=== PATIENT | female | born 1960 ===

== ENCOUNTER 2020-10-23 18:32 | Emergency (ER) | payer MEDICAID, SELFPAY ==
--- NOTE | 2020-10-23 | ECG_ITS ---
Test Reason : CP Blood Pressure : / mmHG Vent. Rate : 085 BPM Atrial Rate : 085 BPM P-R Int : 150 ms QRS Dur : 070 ms QT Int : 362 ms P-R-T Axes : 065 029 059 degrees QTc Int : 430 ms Normal sinus rhythm Normal ECG When compared with ECG of 16-MAY-2019 12:41, No significant change was found Referred By: Generic ED Physician Electronically Signed By:RISHI MENEZES
--- NOTE | ~2020-10-23 | XR_ITS ---
EXAMINATION: XR CHEST CLINICAL INFORMATION: Chest pain. COMPARISON: 02/06/2019 TECHNIQUE: Frontal view of the chest was obtained. FINDINGS: The heart and pulmonary vessels appear normal. There is a new area of patchy infiltrate present at the left lung base in the retrocardiac region. No pleural effusions are seen. No evidence of CHF. XR/XR chest 1V IMPRESSION: New left lower lobe infiltrate.
[2020-10-23 18:41] VITALS: BP 106/82; BP 120/67; PULSE 85; PULSE 92; RESP 16; TEMP 36.8; O2SAT 97; BMI 25.9
[2020-10-23 19:34] LABS: MANUAL DIFF FLAG NO
[2020-10-23 19:36] LABS: Basophils Percent Auto 0.3 % (0-2); Eosinophils Absolute Auto 0.1 X10*3/uL (0.0-0.4); Hematocrit 36.5 % (37-47); Hemoglobin 11.5 g/dl (12.0-16.0); Imm Gran Abs Auto 0.01 X10*3/uL (0.00-0.03); Imm Gran Pct Auto 0.2 % (0.0-0.4); Lymphocytes Absolute Auto 2.1 X10*3/uL (1.2-4.9); Lymphocytes Percent Auto 31.5 % (20-40); Mean Corpuscular HGB Conc 31.5 g/dl (31.0-35.0); Mean Corpuscular Hemoglobin 28.5 pg (27.0-33.0); Mean Corpuscular Volume 90.3 fL (80-98); Mean Platelet Volume 10.3 fL (9.4-12.3); Monocytes Absolute Auto 0.5 X10*3/uL (0.1-1.2); Monocytes Percent Auto 7.5 % (2-11); Neutrophils Absolute Auto 3.8 X10*3/uL (2.0-8.3); Neutrophils Percent Auto 58.5 % (45-73); Platelet Count 178 X10*3/uL (160-400); Red Blood Count 4.04 X10*6/uL (4.20-5.50); Red Cell Distribution Width 13.2 % (11.0-16.0); White Blood Count 6.5 X10*3/uL (4.8-10.8)
[2020-10-23 19:53] LABS: INTERNATIONAL NORM RATIO 1.1 (0.9-1.1); Prothrombin Time 12.5 SEC (10.8-13.0)
[2020-10-23 19:55] LABS: Partial Thromboplastin Time 32.4 SEC (24.1-38.0)
[2020-10-23 20:00] VITALS: BP 126/90; PULSE 77; RESP 20; O2SAT 100
[2020-10-23 20:03] LABS: Troponin-I High Sensitivity < 3.5 ng/L (<3.5-17.0)
[2020-10-23 20:07] LABS: Alanine Aminotransferase 9 U/L (0-31); Albumin Level 3.9 g/dL (3.5-5.0); Alkaline Phosphatase 62 U/L (39-117); Anion Gap 9 (12-20); Aspartate Amino Transferase 15 U/L (5-31); Bilirubin Total 0.5 mg/dL (0.0-1.0); Blood Urea Nitrogen 13 mg/dL (9-16); Calcium 8.8 mg/dL (8.4-10.2); Carbon Dioxide 32 mmol/L (22-29); Chloride 105 mmol/L (96-108); Creatinine Clr Calc Pharmacy 76.6; Estimated Glomerular Filt Rate > 60; Glucose Random 114 mg/dL (60-115); Potassium 4.4 mmol/L (3.3-5.1); Sodium 142 mmol/L (135-145); Total Protein 6.8 g/dL (6.5-8.0)
[2020-10-23 20:11] VITALS: PULSE 77
[2020-10-23 20:15] LABS: Influenza A PCR NEGATIVE (Negative); Influenza B PCR NEGATIVE (Negative); Resp Syncy Virus RNA Qual PCR NEGATIVE (Negative); SARS COV2 PCR INHOUSE POSITIVE (Negative)
--- NOTE | 2020-10-23 20:34 | ED.CHESTPAIN ---
HPI - Chest Pain General Chief Complaint: Chest Pain Stated Complaint: CHEST PAIN Time Seen by Provider: 10/23/20 18:47 Source: EMS Mode of arrival: EMS Limitations: language barrier (contract loader present for all interactions) History of Present Illness HPI narrative: Pleasant 60-year-old female presenting via EMS from home with history that is significant for bipolar disorder, diabetes, migraine headaches, gastroesophageal reflux disease, hypertension, anxiety, UTI and denies any cardiac history presenting with complaint of left-sided chest wall pain which radiates left arm and worsen with movement of the left arm and palpitation of the left-sided chest. States has had increase in ADLs and more active unsure if this is related. She was given 324 aspirin and 0.4 mg sublingual nitro by EMS without affect. She otherwise denies any recent illness, headache, dizziness, shortness of breath, cough, lower extremity swelling, recent travel or sick contacts. MD complaint: chest pain Onset (ago): day(s) (1) Timing of current episode: episodic and still present Prior episodes: Yes Onset: other (With movement of the left arm and pelvis initially chest) Pain location: left chest Pain radiation: left arm Severity: moderate Quality: aching Relieving factors: remaining still Exacerbating factors: palpation and movement Treatment prior to arrival: aspirin and nitroglycerin Risk Factors Coronary artery disease risk factors: none Thoracic aortic dissection risk factors: none Related Data On Oral Contraceptives: No Previous Rx's Medication Instructions Recorded doxycycline monohydrate 100 mg PO BID 10 Days #20 cap 10/23/20 Allergies Allergy/AdvReac Type Severity Reaction Status Date / Time naproxen [NAPROXEN] Allergy Severe UNKNOWN Verified 10/23/20 18:46 Review of Systems Review of Systems: Constitutional: No Weight loss, No Fever, No Chills, No Night Sweats, No Fatigue, No Malaise ENT/Mouth: No Hearing loss, No Ear Pain, No Nasal Congestion, No Sinus Pain, No Hoarseness, No sore throat, No Rhinorrhea, No Swallowing Difficulty Eyes: No Eye Pain, No Swelling, No Redness, No Foreign Body, No Discharge, No Vision Changes Cardiovascular:+ Chest Pain as noted per HPI, No SOB, No Dyspnea on Exertion, No Orthopnea, No Edema, No Palpitations Respiratory: No Cough, No Sputum, No Wheezing, No Smoke Exposure, No Dyspnea Gastrointestinal: No Nausea, No Vomiting, No Diarrhea, No Constipation, No abdominal Pain, No Hematochezia, No Melena Genitourinary: No Dysuria, No Urinary Frequency, No Hematuria, No Urinary Incontinence, No Urgency, No Flank Pain, No Urinary Flow Changes, No Hesitancy Musculoskeletal: No joint pain, No Myalgias, No Joint Swelling Skin: No Skin Lesions, No rash Neuro: No Weakness, No Numbness, No Paresthesias, No Loss of Consciousness, No Dizziness, No Headache Psych: No Social Issues Heme/Lymph: No Bruising, No Bleeding,No Lymphadenopathy Endocrine: No Polyuria, No Polydipsia, No Temperature Intolerance Yes all other systems are reviewed and are negative [facility] Past Medical History Medical History Anxiety Diabetes High cholesterol HTN (hypertension) Surgical History History of hernia surgery Social History Social History Alcohol intake: unknown Smoking Status: Unknown if ever smoked Use of substances other than those prescribed or required for medical reasons: No Advance Directives: No Advance Directives Information Provided: No Physical Exam Vital Signs: Vital Signs: Last Vital Signs Temp 98.2 F 10/23/20 18:41 Pulse 77 10/23/20 20:00 Resp 20 10/23/20 20:00 BP 126/90 H 10/23/20 20:00 Pulse Ox 100 10/23/20 20:00 Body Mass Index 25.9 Reviewed Const: General: cooperative and healthy appearing; No acute distress or intoxicated appearing Nutritional Appearance: average body habitus Orientation/consciousness: patient oriented x3 HENMT: Head: Yes normal to inspection Ears: hearing grossly normal bilaterally Eyes: General: appearance normal, both eyes and all related structures Visual Ying: normal visual ying by confrontation Neck: Neck: Yes normal visual inspection, No positive Brudzinski's sign, No positive Kernig's sign and No tender Thyroid: Thyroid normal Chest: Chest palpation & inspection: normal inspection of the chest and tenderness (left side ) pectoral muscle and costochondral junction Resp: Effort & Inspection: normal respiratory effort Auscultation: clear to auscultation bilaterally Cardio: Jugular venous distension: no JVD Rhythm: regular rhythm Heart sounds: S1 normal heart sound present and S2 normal heart sound present GI: Inspection: Yes normal to inspection Palpation (GI): Soft to palpation Percussion: Yes normal to percussion Auscultation: normal bowel sounds : General: Yes no CVA tenderness Back/Spine/Pelvis: Back: no CVA tenderness Skin: General skin exam: no rashes or lesions noted Neuro: General: patient oriented x3 Extrem: General: Yes normal to inspection Psych: Appearance: well kempt Course Course Course Narrative: AP consistent with left-sided chest pain musculoskeletal in etiology. Given her history will check labs including chest x-ray, EKG. Nondiagnostic rhythm for EMS upon arrival she is 100% on room air, heart rate 85 and afebrile. No findings to suggest acute pulmonary embolism. Wells negative. HEART Score 3. Reevaluation(s) Reevaluation #1: Labs overall stable, chest x-ray without acute disease, EKG nondiagnostic. Troponin negative. COVID positive however she does not have any upper respiratory symptoms to suggest acute disease. She has not had recent travel or known sick contacts. She is ambulatory with steady straight gait with 100% on room air. She does not become short of breath. Will discharge home with supportive care/return precautions. MDM - Chest Pain Differential Diagnosis Differential diagnosis: Likely atypical chest pain, costochondritis and chest pain; Unlikely fracture of rib, pneumothorax, stable angina, unstable angina pectoris, st elevation myocardial infarction and biliary colic Medical Records Data Attestation: I reviewed the patient's medical records. Lab Data Attestation: I reviewed the patient's lab results. Result diagrams: 10/23/20 19:28 10/23/20 19:28 Labs: Lab Results 10/23/20 10/23/20 10/23/20 Range/Units 19:28 19:28 19:28 WBC 6.5 (4.8-10.8) X10*3/uL RBC 4.04 L (4.20-5.50) X10*6/uL Hgb 11.5 L (12.0-16.0) g/dl Hct 36.5 L (37-47) % MCV 90.3 (80-98) fL MCH 28.5 (27.0-33.0) pg MCHC 31.5 (31.0-35.0) g/dl RDW 13.2 (11.0-16.0) % Plt Count 178 (160-400) X10*3/uL MPV 10.3 (9.4-12.3) fL Immature Gran % (Auto) 0.2 (0.0-0.4) % Neut % (Auto) 58.5 (45-73) % Lymph % (Auto) 31.5 (20-40) % [place] % (Auto) 7.5 (2-11) % Eos % (Auto) 2.0 (0-4) % Baso % (Auto) 0.3 (0-2) % Lymph # (Auto) 2.1 (1.2-4.9) X10*3/uL [place] # (Auto) 0.5 (0.1-1.2) X10*3/uL Eos # (Auto) 0.1 (0.0-0.4) X10*3/uL Baso # (Auto) 0.0 (0.0-0.2) X10*3/uL Abs Immat Gran (auto) 0.01 (0.00-0.03) X10*3/uL Absolute Neuts (auto) 3.8 (2.0-8.3) X10*3/uL Absolute Nucleated RBC 0.000 (0.0-0.012) X10*3/uL Nucleated RBC % (auto) 0.0 (0.0-0.2) /100WBC PT 12.5 (10.8-13.0) SEC INR 1.1 (0.9-1.1) APTT 32.4 (24.1-38.0) SEC Sodium (135-145) mmol/L Potassium (3.3-5.1) mmol/L Chloride (96-108) mmol/L Carbon Dioxide (22-29) mmol/L Anion Gap (12-20) BUN (9-16) mg/dL Creatinine (0.5-1.4) mg/dL Estim Creat Clear Calc Estimated GFR Random Glucose (60-115) mg/dL Calcium (8.4-10.2) mg/dL Total Bilirubin (0.0-1.0) mg/dL AST (5-31) U/L ALT (0-31) U/L Alkaline Phosphatase (39-117) U/L Troponin I High Sens (<3.5-17.0) ng/L Total Protein (6.5-8.0) g/dL Albumin (3.5-5.0) g/dL Coronavirus (PCR) POSITIVE A (Negative) Influenza Type A (PCR) NEGATIVE (Negative) Influenza Type B (PCR) NEGATIVE (Negative) RSV RNA Qual (PCR) NEGATIVE (Negative) 10/23/20 10/23/20 Range/Units 19:28 19:28 WBC (4.8-10.8) X10*3/uL RBC (4.20-5.50) X10*6/uL Hgb (12.0-16.0) g/dl Hct (37-47) % MCV (80-98) fL MCH (27.0-33.0) pg MCHC (31.0-35.0) g/dl RDW (11.0-16.0) % Plt Count (160-400) X10*3/uL MPV (9.4-12.3) fL Immature Gran % (Auto) (0.0-0.4) % Neut % (Auto) (45-73) % Lymph % (Auto) (20-40) % [place] % (Auto) (2-11) % Eos % (Auto) (0-4) % Baso % (Auto) (0-2) % Lymph # (Auto) (1.2-4.9) X10*3/uL [place] # (Auto) (0.1-1.2) X10*3/uL Eos # (Auto) (0.0-0.4) X10*3/uL Baso # (Auto) (0.0-0.2) X10*3/uL Abs Immat Gran (auto) (0.00-0.03) X10*3/uL Absolute Neuts (auto) (2.0-8.3) X10*3/uL Absolute Nucleated RBC (0.0-0.012) X10*3/uL Nucleated RBC % (auto) (0.0-0.2) /100WBC PT (10.8-13.0) SEC INR (0.9-1.1) APTT (24.1-38.0) SEC Sodium 142 (135-145) mmol/L Potassium 4.4 (3.3-5.1) mmol/L Chloride 105 (96-108) mmol/L Carbon Dioxide 32 H (22-29) mmol/L Anion Gap 9 L (12-20) BUN 13 (9-16) mg/dL Creatinine 0.79 (0.5-1.4) mg/dL Estim Creat Clear Calc 76.6 Estimated GFR > 60 Random Glucose 114 (60-115) mg/dL Calcium 8.8 (8.4-10.2) mg/dL Total Bilirubin 0.5 (0.0-1.0) mg/dL AST 15 (5-31) U/L ALT 9 (0-31) U/L Alkaline Phosphatase 62 (39-117) U/L Troponin I High Sens < 3.5 (<3.5-17.0) ng/L Total Protein 6.8 (6.5-8.0) g/dL Albumin 3.9 (3.5-5.0) g/dL Coronavirus (PCR) (Negative) Influenza Type A (PCR) (Negative) Influenza Type B (PCR) (Negative) RSV RNA Qual (PCR) (Negative) Imaging Data Chest x-ray: Radiologist's impression: [address] [id number] ReportSigned Patient: Nunu Segal IMR#: [id number]: [id number]/Sex: 60 / FADM Date: 10/23/20Loc: EDAttending Dr: Ordering Physician: Wei Higgins NP Date of Service: 10/23/20 Procedure(s): XR chest 1V Accession Number(s): [id number] cc: Wei Higgins [employer]PPORT FITTER~ EXAMINATION: XR CHEST CLINICAL INFORMATION: Chest pain. COMPARISON: 02/06/2019 TECHNIQUE: Frontal view of the chest was obtained. FINDINGS: The heart and pulmonary vessels appear normal. There is a new area of patchy infiltrate present at the left lung base in the retrocardiac region. No pleural effusions are seen. No evidence of CHF. XR/XR chest 1V IMPRESSION: New left lower lobe infiltrate. Dictated By:VALENTINO SANDERS MDSigned By:<Electronically signed by VALENTINO SANDERS MD in OV>10/23/201914 DD/ 49TD/TT: Steam Bone Press Tender: KEILY ECG Data ECG #1: Interpretation: Normal sinus rhythm rate 85 Normal ECG When compared with ECG of 16-MAY-2019 12:41, No significant change was found Discharge Plan Discharge Clinical Impression: Atypical chest pain, COVID-19 Patient Disposition: Home, Self-Care Instructions: COVID-19 (Coronavirus Disease 2019) (ED) Additional Instructions: Drink plenty of fluids Taking medication prescribed Self-isolation/social distancing Return if any concerns or worsening symptoms otherwise follow-up instruction Thank you Prescriptions: New doxycycline monohydrate 100 mg capsule 100 mg PO BID 10 Days Qty: 20 RF: 0 Referrals: [facility] [Primary Care Provider] - 10 days (Phone visit) Interventions: ED Discharge Assessment Last Done: 10/23/20 21:17 Discharge Date/Time: 10/23/20 21:51
== END 2020-10-23 21:51 | disposition home or self-care (01) ==
PROVIDERS: Nurse Practitioner Primary Care; Emergency Provider Emergency Medicine
DX: U07.1 COVID-19 (principal); R07.89 Other chest pain; E11.9 Type 2 diabetes mellitus without complications; I10 Essential (primary) hypertension; F41.9 Anxiety disorder, unspecified; K21.9 Gastro-esophageal reflux disease without esophagitis; Z87.440 Personal history of urinary (tract) infections
CPT/HCPCS: 0241U; 36415; 71045; 80053; 84484; 85025; 85610; 85730; 93005; 99283; 99285

== ENCOUNTER 2021-03-08 20:35 | Emergency (ER) | payer MEDICAID, SELFPAY ==
--- NOTE | 2021-03-08 | ECG_ITS ---
Test Reason : CHEST PAIN Blood Pressure : / mmHG Vent. Rate : 074 BPM Atrial Rate : 074 BPM P-R Int : 134 ms QRS Dur : 074 ms QT Int : 412 ms P-R-T Axes : 060 008 054 degrees QTc Int : 457 ms Normal sinus rhythm Normal ECG When compared with ECG of 23-OCT-2020 18:45, No significant change was found Referred By: Adan Shanks Electronically Signed By:Celestine Alejo
--- NOTE | 2021-03-08 20:38 | ED.CHESTPAIN ---
HPI - Chest Pain General Chief Complaint: Chest Pain Stated Complaint: chest pain Time Seen by Provider: 03/08/21 20:38 Source: patient Mode of arrival: EMS Limitations: no limitations History of Present Illness HPI narrative: Patient with history of anxiety ran out of her Klonopin 3 days ago complaining of chest pain for last 2 days which is happen in the past with anxiety. Denies any shortness of breath no cough no radiation of pain Related Data Previous Rx's Medication Instructions Recorded doxycycline monohydrate 100 mg PO BID 10 Days #20 cap 10/23/20 clonazepam [Klonopin] 0.5 mg PO BEDTIME PRN #14 tab 03/08/21 Allergies Allergy/AdvReac Type Severity Reaction Status Date / Time naproxen [NAPROXEN] Allergy Severe UNKNOWN Verified 10/23/20 18:46 acetaminophen [From Tylenol] Allergy Unknown Verified 03/08/21 20:48 ibuprofen Allergy Unknown Verified 03/08/21 20:49 Review of Systems Review of Systems: Yes all other systems are reviewed and are negative [facility] Past Medical History Medical History Anxiety Diabetes High cholesterol HTN (hypertension) Surgical History History of hernia surgery Social History Social History Alcohol intake: unknown Advance Directives: No Advance Directives Information Provided: Yes Physical Exam Vital Signs: Vital Signs: Last Vital Signs Temp 98.2 F 03/08/21 20:42 Pulse 77 03/08/21 20:42 Resp 18 03/08/21 20:42 BP 158/91 H 03/08/21 20:42 Pulse Ox 97 03/08/21 20:42 Body Mass Index 26.2 Appearance: Alert. Oriented X3. No acute distress. Eyes: PERRLA, No Nystagmus ENT: Pharynx normal. Oral Mucosa moist Neck: Normal inspection. Neck supple. CVS: Normal heart rate and rhythm. Pulses normal. Respiratory: No respiratory distress. Equal air entry bilateral, no wheezing/rales/rhonchi Abdomen: Soft and nontender. Bowel sounds are present, Skin: Skin warm and dry. Normal skin color. Normal skin turgor. Extremities: No lower extremity edema. No calf tenderness Neuro: Oriented X 3. No motor deficit. MDM - Chest Pain MDM Narrative Medical decision making narrative: Patient has atypical chest pain with increased anxiety EKG normal normal troponin discharge patient home on [facility] Lab Data Attestation: I reviewed the patient's lab results. Result diagrams: 03/08/21 21:42 03/08/21 21:42 Labs: Lab Results 03/08/21 03/08/21 03/08/21 Range/Units 21:42 21:42 21:42 WBC 9.0 (4.8-10.8) X10*3/uL RBC 4.42 (4.20-5.50) X10*6/uL Hgb 12.5 (12.0-16.0) g/dl Hct 38.6 (37-47) % MCV 87.3 (80-98) fL MCH 28.3 (27.0-33.0) pg MCHC 32.4 (31.0-35.0) g/dl RDW 13.2 (11.0-16.0) % Plt Count 257 D (160-400) X10*3/uL MPV 10.5 (9.4-12.3) fL Immature Gran % (Auto) 0.2 (0.0-0.4) % Neut % (Auto) 75.7 H (45-73) % Lymph % (Auto) 18.2 L (20-40) % [place] % (Auto) 5.6 (2-11) % Eos % (Auto) 0.1 (0-4) % Baso % (Auto) 0.2 (0-2) % Lymph # (Auto) 1.6 (1.2-4.9) X10*3/uL [place] # (Auto) 0.5 (0.1-1.2) X10*3/uL Eos # (Auto) 0.0 (0.0-0.4) X10*3/uL Baso # (Auto) 0.0 (0.0-0.2) X10*3/uL Abs Immat Gran (auto) 0.02 (0.00-0.03) X10*3/uL Absolute Neuts (auto) 6.8 (2.0-8.3) X10*3/uL Absolute Nucleated RBC 0.000 (0.0-0.012) X10*3/uL Nucleated RBC % (auto) 0.0 (0.0-0.2) /100WBC Sodium 141 (135-145) mmol/L Potassium 4.2 (3.3-5.1) mmol/L Chloride 105 (96-108) mmol/L Carbon Dioxide 26 (22-29) mmol/L Anion Gap 14 (12-20) BUN 10 (9-16) mg/dL Creatinine 0.84 (0.5-1.4) mg/dL Estim Creat Clear Calc 72.4 Estimated GFR > 60 Random Glucose 129 H (60-115) mg/dL Calcium 9.7 D (8.4-10.2) mg/dL Troponin I High Sens < 3.5 (<3.5-17.0) ng/L ECG Data ECG #1: Attestation: I personally reviewed and interpreted this ECG as follows: Interpretation: Normal sinus rhythm heart rate 74 beats per minute normal intervals normal axis no acute ischemic changes Discharge Plan Discharge Clinical Impression: Atypical chest pain, Anxiety Patient Disposition: Home, Self-Care Instructions: Anxiety (ED) Additional Instructions: Rest at home take medication for anxiety as advised Follow-up with your PCP Prescriptions: New clonazepam [Klonopin] 0.5 mg tablet 0.5 mg PO BEDTIME PRN (Reason: anxiety) Qty: 14 RF: 0 No Action doxycycline monohydrate 100 mg capsule 100 mg PO BID 10 Days Qty: 20 RF: 0
[2021-03-08 20:42] VITALS: BP 140/82; BP 158/91; PULSE 77; PULSE 80; RESP 18; TEMP 36.8; O2SAT 97; O2SAT 98; BMI 26.2
[2021-03-08] MEDS: clonazePAM 0.5 MG TABLET PO (21:27)
[2021-03-08 21:47] LABS: MANUAL DIFF FLAG NO
[2021-03-08 21:48] LABS: Basophils Percent Auto 0.2 % (0-2); Eosinophils Percent Auto 0.1 % (0-4); Hematocrit 38.6 % (37-47); Hemoglobin 12.5 g/dl (12.0-16.0); Imm Gran Abs Auto 0.02 X10*3/uL (0.00-0.03); Imm Gran Pct Auto 0.2 % (0.0-0.4); Lymphocytes Absolute Auto 1.6 X10*3/uL (1.2-4.9); Lymphocytes Percent Auto 18.2 % (20-40); Mean Corpuscular HGB Conc 32.4 g/dl (31.0-35.0); Mean Corpuscular Hemoglobin 28.3 pg (27.0-33.0); Mean Corpuscular Volume 87.3 fL (80-98); Mean Platelet Volume 10.5 fL (9.4-12.3); Monocytes Absolute Auto 0.5 X10*3/uL (0.1-1.2); Monocytes Percent Auto 5.6 % (2-11); Neutrophils Absolute Auto 6.8 X10*3/uL (2.0-8.3); Neutrophils Percent Auto 75.7 % (45-73); Platelet Count 257 X10*3/uL (160-400); Red Blood Count 4.42 X10*6/uL (4.20-5.50); Red Cell Distribution Width 13.2 % (11.0-16.0)
[2021-03-08 22:14] LABS: Troponin-I High Sensitivity < 3.5 ng/L (<3.5-17.0)
[2021-03-08 22:19] LABS: Anion Gap 14 (12-20); Blood Urea Nitrogen 10 mg/dL (9-16); Calcium 9.7 mg/dL (8.4-10.2); Carbon Dioxide 26 mmol/L (22-29); Chloride 105 mmol/L (96-108); Creatinine Clr Calc Pharmacy 72.4; Estimated Glomerular Filt Rate > 60; Glucose Random 129 mg/dL (60-115); Potassium 4.2 mmol/L (3.3-5.1); Sodium 141 mmol/L (135-145)
[2021-03-08 23:25] VITALS: BP 143/76; PULSE 75; RESP 16; O2SAT 98
== END 2021-03-08 23:27 | disposition home or self-care (01) ==
PROVIDERS: Emergency Provider Internal Medicine; PCP Internal Medicine
DX: R07.89 Other chest pain (principal); F41.9 Anxiety disorder, unspecified; E11.9 Type 2 diabetes mellitus without complications; I10 Essential (primary) hypertension
CPT/HCPCS: 36415; 80048; 84484; 85025; 93005; 99284

== ENCOUNTER 2021-05-06 16:52 | Emergency (ER) | payer MEDICAID, SELFPAY ==
[2021-05-06 21:57] VITALS: BP 147/97; PULSE 102; RESP 16; TEMP 36.6; O2SAT 98; BMI 28.3
[2021-05-06 22:42] LABS: Basophils Percent Auto 0.3 % (0-2); Eosinophils Absolute Auto 0.1 X10*3/uL (0.0-0.4); Eosinophils Percent Auto 0.7 % (0-4); Hematocrit 38.7 % (37-47); Hemoglobin 12.5 g/dl (12.0-16.0); Imm Gran Abs Auto 0.03 X10*3/uL (0.00-0.03); Imm Gran Pct Auto 0.3 % (0.0-0.4); Lymphocytes Absolute Auto 1.7 X10*3/uL (1.2-4.9); MANUAL DIFF FLAG NO; Mean Corpuscular HGB Conc 32.3 g/dl (31.0-35.0); Mean Corpuscular Hemoglobin 28.7 pg (27.0-33.0); Mean Corpuscular Volume 88.8 fL (80-98); Mean Platelet Volume 10.6 fL (9.4-12.3); Monocytes Absolute Auto 0.8 X10*3/uL (0.1-1.2); Neutrophils Absolute Auto 7.2 X10*3/uL (2.0-8.3); Neutrophils Percent Auto 73.7 % (45-73); Platelet Count 236 X10*3/uL (160-400); Red Blood Count 4.36 X10*6/uL (4.20-5.50); Red Cell Distribution Width 13.7 % (11.0-16.0); White Blood Count 9.8 X10*3/uL (4.8-10.8)
--- NOTE | 2021-05-06 22:46 | ED_ITS ---
HPI - Female Genitourinary General Chief complaint: Urogenital-Female Stated complaint: abd pain Time Seen by Provider: 05/06/21 17:11 Source: patient Mode of arrival: ambulatory Limitations: no limitations History of Present Illness HPI Narrative: 61 yo female presented c/o dysuria ,frequency MD elicited complaint: dysuria Onset (ago): day(s) (2) Severity: moderate Female Urogenital Radiation: Non-Radiating Quality of pain: dull Consistency: constant Related Data Previous Rx's Medication Instructions Recorded doxycycline monohydrate 100 mg 100 mg PO BID 10 Days #20 cap 10/23/20 capsule clonazepam 0.5 mg tablet (Klonopin) 0.5 mg PO BEDTIME PRN #14 tab 03/08/21 cephalexin 500 mg capsule 500 mg PO Q8H #21 cap 05/06/21 Allergies Allergy/AdvReac Type Severity Reaction Status Date / Time naproxen [NAPROXEN] Allergy Severe UNKNOWN Verified 10/23/20 18:46 acetaminophen [From Tylenol] Allergy Unknown Verified 03/08/21 20:48 ibuprofen Allergy Unknown Verified 03/08/21 20:49 Review of Systems Review of Systems: Yes all other systems are reviewed and are negative Constitutional: Constitutional: Reports no additional constitutional complaints Cardiovascular: Cardiovascular: Reports no additional cardiovascular complaints, Denies chest pain, Denies chest pain at rest and Denies chest pain with activity Respiratory: Respiratory: Reports no additional respiratory complaints Gastrointestinal: Gastrointestinal: Denies vomiting and Denies hematemesis Neurologic: Reports system reviewed and no additional complaints, except as documented PMF Past Medical History Medical History Anxiety Diabetes High cholesterol HTN (hypertension) Surgical History History of hernia surgery Social History Social History Alcohol intake: unknown Advance Directives: No Advance Directives Information Provided: Yes Physical Exam Vital Signs: Vital Signs: Last Vital Signs Temp 98 F 05/06/21 21:57 Pulse 102 H 05/06/21 21:57 Resp 16 05/06/21 21:57 BP 147/97 H 05/06/21 21:57 Pulse Ox 98 05/06/21 21:57 Body Mass Index 28.3 Const: General: cooperative and anxious Orientation/consciousness: oriented to person, oriented to place, oriented to time and patient oriented x3 HENMT: Head: Yes normal to inspection Face and sinus: Yes normal facial exam Mouth: Normal oral and palatal mucosa present Teeth and gingiva: dentition normal Neck: Neck: Yes normal visual inspection, Yes full ROM and Yes no lymphadenopathy Chest: Chest palpation & inspection: normal inspection of the chest Resp: Effort & Inspection: normal respiratory effort Percussion: percussion normal GI: Inspection: Yes normal to inspection Palpation (GI): Soft to palpation, not firm and nontender Auscultation: normal bowel sounds Skin: General skin exam: no rashes or lesions noted, elasticity normal and tur gor normal Rashes: no rashes Neuro: General: oriented to person, oriented to place, oriented to time and patient oriented x3 Cranial nerves: Yes CN's II-XII intact bilaterally C ognition (Neuro): normal cognition Course Reevaluation(s) Reevaluation #1: UA c/w UTI,wbc wnl ,will d/c pt home on po Keflex MDM - Female Genitourinary Lab Data Result diagrams: 05/06/21 22:31 05/06/21 22:31 Labs: Lab Results 05/06/21 05/06/21 05/06/21 Range/Units 22:31 22:31 22:31 WBC 9.8 (4.8-10.8) X10*3/uL RBC 4.36 (4.20-5.50) X10*6/uL Hgb 12.5 (12.0-16.0) g/dl Hct 38.7 (37-47) % MCV 88.8 (80-98) fL MCH 28.7 (27.0-33.0) pg MCHC 32.3 (31.0-35.0) g/dl RDW 13.7 (11.0-16.0) % Plt Count 236 (160-400) X10*3/uL MPV 10.6 (9.4-12.3) fL Immature Gran % (Auto) 0.3 (0.0-0.4) % Neut % (Auto) 73.7 H (45-73) % Lymph % (Auto) 17.0 L (20-40) % [place] % (Auto) 8.0 (2-11) % Eos % (Auto) 0.7 (0-4) % Baso % (Auto) 0.3 (0-2) % Lymph # (Auto) 1.7 (1.2-4.9) X10*3/uL [place] # (Auto) 0.8 (0.1-1.2) X10*3/uL Eos # (Auto) 0.1 (0.0-0.4) X10*3/uL Baso # (Auto) 0.0 (0.0-0.2) X10*3/uL Abs Immat Gran (auto) 0.03 (0.00-0.03) X10*3/uL Absolute Neuts (auto) 7.2 (2.0-8.3) X10*3/uL Absolute Nucleated RBC 0.000 (0.0-0.012) X10*3/uL Nucleated RBC % (auto) 0.0 (0.0-0.2) /100WBC Hold Purple Top SEE NOTE PT 12.9 (9.9-13.0) SEC INR 1.1 (0.9-1.1) Sodium (135-145) mmol/L Potassium (3.3-5.1) mmol/L Chloride (96-108) mmol/L Carbon Dioxide (22-29) mmol/L Anion Gap (12-20) BUN (9-16) mg/dL Creatinine (0.5-1.4) mg/dL Estim Creat Clear Calc Estimated GFR Random Glucose (60-115) mg/dL Calcium (8.4-10.2) mg/dL Magnesium (1.6-2.6) mg/dL Total Bilirubin (0.0-1.0) mg/dL AST (5-31) U/L ALT (0-31) U/L Alkaline Phosphatase (39-117) U/L Total Protein (6.5-8.0) g/dL Albumin (3.5-5.0) g/dL Lipase (8-78) U/L Urine Color Urine Appearance Urine pH (5.0-8.0) Ur Specific [place] (1.005-1.025) Urine Protein (NEG-TRACE) MG/DL Urine Glucose (UA) (NEG) MG/DL Urine Ketones (NEG) MG/DL Urine Blood (NEG) Urine Nitrite (NEG) Ur Leukocyte Esterase (NEG) Urine RBC (0) /HPF Urine WBC (0-4) /HPF Ur Squamous Epith Cells /LPF Urine Bacteria /LPF 05/06/21 05/06/21 Range/Units 22:31 22:48 WBC (4.8-10.8) X10*3/uL RBC (4.20-5.50) X10*6/uL Hgb (12.0-16.0) g/dl Hct (37-47) % MCV (80-98) fL MCH (27.0-33.0) pg MCHC (31.0-35.0) g/dl RDW (11.0-16.0) % Plt Count (160-400) X10*3/uL MPV (9.4-12.3) fL Immature Gran % (Auto) (0.0-0.4) % Neut % (Auto) (45-73) % Lymph % (Auto) (20-40) % [place] % (Auto) (2-11) % Eos % (Auto) (0-4) % Baso % (Auto) (0-2) % Lymph # (Auto) (1.2-4.9) X10*3/uL [place] # (Auto) (0.1-1.2) X10*3/uL Eos # (Auto) (0.0-0.4) X10*3/uL Baso # (Auto) (0.0-0.2) X10*3/uL Abs Immat Gran (auto) (0.00-0.03) X10*3/uL Absolute Neuts (auto) (2.0-8.3) X10*3/uL Absolute Nucleated RBC (0.0-0.012) X10*3/uL Nucleated RBC % (auto) (0.0-0.2) /100WBC Hold Purple Top PT (9.9-13.0) SEC INR (0.9-1.1) Sodium 140 (135-145) mmol/L Potassium 4.4 (3.3-5.1) mmol/L Chloride 102 (96-108) mmol/L Carbon Dioxide 29 (22-29) mmol/L Anion Gap 13 (12-20) BUN 10 (9-16) mg/dL Creatinine 0.84 (0.5-1.4) mg/dL Estim Creat Clear Calc 63.6 Estimated GFR > 60 Random Glucose 121 H (60-115) mg/dL Calcium 9.9 (8.4-10.2) mg/dL Magnesium 2.1 (1.6-2.6) mg/dL Total Bilirubin 0.8 (0.0-1.0) mg/dL AST 18 (5-31) U/L ALT 14 (0-31) U/L Alkaline Phosphatase 80 D (39-117) U/L Total Protein 7.9 (6.5-8.0) g/dL Albumin 4.4 (3.5-5.0) g/dL Lipase 4 L (8-78) U/L Urine Color YELLOW Urine Appearance CLOUDY Urine pH 6.5 (5.0-8.0) Ur Specific [place] 1.020 (1.005-1.025) Urine Protein 1+ H (NEG-TRACE) MG/DL Urine Glucose (UA) NEG (NEG) MG/DL Urine Ketones 40 (NEG) MG/DL Urine Blood 1+ H (NEG) Urine Nitrite NEG (NEG) Ur Leukocyte Esterase 3+ H (NEG) Urine RBC 0-2 (0) /HPF Urine WBC 76-150 H (0-4) /HPF Ur Squamous Epith Cells TRACE /LPF Urine Bacteria TRACE /LPF Discharge Plan Discharge Clinical Impression: Urinary tract infection Patient Disposition: Home, Self-Care Instructions: Urinary Tract Infection in Women (ED) Prescriptions: New cephalexin 500 mg capsule 500 mg PO Q8H Qty: 21 RF: 0 No Action doxycycline monohydrate 100 mg capsule 100 mg PO BID 10 Days Qty: 20 RF: 0 clonazepam [Klonopin] 0.5 mg tablet 0.5 mg PO BEDTIME PRN (Reason: anxiety) Qty: 14 RF: 0
[2021-05-06 22:53] LABS: INTERNATIONAL NORM RATIO 1.1 (0.9-1.1); Prothrombin Time 12.9 SEC (9.9-13.0)
[2021-05-06 22:55] LABS: Appearance Urine CLOUDY; Color Urine YELLOW; Glucose Urine UA NEG (NEG); Leukocyte Esterase Urine 3+ (NEG); Nitrite Urine NEG (NEG); PH 6.5 (5.0-8.0); UACC Culture Trigger YES; Urine Blood 1+ (NEG); Urine Ketones 40 MG/DL (NEG); Urine Protein 1+ MG/DL (NEG-TRACE)
[2021-05-06 22:58] LABS: Alanine Aminotransferase 14 U/L (0-31); Albumin Level 4.4 g/dL (3.5-5.0); Alkaline Phosphatase 80 U/L (39-117); Anion Gap 13 (12-20); Aspartate Amino Transferase 18 U/L (5-31); Bilirubin Total 0.8 mg/dL (0.0-1.0); Blood Urea Nitrogen 10 mg/dL (9-16); Calcium 9.9 mg/dL (8.4-10.2); Carbon Dioxide 29 mmol/L (22-29); Chloride 102 mmol/L (96-108); Creatinine Clr Calc Pharmacy 63.6; Estimated Glomerular Filt Rate > 60; Glucose Random 121 mg/dL (60-115); Lipase 4 U/L (8-78); Magnesium 2.1 mg/dL (1.6-2.6); Potassium 4.4 mmol/L (3.3-5.1); Sodium 140 mmol/L (135-145); Total Protein 7.9 g/dL (6.5-8.0)
[2021-05-06 23:03] LABS: Bacteria Urine TRACE /LPF; RBC Urine 0-2 /HPF (0); Squamous Epithelial Cell Urine TRACE /LPF
[2021-05-06] MEDS: Phenazopyridine HCL 200 MG TABLET PO (23:34)
[2021-05-06] MEDS: cephALEXin 500 MG CAPSULE PO (23:35)
== END 2021-05-07 00:45 | disposition home or self-care (01) ==
PROVIDERS: Physician Assistant Medical; Emergency Provider Emergency Medicine
DX: N39.0 Urinary tract infection, site not specified (principal); R30.0 Dysuria; I10 Essential (primary) hypertension; Z79.899 Other long term (current) drug therapy
CPT/HCPCS: 36415; 80053; 81001; 81003; 83690; 83735; 85025; 85610; 87086; 87147; 99283; 99284

== ENCOUNTER 2021-06-26 19:13 | Emergency (ER) | payer MEDICAID, SELFPAY ==
--- NOTE | ~2021-06-26 | XR_ITS ---
EXAMINATION: XR KNEE, RIGHT CLINICAL INFORMATION: Fall COMPARISON: Right knee radiographs 02/12/2019 TECHNIQUE: Four views of the right knee. FINDINGS: Again noted is narrowing of the medial compartment with some osteophytes. A small posterior patellar osteophyte is present superiorly. No significant joint effusion is seen. No chondrocalcinosis. No evidence of an acute fracture. XR/XR knee RT 4V IMPRESSION: Mild bicompartmental degenerative changes
--- NOTE | ~2021-06-26 | XR_ITS ---
EXAMINATION: XR RIBS, RIGHT CLINICAL INFORMATION: Fall with right rib pain COMPARISON: None TECHNIQUE: Single view chest with 3 views of the right ribs. FINDINGS: Lungs are clear. No consolidation, pneumothorax, or pleural effusion. The cardiomediastinal silhouette and pulmonary vasculature are normal. Osseous structures are unremarkable aside from degenerative changes at the right glenohumeral joint. Ribs are intact. No fractures are identified. XR/XR ribs RT min 3V w CXR1V IMPRESSION: Normal chest and ribs. Degenerative changes noted in the right shoulder.
[2021-06-26 19:31] VITALS: BP 139/79; PULSE 90; RESP 18; TEMP 36.1; O2SAT 96; BMI 29.2
[2021-06-27] VITALS: BP 138/80; PULSE 84; RESP 16; TEMP 36.7; O2SAT 96
--- NOTE | 2021-06-27 00:23 | ED.FALL ---
HPI - Fall General Chief Complaint: Fall Stated Complaint: fell yesterday leg is sore Time Seen by Provider: 06/26/21 20:45 Source: patient Mode of arrival: ambulatory Limitations: no limitations History of Present Illness HPI Narrative: 61-year-old female who had a trip and fall down 6 stairs yesterday landing directly on her knee. She also protected her chest with her right arm so hit her arm on the ground pushing into her chest. This son tells me that she landed with her head on his feet so there was no head strike or loss of consciousness. Patient is here complaining of right knee and right rib pain Status tetanus is unknown No headache, vision changes, nausea, vomiting, neck pain, back pain.. Related Data Previous Rx's Medication Instructions Recorded doxycycline monohydrate 100 mg 100 mg PO BID 10 Days #20 cap 10/23/20 capsule clonazepam 0.5 mg tablet (Klonopin) 0.5 mg PO BEDTIME PRN #14 tab 03/08/21 cephalexin 500 mg capsule 500 mg PO Q8H #21 cap 05/06/21 oxycodone 5 mg tablet 5 mg PO Q8H PRN #5 tab 06/27/21 walker #1 ea 06/27/21 Allergies Allergy/AdvReac Type Severity Reaction Status Date / Time naproxen [NAPROXEN] Allergy Severe UNKNOWN Verified 10/23/20 18:46 acetaminophen [From Tylenol] Allergy Unknown Verified 03/08/21 20:48 ibuprofen Allergy Unknown Verified 03/08/21 20:49 Review of Systems Review of Systems: Yes all other systems are reviewed and are negative Constitutional: Constitutional: Reports no additional constitutional complaints, Denies body ache(s), Denies chills, Denies fever(s), Denies headache(s) and Denies weakness Eyes: Eyes: Reports no additional eye complaints and Denies change in vision ENT: Reports system reviewed and no additional complaints, except as documented, Denies dizziness, Denies headache(s), Denies nasal congestion, Denies nasal discharge and Denies neck pain Cardiovascular: Cardiovascular: Reports no additional cardiovascular complaints, Reports chest pain, Denies leg edema and Denies dyspnea Respiratory: Respiratory: Reports no additional respiratory complaints, Denies cough and Denies dyspnea Gastrointestinal: Gastrointestinal: Reports no additional gastrointestinal complaints, Denies abdominal pain, Denies diarrhea, Denies nausea and Denies vomiting Genitourinary: Genitourinary: Reports no additional female genitourinary complaints and Denies urinary incontinence Musculoskeletal: Musculoskeletal: Reports no additional musculoskeletal complaints, Denies back pain, Reports arthralgias, Denies joint swelling, Reports limited range of motion, Denies neck pain, Denies numbness and Denies tingling Integumentary/Breasts: Skin/Breast: Reports system reviewed and no additional complaints, except as docu and Denies rash Neurologic: Reports system reviewed and no additional complaints, except as documented, Denies Abnormal speech present, Denies dizziness, Denies headache(s), Denies numbness, Denies tingling and Denies weakness PMFSH Past Medical History Attestation statement: The following information was validated with the patient. Source: old records reviewed and nursing notes reviewed Medical History Anxiety Diabetes High cholesterol HTN (hypertension) Surgical History History of hernia surgery Social History Social History Alcohol intake: never Patient Tobacco Use Status: Never used Tobacco Use of substances other than those prescribed or required for medical reasons: No Advance Directives: No Advance Directives Information Provided: Yes Physical Exam Vital Signs: Vital Signs: Last Vital Signs Temp 98.0 F 06/27/21 00:00 Pulse 84 06/27/21 00:00 Resp 16 06/27/21 00:00 BP 138/80 06/27/21 00:00 Pulse Ox 96 06/27/21 00:00 Body Mass Index 29.2 Const: General: cooperative, healthy appearing, comfortable and no acute distress Orientation/consciousness: patient oriented x3 Limitations: no limitations HENMT: Head: Yes normal to inspection Ears: hearing grossly normal bilaterally General nose exam: Normal external nose present Face and sinus: Yes normal facial exam Mouth: Normal oral and palatal mucosa present Throat: Yes posterior oropharynx normal Eyes: General: appearance normal, both eyes and all related structures Pupils: Equal, round and reactive pupils present Neck: Neck: Yes normal visual inspection Chest: Other: To the anterior chest wall there is mild tenderness. There is no crepitus, ecchymosis or deformity noted. No swelling. Lung sounds are clear Chest palpation & inspection: normal inspection of the chest Resp: Effort & Inspection: normal respiratory effort Auscultation: clear to auscultation bilaterally Cardio: Rate: regular rate Rhythm: regular rhythm Peripheral pulses: Peripheral pulses 2+ throughout GI: Inspection: Yes normal to inspection Palpation (GI): Soft to palpation and nontender Auscultation: normal bowel sounds Back/Spine/Pelvis: Thoracic/Lumbar Spine: thoracic and lumbar spine normal to inspection Skin: General skin exam: no rashes or lesions noted Neuro: General: patient oriented x3, no focal motor deficits and normal sensation to monofilament Cranial nerves: Yes Equal, round and reactive pupils present Cognition (Neuro): normal cognition Speech: No Abnormal speech present Gait exam (Neuro): Normal gait present Motor exam (neuro): 5/5 motor strength present throughout Extrem: Other: Small abrasion to the right anterior knee. No warmth, redness or swelling. Pain is worsened with flexion of the right knee but patient is able to extend and flex the knee with no difficulty. General: Yes normal to inspection Course Course Course Narrative: Right chest wall pain and right knee pain after mechanical fall yesterday. Patient will need x-ray Tetanus will be updated Analgesia provided Procedures Procedure Narrative Procedure Narrative: Tariq wrap MDM - Fall MDM Narrative Medical decision making narrative: Contusion versus fracture versus sprain Medical Records Attestation: I reviewed the patient's medical records. Lab Data Attestation: I reviewed the patient's lab results. Imaging Data right knee xray: Attestation: I personally reviewed and interpreted this imaging study as follows: Radiologist's impression: [address] [address] XRay Report Signed Patient: Nunu Segal I MR#: [id number] : 1960 Acct:[id number] Age/Sex: 61 / F ADM Date: 06/26/21 Loc: HO.ED Attending Dr: Ordering Physician: Soledad Cordero DO Date of Service: 06/26/21 Procedure(s): XR knee RT 4V Accession Number(s): [id number] cc: Soledad Cordero DO~ EXAMINATION: XR KNEE, RIGHT? CLINICAL INFORMATION: Fall? COMPARISON: Right knee radiographs 02/12/2019? TECHNIQUE: Four views of the right knee. FINDINGS: Again noted is narrowing of the medial compartment with some osteophytes. A small posterior patellar osteophyte is present superiorly. No significant joint effusion is seen. No chondrocalcinosis. No evidence of an acute fracture.? XR/XR knee RT 4V IMPRESSION: Mild bicompartmental degenerative changes ? right ribs/chest x-ray: Attestation: I personally reviewed and interpreted this imaging study as follows: Radiologist's impression: FINDINGS: Lungs are clear. No consolidation, pneumothorax, or pleural effusion. The cardiomediastinal silhouette and pulmonary vasculature are normal. Osseous structures are unremarkable aside from degenerative changes at the right glenohumeral joint. Ribs are intact. No fractures are identified. XR/XR ribs RT min 3V w CXR1V IMPRESSION: Normal chest and ribs. Degenerative changes noted in the right shoulder. ? Discharge Plan Discharge Clinical Impression: Abrasion of knee, right, Chest wall contusion Patient Disposition: Home, Self-Care Instructions: Contusion in Adults (ED), Abrasion (ED) Additional Instructions: Heat or ice Gentle stretching Use walker for ambulation Prescriptions: New oxycodone 5 mg tablet 5 mg PO Q8H PRN (Reason: pain) Qty: 5 RF: 0 (DME) walker Misc See Rx Instructions .Route Qty: 1 RF: 0 No Action doxycycline monohydrate 100 mg capsule 100 mg PO BID 10 Days Qty: 20 RF: 0 clonazepam [Klonopin] 0.5 mg tablet 0.5 mg PO BEDTIME PRN (Reason: anxiety) Qty: 14 RF: 0 cephalexin 500 mg capsule 500 mg PO Q8H Qty: 21 RF: 0 Referrals: Meera Ramirez MD [Primary Care Provider] - 2 days Interventions: ED Discharge Assessment Last Done: 06/27/21 01:07
[2021-06-27] MEDS: Diphth,Pertus(ACell),Tet Adult 0.5 ML SYRINGE IM (01:10)
[2021-06-27] MEDS: oxyCODONE HCl Immed Release 5 MG TABLET PO (01:13)
== END 2021-06-27 01:07 | disposition home or self-care (01) ==
PROVIDERS: Emergency Provider Internal Medicine; PCP Internal Medicine
DX: S80.211A Abrasion, right knee, initial encounter (principal); S20.219A Contusion of unspecified front wall of thorax, initial encounter; E11.9 Type 2 diabetes mellitus without complications; I10 Essential (primary) hypertension; W10.9XXA Fall (on) (from) unspecified stairs and steps, initial encounter; Y93.9 Activity, unspecified; Y92.9 Unspecified place or not applicable; Y99.9 Unspecified external cause status
CPT/HCPCS: 71101; 73564; 90471; 90715; 99284; 99285

== ENCOUNTER 2021-11-11 12:00 | Emergency (ER) | payer MEDICAID, SELFPAY ==
--- NOTE | ~2021-11-11 | XR_ITS ---
EXAMINATION: BILATERAL KNEE, AP PELVIS AND RIGHT HIP AND RIGHT SHOULDER. CLINICAL INFORMATION: Fall. Pain. COMPARISON: None TECHNIQUE: AP pelvis and right hip 2 views. Right shoulder 3 views. Right knee 4 views and left knee 4 views. FINDINGS: AP pelvis and right hip: There is normal symmetry of bilateral hip joints and SI joints. No visible acute fracture, dislocation seen involving the pelvis or the right hip. Right shoulder: There is mild reduction of glenohumeral joint space with large enthesophyte along the inferior humeral head. No acute fracture or dislocation seen. Right knee: There is no visible acute fracture, dislocation or subluxation seen. There is loss of medial compartment joint space with periarticular spurring. There is mild superior patellar spurring. No joint effusion seen. Left knee: There is mild loss of medial compartment joint space. No visible acute fracture, dislocation or lytic process seen. There is mild superior patellar spurring. There is no abnormal joint effusion. XR/XR hip RT w PEL1V IMPRESSION: Mild superior patellar spurring both knees. Mild reduction in the medial compartment both knee joints with periarticular spurring medial compartment right knee consistent degenerative arthritic changes. No acute fracture or dislocation seen. Large enthesophyte along the inferior humeral head. No acute fracture or dislocation. AP pelvis and the right hip is unremarkable.
--- NOTE | ~2021-11-11 | XR_ITS ---
EXAMINATION: BILATERAL KNEE, AP PELVIS AND RIGHT HIP AND RIGHT SHOULDER. CLINICAL INFORMATION: Fall. Pain. COMPARISON: None TECHNIQUE: AP pelvis and right hip 2 views. Right shoulder 3 views. Right knee 4 views and left knee 4 views. FINDINGS: AP pelvis and right hip: There is normal symmetry of bilateral hip joints and SI joints. No visible acute fracture, dislocation seen involving the pelvis or the right hip. Right shoulder: There is mild reduction of glenohumeral joint space with large enthesophyte along the inferior humeral head. No acute fracture or dislocation seen. Right knee: There is no visible acute fracture, dislocation or subluxation seen. There is loss of medial compartment joint space with periarticular spurring. There is mild superior patellar spurring. No joint effusion seen. Left knee: There is mild loss of medial compartment joint space. No visible acute fracture, dislocation or lytic process seen. There is mild superior patellar spurring. There is no abnormal joint effusion. XR/XR shoulder RT min 2V IMPRESSION: Mild superior patellar spurring both knees. Mild reduction in the medial compartment both knee joints with periarticular spurring medial compartment right knee consistent degenerative arthritic changes. No acute fracture or dislocation seen. Large enthesophyte along the inferior humeral head. No acute fracture or dislocation. AP pelvis and the right hip is unremarkable.
--- NOTE | ~2021-11-11 | XR_ITS ---
EXAMINATION: BILATERAL KNEE, AP PELVIS AND RIGHT HIP AND RIGHT SHOULDER. CLINICAL INFORMATION: Fall. Pain. COMPARISON: None TECHNIQUE: AP pelvis and right hip 2 views. Right shoulder 3 views. Right knee 4 views and left knee 4 views. FINDINGS: AP pelvis and right hip: There is normal symmetry of bilateral hip joints and SI joints. No visible acute fracture, dislocation seen involving the pelvis or the right hip. Right shoulder: There is mild reduction of glenohumeral joint space with large enthesophyte along the inferior humeral head. No acute fracture or dislocation seen. Right knee: There is no visible acute fracture, dislocation or subluxation seen. There is loss of medial compartment joint space with periarticular spurring. There is mild superior patellar spurring. No joint effusion seen. Left knee: There is mild loss of medial compartment joint space. No visible acute fracture, dislocation or lytic process seen. There is mild superior patellar spurring. There is no abnormal joint effusion. XR/XR knee RT 4V IMPRESSION: Mild superior patellar spurring both knees. Mild reduction in the medial compartment both knee joints with periarticular spurring medial compartment right knee consistent degenerative arthritic changes. No acute fracture or dislocation seen. Large enthesophyte along the inferior humeral head. No acute fracture or dislocation. AP pelvis and the right hip is unremarkable.
--- NOTE | ~2021-11-11 | XR_ITS ---
EXAMINATION: BILATERAL KNEE, AP PELVIS AND RIGHT HIP AND RIGHT SHOULDER. CLINICAL INFORMATION: Fall. Pain. COMPARISON: None TECHNIQUE: AP pelvis and right hip 2 views. Right shoulder 3 views. Right knee 4 views and left knee 4 views. FINDINGS: AP pelvis and right hip: There is normal symmetry of bilateral hip joints and SI joints. No visible acute fracture, dislocation seen involving the pelvis or the right hip. Right shoulder: There is mild reduction of glenohumeral joint space with large enthesophyte along the inferior humeral head. No acute fracture or dislocation seen. Right knee: There is no visible acute fracture, dislocation or subluxation seen. There is loss of medial compartment joint space with periarticular spurring. There is mild superior patellar spurring. No joint effusion seen. Left knee: There is mild loss of medial compartment joint space. No visible acute fracture, dislocation or lytic process seen. There is mild superior patellar spurring. There is no abnormal joint effusion. XR/XR knee LT 4V IMPRESSION: Mild superior patellar spurring both knees. Mild reduction in the medial compartment both knee joints with periarticular spurring medial compartment right knee consistent degenerative arthritic changes. No acute fracture or dislocation seen. Large enthesophyte along the inferior humeral head. No acute fracture or dislocation. AP pelvis and the right hip is unremarkable.
[2021-11-11 13:33] VITALS: BP 145/92; PULSE 86; RESP 18; O2SAT 95; BMI 29.2
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
== END 2021-11-11 15:02 | disposition home or self-care (01) ==
PROVIDERS: Emergency Provider Emergency Medicine Emergency Medical Services; PCP Internal Medicine
DX: S80.01XA Contusion of right knee, initial encounter (principal); S80.02XA Contusion of left knee, initial encounter; S70.01XA Contusion of right hip, initial encounter; S40.011A Contusion of right shoulder, initial encounter; W01.0XXA Fall on same level from slipping, tripping and stumbling without subsequent striking against object, initial encounter; Y93.89 Activity, other specified; Y92.22 Religious institution as the place of occurrence of the external cause; Y99.8 Other external cause status
CPT/HCPCS: 73030; 73502; 73564; 99283

== ENCOUNTER 2021-12-07 15:18 | Emergency (ER) | payer MEDICAID, SELFPAY ==
[2021-12-07 16:17] VITALS: BP 151/104; PULSE 78; RESP 16; TEMP 36.3; O2SAT 96; BMI 29.2
[2021-12-07 17:06] LABS: MANUAL DIFF FLAG NO
[2021-12-07 17:07] LABS: Basophils Percent Auto 0.5 % (0-2); Eosinophils Percent Auto 0.4 % (0-4); Hematocrit 41.9 % (37.0-47.0); Hemoglobin 13.3 g/dl (12.0-16.0); Imm Gran Abs Auto 0.02 X10*3/uL (0.00-0.03); Imm Gran Pct Auto 0.2 % (0.0-0.4); Lymphocytes Absolute Auto 1.8 X10*3/uL (1.2-4.9); Lymphocytes Percent Auto 20.8 % (20-40); Mean Corpuscular HGB Conc 31.7 g/dl (31.0-35.0); Mean Corpuscular Hemoglobin 28.1 pg (27.0-33.0); Mean Corpuscular Volume 88.6 fL (80.0-98.0); Mean Platelet Volume 10.4 fL (9.4-12.3); Monocytes Absolute Auto 0.5 X10*3/uL (0.1-1.2); Monocytes Percent Auto 5.7 % (2-11); Neutrophils Absolute Auto 6.2 x10*3/uL (2.0-8.3); Neutrophils Percent Auto 72.4 % (45-73); Platelet Count 244 X10*3/uL (160-400); Red Blood Count 4.73 X10*6/uL (4.20-5.50); Red Cell Distribution Width 13.4 % (11.0-16.0); White Blood Count 8.6 X10*3/uL (4.8-10.8)
[2021-12-07 17:21] LABS: Anion Gap 14 (12-20); Blood Urea Nitrogen 9 mg/dL (9-16); Calcium 10.1 mg/dL (8.4-10.2); Carbon Dioxide 29 mmol/L (22-29); Chloride 105 mmol/L (96-108); Creatinine Clr Calc Pharmacy 60.6; Estimated Glomerular Filt Rate > 60; Glucose Random 121 mg/dL (60-115); Potassium 4.9 mmol/L (3.3-5.1); Sodium 143 mmol/L (135-145)
[2021-12-07 20:24] VITALS: BP 177/106; RESP 16
--- NOTE | 2021-12-07 20:37 | PC.NURSE ---
patient ambulated from waiting room to [facility] . patient stated her had had hurt for a week related to her blood pressure. patient requests broiler chef or cook for further evaluation . broiler chef or cook to be contacted .
[2021-12-07 20:40] VITALS: BP 181/98; PULSE 96; RESP 18; O2SAT 96
[2021-12-07 21:07] VITALS: BP 156/98; RESP 18
--- NOTE | 2021-12-07 21:07 | ED.GENADULT ---
HPI - General Adult General Chief complaint: General Medical Stated complaint: high BP/anxiety Source: patient Mode of arrival: ambulatory Limitations: no limitations History of Present Illness HPI narrative: 61-year-old female presents with anxiety, elevated blood pressure and urinary symptoms for approximately 1 week. Onset (ago): week(s) (1) Location: genitals Radiation: non-radiation Severity: moderate Severity scale (1-10): 5 Quality: burning Pain Consistency: intermittent Relieving factors: none Exacerbating factors: other (Urination) Associated symptoms: denies other symptoms Treatments prior to arrival: none Related Data Previous Rx's Medication Instructions Recorded doxycycline monohydrate 100 mg 100 mg PO BID 10 Days #20 cap 10/23/20 capsule clonazepam 0.5 mg tablet (Klonopin) 0.5 mg PO BEDTIME PRN #14 tab 03/08/21 cephalexin 500 mg capsule 500 mg PO Q8H #21 cap 05/06/21 oxycodone 5 mg tablet 5 mg PO Q8H PRN #5 tab 06/27/21 walker #1 ea 06/27/21 cyclobenzaprine 10 mg tablet 10 mg PO TID PRN #10 tab 11/11/21 lidocaine 5 % topical patch 1 patch TOPICAL DAILY #15 ea 11/11/21 (Lidoderm) cephalexin 500 mg capsule 500 mg PO Q8H 7 Days #21 cap 12/07/21 Allergies Allergy/AdvReac Type Severity Reaction Status Date / Time naproxen [NAPROXEN] Allergy Severe UNKNOWN Verified 12/07/21 16:19 acetaminophen [From Tylenol] Allergy Unknown Verified 12/07/21 16:19 ibuprofen Allergy Unknown Verified 12/07/21 16:19 Review of Systems Review of Systems: Constitutional: No Fever, No Chills ENT/Mouth: No Ear Pain, No Hoarseness, No sore throat Eyes: No Eye Pain, No Swelling, No Redness, No Foreign Body Cardiovascular: No Chest Pain, No SOB Respiratory: No Cough, No Dyspnea Gastrointestinal: No Nausea, No Vomiting, No Diarrhea, No abdominal Pain Genitourinary: Positive Dysuria, No Hematuria Musculoskeletal: No joint pain, No Myalgias, No Joint Swelling Skin: No Skin lacerations, No rash Neuro: No Weakness, No Numbness, No Paresthesias, No Loss of Consciousness, No Dizziness, No Headache Psych: Positive Anxiety, no Panic, No Depression Heme/Lymph: no easy bruising, no Lymphadenopathy Endocrine: No Polyuria, No Polydipsia Yes all other systems are reviewed and are negative [facility] Past Medical History Attestation statement: The following information was validated with the patient. Source: old records reviewed Medical History Anxiety Diabetes High cholesterol HTN (hypertension) Surgical History History of hernia surgery Social History Social History Alcohol intake: never Patient Tobacco Use Status: Never used Tobacco Advance Directives: No Physical Exam ED Vital Signs: Vital Signs - 24 hr 12/07/21 16:17 12/07/21 20:24 12/07/21 20:40 Temperature 97.4 F Pulse Rate 78 96 Respiratory Rate 16 16 18 Blood Pressure 151/104 H 177/106 H 181/98 H Pulse Oximetry 96 96 12/07/21 21:07 Temperature Pulse Rate Respiratory Rate 18 Blood Pressure 156/98 H Pulse Oximetry BMI result Body Mass Index 29.2 Appearance: Alert. Oriented X3. No acute distress. Eyes: Pupils equal, round and reactive to light. ENT: Pharynx normal. Neck: Normal inspection. Neck supple. CVS: Normal heart rate and rhythm. Pulses normal. Respiratory: No respiratory distress. Breath sounds normal. Abdomen: Soft and nontender. Skin: Skin warm and dry. Normal skin color. Normal skin turgor. Extremities: No lower extremity edema. Gait well-balanced well coordinated. Neuro: No motor deficit. No sensory deficit. Cranial nerves 2-12 intact. Course Course Course Narrative: 61-year-old female presents for anxiety, elevated blood pressure, and urinary symptoms. States that she has had anxiety for approximately a week because she ran out of her Klonopin. Her blood pressure is usually elevated when she runs out of Klonopin because of her anxiety. She is requesting a Klonopin refill. She is also describing urinary symptoms without fever, chills, nausea, vomiting, abdominal pain, or any other concerning symptoms. 21:59 UTI indicated on urinalysis. Patient has a history of strep B, will provide prescription for Keflex in 500 mg q.8 hours for 7 days. Will give her her 1st dose in the emergency department. I will give her 1 dose of Klonopin while she is here, I did inform her that it would not be refilling this prescription that she must follow-up with her psychiatrist for this medication. She did verbalize understanding. I do not feel that is appropriate to start blood pressure medications at this time, she will follow-up with her primary care physician as she has a long standing history this could possibly be Klonopin withdrawal. Patient verbalized understanding of and agrees to plan of care to discharge home. Verbalized understanding of signs and symptoms indicating need for emergent intervention Medical Decision Making Differential Diagnosis Differential Diagnosis: Anxiety, influenza, COVID, hypertension, anxiety Medical Records Medical records reviewed: Yes I reviewed the patient's medical records. Lab Data Lab results reviewed: Yes I reviewed the patient's lab results. Result diagrams: 12/07/21 16:58 12/07/21 16:58 Labs: Lab Results 12/07/21 12/07/21 12/07/21 Range/Units 16:58 16:58 21:13 WBC 8.6 (4.8-10.8) X10*3/uL RBC 4.73 (4.20-5.50) X10*6/uL Hgb 13.3 (12.0-16.0) g/dl Hct 41.9 (37.0-47.0) % MCV 88.6 (80.0-98.0) fL MCH 28.1 (27.0-33.0) pg MCHC 31.7 (31.0-35.0) g/dl RDW 13.4 (11.0-16.0) % Plt Count 244 (160-400) X10*3/uL MPV 10.4 (9.4-12.3) fL Immature Gran % (Auto) 0.2 (0.0-0.4) % Neut % (Auto) 72.4 (45-73) % Lymph % (Auto) 20.8 (20-40) % [place] % (Auto) 5.7 (2-11) % Eos % (Auto) 0.4 (0-4) % Baso % (Auto) 0.5 (0-2) % Lymph # (Auto) 1.8 (1.2-4.9) X10*3/uL [place] # (Auto) 0.5 (0.1-1.2) X10*3/uL Eos # (Auto) 0.0 (0.0-0.4) X10*3/uL Baso # (Auto) 0.0 (0.0-0.2) X10*3/uL Abs Immat Gran (auto) 0.02 (0.00-0.03) X10*3/uL Absolute Neuts (auto) 6.2 (2.0-8.3) x10*3/uL Absolute Nucleated RBC 0.000 (0.0-0.012) X10*3/uL Nucleated RBC % (auto) 0.0 (0.0-0.2) /100WBC Sodium 143 (135-145) mmol/L Potassium 4.9 (3.3-5.1) mmol/L Chloride 105 (96-108) mmol/L Carbon Dioxide 29 (22-29) mmol/L Anion Gap 14 (12-20) BUN 9 (9-16) mg/dL Creatinine 0.86 (0.5-1.4) mg/dL Estim Creat Clear Calc 60.6 Estimated GFR > 60 Random Glucose 121 H (60-115) mg/dL Calcium 10.1 (8.4-10.2) mg/dL Urine Color YELLOW Urine Appearance HAZY Urine pH 5.5 (5.0-8.0) Ur Specific [place] 1.020 (1.005-1.025) Urine Protein NEG (NEG-TRACE) MG/DL Urine Glucose (UA) NEG (NEG) MG/DL Urine Ketones NEG (NEG) MG/DL Urine Blood NEG (NEG) Urine Nitrite NEG (NEG) Ur Leukocyte Esterase 1+ H (NEG) Urine RBC 1-4 (0) /HPF Urine WBC 5-9 H (0-4) /HPF Ur Squamous Epith Cells 2+ /LPF Urine Bacteria 2+ /LPF Urine Mucus 2+ /LPF Discharge Plan Discharge Clinical Impression: Acute anxiety, UTI (urinary tract infection) Patient Disposition: Home, Self-Care Instructions: Urinary Tract Infection in Women (DC), Anxiety (ED) Additional Instructions: You were evaluated for elevated blood pressure, anxiety and urinary symptoms. Urinalysis is positive for UTI. We are treating you with Keflex 500 mg every 8 hours for the next 7 days. Please take this medication as directed. Drink plenty of fluids. I gave you 1 dose of Klonopin while you were in the emergency department. You must follow-up with primary care physician and/or psychiatrist for further medications. Please follow up with her primary care physician for elevated blood pressure. Thank you for choosing this emergency department for evaluation. Please follow-up with primary care physician as needed. Return to the emergency department for any new, concerning, or worsening symptoms. Prescriptions: New cephalexin 500 mg capsule 500 mg PO Q8H 7 Days Qty: 21 0RF No Action doxycycline monohydrate 100 mg capsule 100 mg PO BID 10 Days Qty: 20 0RF clonazepam [Klonopin] 0.5 mg tablet 0.5 mg PO BEDTIME PRN (Reason: anxiety) Qty: 14 0RF cephalexin 500 mg capsule 500 mg PO Q8H Qty: 21 0RF oxycodone 5 mg tablet 5 mg PO Q8H PRN (Reason: pain) Qty: 5 0RF (DME) walker Misc See Rx Instructions .Route Qty: 1 0RF Rx Instructions: As directed cyclobenzaprine 10 mg tablet 10 mg PO TID PRN (Reason: muscle spasm) Qty: 10 0RF lidocaine [Lidoderm] 5 % adhesive patch,medicated 1 patch topical DAILY Qty: 15 0RF Rx Instructions: leave on most painful area for up to 12 hrs Interventions: ED Discharge Assessment Last Done: 12/07/21 22:14 Discharge Date/Time: 12/07/21 22:17
--- NOTE | 2021-12-07 21:09 | PC.NURSE ---
PT AMB TO BATHROOM WITH STEADY GAIT. URINE REQUESTED.
[2021-12-07 21:31] LABS: Appearance Urine HAZY; Color Urine YELLOW; Glucose Urine UA NEG (NEG); Leukocyte Esterase Urine 1+ (NEG); Nitrite Urine NEG (NEG); PH 5.5 (5.0-8.0); UACC Culture Trigger YES; Urine Blood NEG (NEG); Urine Ketones NEG (NEG); Urine Protein NEG (NEG-TRACE)
[2021-12-07 21:45] LABS: Bacteria Urine 2+ /LPF; Mucus Urine 2+ /LPF; Squamous Epithelial Cell Urine 2+ /LPF
[2021-12-07] MEDS: cephALEXin 500 MG CAPSULE PO (22:02)
[2021-12-07] MEDS: clonazePAM 0.5 MG TABLET PO (22:02)
== END 2021-12-07 22:17 | disposition home or self-care (01) ==
PROVIDERS: Emergency Provider Emergency Medicine Emergency Medical Services; PCP Internal Medicine
DX: F41.9 Anxiety disorder, unspecified (principal); N39.0 Urinary tract infection, site not specified; E11.9 Type 2 diabetes mellitus without complications; I10 Essential (primary) hypertension
CPT/HCPCS: 36415; 80048; 81001; 85025; 87086; 99283; 99284

== ENCOUNTER 2022-01-18 18:24 | Emergency (ER) | payer MEDICAID, SELFPAY ==
--- NOTE | 2022-01-18 18:30 | ECG_ITS ---
Test Reason : CHEST PAIN Blood Pressure : / mmHG Vent. Rate : 078 BPM Atrial Rate : 078 BPM P-R Int : 134 ms QRS Dur : 076 ms QT Int : 388 ms P-R-T Axes : 056 -08 054 degrees QTc Int : 442 ms Normal sinus rhythm Normal ECG When compared with ECG of 08-MAR-2021 20:48, No significant change was found Referred By: Generic ED Physician Electronically Signed By:Celestine Alejo
[2022-01-18 18:41] VITALS: BP 152/94; PULSE 82; RESP 20; TEMP 36.9; O2SAT 99
[2022-01-18 20:55] VITALS: BP 169/103; PULSE 69; RESP 18; TEMP 36.8; O2SAT 95; BMI 30.5
[2022-01-18 21:11] LABS: MANUAL DIFF FLAG NO
[2022-01-18 21:13] LABS: Basophils Percent Auto 0.5 % (0-2); Eosinophils Absolute Auto 0.1 X10*3/uL (0.0-0.4); Eosinophils Percent Auto 0.7 % (0-4); Hematocrit 39.6 % (37.0-47.0); Hemoglobin 12.9 g/dl (12.0-16.0); Imm Gran Abs Auto 0.02 X10*3/uL (0.00-0.03); Imm Gran Pct Auto 0.2 % (0.0-0.4); Lymphocytes Absolute Auto 2.7 X10*3/uL (1.2-4.9); Lymphocytes Percent Auto 33.1 % (20-40); Mean Corpuscular HGB Conc 32.6 g/dl (31.0-35.0); Mean Corpuscular Hemoglobin 28.7 pg (27.0-33.0); Mean Platelet Volume 9.9 fL (9.4-12.3); Monocytes Absolute Auto 0.6 X10*3/uL (0.1-1.2); Monocytes Percent Auto 7.2 % (2-11); Neutrophils Absolute Auto 4.7 x10*3/uL (2.0-8.3); Neutrophils Percent Auto 58.3 % (45-73); Platelet Count 238 X10*3/uL (160-400); Red Cell Distribution Width 13.5 % (11.0-16.0); White Blood Count 8.1 X10*3/uL (4.8-10.8)
[2022-01-18 21:28] LABS: Alanine Aminotransferase 14 U/L (0-31); Albumin Level 4.4 g/dL (3.5-5.0); Alkaline Phosphatase 78 U/L (39-117); Anion Gap 13 (12-20); Aspartate Amino Transferase 19 U/L (5-31); Bilirubin Total 0.5 mg/dL (0.0-1.0); Blood Urea Nitrogen 9 mg/dL (9-16); Calcium 10.2 mg/dL (8.4-10.2); Carbon Dioxide 29 mmol/L (22-29); Chloride 103 mmol/L (96-108); Creatinine Clr Calc Pharmacy 66.6; Estimated Glomerular Filt Rate > 60; Glucose Random 118 mg/dL (60-115); Potassium 4.3 mmol/L (3.3-5.1); Sodium 141 mmol/L (135-145); Total Protein 7.8 g/dL (6.5-8.0)
[2022-01-18 21:31] LABS: Troponin-I High Sensitivity < 3.5 ng/L (<3.5-17.0)
[2022-01-18 22:39] VITALS: BP 118/100; PULSE 77; RESP 252; TEMP 36.8; O2SAT 97
--- NOTE | 2022-01-19 00:30 | ED_ITS ---
HPI - Chest Pain General Chief Complaint: Chest Pain Stated Complaint: Anxiety and chest pains Time Seen by Provider: 01/19/22 00:12 Source: patient Mode of arrival: ambulatory Limitations: language barrier (Patient's 1st language is Wolof, she does speak Uzbek, district administrative assistant was used) History of Present Illness HPI narrative: 61-year-old female who presents emergency department for evaluation of chest pain and anxiety. The patient states that her has been sick with cancer and she has missed several over primary care appointments. She states because of this she has not been able to refill her medications for her anxiety or her blood pressure. She states that she has not been taking these medications for over 1 month. She states that today she was feeling depressed and very anxious. She states that this caused her blood pressure to have very high she then developed left-sided chest pain. She describes as a sharp, intermittent pain which was moderate to severe in intensity. The patient did feel short of breath. She states that the symptoms started around 16:00 hours and lasted 2-3 hours At the time my evaluation she was feeling better. She states however she is still feeling anxious. She denied fever, chills, rhinorrhea, sore throat, cough, nausea, vomiting, diarrhea, change in bowel movements. Related Data Previous Rx's Medication Instructions Recorded doxycycline monohydrate 100 mg 100 mg PO BID 10 Days #20 cap 10/23/20 capsule clonazepam 0.5 mg tablet (Klonopin) 0.5 mg PO BEDTIME PRN #14 tab 03/08/21 cephalexin 500 mg capsule 500 mg PO Q8H #21 cap 05/06/21 oxycodone 5 mg tablet 5 mg PO Q8H PRN #5 tab 06/27/21 walker #1 ea 06/27/21 cyclobenzaprine 10 mg tablet 10 mg PO TID PRN #10 tab 11/11/21 lidocaine 5 % topical patch 1 patch TOPICAL DAILY #15 ea 11/11/21 (Lidoderm) cephalexin 500 mg capsule 500 mg PO Q8H 7 Days #21 cap 12/07/21 clonazepam 1 mg tablet 1 mg PO BID PRN #10 tab 01/19/22 prazosin 1 mg capsule 1 mg PO BEDTIME #30 cap 01/19/22 Allergies Allergy/AdvReac Type Severity Reaction Status Date / Time naproxen [NAPROXEN] Allergy Severe UNKNOWN Verified 12/07/21 16:19 acetaminophen [From Tylenol] Allergy Unknown Verified 12/07/21 16:19 ibuprofen Allergy Unknown Verified 12/07/21 16:19 pollen extracts Allergy Rash Verified 01/18/22 20:54 Review of Systems Review of Systems: Yes all other systems are reviewed and are negative [facility] Past Medical History [facility] Narrative: Social history: She denies tobacco, alcohol and drug use. She is . She is here with her . Medical History Anxiety Diabetes High cholesterol HTN (hypertension) Surgical History History of hernia surgery Social History Social History Alcohol intake: never Patient Tobacco Use Status: Never used Tobacco Advance Directives: No Physical Exam Vital Signs: Vital Signs: Last Vital Signs Temp 98.3 F 01/18/22 22:39 Pulse 77 01/18/22 22:39 Resp 252 H 01/18/22 22:39 BP 118/100 H 01/18/22 22:39 Pulse Ox 97 01/18/22 22:39 BMI result Body Mass Index 30.5 Const: General: cooperative and no acute distress Orientation/consciousness: oriented to person and oriented to place Limitations: no limitations HEENT: Head: Yes normal to inspection, Yes normocephalic and Yes atraumatic Ears: external ears normal General nose exam: Normal external nose present Face and sinus: Yes normal facial exam Mouth: Normal oral and palatal mucosa present Throat: Yes posterior oropharynx normal Eyes: General: appearance normal, both eyes and all related structures Pupils: Equal, round and reactive pupils present Neck: Neck: Yes normal visual inspection, Yes no lymphadenopathy, Yes trachea midline and Yes supple Chest: Chest palpation & inspection: normal inspection of the chest and normal palpation of entire chest wall Resp: Effort & Inspection: normal respiratory effort and able to speak in complete sentences Auscultation: clear to auscultation bilaterally Cardio: Rate: regular rate Rhythm: regular rhythm Heart sounds: S1 normal heart sound present, S2 normal heart sound present and no murmurs GI: Inspection: Yes normal to inspection Palpation (GI): Soft to palpation, nontender and no guarding Auscultation: normal bowel sounds : General: Yes no CVA tenderness Back/Spine/Pelvis: Back: no CVA tenderness Skin: General skin exam: no rashes or lesions noted Neuro: General: oriented to person and oriented to place Cranial nerves: Yes CN's II-XII intact bilaterally and Yes Equal, round and reactive pupils present Cognition (Neuro): normal cognition Motor exam (neuro): 5/5 motor strength present throughout Extrem: General: Yes normal to inspection Psych: Appearance: grossly normal Speech and movement: Normal speech and movement present Affect: normal affect Attitude: cooperative Thought process: Normal thought process present Thought content: Normal thought content present Course Course Course Narrative: 61-year-old female who presents emergency department for evaluation of depression, anxiety, elevated blood pressure and left-sided chest pain. The patient states that she has not been able to get her medications for her anxiety or her blood pressure for 1 month. Patient's initial vital signs did reveal an elevated blood pressure of 152/94 otherwise were unremarkable. The patient's examination was unremarkable. Laboratory evaluation was unremarkable including a below detectable limits high sensitivity troponin I. EKG was unremarkable. Patient was given clonazepam 1 mg orally. I did give her limited prescription of clonazepam and I did also refill her prazosin 1 mg daily. She was advised follow-up with PCP for re-evaluation and to get refills on her medications. MDM - Chest Pain Lab Data Result diagrams: 01/18/22 21:05 01/18/22 21:05 Labs: Lab Results 01/18/22 01/18/22 01/18/22 Range/Units 21:05 21:05 21:05 WBC 8.1 (4.8-10.8) X10*3/uL RBC 4.50 (4.20-5.50) X10*6/uL Hgb 12.9 (12.0-16.0) g/dl Hct 39.6 (37.0-47.0) % MCV 88.0 (80.0-98.0) fL MCH 28.7 (27.0-33.0) pg MCHC 32.6 (31.0-35.0) g/dl RDW 13.5 (11.0-16.0) % Plt Count 238 (160-400) X10*3/uL MPV 9.9 (9.4-12.3) fL Immature Gran % (Auto) 0.2 (0.0-0.4) % Neut % (Auto) 58.3 (45-73) % Lymph % (Auto) 33.1 (20-40) % [place] % (Auto) 7.2 (2-11) % Eos % (Auto) 0.7 (0-4) % Baso % (Auto) 0.5 (0-2) % Lymph # (Auto) 2.7 (1.2-4.9) X10*3/uL [place] # (Auto) 0.6 (0.1-1.2) X10*3/uL Eos # (Auto) 0.1 (0.0-0.4) X10*3/uL Baso # (Auto) 0.0 (0.0-0.2) X10*3/uL Abs Immat Gran (auto) 0.02 (0.00-0.03) X10*3/uL Absolute Neuts (auto) 4.7 (2.0-8.3) x10*3/uL Absolute Nucleated RBC 0.000 (0.0-0.012) X10*3/uL Nucleated RBC % (auto) 0.0 (0.0-0.2) /100WBC Sodium 141 (135-145) mmol/L Potassium 4.3 (3.3-5.1) mmol/L Chloride 103 (96-108) mmol/L Carbon Dioxide 29 (22-29) mmol/L Anion Gap 13 (12-20) BUN 9 (9-16) mg/dL Creatinine 0.80 (0.5-1.4) mg/dL Estim Creat Clear Calc 66.6 Estimated GFR > 60 Random Glucose 118 H (60-115) mg/dL Calcium 10.2 (8.4-10.2) mg/dL Total Bilirubin 0.5 (0.0-1.0) mg/dL AST 19 (5-31) U/L ALT 14 (0-31) U/L Alkaline Phosphatase 78 (39-117) U/L Troponin I High Sens < 3.5 (<3.5-17.0) ng/L Total Protein 7.8 (6.5-8.0) g/dL Albumin 4.4 (3.5-5.0) g/dL ECG Data ECG #1: Attestation: I personally reviewed and interpreted this ECG as follows: Interpretation: 1832: Normal sinus rhythm rate of 78, normal [place] interval QRS duration and QTC interval, no ST segment elevation, no ST segment depression, no PACs, no PVCs, no T-wave abnormalities, this is a normal EKG. Discharge Plan Discharge Clinical Impression: Chest pain, Anxiety Patient Disposition: Home, Self-Care Prescriptions: New prazosin 1 mg capsule 1 mg PO BEDTIME Qty: 30 0RF clonazepam 1 mg tablet 1 mg PO BID PRN (Reason: anxiety) Qty: 10 0RF No Action doxycycline monohydrate 100 mg capsule 100 mg PO BID 10 Days Qty: 20 0RF clonazepam [Klonopin] 0.5 mg tablet 0.5 mg PO BEDTIME PRN (Reason: anxiety) Qty: 14 0RF cephalexin 500 mg capsule 500 mg PO Q8H Qty: 21 0RF oxycodone 5 mg tablet 5 mg PO Q8H PRN (Reason: pain) Qty: 5 0RF (DME) walker Misc See Rx Instructions .Route Qty: 1 0RF Rx Instructions: As directed cyclobenzaprine 10 mg tablet 10 mg PO TID PRN (Reason: muscle spasm) Qty: 10 0RF lidocaine [Lidoderm] 5 % adhesive patch,medicated 1 patch topical DAILY Qty: 15 0RF Rx Instructions: leave on most painful area for up to 12 hrs cephalexin 500 mg capsule 500 mg PO Q8H 7 Days Qty: 21 0RF
[2022-01-19] MEDS: clonazePAM 1 MG TABLET PO (00:57)
[2022-01-19 00:59] VITALS: BP 166/96; PULSE 82; RESP 18; O2SAT 96
== END 2022-01-19 01:27 | disposition home or self-care (01) ==
PROVIDERS: Emergency Provider Emergency Medicine Emergency Medical Services; PCP Internal Medicine
DX: R07.89 Other chest pain (principal); F41.1 Generalized anxiety disorder; F43.0 Acute stress reaction; Z91.14 Patient's other noncompliance with medication regimen; Z79.899 Other long term (current) drug therapy
CPT/HCPCS: 36415; 80053; 84484; 85025; 93005; 99282; 99283

== ENCOUNTER 2022-02-08 21:41 | Emergency (ER) | payer MEDICAID, SELFPAY ==
--- NOTE | 2022-02-08 | ECG_ITS ---
Test Reason : CP Blood Pressure : / mmHG Vent. Rate : 073 BPM Atrial Rate : 073 BPM P-R Int : 136 ms QRS Dur : 070 ms QT Int : 384 ms P-R-T Axes : 050 -05 042 degrees QTc Int : 423 ms Normal sinus rhythm Normal ECG When compared with ECG of 18-JAN-2022 18:32, No significant change was found Referred By: Generic ED Physician Electronically Signed By:Celestine Alejo
[2022-02-08 21:43] VITALS: BP 134/80; PULSE 79; RESP 18; TEMP 36.8; O2SAT 95; BMI 31.2
[2022-02-08 22:04] LABS: MANUAL DIFF FLAG NO
[2022-02-08 22:07] LABS: Basophils Percent Auto 0.4 % (0-2); Eosinophils Absolute Auto 0.1 X10*3/uL (0.0-0.4); Hematocrit 35.2 % (37.0-47.0); Hemoglobin 11.3 g/dl (12.0-16.0); Imm Gran Abs Auto 0.03 X10*3/uL (0.00-0.03); Imm Gran Pct Auto 0.3 % (0.0-0.4); Lymphocytes Absolute Auto 4.3 X10*3/uL (1.2-4.9); Lymphocytes Percent Auto 43.9 % (20-40); Mean Corpuscular HGB Conc 32.1 g/dl (31.0-35.0); Mean Corpuscular Hemoglobin 28.5 pg (27.0-33.0); Mean Corpuscular Volume 88.9 fL (80.0-98.0); Mean Platelet Volume 10.4 fL (9.4-12.3); Monocytes Absolute Auto 0.5 X10*3/uL (0.1-1.2); Monocytes Percent Auto 5.6 % (2-11); Neutrophils Absolute Auto 4.7 x10*3/uL (2.0-8.3); Neutrophils Percent Auto 48.8 % (45-73); Platelet Count 230 X10*3/uL (160-400); Red Blood Count 3.96 X10*6/uL (4.20-5.50); Red Cell Distribution Width 13.8 % (11.0-16.0); White Blood Count 9.7 X10*3/uL (4.8-10.8)
[2022-02-08 22:15] LABS: D Dimer High Sensitivity 167 NG/ML
[2022-02-08 22:21] LABS: Alanine Aminotransferase 9 U/L (0-31); Albumin Level 3.7 g/dL (3.5-5.0); Alkaline Phosphatase 69 U/L (39-117); Anion Gap 14 (12-20); Aspartate Amino Transferase 19 U/L (5-31); Bilirubin Total 0.2 mg/dL (0.0-1.0); Blood Urea Nitrogen 15 mg/dL (9-16); Calcium 8.6 mg/dL (8.4-10.2); Carbon Dioxide 25 mmol/L (22-29); Chloride 106 mmol/L (96-108); Creatinine Clr Calc Pharmacy 64.9; Estimated Glomerular Filt Rate > 60; Glucose Random 116 mg/dL (60-115); Potassium 4.5 mmol/L (3.3-5.1); Sodium 140 mmol/L (135-145); Total Protein 6.7 g/dL (6.5-8.0)
[2022-02-08 22:24] LABS: B Type Natriuretic Peptide 38 pg/mL (<100); Troponin-I High Sensitivity < 3.5 ng/L (<3.5-17.0)
--- NOTE | 2022-02-08 23:12 | ED.CHESTPAIN ---
HPI - Chest Pain General Chief Complaint: Chest Pain Stated Complaint: CHEST PAIN Time Seen by Provider: 02/08/22 22:27 Source: patient and EMS Mode of arrival: EMS Limitations: no limitations History of Present Illness HPI narrative: Patient comes to the emergency room complaining of right shoulder pain, aggravated by abducting the arm. Patient states it feels like it is frozen and it is painful. Patient denies any injuries. Patient states that she has been evaluated by her primary care physician, today, patient called EMS, she received nitro x2, 324 mg of aspirin. Patient states that the right shoulder pain has been present for couple of weeks, states that the pain is making her anxiety worse. Patient denies chest pain or shortness of breath Related Data Previous Rx's Medication Instructions Recorded doxycycline monohydrate 100 mg 100 mg PO BID 10 days #20 caps 10/23/20 capsule clonazepam 0.5 mg tablet (Klonopin) 0.5 mg PO BEDTIME PRN anxiety #14 03/08/21 tabs cephalexin 500 mg capsule 500 mg PO Q8H #21 caps 05/06/21 oxycodone 5 mg tablet 5 mg PO Q8H PRN pain #5 tabs 06/27/21 walker #1 ea 06/27/21 cyclobenzaprine 10 mg tablet 10 mg PO TID PRN muscle spasm #10 11/11/21 tabs lidocaine 5 % topical patch 1 patch topical DAILY #15 ea 11/11/21 (Lidoderm) cephalexin 500 mg capsule 500 mg PO Q8H 7 days #21 caps 12/07/21 clonazepam 1 mg tablet 1 mg PO BID PRN anxiety #10 tabs 01/19/22 prazosin 1 mg capsule 1 mg PO BEDTIME #30 caps 01/19/22 tramadol 50 mg tablet 50 mg PO Q8H PRN pain #7 tabs 02/08/22 Allergies Allergy/AdvReac Type Severity Reaction Status Date / Time naproxen [NAPROXEN] Allergy Severe UNKNOWN Verified 12/07/21 16:19 acetaminophen [From Tylenol] Allergy Unknown Verified 12/07/21 16:19 ibuprofen Allergy Unknown Verified 12/07/21 16:19 pollen extracts Allergy Rash Verified 01/18/22 20:54 Review of Systems Review of Systems: Constitutional : No Weight loss, No Fever, No Chills, No Night Sweats, No Fatigue, No Malaise ENT/Mouth : No Hearing loss, No Ear Pain, No Nasal Congestion, No Sinus Pain, No Hoarseness, No sore throat, No Rhinorrhea, No Swallowing Difficulty Eyes: No Eye Pain, No Swelling, No Redness, No Foreign Body, No Discharge, No Vision Changes Cardiovascular : No Chest Pain, No SOB, No Dyspnea on Exertion, No Orthopnea, No Edema, No Palpitations Respiratory : No Cough, No Sputum, No Wheezing, No Smoke Exposure, No Dyspnea Gastrointestinal : No Nausea, No Vomiting, No Diarrhea, No Constipation, No abdominal Pain, No Hematochezia, No Melena Genitourinary : no irregular bleeding, No Dysuria, No Urinary Frequency, No Hematuria, No Urinary Incontinence, No Urgency, No Flank Pain, No Urinary Flow Changes, No Hesitancy Musculoskeletal : Complaining of right shoulder pain, No Myalgias, No Joint Swelling Skin : No Skin Lesions, No rash Neuro : No Weakness, No Numbness, No Paresthesias, No Loss of Consciousness, No Dizziness, No Headache Psych : No Anxiety/Panic, No Depression, No SI/HI/AH/VH, No Social Issues, Heme/Lymph: No Bruising, No Bleeding,No Lymphadenopathy Endocrine : No Polyuria, No Polydipsia, No Temperature Intolerance PMFSH Past Medical History Medical History Anxiety Diabetes High cholesterol HTN (hypertension) Surgical History History of hernia surgery Social History Social History Alcohol intake: never Patient Tobacco Use Status: Never used Tobacco Advance Directives: No Advance Directives Information Provided: No Physical Exam Vital Signs: Vital Signs: Last Vital Signs Temp 98.3 F 02/08/22 21:43 Pulse 79 02/08/22 21:43 Resp 18 02/08/22 21:43 BP 134/80 02/08/22 21:43 Pulse Ox 95 02/08/22 21:43 O2 Del Method 02/08/22 21:43 BMI result Body Mass Index 31.2 Const: Other: Appearance: Alert. Oriented X3. No acute distress. Eyes: Pupils equal, round and reactive to light. ENT: Pharynx normal. Neck: Normal inspection. Neck supple. No lymph nodes noted. No crepitus CVS: Normal heart rate and rhythm. Pulses normal. Normal S1 and S2 Respiratory: No respiratory distress. Breath sounds normal. No Wheezing. No rales Abdomen: Soft and nontender. No rigidity. No distention. Skin: Skin warm and dry. Normal skin color. Normal skin turgor. Extremities: No lower extremity edema. Pain to palpation over the right shoulder. Patient is able to abduct the arm up to 45 degrees, doing so with pain, patient cannot go up to 90 degrees. Neuro: Oriented X 3. No motor deficit. No sensory deficit. Moving all extremities. No slurred speech. CN 2 through 12 grossly intact Psych: calm, cooperative, normal affect Course Course Course Narrative: I discussed with the patient that she may have impingement versus frozen shoulder versus rotator cuff injury. X-rays will not be helpful. Patient will likely need an MRI. Patient states she is allergic to NSAIDs and acetaminophen. Patient given 1 time dose of tramadol. Patient instructed to follow-up with her primary care physician MDM - Chest Pain Lab Data Result diagrams: 02/08/22 21:55 02/08/22 21:55 Labs: Lab Results 02/08/22 02/08/22 02/08/22 Range/Units 21:55 21:55 21:55 WBC 9.7 (4.8-10.8) X10*3/uL RBC 3.96 L (4.20-5.50) X10*6/uL Hgb 11.3 L (12.0-16.0) g/dl Hct 35.2 L (37.0-47.0) % MCV 88.9 (80.0-98.0) fL MCH 28.5 (27.0-33.0) pg MCHC 32.1 (31.0-35.0) g/dl RDW 13.8 (11.0-16.0) % Plt Count 230 (160-400) X10*3/uL MPV 10.4 (9.4-12.3) fL Immature Gran % (Auto) 0.3 (0.0-0.4) % Neut % (Auto) 48.8 (45-73) % Lymph % (Auto) 43.9 H (20-40) % [place] % (Auto) 5.6 (2-11) % Eos % (Auto) 1.0 (0-4) % Baso % (Auto) 0.4 (0-2) % Lymph # (Auto) 4.3 (1.2-4.9) X10*3/uL [place] # (Auto) 0.5 (0.1-1.2) X10*3/uL Eos # (Auto) 0.1 (0.0-0.4) X10*3/uL Baso # (Auto) 0.0 (0.0-0.2) X10*3/uL Abs Immat Gran (auto) 0.03 (0.00-0.03) X10*3/uL Absolute Neuts (auto) 4.7 (2.0-8.3) x10*3/uL Absolute Nucleated RBC 0.000 (0.0-0.012) X10*3/uL Nucleated RBC % (auto) 0.0 (0.0-0.2) /100WBC D-Dimer High Sensitivty NG/ML Sodium 140 (135-145) mmol/L Potassium 4.5 (3.3-5.1) mmol/L Chloride 106 (96-108) mmol/L Carbon Dioxide 25 (22-29) mmol/L Anion Gap 14 (12-20) BUN 15 D (9-16) mg/dL Creatinine 0.83 (0.5-1.4) mg/dL Estim Creat Clear Calc 64.9 Estimated GFR > 60 Random Glucose 116 H (60-115) mg/dL Calcium 8.6 D (8.4-10.2) mg/dL Total Bilirubin 0.2 (0.0-1.0) mg/dL AST 19 (5-31) U/L ALT 9 (0-31) U/L Alkaline Phosphatase 69 (39-117) U/L Troponin I High Sens < 3.5 (<3.5-17.0) ng/L B-Natriuretic Peptide 38 (<100) pg/mL Total Protein 6.7 (6.5-8.0) g/dL Albumin 3.7 (3.5-5.0) g/dL 02/08/22 Range/Units 21:55 WBC (4.8-10.8) X10*3/uL RBC (4.20-5.50) X10*6/uL Hgb (12.0-16.0) g/dl Hct (37.0-47.0) % MCV (80.0-98.0) fL MCH (27.0-33.0) pg MCHC (31.0-35.0) g/dl RDW (11.0-16.0) % Plt Count (160-400) X10*3/uL MPV (9.4-12.3) fL Immature Gran % (Auto) (0.0-0.4) % Neut % (Auto) (45-73) % Lymph % (Auto) (20-40) % [place] % (Auto) (2-11) % Eos % (Auto) (0-4) % Baso % (Auto) (0-2) % Lymph # (Auto) (1.2-4.9) X10*3/uL [place] # (Auto) (0.1-1.2) X10*3/uL Eos # (Auto) (0.0-0.4) X10*3/uL Baso # (Auto) (0.0-0.2) X10*3/uL Abs Immat Gran (auto) (0.00-0.03) X10*3/uL Absolute Neuts (auto) (2.0-8.3) x10*3/uL Absolute Nucleated RBC (0.0-0.012) X10*3/uL Nucleated RBC % (auto) (0.0-0.2) /100WBC D-Dimer High Sensitivty 167 NG/ML Sodium (135-145) mmol/L Potassium (3.3-5.1) mmol/L Chloride (96-108) mmol/L Carbon Dioxide (22-29) mmol/L Anion Gap (12-20) BUN (9-16) mg/dL Creatinine (0.5-1.4) mg/dL Estim Creat Clear Calc Estimated GFR Random Glucose (60-115) mg/dL Calcium (8.4-10.2) mg/dL Total Bilirubin (0.0-1.0) mg/dL AST (5-31) U/L ALT (0-31) U/L Alkaline Phosphatase (39-117) U/L Troponin I High Sens (<3.5-17.0) ng/L B-Natriuretic Peptide (<100) pg/mL Total Protein (6.5-8.0) g/dL Albumin (3.5-5.0) g/dL Discharge Plan Discharge Clinical Impression: Pain in right shoulder Patient Disposition: Home, Self-Care Instructions: Shoulder Impingement Syndrome (ED) Additional Instructions: Please follow-up with your primary care physician tomorrow. If you have any worsening or new symptoms, please return to the emergency room or call 911 Prescriptions: New tramadol 50 mg tablet 50 mg PO Q8H PRN (Reason: pain) Qty: 7 0RF No Action doxycycline monohydrate 100 mg capsule 100 mg PO BID 10 Days Qty: 20 0RF clonazepam [Klonopin] 0.5 mg tablet 0.5 mg PO BEDTIME PRN (Reason: anxiety) Qty: 14 0RF cephalexin 500 mg capsule 500 mg PO Q8H Qty: 21 0RF oxycodone 5 mg tablet 5 mg PO Q8H PRN (Reason: pain) Qty: 5 0RF (DME) satnam Misc See Rx Instructions .Route Qty: 1 0RF Rx Instructions: As directed cyclobenzaprine 10 mg tablet 10 mg PO TID PRN (Reason: muscle spasm) Qty: 10 0RF lidocaine [Lidoderm] 5 % adhesive patch,medicated 1 patch topical DAILY Qty: 15 0RF Rx Instructions: leave on most painful area for up to 12 hrs cephalexin 500 mg capsule 500 mg PO Q8H 7 Days Qty: 21 0RF prazosin 1 mg capsule 1 mg PO BEDTIME Qty: 30 0RF clonazepam 1 mg tablet 1 mg PO BID PRN (Reason: anxiety) Qty: 10 0RF
[2022-02-09] MEDS: traMADoL HCL 50 MG TABLET PO (00:06)
== END 2022-02-09 00:12 | disposition home or self-care (01) ==
PROVIDERS: Emergency Provider Emergency Medicine
DX: M25.511 Pain in right shoulder (principal)
CPT/HCPCS: 36415; 80053; 83880; 84484; 85025; 85379; 93005; 99283

== ENCOUNTER 2022-02-09 10:42 | Emergency (ER) | payer MEDICAID, SELFPAY ==
[2022-02-09 10:58] VITALS: BP 143/83; PULSE 88; RESP 16; TEMP 36.3; O2SAT 96; BMI 31.2
[2022-02-09] MEDS: traMADoL HCL 50 MG TABLET PO (12:17)
[2022-02-09] MEDS: hydrOXYzine HCL 25 MG TABLET PO (12:17)
--- NOTE | 2022-02-09 12:54 | ED_ITS ---
HPI - General Adult General Chief complaint: General Medical Stated complaint: fall/shoulder inj Time Seen by Provider: 02/09/22 12:00 Source: patient Mode of arrival: ambulatory History of Present Illness HPI narrative: 61-year-old female with a past medical history of anxiety, diabetes, hyperlipidemia, hypertension, osteoarthritis, Wallisian-speaking, presenting to the ED complaining of acute on chronic right shoulder pain from her arthritis times a few days. Also reports increased anxiety secondary to the pain. Reports ran out of her medications, is currently taking nothing. Denies injury, trauma, falls, heavy lifting, numbness, tingling, weakness. Reports pain is similar to prior arthritic flares. Onset (ago): unknown Related Data Previous Rx's Medication Instructions Recorded doxycycline monohydrate 100 mg 100 mg PO BID 10 days #20 caps 10/23/20 capsule clonazepam 0.5 mg tablet (Klonopin) 0.5 mg PO BEDTIME PRN anxiety #14 03/08/21 tabs cephalexin 500 mg capsule 500 mg PO Q8H #21 caps 05/06/21 oxycodone 5 mg tablet 5 mg PO Q8H PRN pain #5 tabs 06/27/21 walker #1 ea 06/27/21 cyclobenzaprine 10 mg tablet 10 mg PO TID PRN muscle spasm #10 11/11/21 tabs lidocaine 5 % topical patch 1 patch topical DAILY #15 ea 11/11/21 (Lidoderm) cephalexin 500 mg capsule 500 mg PO Q8H 7 days #21 caps 12/07/21 clonazepam 1 mg tablet 1 mg PO BID PRN anxiety #10 tabs 01/19/22 prazosin 1 mg capsule 1 mg PO BEDTIME #30 caps 01/19/22 tramadol 50 mg tablet 50 mg PO Q8H PRN pain #7 tabs 02/08/22 lidocaine 5 % topical patch 1 patch topical DAILY PRN pain #30 02/09/22 (Lidoderm) ea tramadol 50 mg tablet 50 mg PO Q8H PRN pain, severe #7 02/09/22 tabs Allergies Allergy/AdvReac Type Severity Reaction Status Date / Time naproxen [NAPROXEN] Allergy Severe UNKNOWN Verified 02/09/22 10:58 acetaminophen [From Tylenol] Allergy Unknown Verified 02/09/22 10:58 ibuprofen Allergy Unknown Verified 06/19/22 10:58 pollen extracts Allergy Rash Verified 02/09/22 10:58 Review of Systems Review of Systems: Constitutional: No Fever, No Chills, No Fatigue, No Malaise ENT/Mouth: No Ear Pain, No Nasal Congestion, No Sinus Pain, No Hoarseness, No sore throat, No Rhinorrhea, No Swallowing Difficulty Eyes: No Eye Pain, No Swelling, No Redness Cardiovascular: No Chest Pain, No SOB, No Dyspnea on Exertion, No Palpitations Respiratory: No Cough, No Sputum, No Dyspnea Gastrointestinal: No Nausea, No Vomiting, No Diarrhea, No Constipation, No Abdominal pain Genitourinary: No Dysuria, No Urinary Frequency, No Hematuria, No Urinary Incontinence/retention Musculoskeletal: + joint pain, No Myalgias, No Joint Swelling Skin: No Skin Lesions, No rash Neuro: No Weakness, No Numbness, No Paresthesias, No Headache Psych: +anxiety Yes all other systems are reviewed and are negative [facility] Past Medical History Attestation statement: The following information was validated with the patient. Medical History Anxiety Diabetes High cholesterol HTN (hypertension) Surgical History History of hernia surgery Social History Social History Alcohol intake: never Patient Tobacco Use Status: Never used Tobacco Advance Directives: No Advance Directives Information Provided: No Physical Exam ED Vital Signs: Vital Signs - 24 hr 02/09/22 10:58 Temperature 97.4 F Pulse Rate 88 Respiratory Rate 16 Blood Pressure 143/83 H Pulse Oximetry 96 Oxygen Delivery Method Room Air BMI result Body Mass Index 31.2 Const General: cooperative, healthy appearing and no acute distress Orientation/consciousness: patient oriented x3 Limitations: no limitations HENMT Head: Yes normal to inspection and Yes atraumatic Ears: hearing grossly normal bilaterally General nose exam: Normal external nose present Face and sinus: Yes normal facial exam Eyes General: appearance normal, both eyes and all related structures EOM: EOMs intact bilaterally Neck Neck: Yes normal visual inspection and Yes no meningeal signs Resp Effort & Inspection: normal respiratory effort and no respiratory distress Auscultation: clear to auscultation bilaterally Cardio Rate: regular rate Heart sounds: S1 normal heart sound present and S2 normal heart sound present Peripheral pulses: radial pulses present Skin Rashes: no rashes Wounds: no wounds Neuro General: patient oriented x3, tone normal and no meningeal signs Gait exam (Neuro): Normal gait present Extrem Other: Right shoulder/upper arm with diffuse tenderness, no appreciable deformity/erythema or ecchymosis/crepitus. Limited ROM is secondary to pain. Passive ROM intact. Neurovascularly intact distally. General: Yes normal to inspection Medical Decision Making MDM Narrative Medical decision making narrative: 61-year-old female with a past medical history of anxiety, diabetes, hyperlipidemia, hypertension, osteoarthritis, Wallisian-speaking, presenting to the ED complaining of acute on chronic right shoulder pain from her arthritis times a few days. On exam vital signs stable, NAD, nontoxic appearing, physical exam as above consistent with arthritic flare. Low suspicion for fracture or dislocation without injury, patient had x-rays in October, no need to repeat at this time Plan: PO Atarax and tramadol in the emergency department, discussed with patient she needs to have close follow-up with PCP Medical Records Medical records reviewed: Yes I reviewed the patient's medical records. Lab Data Lab results reviewed: Yes I reviewed the patient's lab results. Discharge Plan Discharge Clinical Impression: Acute pain of right shoulder Patient Disposition: Home, Self-Care Instructions: Arthralgia (ED) Additional Instructions: Please apply ice and heat. Tramadol as an opiate pain medication, take only when pain is severe for the next 3 days. Rest. Follow up with her doctor. If symptoms persist or worsen [facility] 911 Aplicar hielo y calor. 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 Descansar. Seguimiento con henriquez m?dico. Si los s?ntomas persisten o empeoran, regrese al departamento de emergencias/llame al 911 Prescriptions: New tramadol 50 mg tablet 50 mg PO Q8H PRN (Reason: pain, severe) Qty: 7 0RF lidocaine [Lidoderm] 5 % adhesive patch,medicated 1 patch topical DAILY MDD remove after 12 hours PRN (Reason: pain) Qty: 30 0RF Rx Instructions: leave on most painful area for up to 12 hrs No Action doxycycline monohydrate 100 mg capsule 100 mg PO BID 10 Days Qty: 20 0RF clonazepam [Klonopin] 0.5 mg tablet 0.5 mg PO BEDTIME PRN (Reason: anxiety) Qty: 14 0RF cephalexin 500 mg capsule 500 mg PO Q8H Qty: 21 0RF oxycodone 5 mg tablet 5 mg PO Q8H PRN (Reason: pain) Qty: 5 0RF (DME) walker Misc See Rx Instructions .Route Qty: 1 0RF Rx Instructions: As directed cyclobenzaprine 10 mg tablet 10 mg PO TID PRN (Reason: muscle spasm) Qty: 10 0RF lidocaine [Lidoderm] 5 % adhesive patch,medicated 1 patch topical DAILY Qty: 15 0RF Rx Instructions: leave on most painful area for up to 12 hrs cephalexin 500 mg capsule 500 mg PO Q8H 7 Days Qty: 21 0RF prazosin 1 mg capsule 1 mg PO BEDTIME Qty: 30 0RF clonazepam 1 mg tablet 1 mg PO BID PRN (Reason: anxiety) Qty: 10 0RF tramadol 50 mg tablet 50 mg PO Q8H PRN (Reason: pain) Qty: 7 0RF Referrals: Meera Ramirez MD [Primary Care Provider] - Print Language: Wallisian
== END 2022-02-09 13:32 | disposition home or self-care (01) ==
PROVIDERS: Emergency Provider Emergency Medicine Emergency Medical Services; PCP Internal Medicine
DX: M25.511 Pain in right shoulder (principal); I10 Essential (primary) hypertension; F41.1 Generalized anxiety disorder; F43.0 Acute stress reaction; Z79.899 Other long term (current) drug therapy
CPT/HCPCS: 99283

== ENCOUNTER 2022-03-17 10:49 | Emergency (ER) | payer MEDICAID, SELFPAY ==
[2022-03-17 11:27] VITALS: BP 177/87; PULSE 80; RESP 18; TEMP 36.8; O2SAT 96; BMI 30.7
--- NOTE | 2022-03-17 11:30 | ECG_ITS ---
Test Reason : anxiety Blood Pressure : / mmHG Vent. Rate : 081 BPM Atrial Rate : 081 BPM P-R Int : 136 ms QRS Dur : 076 ms QT Int : 374 ms P-R-T Axes : 052 -21 036 degrees QTc Int : 434 ms Normal sinus rhythm Normal ECG When compared with ECG of 08-FEB-2022 22:10, No significant change was found Referred By: Generic ED Physician Electronically Signed By:RISHI MENEZES
[2022-03-17 12:07] LABS: MANUAL DIFF FLAG NO
[2022-03-17 12:09] LABS: Basophils Percent Auto 0.3 % (0-2); Eosinophils Percent Auto 0.7 % (0-4); Hematocrit 37.5 % (37.0-47.0); Hemoglobin 11.9 g/dl (12.0-16.0); Imm Gran Abs Auto 0.01 X10*3/uL (0.00-0.03); Imm Gran Pct Auto 0.2 % (0.0-0.4); Lymphocytes Absolute Auto 1.3 X10*3/uL (1.2-4.9); Lymphocytes Percent Auto 23.1 % (20-40); Mean Corpuscular HGB Conc 31.7 g/dl (31.0-35.0); Mean Corpuscular Hemoglobin 28.6 pg (27.0-33.0); Mean Corpuscular Volume 90.1 fL (80.0-98.0); Mean Platelet Volume 9.9 fL (9.4-12.3); Monocytes Absolute Auto 0.4 X10*3/uL (0.1-1.2); Monocytes Percent Auto 6.7 % (2-11); Platelet Count 224 X10*3/uL (160-400); Red Blood Count 4.16 X10*6/uL (4.20-5.50); Red Cell Distribution Width 13.7 % (11.0-16.0); White Blood Count 5.8 X10*3/uL (4.8-10.8)
[2022-03-17 12:39] LABS: Alanine Aminotransferase 11 U/L (0-31); Albumin Level 4.2 g/dL (3.5-5.0); Alkaline Phosphatase 63 U/L (39-117); Anion Gap 12 (12-20); Aspartate Amino Transferase 14 U/L (5-31); Bilirubin Total 0.4 mg/dL (0.0-1.0); Blood Urea Nitrogen 14 mg/dL (9-16); Carbon Dioxide 27 mmol/L (22-29); Chloride 106 mmol/L (96-108); Estimated Glomerular Filt Rate > 60; Glucose Random 114 mg/dL (60-115); Potassium 4.5 mmol/L (3.3-5.1); Sodium 140 mmol/L (135-145); Total Protein 7.2 g/dL (6.5-8.0)
[2022-03-17 12:43] LABS: Troponin-I High Sensitivity < 3.5 ng/L (<3.5-17.0)
--- NOTE | 2022-03-17 15:29 | ED_ITS ---
HPI - Anxiety General Chief Complaint: Anxiety Stated Complaint: Anxiety Time Seen by Provider: 03/17/22 15:17 Source: patient Mode of arrival: ambulatory History of Present Illness HPI narrative: 61-year-old female with a past medical history anxiety, diabetes, HLD, HTN, presenting to the ED complaining of worsening anxiety x1 week. Reports ran out of medications at home. Reports intermittent headache, SOB, and CP , mildly improved at present. Denies SI/HI, EtOH or illicit drug use MD complaint: anxiety Onset (ago): week(s) Related Data Previous Rx's Medication Instructions Recorded doxycycline monohydrate 100 mg 100 mg PO BID 10 days #20 caps 10/23/20 capsule clonazepam 0.5 mg tablet (Klonopin) 0.5 mg PO BEDTIME PRN anxiety #14 03/08/21 tabs cephalexin 500 mg capsule 500 mg PO Q8H #21 caps 05/06/21 oxycodone 5 mg tablet 5 mg PO Q8H PRN pain #5 tabs 06/27/21 walker #1 ea 06/27/21 cyclobenzaprine 10 mg tablet 10 mg PO TID PRN muscle spasm #10 11/11/21 tabs lidocaine 5 % topical patch 1 patch topical DAILY #15 ea 11/11/21 (Lidoderm) cephalexin 500 mg capsule 500 mg PO Q8H 7 days #21 caps 12/07/21 clonazepam 1 mg tablet 1 mg PO BID PRN anxiety #10 tabs 01/19/22 prazosin 1 mg capsule 1 mg PO BEDTIME #30 caps 01/19/22 tramadol 50 mg tablet 50 mg PO Q8H PRN pain #7 tabs 02/08/22 lidocaine 5 % topical patch 1 patch topical DAILY PRN pain #30 02/09/22 (Lidoderm) ea tramadol 50 mg tablet 50 mg PO Q8H PRN pain, severe #7 02/09/22 tabs clonazepam 1 mg tablet 1 mg PO DAILY #3 tabs 03/17/22 Allergies Allergy/AdvReac Type Severity Reaction Status Date / Time naproxen [NAPROXEN] Allergy Severe UNKNOWN Verified 02/09/22 10:58 acetaminophen [From Tylenol] Allergy Unknown Verified 02/09/22 10:58 ibuprofen Allergy Unknown Verified 02/09/22 10:58 pollen extracts Allergy Rash Verified 02/09/22 10:58 Review of Systems Review of Systems: Constitutional: No Fever, No Chills, No Fatigue, No Malaise ENT/Mouth: No Hearing loss, No Ear Pain, No Nasal Congestion, No sore throat, No Rhinorrhea, No Swallowing Difficulty Eyes: No Eye Pain, No Swelling, No Redness, No Vision Changes Cardiovascular: + Chest Pain, + SOB, No Dyspnea on Exertion Respiratory: No Cough, No Sputum, No Dyspnea Gastrointestinal: No Nausea, No Vomiting, No Diarrhea, No Constipation, No Abdominal pain Genitourinary:No Dysuria, No Urinary Frequency, No Hesitancy Musculoskeletal: No joint pain, No Myalgias, No Joint Swelling Skin: No Skin Lesions, No rash Neuro: No Weakness, No Loss of Consciousness, No Dizziness, No Headache Psych: + Anxiety/Panic, No Depression, No SI/HI, No Social Issues Yes all other systems are reviewed and are negative Constitutional: Constitutional: Reports as per [facility] Past Medical History Attestation statement: The following information was validated with the patient. Medical History Anxiety Diabetes High cholesterol HTN (hypertension) Surgical History History of hernia surgery Social History Social History Alcohol intake: never Patient Tobacco Use Status: Never used Tobacco Advance Directives: No Advance Directives Information Provided: No Physical Exam Vital Signs: Vital Signs: Last Vital Signs Temp 98.3 F 03/17/22 11:27 Pulse 80 03/17/22 11:27 Resp 18 03/17/22 11:27 BP 177/87 H 03/17/22 11:27 Pulse Ox 96 03/17/22 11:27 O2 Del Method 03/17/22 11:27 BMI result Body Mass Index 30.7 Const: General: cooperative, healthy appearing, no acute distress and anxious Orientation/consciousness: patient oriented x3 Limitations: no limitations HEENT: Head: Yes normal to inspection and Yes atraumatic Ears: hearing grossly normal bilaterally General nose exam: Normal external nose present Face and sinus: Yes normal facial exam Eyes: General: appearance normal, both eyes and all related structures EOM: EOMs intact bilaterally Neck: Neck: Yes normal visual inspection and Yes no meningeal signs Resp: Effort & Inspection: normal respiratory effort and no respiratory distress Auscultation: clear to auscultation bilaterally, no rales, no rhonchi and no wheezes Cardio: Rate: regular rate Heart sounds: S1 normal heart sound present and S2 normal heart sound present GI: Inspection: Yes normal to inspection Palpation (GI): Soft to palpation, nontender, no guarding and not rigid : General: Yes no CVA tenderness Back/Spine/Pelvis: Back: no CVA tenderness Skin: Rashes: no rashes Wounds: no wounds Neuro: General: patient oriented x3, tone normal and no meningeal signs Ga it exam (Neuro): Normal gait present Extrem: General: Yes normal to inspection Psych: Appearance: grossly normal Affect: normal affect Attitude: cooperative Thought content: suicidality and no homicidality Course Course Course Narrative: - no leukocytosis. Troponin negative. Labs otherwise unremarkable. 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 Patient is in agreement with plan MDM - Anxiety MDM Narrative Medical decision making narrative: 61-year-old female with a past medical history anxiety, diabetes, HLD, HTN, presenting to the ED complaining of worsening anxiety x1 week. on exam vital signs stable, NAD, appears mildly anxious on exam, nontoxic appearing, lungs CTA. patient reports symptoms are typical for her anxiety. Lower concern for ACS, PE, infectious etiology, CVA Labs ordered in triage. Plan: EKG, p.o. medications, re-evaluate Differential Diagnosis Differential diagnosis: Likely panic disorder and acute anxiety Medical Records Attestation: I reviewed the patient's medical records. Lab Data Attestation: I reviewed the patient's lab results. Result diagrams: 03/17/22 12:03 03/17/22 12:03 Labs: Lab Results 03/17/22 03/17/22 03/17/22 Range/Units 12:03 12:03 12:03 WBC 5.8 (4.8-10.8) X10*3/uL RBC 4.16 L (4.20-5.50) X10*6/uL Hgb 11.9 L (12.0-16.0) g/dl Hct 37.5 (37.0-47.0) % MCV 90.1 (80.0-98.0) fL MCH 28.6 (27.0-33.0) pg MCHC 31.7 (31.0-35.0) g/dl RDW 13.7 (11.0-16.0) % Plt Count 224 (160-400) X10*3/uL MPV 9.9 (9.4-12.3) fL Immature Gran % (Auto) 0.2 (0.0-0.4) % Neut % (Auto) 69.0 (45-73) % Lymph % (Auto) 23.1 (20-40) % [place] % (Auto) 6.7 (2-11) % Eos % (Auto) 0.7 (0-4) % Baso % (Auto) 0.3 (0-2) % Lymph # (Auto) 1.3 (1.2-4.9) X10*3/uL [place] # (Auto) 0.4 (0.1-1.2) X10*3/uL Eos # (Auto) 0.0 (0.0-0.4) X10*3/uL Baso # (Auto) 0.0 (0.0-0.2) X10*3/uL Abs Immat Gran (auto) 0.01 (0.00-0.03) X10*3/uL Absolute Neuts (auto) 4.0 (2.0-8.3) x10*3/uL Absolute Nucleated RBC 0.000 (0.0-0.012) X10*3/uL Nucleated RBC % (auto) 0.0 (0.0-0.2) /100WBC Sodium 140 (135-145) mmol/L Potassium 4.5 (3.3-5.1) mmol/L Chloride 106 (96-108) mmol/L Carbon Dioxide 27 (22-29) mmol/L Anion Gap 12 (12-20) BUN 14 (9-16) mg/dL Creatinine 0.86 (0.5-1.4) mg/dL Estim Creat Clear Calc 62.0 Estimated GFR > 60 Random Glucose 114 (60-115) mg/dL Calcium 9.0 (8.4-10.2) mg/dL Total Bilirubin 0.4 (0.0-1.0) mg/dL AST 14 (5-31) U/L ALT 11 (0-31) U/L Alkaline Phosphatase 63 (39-117) U/L Troponin I High Sens < 3.5 (<3.5-17.0) ng/L Total Protein 7.2 (6.5-8.0) g/dL Albumin 4.2 (3.5-5.0) g/dL Discharge Plan Discharge Clinical Impression: Acute anxiety Patient Disposition: Home, Self-Care Instructions: Anxiety (ED) Additional Instructions: your labs are unremarkable take clonazepam as needed for anxiety you need to have close follow-up with her doctor. You should also have a therapist, follow-up with [facility]. If your symptoms persist or worsen please return to the emergency department tus laboratorios no son notables tome clonazepam seg?n sea necesario para la ansiedad necesita tener un seguimiento cercano con henriquez m?dico. Tambi?n debe tener un terapeuta, seguimiento con [facility]. Si denzel s?ntomas persisten o empeoran, regrese al departamento de emergencias. Prescriptions: New clonazepam 1 mg tablet 1 mg PO DAILY Qty: 3 0RF No Action doxycycline monohydrate 100 mg capsule 100 mg PO BID 10 Days Qty: 20 0RF clonazepam [Klonopin] 0.5 mg tablet 0.5 mg PO BEDTIME PRN (Reason: anxiety) Qty: 14 0RF cephalexin 500 mg capsule 500 mg PO Q8H Qty: 21 0RF oxycodone 5 mg tablet 5 mg PO Q8H PRN (Reason: pain) Qty: 5 0RF (DME) walker Misc See Rx Instructions .Route Qty: 1 0RF Rx Instructions: As directed cyclobenzaprine 10 mg tablet 10 mg PO TID PRN (Reason: muscle spasm) Qty: 10 0RF lidocaine [Lidoderm] 5 % adhesive patch,medicated 1 patch topical DAILY Qty: 15 0RF Rx Instructions: leave on most painful area for up to 12 hrs cephalexin 500 mg capsule 500 mg PO Q8H 7 Days Qty: 21 0RF prazosin 1 mg capsule 1 mg PO BEDTIME Qty: 30 0RF clonazepam 1 mg tablet 1 mg PO BID PRN (Reason: anxiety) Qty: 10 0RF tramadol 50 mg tablet 50 mg PO Q8H PRN (Reason: pain) Qty: 7 0RF tramadol 50 mg tablet 50 mg PO Q8H PRN (Reason: pain, severe) Qty: 7 0RF lidocaine [Lidoderm] 5 % adhesive patch,medicated 1 patch topical DAILY MDD remove after 12 hours PRN (Reason: pain) Qty: 30 0RF Rx Instructions: leave on most painful area for up to 12 hrs Referrals: [facility] [Outside] Meera Ramirez MD [Primary Care Provider] - Print Language: Congolese
[2022-03-17] MEDS: clonazePAM 1 MG TABLET PO (16:47)
== END 2022-03-17 17:00 | disposition home or self-care (01) ==
PROVIDERS: Emergency Provider Emergency Medicine; PCP Internal Medicine
DX: F41.1 Generalized anxiety disorder (principal); F43.0 Acute stress reaction; Z79.899 Other long term (current) drug therapy
CPT/HCPCS: 36415; 80053; 84484; 85025; 93005; 99283

== ENCOUNTER 2023-02-25 20:41 | Emergency (ER) | payer MEDICAID, SELFPAY ==
[2023-02-25 20:47] VITALS: BP 136/89; BP 138/70; PULSE 78; PULSE 88; RESP 18; TEMP 37; O2SAT 100; O2SAT 99; BMI 22.8
[2023-02-25 21:23] VITALS: BP 140/78; PULSE 80; RESP 20; O2SAT 96
--- NOTE | 2023-02-25 22:36 | ED.CHESTPAIN ---
HPI - Chest Pain General Chief Complaint: Chest Pain Stated Complaint: cp Time Seen by Provider: 02/25/23 20:56 Source: patient Limitations: language barrier (Indian-speaking medical social worker utilized) History of Present Illness HPI narrative: Patient is a 62-year-old female presents to the emergency department for evaluation of chest pain. She reports onset of pain at 09:00 o'clock this morning, reportedly substernal radiating to the left anterior chest, reproducible. Pain has been constant since onset with varying intensity. Reports associated shortness of breath. She walked to the [facility] from her home. She states that she waited there for 5 hours, she was seen by a doctor, and they were ?supposed to give me a medication but they never did? so patient ultimately left and went home. Her pain persisted which prompted her to call EMS this evening. EMS administered nitro sublingual in addition to 324 of aspirin orally, which patient reports mildly improved her pain. Pain is made worse with movement, deep inspiration. Related Data Previous Rx's Medication Instructions Recorded doxycycline monohydrate 100 mg 100 mg PO BID 10 days #20 caps 10/23/20 capsule clonazepam 0.5 mg tablet (Klonopin) 0.5 mg PO BEDTIME PRN anxiety #14 03/08/21 tabs cephalexin 500 mg capsule 500 mg PO Q8H #21 caps 05/06/21 oxycodone 5 mg tablet 5 mg PO Q8H PRN pain #5 tabs 06/27/21 walker #1 ea 06/27/21 cyclobenzaprine 10 mg tablet 10 mg PO TID PRN muscle spasm #10 11/11/21 tabs lidocaine 5 % topical patch 1 patch topical DAILY #15 ea 11/11/21 (Lidoderm) cephalexin 500 mg capsule 500 mg PO Q8H 7 days #21 caps 12/07/21 clonazepam 1 mg tablet 1 mg PO BID PRN anxiety #10 tabs 01/19/22 prazosin 1 mg capsule 1 mg PO BEDTIME #30 caps 01/19/22 tramadol 50 mg tablet 50 mg PO Q8H PRN pain #7 tabs 02/08/22 lidocaine 5 % topical patch 1 patch topical DAILY PRN pain #30 02/09/22 (Lidoderm) ea tramadol 50 mg tablet 50 mg PO Q8H PRN pain, severe #7 02/09/22 tabs clonazepam 1 mg tablet 1 mg PO DAILY #3 tabs 03/17/22 Allergies Allergy/AdvReac Type Severity Reaction Status Date / Time naproxen [NAPROXEN] Allergy Severe UNKNOWN Verified 02/09/22 10:58 acetaminophen [From Tylenol] Allergy Unknown Verified 02/09/22 10:58 ibuprofen Allergy Unknown Verified 02/09/22 10:58 pollen extracts Allergy Rash Verified 02/09/22 10:58 Review of Systems Review of Systems: Constitutional : No Weight loss, No Fever, No Chills ENT/Mouth :? No sore throat, No Rhinorrhea Eyes: No Eye Pain, No Swelling Cardiovascular : pos Chest Pain, pos SOB, no Dyspnea on Exertion, No Orthopnea, No Edema, No Palpitations Respiratory : No Cough, No Sputum Gastrointestinal : No Nausea, No Vomiting, No Diarrhea, No abdominal Pain, No Hematochezia, No Melena Genitourinary : No Dysuria, No Urinary Frequency Musculoskeletal : No joint pain, No Myalgias, No Joint Swelling Skin : No Skin Lesions, No rash Neuro : No Weakness, No Numbness, No Dizziness, No Headache Psych : No Anxiety/Panic, No Depression Heme/Lymph: No Bruising, No Lymphadenopathy Endocrine : No Polyuria, No Polydipsia Yes all other systems are reviewed and are negative [facility] Past Medical History Attestation statement: The following information was validated with the patient. Source: old records reviewed Medical History Anxiety Diabetes High cholesterol HTN (hypertension) Surgical History History of hernia surgery Social History Social History Alcohol intake: never Patient Tobacco Use Status: Never used Tobacco Smoked in Last 30 Days: No Use of substances other than those prescribed or required for medical reasons: No Any prior treatment program specific to substance use: No Advance Directives: No Advance Directives Information Provided: Yes Patient : No Physical Exam Vital Signs: Vital Signs: Last Vital Signs Temp 98.5 F 02/26/23 00:00 Pulse 78 02/26/23 00:00 Resp 16 02/26/23 00:00 BP 130/78 02/26/23 00:00 Pulse Ox 98 07/06/23 00:00 O2 Del Method Room Air 02/26/23 00:00 BMI result Body Mass Index 22.8 Appearance: Alert.?Oriented to person, place and time. No acute distress.?Normal affect. Eyes: Pupils equal, round and reactive to light.? ENT: Pharynx normal.?? Neck: Normal inspection.? Neck supple.?? CVS: Heart sounds normal. Normal heart rate and rhythm.? Pulses normal.?? Respiratory: No respiratory distress.? Lung sounds clear to auscultation bilaterally?? Abdomen: Soft and non-tender. Normoactive bowel sounds. Skin: Skin warm and dry.? Normal skin color.? ? Extremities: No lower extremity edema.? No calf ttp? Neuro: Moves all extremities spontaneously. Sensation intact bilaterally. CN II-XII intact. No focal neuro deficits. Ambulates with normal steady gait. Course Reevaluation(s) Reevaluation #1: EKG revealing normal sinus rhythm no acute ischemic findings and troponin <2.7, will obtain delta troponin, patient received nitro transdermal with relief of pain. No active chest pain at this time. CBC reveals a mild normocytic anemia which appears consistent with baseline, no leukocytosis. CMP is overall unremarkable. Time: 00:34 Reevaluation #2: Delta troponin <2.7, pain at this time seems most consistent with atypical pain. Reviewed this case with ED attending Dr. William who agrees with plan of care. At this time feel the patient is stable for discharge home, outpatient follow-up with primary care provider. Reviewed worrisome signs and symptoms that would warrant re-evaluation in the emergency department. All questions answered. Time: 01:14 Medications Administered Discontinued Medications Generic Name Dose Route Start Last Admin Trade Name Freq PRN Reason Stop Dose Admin Clonazepam 1 mg 02/26/23 00:51 02/26/23 00:58 Clonazepam 1 Mg Tablet PO 02/26/23 00:52 1 mg ONCE ONE Administration Nitroglycerin 0.5 inch 02/25/23 23:13 02/25/23 23:50 Nitroglycerin 2 % Oint 1 Gm Packet TRANSDERMA 02/25/23 23:14 0.5 inch ONCE ONE Administration Medical Decision Making Medical Decision Making MDM Narrative: Patient is a 62-year-old female past medical history of hypertension, hyperlipidemia, diabetes presenting to emergency department for evaluation of chest pain as per HPI. At the time my examination she is overall well-appearing. No apparent distress. No tachycardia, tachypnea, hypoxia, or increased work of breathing. Will obtain CBC to evaluate for leukocytosis/ anemia, CMP and lipase to evaluate for abnormal electrolytes /abnormal renal function/ abnormal hepatic/biliary function, EKG and troponin to evaluate for ischemia/ACS. Chest x-ray to evaluate for consolidation/ infiltrate/ mass/ pulmonary congestion. Differential Diagnosis Differential Diagnoses: The differential diagnosis associated with the presentation includes (ACS, pulmonary embolism, pneumothorax, pneumonia, musculoskeletal pain, acid reflux) Admission/Observation Consideration of admission/observation: Escalation of care including admission/observation considered (I considered admission for chest pain, see course narrative) Lab Data MDM Lab Attestation statement: I reviewed the patient's lab results. (See course narrative) 02/25/23 21:26 02/25/23 21:26 Labs: Lab Results 02/25/23 02/25/23 02/25/23 Range/Units 21:26 21:26 21:26 WBC 7.0 (4.8-10.8) X10*3/uL RBC 3.82 L (4.20-5.50) X10*6/uL Hgb 11.3 L (12.0-16.0) g/dl Hct 34.0 L (37.0-47.0) % MCV 89.0 (80.0-98.0) fL MCH 29.6 (27.0-33.0) pg MCHC 33.2 (31.0-35.0) g/dl RDW 13.0 (11.0-16.0) % Plt Count 202 (160-400) X10*3/uL MPV 10.5 (9.4-12.3) fL Immature Gran % (Auto) 0.1 (0.0-0.4) % Neut % (Auto) 75.6 H (45-73) % Lymph % (Auto) 18.5 L (20-40) % [place] % (Auto) 5.4 (2-11) % Eos % (Auto) 0.3 (0-4) % Baso % (Auto) 0.1 (0-2) % Lymph # (Auto) 1.3 (1.2-4.9) X10*3/uL [place] # (Auto) 0.4 (0.1-1.2) X10*3/uL Eos # (Auto) 0.0 (0.0-0.4) X10*3/uL Baso # (Auto) 0.0 (0.0-0.2) X10*3/uL Abs Immat Gran (auto) 0.01 (0.00-0.03) X10*3/uL Absolute Neuts (auto) 5.3 (2.0-8.3) x10*3/uL Absolute Nucleated RBC 0.000 (0.0-0.012) X10*3/uL Nucleated RBC % (auto) 0.0 (0.0-0.2) /100WBC Sodium 142 (135-145) mmol/L Potassium 4.0 (3.3-5.1) mmol/L Chloride 105 (96-108) mmol/L Carbon Dioxide 27 (22-29) mmol/L Anion Gap 14 (12-20) BUN 8 L (9-16) mg/dL Creatinine 0.82 (0.5-1.4) mg/dL Estim Creat Clear Calc 60.4 Estimated GFR > 60 Random Glucose 118 H (60-115) mg/dL Calcium 9.7 D (8.4-10.2) mg/dL Troponin I High Sens < 2.7 (<3.5-17.0) ng/L 02/26/23 Range/Units 00:41 WBC (4.8-10.8) X10*3/uL RBC (4.20-5.50) X10*6/uL Hgb (12.0-16.0) g/dl Hct (37.0-47.0) % MCV (80.0-98.0) fL MCH (27.0-33.0) pg MCHC (31.0-35.0) g/dl RDW (11.0-16.0) % Plt Count (160-400) X10*3/uL MPV (9.4-12.3) fL Immature Gran % (Auto) (0.0-0.4) % Neut % (Auto) (45-73) % Lymph % (Auto) (20-40) % [place] % (Auto) (2-11) % Eos % (Auto) (0-4) % Baso % (Auto) (0-2) % Lymph # (Auto) (1.2-4.9) X10*3/uL [place] # (Auto) (0.1-1.2) X10*3/uL Eos # (Auto) (0.0-0.4) X10*3/uL Baso # (Auto) (0.0-0.2) X10*3/uL Abs Immat Gran (auto) (0.00-0.03) X10*3/uL Absolute Neuts (auto) (2.0-8.3) x10*3/uL Absolute Nucleated RBC (0.0-0.012) X10*3/uL Nucleated RBC % (auto) (0.0-0.2) /100WBC Sodium (135-145) mmol/L Potassium (3.3-5.1) mmol/L Chloride (96-108) mmol/L Carbon Dioxide (22-29) mmol/L Anion Gap (12-20) BUN (9-16) mg/dL Creatinine (0.5-1.4) mg/dL Estim Creat Clear Calc Estimated GFR Random Glucose (60-115) mg/dL Calcium (8.4-10.2) mg/dL Troponin I High Sens < 2.7 (<3.5-17.0) ng/L Independent Interpretation I performed an independent interpretation of an: EKG and Plain X-Ray (I have personally interpreted chest x-ray and agree with radiologist impression, no acute pneumonia, pneumothorax) Interpretation: Rate: 91 Rhythm:? normal sinus rhythm [place]:? Normal Normal P waves.? Normal HAWK.?? Normal QRS complex.?? ST T wave :??No ST elevation, no ST depression, no T-wave inversion qTC: 445 prior studies:? February 2022 The study has been interpreted contemporaneously by me. Radiology Impression Discussion of test interpretation with radiology: I have reviewed the radiologist's reading. Independent Historian Clinical information obtained from an independent historian. History obtained from or confirmed by: EMS (Obtain history from EMS as per HPI.) Discharge Plan Discharge Clinical Impression: Atypical chest pain Patient Disposition: Home, Self-Care Instructions: Chest Pain (ED), Noncardiac Chest Pain (ED) Additional Instructions: Blood work, EKG, and chest x-ray today were normal. This is very reassuring. You can take ibuprofen 200 mg, 3 tablets (600mg) every 6-8 hours as needed for pain, in addition to Tylenol 500 mg, 2 tablets (1,000mg) every 4-6 hours as needed for pain, but not to exceed 3 doses daily (3,000mg).? In addition you may apply ice/heat to the areas of pain. Please be sure to get rest, stay well hydrated. Follow-up with your primary care doctor in 1-2 days. Return back to emergency department any new or worsening symptoms or concerns. Prescriptions: No Action doxycycline monohydrate 100 mg capsule 100 mg PO BID 10 Days Qty: 20 0RF clonazepam [Klonopin] 0.5 mg tablet 0.5 mg PO BEDTIME PRN (Reason: anxiety) Qty: 14 0RF cephalexin 500 mg capsule 500 mg PO Q8H Qty: 21 0RF oxycodone 5 mg tablet 5 mg PO Q8H PRN (Reason: pain) Qty: 5 0RF (DME) walker Misc See Rx Instructions .Route Qty: 1 0RF Rx Instructions: As directed clonazepam 1 mg tablet 1 mg PO DAILY Qty: 3 0RF cyclobenzaprine 10 mg tablet 10 mg PO TID PRN (Reason: muscle spasm) Qty: 10 0RF lidocaine [Lidoderm] 5 % adhesive patch,medicated 1 patch topical DAILY Qty: 15 0RF Rx Instructions: leave on most painful area for up to 12 hrs cephalexin 500 mg capsule 500 mg PO Q8H 7 Days Qty: 21 0RF prazosin 1 mg capsule 1 mg PO BEDTIME Qty: 30 0RF clonazepam 1 mg tablet 1 mg PO BID PRN (Reason: anxiety) Qty: 10 0RF tramadol 50 mg tablet 50 mg PO Q8H PRN (Reason: pain) Qty: 7 0RF tramadol 50 mg tablet 50 mg PO Q8H PRN (Reason: pain, severe) Qty: 7 0RF lidocaine [Lidoderm] 5 % adhesive patch,medicated 1 patch topical DAILY MDD remove after 12 hours PRN (Reason: pain) Qty: 30 0RF Rx Instructions: leave on most painful area for up to 12 hrs Referrals: [facility] [Primary Care Provider] -
[2023-02-25 22:44] VITALS: BP 140/92; PULSE 73; RESP 14; O2SAT 97
[2023-02-25 23:42] VITALS: BP 148/88; PULSE 77; RESP 16; TEMP 37.4; O2SAT 98
--- NOTE | 2023-02-25 23:48 | MHC.EDTECH ---
Assumed care as team lead at 2300 no distress at this time vitals are stable at this time will continue to monitored
[2023-02-25 23:50] VITALS: BP 148/88; PULSE 78
[2023-02-26] VITALS: BP 130/78; PULSE 78; RESP 16; TEMP 36.9; O2SAT 98
== END 2023-02-26 01:46 | disposition home or self-care (01) ==
PROVIDERS: Emergency Provider Emergency Medicine Emergency Medical Services
DX: R07.89 Other chest pain (principal); E11.9 Type 2 diabetes mellitus without complications; I10 Essential (primary) hypertension; E78.00 Pure hypercholesterolemia, unspecified; Z79.899 Other long term (current) drug therapy
CPT/HCPCS: 36415; 71046; 80048; 84484; 85025; 93005; 99284; 99285

== ENCOUNTER 2023-03-02 16:02 | Emergency (ER) | payer MEDICAID, SELFPAY ==
--- NOTE | 2023-03-02 16:07 | ECG_ITS ---
Test Reason : CHEST PAIN Blood Pressure : / mmHG Vent. Rate : 066 BPM Atrial Rate : 066 BPM P-R Int : 142 ms QRS Dur : 084 ms QT Int : 382 ms P-R-T Axes : -01 070 005 degrees QTc Int : 400 ms Normal sinus rhythm Normal ECG When compared with ECG of 25-FEB-2023 20:45, Questionable change in QRS axis Nonspecific T wave abnormality now evident in Inferior leads Referred By: Generic ED Physician Electronically Signed By:STEVE KHOURY MD
--- NOTE | 2023-03-02 16:21 | ED.GENADULT ---
HPI - General Adult General Chief complaint: Chest Pain Stated complaint: chest pain/anxiety Time Seen by Provider: 03/02/23 22:42 Source: patient Mode of arrival: ambulatory Limitations: no limitations History of Present Illness HPI narrative: Patient anxiety with frequent chest pain been here multiple times was seen here 02/25 for same comes here as having anxiety attack palpitation with chest pain started earlier today finish her Klonopin no chest pain at this time Related Data Previous Rx's Medication Instructions Recorded doxycycline monohydrate 100 mg 100 mg PO BID 10 days #20 caps 10/23/20 capsule clonazepam 0.5 mg tablet (Klonopin) 0.5 mg PO BEDTIME PRN anxiety #14 03/08/21 tabs cephalexin 500 mg capsule 500 mg PO Q8H #21 caps 05/06/21 oxycodone 5 mg tablet 5 mg PO Q8H PRN pain #5 tabs 06/27/21 walker #1 ea 06/27/21 cyclobenzaprine 10 mg tablet 10 mg PO TID PRN muscle spasm #10 11/11/21 tabs lidocaine 5 % topical patch 1 patch topical DAILY #15 ea 11/11/21 (Lidoderm) cephalexin 500 mg capsule 500 mg PO Q8H 7 days #21 caps 12/07/21 clonazepam 1 mg tablet 1 mg PO BID PRN anxiety #10 tabs 01/19/22 prazosin 1 mg capsule 1 mg PO BEDTIME #30 caps 01/19/22 tramadol 50 mg tablet 50 mg PO Q8H PRN pain #7 tabs 02/08/22 lidocaine 5 % topical patch 1 patch topical DAILY PRN pain #30 02/09/22 (Lidoderm) ea tramadol 50 mg tablet 50 mg PO Q8H PRN pain, severe #7 02/09/22 tabs clonazepam 1 mg tablet 1 mg PO DAILY #3 tabs 03/17/22 clonazepam 1 mg tablet (Klonopin) 1 mg PO BEDTIME PRN anxiety #5 tabs 03/02/23 Allergies Allergy/AdvReac Type Severity Reaction Status Date / Time naproxen [NAPROXEN] Allergy Severe UNKNOWN Verified 02/09/22 10:58 acetaminophen [From Tylenol] Allergy Unknown Verified 02/09/22 10:58 ibuprofen Allergy Unknown Verified 02/09/22 10:58 pollen extracts Allergy Rash Verified 06/19/22 10:58 Review of Systems Review of Systems: Yes all other systems are reviewed and are negative [facility] Past Medical History Medical History Anxiety Diabetes High cholesterol HTN (hypertension) Surgical History History of hernia surgery Social History Social History Alcohol intake: never Patient Tobacco Use Status: Never used Tobacco Advance Directives: No Advance Directives Information Provided: Yes Physical Exam ED Vital Signs: Vital Signs - 24 hr 03/02/23 16:23 03/02/23 22:22 03/02/23 23:09 Temperature 98 F 98.1 F Pulse Rate 76 59 59 Respiratory Rate 17 16 14 Blood Pressure 132/77 149/76 H 156/86 H Pulse Oximetry 98 97 99 Oxygen Delivery Method Room Air Room Air Room Air BMI result Body Mass Index 23.4 Appearance: Alert. Oriented X3. No acute distress. Anxious ENT: Pharynx normal. Oral Mucosa moist Neck: Normal inspection. Neck supple. CVS: Normal heart rate and rhythm. Pulses normal. Respiratory: No respiratory distress. Equal air entry bilateral, no wheezing/rales/rhonchi Abdomen: Soft and nontender. Bowel sounds are present, Skin: Skin warm and dry. Normal skin color. Normal skin turgor. Extremities: No lower extremity edema. No calf tenderness Neuro: Oriented X 3. No motor deficit. Course Course Course Narrative: This is an RME: Additional HPI, ROS, PE not included below will be deferred to primary provider. Patient is a 62 yo F presenting with chest pain and anxiety starting this morning. Patient denies fever, chills, nausea, vomiting, numbness, tingling, headache, vision changes. Plan: labs Medications Administered Discontinued Medications Generic Name Dose Route Start Last Admin Trade Name Freq PRN Reason Stop Dose Admin Clonazepam 1 mg 03/02/23 22:59 03/02/23 23:10 Clonazepam 1 Mg Tablet PO 03/02/23 23:00 1 mg ONCE ONE Administration Medical Decision Making Medical Decision Making MDM Narrative: Patient With anxiety ED with this pain multiple ED visits EKG without any ischemic changes high sensitive troponin negative discharge [facility] Lab Data MDM Lab Attestation statement: I reviewed the patient's lab results. 03/02/23 18:29 03/02/23 18:29 Labs: Lab Results 03/02/23 03/02/23 03/02/23 Range/Units 18:29 18:29 18:29 WBC 6.5 (4.8-10.8) X10*3/uL RBC 3.86 L (4.20-5.50) X10*6/uL Hgb 11.3 L (12.0-16.0) g/dl Hct 35.4 L (37.0-47.0) % MCV 91.7 (80.0-98.0) fL MCH 29.3 (27.0-33.0) pg MCHC 31.9 (31.0-35.0) g/dl RDW 13.2 (11.0-16.0) % Plt Count 203 (160-400) X10*3/uL MPV 10.4 (9.4-12.3) fL Immature Gran % (Auto) 0.3 (0.0-0.4) % Neut % (Auto) 58.3 (45-73) % Lymph % (Auto) 34.2 (20-40) % [place] % (Auto) 6.0 (2-11) % Eos % (Auto) 0.9 (0-4) % Baso % (Auto) 0.3 (0-2) % Lymph # (Auto) 2.2 (1.2-4.9) X10*3/uL [place] # (Auto) 0.4 (0.1-1.2) X10*3/uL Eos # (Auto) 0.1 (0.0-0.4) X10*3/uL Baso # (Auto) 0.0 (0.0-0.2) X10*3/uL Abs Immat Gran (auto) 0.02 (0.00-0.03) X10*3/uL Absolute Neuts (auto) 3.8 (2.0-8.3) x10*3/uL Absolute Nucleated RBC 0.000 (0.0-0.012) X10*3/uL Nucleated RBC % (auto) 0.0 (0.0-0.2) /100WBC Sodium 142 (135-145) mmol/L Potassium 4.3 (3.3-5.1) mmol/L Chloride 106 (96-108) mmol/L Carbon Dioxide 26 (22-29) mmol/L Anion Gap 14 (12-20) BUN 13 (9-16) mg/dL Creatinine 0.88 (0.5-1.4) mg/dL Estim Creat Clear Calc 48.8 Estimated GFR > 60 Random Glucose 94 (60-115) mg/dL Calcium 10.0 (8.4-10.2) mg/dL Magnesium 2.2 (1.6-2.6) mg/dL Total Bilirubin 0.2 (0.0-1.0) mg/dL AST 17 (5-31) U/L ALT 12 (0-31) U/L Alkaline Phosphatase 53 (39-117) U/L Troponin I High Sens < 2.7 (<3.5-17.0) ng/L Total Protein 7.3 (6.5-8.0) g/dL Albumin 4.1 (3.5-5.0) g/dL Independent Interpretation I performed an independent interpretation of an: EKG Interpretation: Normal sinus rhythm heart rate 66 beats per minute normal interval normal axis no acute ischemic changes impression normal EKG Discharge Plan Discharge Clinical Impression: Anxiety Patient Disposition: Home, Self-Care Instructions: Anxiety (ED) Additional Instructions: Follow-up with your PCP as scheduled this week Take Klonopin daily as prescribed for severe anxiety Prescriptions: New clonazepam [Klonopin] 1 mg tablet 1 mg PO BEDTIME PRN (Reason: anxiety) Qty: 5 0RF Rx Instructions: administer 30 minutes before bedtime No Action doxycycline monohydrate 100 mg capsule 100 mg PO BID 10 Days Qty: 20 0RF clonazepam [Klonopin] 0.5 mg tablet 0.5 mg PO BEDTIME PRN (Reason: anxiety) Qty: 14 0RF cephalexin 500 mg capsule 500 mg PO Q8H Qty: 21 0RF oxycodone 5 mg tablet 5 mg PO Q8H PRN (Reason: pain) Qty: 5 0RF (DME) walker Misc See Rx Instructions .Route Qty: 1 0RF Rx Instructions: As directed clonazepam 1 mg tablet 1 mg PO DAILY Qty: 3 0RF cyclobenzaprine 10 mg tablet 10 mg PO TID PRN (Reason: muscle spasm) Qty: 10 0RF lidocaine [Lidoderm] 5 % adhesive patch,medicated 1 patch topical DAILY Qty: 15 0RF Rx Instructions: leave on most painful area for up to 12 hrs cephalexin 500 mg capsule 500 mg PO Q8H 7 Days Qty: 21 0RF prazosin 1 mg capsule 1 mg PO BEDTIME Qty: 30 0RF clonazepam 1 mg tablet 1 mg PO BID PRN (Reason: anxiety) Qty: 10 0RF tramadol 50 mg tablet 50 mg PO Q8H PRN (Reason: pain) Qty: 7 0RF tramadol 50 mg tablet 50 mg PO Q8H PRN (Reason: pain, severe) Qty: 7 0RF lidocaine [Lidoderm] 5 % adhesive patch,medicated 1 patch topical DAILY MDD remove after 12 hours PRN (Reason: pain) Qty: 30 0RF Rx Instructions: leave on most painful area for up to 12 hrs Interventions: ED Discharge Assessment Last Done: 03/02/23 23:15 Discharge Date/Time: 03/02/23 23:15
[2023-03-02 16:23] VITALS: BP 132/77; PULSE 76; RESP 17; TEMP 36.6; O2SAT 98; BMI 23.4
[2023-03-02 18:38] LABS: MANUAL DIFF FLAG NO
[2023-03-02 18:46] LABS: Basophils Percent Auto 0.3 % (0-2); Eosinophils Absolute Auto 0.1 X10*3/uL (0.0-0.4); Eosinophils Percent Auto 0.9 % (0-4); Hematocrit 35.4 % (37.0-47.0); Hemoglobin 11.3 g/dl (12.0-16.0); Imm Gran Abs Auto 0.02 X10*3/uL (0.00-0.03); Imm Gran Pct Auto 0.3 % (0.0-0.4); Lymphocytes Absolute Auto 2.2 X10*3/uL (1.2-4.9); Lymphocytes Percent Auto 34.2 % (20-40); Mean Corpuscular HGB Conc 31.9 g/dl (31.0-35.0); Mean Corpuscular Hemoglobin 29.3 pg (27.0-33.0); Mean Corpuscular Volume 91.7 fL (80.0-98.0); Mean Platelet Volume 10.4 fL (9.4-12.3); Monocytes Absolute Auto 0.4 X10*3/uL (0.1-1.2); Neutrophils Absolute Auto 3.8 x10*3/uL (2.0-8.3); Neutrophils Percent Auto 58.3 % (45-73); Platelet Count 203 X10*3/uL (160-400); Red Blood Count 3.86 X10*6/uL (4.20-5.50); Red Cell Distribution Width 13.2 % (11.0-16.0); White Blood Count 6.5 X10*3/uL (4.8-10.8)
[2023-03-02 19:27] LABS: Alanine Aminotransferase 12 U/L (0-31); Albumin Level 4.1 g/dL (3.5-5.0); Alkaline Phosphatase 53 U/L (39-117); Anion Gap 14 (12-20); Aspartate Amino Transferase 17 U/L (5-31); Bilirubin Total 0.2 mg/dL (0.0-1.0); Blood Urea Nitrogen 13 mg/dL (9-16); Carbon Dioxide 26 mmol/L (22-29); Chloride 106 mmol/L (96-108); Creatinine Clr Calc Pharmacy 48.8; Estimated Glomerular Filt Rate > 60; Glucose Random 94 mg/dL (60-115); Magnesium 2.2 mg/dL (1.6-2.6); Potassium 4.3 mmol/L (3.3-5.1); Sodium 142 mmol/L (135-145); Total Protein 7.3 g/dL (6.5-8.0)
[2023-03-02 19:47] LABS: Troponin-I High Sensitivity < 2.7 ng/L (<3.5-17.0)
[2023-03-02 22:22] VITALS: BP 149/76; PULSE 59; RESP 16; TEMP 36.7; O2SAT 97
[2023-03-02 23:09] VITALS: BP 156/86; PULSE 59; RESP 14; O2SAT 99
[2023-03-02] MEDS: clonazePAM 1 MG TABLET PO (23:10)
== END 2023-03-02 23:15 | disposition home or self-care (01) ==
PROVIDERS: Physician Assistant; Emergency Provider Internal Medicine
DX: R07.89 Other chest pain (principal); F41.1 Generalized anxiety disorder; F43.0 Acute stress reaction; Z79.899 Other long term (current) drug therapy
CPT/HCPCS: 36415; 80053; 83735; 84484; 85025; 93005; 99283; 99284

== ENCOUNTER → 2023-03-02 16:07 | Outpatient (BNV) | payer MEDICAID, SELFPAY | PROVIDERS: Emergency Provider Internal Medicine; Visit Provider Internal Medicine Cardiovascular Disease | DX: R07.9 Chest pain, unspecified (principal) | CPT/HCPCS: 93010 ==

== ENCOUNTER 2023-03-12 10:27 | Outpatient (REF) | payer MEDICAID, SELFPAY ==
[2023-03-12 15:16] LABS: Alanine Aminotransferase 7 U/L (0-31); Albumin Level 4.1 g/dL (3.5-5.0); Alkaline Phosphatase 57 U/L (39-117); Anion Gap 12 (12-20); Aspartate Amino Transferase 14 U/L (5-31); Bilirubin Total 0.3 mg/dL (0.0-1.0); Blood Urea Nitrogen 18 mg/dL (9-16); Carbon Dioxide 30 mmol/L (22-29); Chloride 105 mmol/L (96-108); Estimated Glomerular Filt Rate > 60; Glucose Random 109 mg/dL (60-115); Potassium 4.1 mmol/L (3.3-5.1); Sodium 143 mmol/L (135-145); Total Protein 7.3 g/dL (6.5-8.0); Vitamin D 25-OH Total 25.5 ng/mL (>30)
[2023-03-15 00:44] LABS: TS Negative Control Passed; TS Panel A 0; TS Panel B 3; TS Positive Control Passed; TSpotTB Negative (Negative)
== END 2023-03-12 10:28 | disposition home or self-care (01) ==
LOC: HO.HHCL 10:27
PROVIDERS: Visit Provider Internal Medicine
DX: Z11.1 Encounter for screening for respiratory tuberculosis (principal); M17.0 Bilateral primary osteoarthritis of knee
CPT/HCPCS: 36415; 80053; 82306; 84443; 86481

== ENCOUNTER 2023-05-29 13:01 | Emergency (ER) | payer MEDICAID, SELFPAY ==
[2023-05-29 13:18] VITALS: BP 128/92; PULSE 98; RESP 16; TEMP 36.5; O2SAT 97; BMI 30.1
--- NOTE | 2023-05-29 13:18 | ED_ITS ---
HPI - Headache General Chief Complaint: Headache Stated Complaint: Headache Time Seen by Provider: 05/29/23 15:50 Source: patient, family and historical interpreter Mode of arrival: ambulatory Limitations: no limitations History of Present Illness HPI Narrative: a 63-year-old female came in for evaluation of headache. Headache started a month ago on a patient with history of migraine patient otherwise decline photophobia, nausea, vomiting, or neck stiffness. For the past 4-5 days headache is becoming more constant, patient ran out of oxycodone at home went to walk-in clinic today who sent her to the ED for further evaluation. Patient also been having right-sided neck pain radiating down to the right shoulder, pain is worsening with movement of the right shoulder or turning the head to the right side specifically. No history of heavy lifting or trauma to the neck. Related Data Previous Rx's Medication Instructions Recorded doxycycline monohydrate 100 mg 100 mg PO BID 10 days #20 caps 10/23/20 capsule clonazepam 0.5 mg tablet (Klonopin) 0.5 mg PO BEDTIME PRN anxiety #14 03/08/21 tabs cephalexin 500 mg capsule 500 mg PO Q8H #21 caps 05/06/21 oxycodone 5 mg tablet 5 mg PO Q8H PRN pain #5 tabs 06/27/21 walker #1 ea 06/27/21 cyclobenzaprine 10 mg tablet 10 mg PO TID PRN muscle spasm #10 11/11/21 tabs lidocaine 5 % topical patch 1 patch topical DAILY #15 ea 11/11/21 (Lidoderm) cephalexin 500 mg capsule 500 mg PO Q8H 7 days #21 caps 12/07/21 clonazepam 1 mg tablet 1 mg PO BID PRN anxiety #10 tabs 01/19/22 prazosin 1 mg capsule 1 mg PO BEDTIME #30 caps 01/19/22 tramadol 50 mg tablet 50 mg PO Q8H PRN pain #7 tabs 02/08/22 lidocaine 5 % topical patch 1 patch topical DAILY PRN pain #30 02/09/22 (Lidoderm) ea tramadol 50 mg tablet 50 mg PO Q8H PRN pain, severe #7 02/09/22 tabs clonazepam 1 mg tablet 1 mg PO DAILY #3 tabs 03/17/22 clonazepam 1 mg tablet (Klonopin) 1 mg PO BEDTIME PRN anxiety #5 tabs 03/02/23 oxycodone 5 mg tablet 5 mg PO BID PRN pain #10 tabs 05/29/23 prednisone 20 mg tablet 20 mg PO BID #10 tabs 05/29/23 Allergies Allergy/AdvReac Type Severity Reaction Status Date / Time naproxen [NAPROXEN] Allergy Severe UNKNOWN Verified 02/09/22 10:58 acetaminophen [From Tylenol] Allergy Unknown Verified 02/09/22 10:58 ibuprofen Allergy Unknown Verified 02/09/22 10:58 pollen extracts Allergy Rash Verified 02/09/22 10:58 Review of Systems 2 Review of Systems: All other systems are reviewed and are negative Constitutional: Reports as per HPI and Reports no additional constitutional complaints Eyes: Reports as per HPI and Reports no additional eye complaints Reports system reviewed and no additional complaints, except as documented Cardiovascular: Reports as per HPI and Reports no additional cardiovascular complaints Respiratory: Reports as per HPI and Reports no additional respiratory complaints Gastrointestinal: Reports as per HPI and Reports no additional gastrointestinal complaints Genitourinary: Reports no additional female genitourinary complaints Musculoskeletal: Reports no additional musculoskeletal complaints Skin/Breast: Reports system reviewed and no additional complaints, except as docu Psychiatric: Reports no additional psychiatric complaints Endocrine: Reports no additional endocrine complaints Hematologic/Lymphatic: Reports no additional hematologic/lymphatic complaints Allergic/Immunologic: Reports no additional allergic/immunologic complaints Reports system reviewed and no additional complaints, except as documented and Reports Abnormal speech present [facility] Past Medical History Medical History Anxiety High cholesterol HTN (hypertension) Diabetes Surgical History History of hernia surgery Social History Social History Alcohol intake: never Patient Tobacco Use Status: Never used Tobacco Advance Directives: No Advance Directives Information Provided: No Physical Exam 2 Vital Signs: Vital Signs: Last Vital Signs Temp 97.7 F 05/29/23 13:18 Pulse 68 05/29/23 15:44 Resp 16 05/29/23 13:18 BP 104/61 05/29/23 15:44 Pulse Ox 98 05/29/23 15:44 O2 Del Method Room Air 05/29/23 15:44 BMI result Body Mass Index 30.1 Vital signs have been reviewed and appear to be correct. Blood pressure elevated. Heart rate normal. Respiratory rate normal. Temperature normal. Oxygen saturation normal. Appearance: Alert. Oriented X3. No acute distress. Head: Normal external exam. Normocephalic. Atraumatic. No [place] signs noted. No raccoon eyes noted Eyes: PERRLA. EOMI. Conjunctiva and sclera normal. Eyelids normal. ENT: TM's Normal. Pharynx normal. Uvula midline. Moist mucous membranes. No trismus noted. No drooling noted. No muffled voice noted. Neck: Normal inspection. Neck supple. FROM. Symptoms is worsening with turning the head to the right side or lifting the right arm above the head. No pronator drift in the right upper extremity. CVS: Normal heart rate and rhythm. Heart sound normal. No murmurs noted. Pulses normal throughout. Respiratory: No respiratory distress. Painless inspiration. Breath sounds normal. No wheezes/rales/rhonchi noted. Chest nontender. No accessory muscle usage noted or decreased air movement noted. Abdomen: Soft and nontender. Bowel sounds normal in all 4 quadrants. No distention noted. No organomegaly noted. No visible injury noted. Back: No CVA tenderness. Full range of motion noted. Skin: Skin warm and dry. Normal skin color. Normal skin turgor. No rashes/lesions/lacerations noted. Extremities: No lower extremity edema. Extremities exhibit normal range of motion. Extremities nontender. Neuro: Oriented X 3. Cranial nerve exam: II-XII are grossly intact No motor deficit. No sensory deficit. Reflexes normal. Course Course Course Narrative: This is an RME: Additional HPI, ROS, PE not included below will be deferred to primary provider. diffuse headache, intermittent, for the past month. Now is constant (unclear for duration) radiating to right lateral neck, shoulder, and down the arm. Also endorses difficulty eating lack of appetite for the past month, dizziness. OTC medications have not improved the headache. Reports a history of migraine headaches but states that this feels much different, she is unable to specify how. Denies fever, chills, nausea, vomiting, abdominal pain, chest pain, shortness of breath. Plan: labs, CT Reevaluation(s) Reevaluation #1: A 63-year-old female with history of migraine and headache for a month patient with right-sided neck pain radiates to the right upper extremity exam is consistent with right side cervical radiculopathy. Time: 16:15 Medical Decision Making Differential Diagnosis Differential Diagnoses: The differential diagnosis associated with the presentation includes ( migraine, stress headache, cervical radiculopathy, severe anemia, electrolyte abnormality.) Admission/Observation Consideration of admission/observation: Escalation of care including admission/observation considered Lab Data MDM Lab Attestation statement: I reviewed the patient's lab results. 05/29/23 14:00 05/29/23 14:00 Labs: Lab Results 05/29/23 Range/Units 14:00 WBC 3.1 L (4.8-10.8) X10*3/uL RBC 4.45 (4.20-5.50) X10*6/uL Hgb 12.8 (12.0-16.0) g/dl Hct 39.8 (37.0-47.0) % MCV 89.4 (80.0-98.0) fL MCH 28.8 (27.0-33.0) pg MCHC 32.2 (31.0-35.0) g/dl RDW 13.2 (11.0-16.0) % Plt Count 162 (160-400) X10*3/uL MPV 10.1 (9.4-12.3) fL Immature Gran % (Auto) 0.3 (0.0-0.4) % Neut % (Auto) 53.9 (45-73) % Lymph % (Auto) 23.9 (20-40) % [place] % (Auto) 19.0 H (2-11) % Eos % (Auto) 2.3 (0-4) % Baso % (Auto) 0.6 (0-2) % Lymph # (Auto) 0.7 L (1.2-4.9) X10*3/uL [place] # (Auto) 0.6 (0.1-1.2) X10*3/uL Eos # (Auto) 0.1 (0.0-0.4) X10*3/uL Baso # (Auto) 0.0 (0.0-0.2) X10*3/uL Abs Immat Gran (auto) 0.01 (0.00-0.03) X10*3/uL Absolute Neuts (auto) 1.7 L (2.0-8.3) x10*3/uL Absolute Nucleated RBC 0.000 (0.0-0.012) X10*3/uL Nucleated RBC % (auto) 0.0 (0.0-0.2) /100WBC Smear Tech's Comments VERIFIED Sodium 142 (135-145) mmol/L Potassium 5.1 D (3.3-5.1) mmol/L Chloride 106 (96-108) mmol/L Carbon Dioxide 29 (22-29) mmol/L Anion Gap 12 (12-20) BUN 9 (9-16) mg/dL Creatinine 0.84 (0.5-1.4) mg/dL Estim Creat Clear Calc 61.3 Estimated GFR > 60 Random Glucose 99 (60-115) mg/dL Calcium 9.5 (8.4-10.2) mg/dL Magnesium 2.2 (1.6-2.6) mg/dL Total Bilirubin 0.2 (0.0-1.0) mg/dL AST 20 (5-31) U/L ALT 11 (0-31) U/L Alkaline Phosphatase 52 (39-117) U/L Total Protein 7.4 (6.5-8.0) g/dL Albumin 4.2 (3.5-5.0) g/dL Lipase 17 (8-78) U/L Independent Interpretation I performed an independent interpretation of an: CT Scan ( head: No acute intercranial pathology.) Radiology Impression Discussion of test interpretation with radiology: I have reviewed the radiologist's reading. Discharge Plan Discharge Clinical Impression: Cervical radiculopathy, Migraine Patient Disposition: Home, Self-Care Instructions: Cervical Radiculopathy (ED) Prescriptions: New prednisone 20 mg tablet 20 mg PO BID Qty: 10 0RF oxycodone 5 mg tablet 5 mg PO BID PRN (Reason: pain) Qty: 10 0RF Rx Instructions: Partial Fill upon patient request. No Action doxycycline monohydrate 100 mg capsule 100 mg PO BID 10 Days Qty: 20 0RF clonazepam [Klonopin] 0.5 mg tablet 0.5 mg PO BEDTIME PRN (Reason: anxiety) Qty: 14 0RF cephalexin 500 mg capsule 500 mg PO Q8H Qty: 21 0RF oxycodone 5 mg tablet 5 mg PO Q8H PRN (Reason: pain) Qty: 5 0RF (DME) walker Misc See Rx Instructions .Route Qty: 1 0RF Rx Instructions: As directed clonazepam 1 mg tablet 1 mg PO DAILY Qty: 3 0RF cyclobenzaprine 10 mg tablet 10 mg PO TID PRN (Reason: muscle spasm) Qty: 10 0RF lidocaine [Lidoderm] 5 % adhesive patch,medicated 1 patch topical DAILY Qty: 15 0RF Rx Instructions: leave on most painful area for up to 12 hrs cephalexin 500 mg capsule 500 mg PO Q8H 7 Days Qty: 21 0RF prazosin 1 mg capsule 1 mg PO BEDTIME Qty: 30 0RF clonazepam 1 mg tablet 1 mg PO BID PRN (Reason: anxiety) Qty: 10 0RF tramadol 50 mg tablet 50 mg PO Q8H PRN (Reason: pain) Qty: 7 0RF tramadol 50 mg tablet 50 mg PO Q8H PRN (Reason: pain, severe) Qty: 7 0RF lidocaine [Lidoderm] 5 % adhesive patch,medicated 1 patch topical DAILY MDD remove after 12 hours PRN (Reason: pain) Qty: 30 0RF Rx Instructions: leave on most painful area for up to 12 hrs clonazepam [Klonopin] 1 mg tablet 1 mg PO BEDTIME PRN (Reason: anxiety) Qty: 5 0RF Rx Instructions: administer 30 minutes before bedtime Referrals: Meera Ramirez MD [Primary Care Provider] -
[2023-05-29 15:44] VITALS: BP 104/61; PULSE 68; O2SAT 98
== END 2023-05-29 16:51 | disposition home or self-care (01) ==
PROVIDERS: Emergency Provider Emergency Medicine; PCP Internal Medicine
DX: M54.12 Radiculopathy, cervical region (principal); G43.909 Migraine, unspecified, not intractable, without status migrainosus; E11.9 Type 2 diabetes mellitus without complications; I10 Essential (primary) hypertension; E78.5 Hyperlipidemia, unspecified; Z79.899 Other long term (current) drug therapy
CPT/HCPCS: 70450; 80053; 83690; 83735; 85025; 99283; 99284

== ENCOUNTER 2023-06-03 11:26 | Outpatient (REF) | payer MEDICAID, SELFPAY ==
--- NOTE | ~2023-06-03 | XR_ITS ---
EXAMINATION: BILATERAL KNEE, CLINICAL INFORMATION: Fall. Pain. COMPARISON: 11/11/2021 TECHNIQUE: Right knee 4 views and left knee 4 views. FINDINGS: Right knee: Mild to moderate medial joint space narrowing with vacuum phenomenon and small medial marginal osteophytes. Small posterior patellar osteophytes. Joint effusion. Left knee: Mild medial joint space narrowing with small medial marginal osteophytes. Tiny posterior patellar osteophytes. Joint effusion. Soft tissue calcifications posterior proximal lower leg were not identified on the prior exam. Joint effusion present. XR/XR knee RT 3V IMPRESSION: [id number] degenerative changes right knee. Mild degenerative changes left knee. Bilateral joint effusions. Additional imaging with CT scan or MRI should be considered for better visualization as these modalities are much more sensitive for detection of fracture or other underlying pathology.
--- NOTE | ~2023-06-03 | XR_ITS ---
EXAMINATION: BILATERAL KNEE, CLINICAL INFORMATION: Fall. Pain. COMPARISON: 11/11/2021 TECHNIQUE: Right knee 4 views and left knee 4 views. FINDINGS: Right knee: Mild to moderate medial joint space narrowing with vacuum phenomenon and small medial marginal osteophytes. Small posterior patellar osteophytes. Joint effusion. Left knee: Mild medial joint space narrowing with small medial marginal osteophytes. Tiny posterior patellar osteophytes. Joint effusion. Soft tissue calcifications posterior proximal lower leg were not identified on the prior exam. Joint effusion present. XR/XR knee LT 3V IMPRESSION: [id number] degenerative changes right knee. Mild degenerative changes left knee. Bilateral joint effusions. Additional imaging with CT scan or MRI should be considered for better visualization as these modalities are much more sensitive for detection of fracture or other underlying pathology.
== END 2023-06-03 11:27 | disposition home or self-care (01) ==
LOC: HO.HHCX 11:26
PROVIDERS: Visit Provider Internal Medicine
DX: M17.0 Bilateral primary osteoarthritis of knee (principal)
CPT/HCPCS: 73562

== ENCOUNTER 2023-07-27 04:02 | Emergency (ER) | payer MEDICAID, SELFPAY ==
--- NOTE | 2023-07-27 | ECG_ITS ---
Test Reason : CHEST PAIN Blood Pressure : / mmHG Vent. Rate : 114 BPM Atrial Rate : 114 BPM P-R Int : 138 ms QRS Dur : 070 ms QT Int : 330 ms P-R-T Axes : 057 007 049 degrees QTc Int : 454 ms Artifact noted in tracing Sinus tachycardia Right atrial enlargement Borderline ECG When compared with ECG of 02-MAR-2023 16:10, Vent. rate has increased BY 48 BPM Questionable change in QRS axis Nonspecific T wave abnormality no longer evident in Inferior leads Referred By: Generic ED Physician Electronically Signed By:RISHI MENEZES
--- NOTE | ~2023-07-27 | XR_ITS ---
EXAMINATION: XR CHEST CLINICAL INFORMATION: Chest pain COMPARISON: 02/25/2023 TECHNIQUE: Frontal view of the chest was obtained. FINDINGS: The lungs are mildly hypoinflated. There is retrocardiac and hazy left basilar opacity with suspected small left pleural effusion. Right lung appears well-aerated. No evidence of pneumothorax. Cardiac silhouette appears near the upper limits of normal in size. No acute osseous findings are seen. XR/XR chest 1V IMPRESSION: Retrocardiac and hazy left basilar opacity concerning for pneumonia with suspected small left pleural effusion. Radiographic followup after treatment/resolution of symptoms is recommended.
[2023-07-27 04:06] VITALS: BP 133/86; BP 143/88; PULSE 111; PULSE 120; RESP 20; TEMP 37.1; O2SAT 93; O2SAT 95; BMI 19.6
[2023-07-27 04:45] LABS: MANUAL DIFF FLAG NO
[2023-07-27 04:46] LABS: Basophils Percent Auto 0.4 % (0-2); Eosinophils Absolute Auto 0.1 X10*3/uL (0.0-0.4); Eosinophils Percent Auto 1.5 % (0-4); Hematocrit 31.7 % (37.0-47.0); Hemoglobin 10.1 g/dl (12.0-16.0); Imm Gran Abs Auto 0.02 X10*3/uL (0.00-0.03); Imm Gran Pct Auto 0.2 % (0.0-0.4); Lymphocytes Absolute Auto 1.3 X10*3/uL (1.2-4.9); Lymphocytes Percent Auto 14.8 % (20-40); Mean Corpuscular HGB Conc 31.9 g/dl (31.0-35.0); Mean Corpuscular Hemoglobin 28.1 pg (27.0-33.0); Mean Corpuscular Volume 88.3 fL (80.0-98.0); Mean Platelet Volume 9.8 fL (9.4-12.3); Monocytes Absolute Auto 0.7 X10*3/uL (0.1-1.2); Monocytes Percent Auto 8.4 % (2-11); Neutrophils Absolute Auto 6.4 x10*3/uL (2.0-8.3); Neutrophils Percent Auto 74.7 % (45-73); Platelet Count 237 X10*3/uL (160-400); Red Blood Count 3.59 X10*6/uL (4.20-5.50); Red Cell Distribution Width 13.5 % (11.0-16.0); White Blood Count 8.6 X10*3/uL (4.8-10.8)
[2023-07-27 04:59] LABS: Alanine Aminotransferase 14 U/L (0-31); Albumin Level 3.3 g/dL (3.5-5.0); Alkaline Phosphatase 64 U/L (39-117); Anion Gap 16 (12-20); Aspartate Amino Transferase 28 U/L (5-31); Bilirubin Total 0.4 mg/dL (0.0-1.0); Blood Urea Nitrogen 18 mg/dL (9-16); Calcium 9.5 mg/dL (8.4-10.2); Carbon Dioxide 24 mmol/L (22-29); Chloride 104 mmol/L (96-108); Estimated Glomerular Filt Rate > 60; Glucose Random 170 mg/dL (60-115); Potassium 3.9 mmol/L (3.3-5.1); Sodium 140 mmol/L (135-145)
[2023-07-27 05:09] LABS: Troponin-I High Sensitivity < 2.7 ng/L (<3.5-17.0)
[2023-07-27 05:27] LABS: Influenza A PCR NEGATIVE (Negative); Influenza B PCR NEGATIVE (Negative); Resp Syncy Virus RNA Qual PCR NEGATIVE (Negative); SARS COV2 PCR INHOUSE NEGATIVE (Negative)
--- NOTE | 2023-07-27 05:57 | PC.NURSE ---
Pt sitting usright on stretcher, texting on phone, decreased work of breathing noted by this RN. Pt endorsing continued chest pain, but reduced from initial assessment.
[2023-07-27] MEDS: clonazePAM 1 MG TABLET PO (06:03)
--- NOTE | 2023-07-27 06:47 | ED_ITS ---
HPI - Chest Pain General Chief Complaint: Chest Pain Stated Complaint: CHEST PAIN Time Seen by Provider: 07/27/23 06:47 History of Present Illness HPI narrative: The patient is a 63-year-old female who presented to the emergency room by ambulance complaining of chest pain for 4 days. There was no associated nausea or vomiting. No associated fever, sweats, chills. She also says that she has run out of her clonazepam. She has had no black stools. Related Data Previous Rx's Medication Instructions Recorded doxycycline monohydrate 100 mg 100 mg PO BID 10 days #20 caps 10/23/20 capsule clonazepam 0.5 mg tablet (Klonopin) 0.5 mg PO BEDTIME PRN anxiety #14 03/08/21 tabs cephalexin 500 mg capsule 500 mg PO Q8H #21 caps 05/06/21 oxycodone 5 mg tablet 5 mg PO Q8H PRN pain #5 tabs 06/27/21 walker #1 ea 06/27/21 cyclobenzaprine 10 mg tablet 10 mg PO TID PRN muscle spasm #10 11/11/21 tabs lidocaine 5 % topical patch 1 patch topical DAILY #15 ea 11/11/21 (Lidoderm) cephalexin 500 mg capsule 500 mg PO Q8H 7 days #21 caps 12/07/21 clonazepam 1 mg tablet 1 mg PO BID PRN anxiety #10 tabs 01/19/22 prazosin 1 mg capsule 1 mg PO BEDTIME #30 caps 01/19/22 tramadol 50 mg tablet 50 mg PO Q8H PRN pain #7 tabs 02/08/22 lidocaine 5 % topical patch 1 patch topical DAILY PRN pain #30 02/09/22 (Lidoderm) ea tramadol 50 mg tablet 50 mg PO Q8H PRN pain, severe #7 02/09/22 tabs clonazepam 1 mg tablet 1 mg PO DAILY #3 tabs 03/17/22 clonazepam 1 mg tablet (Klonopin) 1 mg PO BEDTIME PRN anxiety #5 tabs 03/02/23 oxycodone 5 mg tablet 5 mg PO BID PRN pain #10 tabs 05/29/23 prednisone 20 mg tablet 20 mg PO BID #10 tabs 05/29/23 doxycycline monohydrate 100 mg 100 mg PO BID #20 caps 07/27/23 capsule Allergies Allergy/AdvReac Type Severity Reaction Status Date / Time naproxen [NAPROXEN] Allergy Severe UNKNOWN Verified 07/27/23 04:34 acetaminophen [From Tylenol] Allergy Unknown Verified 07/27/23 04:34 ibuprofen Allergy Unknown Verified 07/27/23 04:34 pollen extracts Allergy Rash Verified 07/27/23 04:34 Review of Systems 2 Review of Systems: Yes all other systems are reviewed and are negative [facility] Past Medical History Medical History Anxiety High cholesterol HTN (hypertension) Diabetes Surgical History History of hernia surgery Social History Social History Alcohol intake: never Patient Tobacco Use Status: Never used Tobacco Smoked in Last 30 Days: Yes Use of substances other than those prescribed or required for medical reasons: No Advance Directives: No Advance Directives Information Provided: No Patient : No Physical Exam 2 Vital Signs: Vital Signs: Last Vital Signs Temp 98.8 F 07/27/23 04:06 Pulse 104 H 07/27/23 06:57 Resp 18 07/27/23 06:57 BP 148/82 H 07/27/23 06:57 Pulse Ox 95 07/27/23 06:57 O2 Del Method Room Air 07/27/23 06:57 Oxygen Flow Rate 2 07/27/23 04:06 BMI result Body Mass Index 19.6 Const: Other: Patient is a chronically ill-appearing 63-year-old who was awake and alert. She does not appear in obvious distress or seem toxic in any way. She was indicating she was going to leave the hospital. HEENT: Other: Face is symmetrical. Mucous membranes moist. Eyes: Other: Pupils are round equal, conjunctivae are clear Neck: Other: No JVD. No adenopathy. Moving her neck easily. Resp: Other: Patient was not coughing. She does not seem to have any increased work of breathing or respiratory difficulty. Lungs fairly clear. No definite crackles or wheezes Cardio: Other: Regular rate rhythm with no murmur GI: Other: Abdomen was soft and nontender program Skin: Other: Skin is dry and unremarkable mood Neuro: Other: The patient was awake and alert. Speech seemed clear. Face was symmetrical. She moves her extremities normally. She had a normal gait. Extrem: Other: No peripheral edema. Medications Administered Discontinued Medications Generic Name Dose Route Start Last Admin Trade Name Serafin CASTELLANOS Reason Stop Dose Admin Clonazepam 1 mg 07/27/23 06:00 07/27/23 06:03 Clonazepam 1 Mg Tablet PO 07/27/23 06:01 1 mg ONCE ONE Administration Doxycycline Monohydrate 100 mg 07/27/23 06:57 07/27/23 07:13 Doxycycline Monohydrate 100 Mg Capsule PO 07/27/23 06:58 100 mg ONCE ONE Administration Medical Decision Making Medical Decision Making [facility] Narrative: Patient is a 63-year-old female who been brought to the hospital by ambulance with a complaint of chest pain over the last 4 days. Patient also complained of being out of clonazepam. While waiting to be seen she was given a clonazepam. I was subsequently told by the patient's nurse that she was feeling much better and was going to leave the emergency department. I went to see the patient as it seems likely that she might walk out. She did not appear particularly ill. She does not seem to be short of breath and she denied having a cough for a fever. I was therefore surprised when I reviewed her test results and her x-ray was abnormal possibly showing left lower lobe infiltrate. I explained this to the patient. The patient seemed relatively uninterested in was mostly interested in leaving the hospital. She indicated that she would leave regardless of x-ray findings. Given that the x-ray suggests a pneumonia and she has an elevated C-reactive protein at think covering this patient with antibiotics is not unreasonable. She seemed agreeable to taking antibiotics and she was started on doxycycline. She also asked me to write a prescription for clonazepam which I have declined. Patient had already called for a ride and left the emergency room with a plan to take a course of doxycycline sent to her pharmacy. She was advised follow-up with her PCP or return if worse. Lab Data 07/27/23 04:40 07/27/23 04:40 Labs: Lab Results 07/27/23 Range/Units 04:40 WBC 8.6 (4.8-10.8) X10*3/uL RBC 3.59 L (4.20-5.50) X10*6/uL Hgb 10.1 L D (12.0-16.0) g/dl Hct 31.7 L D (37.0-47.0) % MCV 88.3 (80.0-98.0) fL MCH 28.1 (27.0-33.0) pg MCHC 31.9 (31.0-35.0) g/dl RDW 13.5 (11.0-16.0) % Plt Count 237 D (160-400) X10*3/uL MPV 9.8 (9.4-12.3) fL Immature Gran % (Auto) 0.2 (0.0-0.4) % Neut % (Auto) 74.7 H (45-73) % Lymph % (Auto) 14.8 L (20-40) % [place] % (Auto) 8.4 (2-11) % Eos % (Auto) 1.5 (0-4) % Baso % (Auto) 0.4 (0-2) % Lymph # (Auto) 1.3 (1.2-4.9) X10*3/uL [place] # (Auto) 0.7 (0.1-1.2) X10*3/uL Eos # (Auto) 0.1 (0.0-0.4) X10*3/uL Baso # (Auto) 0.0 (0.0-0.2) X10*3/uL Abs Immat Gran (auto) 0.02 (0.00-0.03) X10*3/uL Absolute Neuts (auto) 6.4 (2.0-8.3) x10*3/uL Absolute Nucleated RBC 0.000 (0.0-0.012) X10*3/uL Nucleated RBC % (auto) 0.0 (0.0-0.2) /100WBC Sodium 140 (135-145) mmol/L Potassium 3.9 D (3.3-5.1) mmol/L Chloride 104 (96-108) mmol/L Carbon Dioxide 24 (22-29) mmol/L Anion Gap 16 (12-20) BUN 18 H (9-16) mg/dL Creatinine 0.79 (0.5-1.4) mg/dL Estim Creat Clear Calc 61.0 Estimated GFR > 60 Random Glucose 170 H (60-115) mg/dL Calcium 9.5 (8.4-10.2) mg/dL Total Bilirubin 0.4 (0.0-1.0) mg/dL AST 28 (5-31) U/L ALT 14 (0-31) U/L Alkaline Phosphatase 64 (39-117) U/L Troponin I High Sens < 2.7 (<3.5-17.0) ng/L C-Reactive Protein 25.36 H (< or = 0.50) mg/dL Total Protein 7.0 (6.5-8.0) g/dL Albumin 3.3 L (3.5-5.0) g/dL Influenza Type A (PCR) NEGATIVE (Negative) Influenza Type B (PCR) NEGATIVE (Negative) RSV RNA Qual (PCR) NEGATIVE (Negative) SARS-CoV-2 RNA (RT-PCR) NEGATIVE (Negative) Discharge Plan Discharge Clinical Impression: Chest pain, Pneumonia Patient Disposition: Home, Self-Care Additional Instructions: Your testing today sign not show any sign of a heart attack but your x-ray suggests you might have a left-sided pneumonia. Since you might have a pneumonia I have sent a prescription for a course of antibiotics to your pharmacy, the [facility] on [facility]. Please take this antibiotic 2 times a day. You received a dose this morning. Next dose this evening. Please contact your regular doctor to arrange follow-up. Return to the emergency room with your significantly worse. Prescriptions: New doxycycline monohydrate 100 mg capsule 100 mg PO BID Qty: 20 0RF No Action doxycycline monohydrate 100 mg capsule 100 mg PO BID 10 Days Qty: 20 0RF clonazepam [Klonopin] 0.5 mg tablet 0.5 mg PO BEDTIME PRN (Reason: anxiety) Qty: 14 0RF cephalexin 500 mg capsule 500 mg PO Q8H Qty: 21 0RF oxycodone 5 mg tablet 5 mg PO Q8H PRN (Reason: pain) Qty: 5 0RF (DME) satnam Chang See Rx Instructions .Route Qty: 1 0RF Rx Instructions: As directed clonazepam 1 mg tablet 1 mg PO DAILY Qty: 3 0RF cyclobenzaprine 10 mg tablet 10 mg PO TID PRN (Reason: muscle spasm) Qty: 10 0RF lidocaine [Lidoderm] 5 % adhesive patch,medicated 1 patch topical DAILY Qty: 15 0RF Rx Instructions: leave on most painful area for up to 12 hrs cephalexin 500 mg capsule 500 mg PO Q8H 7 Days Qty: 21 0RF prazosin 1 mg capsule 1 mg PO BEDTIME Qty: 30 0RF clonazepam 1 mg tablet 1 mg PO BID PRN (Reason: anxiety) Qty: 10 0RF tramadol 50 mg tablet 50 mg PO Q8H PRN (Reason: pain) Qty: 7 0RF tramadol 50 mg tablet 50 mg PO Q8H PRN (Reason: pain, severe) Qty: 7 0RF lidocaine [Lidoderm] 5 % adhesive patch,medicated 1 patch topical DAILY MDD remove after 12 hours PRN (Reason: pain) Qty: 30 0RF Rx Instructions: leave on most painful area for up to 12 hrs clonazepam [Klonopin] 1 mg tablet 1 mg PO BEDTIME PRN (Reason: anxiety) Qty: 5 0RF Rx Instructions: administer 30 minutes before bedtime prednisone 20 mg tablet 20 mg PO BID Qty: 10 0RF oxycodone 5 mg tablet 5 mg PO BID PRN (Reason: pain) Qty: 10 0RF Rx Instructions: Partial Fill upon patient request. Referrals: Meera Ramirez MD [Primary Care Provider] - Interventions: ED Discharge Assessment Last Done: 07/27/23 07:16 Discharge Date/Time: 07/27/23 07:17
[2023-07-27 06:57] VITALS: BP 148/82; PULSE 104; RESP 18; O2SAT 95
[2023-07-27] MEDS: Doxycycline Monohydrate 100 MG CAPSULE PO (07:13)
[2023-07-27 07:33] LABS: C Reactive Protein 25.36 mg/dL (< or = 0.50)
== END 2023-07-27 07:17 | disposition home or self-care (01) ==
PROVIDERS: Emergency Provider Emergency Medicine; PCP Internal Medicine
DX: J18.9 Pneumonia, unspecified organism (principal); R07.89 Other chest pain; Z20.822 Contact with and (suspected) exposure to COVID-19; Z20.828 Contact with and (suspected) exposure to other viral communicable diseases; Z79.899 Other long term (current) drug therapy
CPT/HCPCS: 0241U; 71045; 80053; 84484; 85025; 86140; 93005; 99283; 99285

== ENCOUNTER → 2023-07-27 04:18 | Outpatient (BNV) | payer MEDICAID, SELFPAY | PROVIDERS: Emergency Provider Emergency Medicine; PCP Internal Medicine; Visit Provider Internal Medicine | DX: R00.0 Tachycardia, unspecified (principal) | CPT/HCPCS: 93010 ==

== ENCOUNTER 2024-01-04 14:17 | Emergency (ER) | payer MEDICAID, SELFPAY ==
--- NOTE | ~2024-01-04 | CT_ITS ---
EXAMINATION: CT HEAD WITHOUT CONTRAST CLINICAL INFORMATION: Right arm numbness COMPARISON: CT head May 29, 2023 TECHNIQUE: Contiguous axial imaging was performed from the skull base to vertex without intravenous administration of contrast. Coronal and sagittal reformatted images are performed at the CT scanner. [This CT examination was performed using dose optimization techniques as appropriate, variously including the following: *Automated exposure control *Adjustment of mA and/or kV according to patient size (this includes techniques or standardized protocols for targeted exams where dose is matched to indication/reason for exam; i.e. extremities or head) *Use of iterative reconstruction technique] DLP: 607 mGy-cm. FINDINGS: There is no evidence of acute intracranial hemorrhage or territorial infarction. No abnormal mass-effect or midline shift is seen. Mcintyre to white matter differentiation is well preserved. No extra-axial fluid collections are identified. The ventricles are normal in size. There is no abnormal attenuation within the brain parenchyma. There is no osseous abnormality. The mastoid air cells and visualized portions of the paranasal sinuses are well-aerated. CT/CT head/brain wo IV con IMPRESSION: No acute intracranial pathology.
--- NOTE | 2024-01-04 14:59 | ED_ITS ---
HPI - General Adult General Chief complaint: Weakness Stated complaint: R SIDE PAIN,NO INJURY/TRAUMA FROM [facility] Time Seen by Provider: 01/04/24 18:27 Source: patient Mode of arrival: ambulatory Limitations: no limitations History of Present Illness HPI narrative: Patient's anxiety with frequent pain comes here for 2 days of pain in the mid chest in the right arm sent from [facility] [place] for further evaluation patient ran out of her anxiety medication feels anxious with pain all over mostly on the right side no shortness a breath no cough Related Data Previous Rx's ?Medication ?Instructions ?Recorded doxycycline monohydrate 100 mg 100 mg PO BID 10 days #20 caps 10/23/20 capsule clonazepam 0.5 mg tablet (Klonopin) 0.5 mg PO BEDTIME PRN anxiety #14 03/08/21 tabs cephalexin 500 mg capsule 500 mg PO Q8H #21 caps 05/06/21 oxycodone 5 mg tablet 5 mg PO Q8H PRN pain #5 tabs 06/27/21 walker #1 ea 06/27/21 cyclobenzaprine 10 mg tablet 10 mg PO TID PRN muscle spasm #10 11/11/21 tabs lidocaine 5 % topical patch 1 patch topical DAILY #15 ea 11/11/21 (Lidoderm) cephalexin 500 mg capsule 500 mg PO Q8H 7 days #21 caps 12/07/21 clonazepam 1 mg tablet 1 mg PO BID PRN anxiety #10 tabs 01/19/22 prazosin 1 mg capsule 1 mg PO BEDTIME #30 caps 01/19/22 tramadol 50 mg tablet 50 mg PO Q8H PRN pain #7 tabs 02/08/22 lidocaine 5 % topical patch 1 patch topical DAILY PRN pain #30 02/09/22 (Lidoderm) ea tramadol 50 mg tablet 50 mg PO Q8H PRN pain, severe #7 02/09/22 tabs clonazepam 1 mg tablet 1 mg PO DAILY #3 tabs 03/17/22 clonazepam 1 mg tablet (Klonopin) 1 mg PO BEDTIME PRN anxiety #5 tabs 03/02/23 oxycodone 5 mg tablet 5 mg PO BID PRN pain #10 tabs 05/29/23 prednisone 20 mg tablet 20 mg PO BID #10 tabs 05/29/23 doxycycline monohydrate 100 mg 100 mg PO BID #20 caps 07/27/23 capsule lorazepam 1 mg tablet (Ativan) 1 mg PO BEDTIME PRN anxiety #7 tabs 01/04/24 tramadol 50 mg tablet 50 mg PO Q6H PRN pain #20 tabs 01/04/24 Allergies Allergy/AdvReac Type Severity Reaction Status Date / Time naproxen [NAPROXEN] Allergy Severe UNKNOWN Verified 01/04/24 15:03 acetaminophen [From Tylenol] Allergy Unknown Verified 01/04/24 15:03 ibuprofen Allergy Unknown Verified 01/04/24 15:03 pollen extracts Allergy Rash Verified 01/04/24 15:03 Review of Systems 2 Review of Systems: Yes all other systems are reviewed and are negative [facility] Past Medical History Medical History Anxiety High cholesterol HTN (hypertension) Diabetes Surgical History History of hernia surgery Social History Social History Alcohol intake: never Patient Tobacco Use Status: Never used Tobacco Smoked in Last 30 Days: No Advance Directives: No Advance Directives Information Provided: No Do you have a plan to hurt others: No Plan Patient : No Physical Exam ED Vital Signs: Vital Signs - 24 hr 01/04/24 15:00 01/04/24 20:06 Temperature 97 F 98.0 F Pulse Rate 82 81 Respiratory Rate 18 19 Blood Pressure 121/101 H 128/75 Pulse Oximetry 98 98 Oxygen Delivery Method Room Air Room Air BMI result Body Mass Index 21.5 Appearance: Alert. Oriented X3. No acute distress. Anxious Eyes: PERRLA, No Nystagmus ENT: Pharynx normal. Oral Mucosa moist Neck: Normal inspection. Neck supple. CVS: Normal heart rate and rhythm. Pulses normal. Mid chest wall tenderness Respiratory: No respiratory distress. Equal air entry bilateral, no wheezing/rales/rhonchi Abdomen: Soft and nontender. Bowel sounds are present, no mass palpable, no CVA tenderness Skin: Skin warm and dry. Normal skin color. Normal skin turgor. Extremities: No lower extremity edema. No calf tenderness Neuro: Oriented X 3. No motor deficit. No sensory deficit.No cerebellar signs , cranial nerves II-XII intact Course Course Course Narrative: This is a Rapid Medical Examination (RME) performed by Marc Colon PA-C in triage. Full HPI, ROS, assessment and treatment plan per primary provider in the Main ED. 63 y/o Mosotho speaking female who presents to the ER for evaluation of 5 days of worsening pain on the entire right side of her body. patient reports numbness in the right arm and has significantly limited ROM of the right side of her body due to pain. unable to lift the right arm in triage or move any part of the right side of her body. normal speech and no droop. refusing to participate in exam due to pain. not eating or drinking due to pain on the right side of her body. Plan: lab workup, CT Head due to reports of numbness on the right side of her body Medications Administered Discontinued Medications Generic Name Dose Route Start Last Admin Trade Name Freq PRN Reason Stop Dose Admin Sodium Zirconium Cyclosilicate 10 gm 01/04/24 18:49 01/04/24 19:09 Sodium Zirconium Cyclosilicate 10 Gm Powd.Pack PO 01/04/24 18:50 10 gm ONCE ONE Administration Tramadol HCl 50 mg 01/04/24 19:53 01/04/24 20:05 Tramadol Hcl 50 Mg Tablet PO 01/04/24 19:54 50 mg ONCE ONE Administration Medical Decision Making Medical Decision Making [facility] Narrative: Patient's anxiety with nonspecific chest pain and right-sided pain ran out of her medication for anxiety she takes lorazepam off and on anxiety workup is negative and ACS EKG without ischemic changes high sensitive troponin negative discharge patient home on Ativan for anxiety for atypical chest pain and muscular pain Differential Diagnosis Differential Diagnoses: The differential diagnosis associated with the presentation includes Anxiety/ACS/chest wall pain/pleuritic pain Lab Data [facility] Lab Attestation statement: I reviewed the patient's lab results. 01/04/24 15:21 01/04/24 15:21 Labs: Lab Results 01/04/24 Range/Units 15:21 WBC 7.3 (4.8-10.8) X10*3/uL RBC 4.13 L (4.20-5.50) X10*6/uL Hgb 12.2 D (12.0-16.0) g/dl Hct 38.1 D (37.0-47.0) % MCV 92.3 (80.0-98.0) fL MCH 29.5 (27.0-33.0) pg MCHC 32.0 (31.0-35.0) g/dl RDW 13.6 (11.0-16.0) % Plt Count 179 (160-400) X10*3/uL MPV 9.9 (9.4-12.3) fL Immature Gran % (Auto) 0.1 (0.0-0.4) % Neut % (Auto) 65.0 (45-73) % Lymph % (Auto) 25.9 (20-40) % [place] % (Auto) 6.8 (2-11) % Eos % (Auto) 1.8 (0-4) % Baso % (Auto) 0.4 (0-2) % Lymph # (Auto) 1.9 (1.2-4.9) X10*3/uL [place] # (Auto) 0.5 (0.1-1.2) X10*3/uL Eos # (Auto) 0.1 (0.0-0.4) X10*3/uL Baso # (Auto) 0.0 (0.0-0.2) X10*3/uL Abs Immat Gran (auto) 0.01 (0.00-0.03) X10*3/uL Absolute Neuts (auto) 4.8 (2.0-8.3) x10*3/uL Absolute Nucleated RBC 0.000 (0.0-0.012) X10*3/uL Nucleated RBC % (auto) 0.0 (0.0-0.2) /100WBC Sodium 145 (135-145) mmol/L Potassium 5.7 H (3.3-5.1) mmol/L Chloride 108 (96-108) mmol/L Carbon Dioxide 31 H (22-29) mmol/L Anion Gap 12 (12-20) BUN 14 (9-16) mg/dL Creatinine 0.72 (0.5-1.4) mg/dL Estim Creat Clear Calc 70.8 Estimated GFR > 60 Random Glucose 98 (60-115) mg/dL Calcium 9.7 (8.4-10.2) mg/dL Magnesium 2.0 (1.6-2.6) mg/dL Total Bilirubin 0.3 (0.0-1.0) mg/dL Direct Bilirubin 0.1 (0.0-0.5) mg/dL AST 14 (5-31) U/L ALT 8 (0-31) U/L Alkaline Phosphatase 54 (39-117) U/L Troponin I High Sens < 2.7 (<3.5-17.0) ng/L Total Protein 7.3 (6.5-8.0) g/dL Albumin 3.9 (3.5-5.0) g/dL Independent Interpretation I performed an independent interpretation of an: EKG Interpretation: Normal sinus rhythm left atrial enlargement no acute STT wave changes no acute ischemia Discharge Plan Discharge Clinical Impression: Musculoskeletal chest pain, Anxiety, Acute hyperkalemia Patient Disposition: Home, Self-Care Instructions: Hyperkalemia (ED), Noncardiac Chest Pain (ED), Anxiety (ED) Additional Instructions: Take medication lorazepam for anxiety Medication for chronic pain as prescribed Follow with your PCP Your potassium level was slightly elevated decreased food containing potassium like coconut water/bananas/orange juice Prescriptions: New tramadol 50 mg tablet 50 mg PO Q6H PRN (Reason: pain) Qty: 20 0RF lorazepam [Ativan] 1 mg tablet 1 mg PO BEDTIME PRN (Reason: anxiety) Qty: 7 0RF No Action doxycycline monohydrate 100 mg capsule 100 mg PO BID 10 Days Qty: 20 0RF clonazepam [Klonopin] 0.5 mg tablet 0.5 mg PO BEDTIME PRN (Reason: anxiety) Qty: 14 0RF cephalexin 500 mg capsule 500 mg PO Q8H Qty: 21 0RF oxycodone 5 mg tablet 5 mg PO Q8H PRN (Reason: pain) Qty: 5 0RF (DME) walker Misc See Rx Instructions .Route Qty: 1 0RF Rx Instructions: As directed clonazepam 1 mg tablet 1 mg PO DAILY Qty: 3 0RF cyclobenzaprine 10 mg tablet 10 mg PO TID PRN (Reason: muscle spasm) Qty: 10 0RF lidocaine [Lidoderm] 5 % adhesive patch,medicated 1 patch topical DAILY Qty: 15 0RF Rx Instructions: leave on most painful area for up to 12 hrs cephalexin 500 mg capsule 500 mg PO Q8H 7 Days Qty: 21 0RF prazosin 1 mg capsule 1 mg PO BEDTIME Qty: 30 0RF clonazepam 1 mg tablet 1 mg PO BID PRN (Reason: anxiety) Qty: 10 0RF tramadol 50 mg tablet 50 mg PO Q8H PRN (Reason: pain) Qty: 7 0RF tramadol 50 mg tablet 50 mg PO Q8H PRN (Reason: pain, severe) Qty: 7 0RF lidocaine [Lidoderm] 5 % adhesive patch,medicated 1 patch topical DAILY MDD remove after 12 hours PRN (Reason: pain) Qty: 30 0RF Rx Instructions: leave on most painful area for up to 12 hrs clonazepam [Klonopin] 1 mg tablet 1 mg PO BEDTIME PRN (Reason: anxiety) Qty: 5 0RF Rx Instructions: administer 30 minutes before bedtime prednisone 20 mg tablet 20 mg PO BID Qty: 10 0RF oxycodone 5 mg tablet 5 mg PO BID PRN (Reason: pain) Qty: 10 0RF Rx Instructions: Partial Fill upon patient request. doxycycline monohydrate 100 mg capsule 100 mg PO BID Qty: 20 0RF Interventions: ED Discharge Assessment Last Done: 01/04/24 20:06 Discharge Date/Time: 01/04/24 20:11 Print Language: Mosotho
[2024-01-04 15:00] VITALS: BP 110/92; BP 121/101; PULSE 82; PULSE 86; RESP 18; TEMP 36.1; O2SAT 98; O2SAT 99; BMI 21.5
[2024-01-04 15:25] LABS: MANUAL DIFF FLAG NO
[2024-01-04 15:27] LABS: Basophils Percent Auto 0.4 % (0-2); Eosinophils Absolute Auto 0.1 X10*3/uL (0.0-0.4); Eosinophils Percent Auto 1.8 % (0-4); Hematocrit 38.1 % (37.0-47.0); Hemoglobin 12.2 g/dl (12.0-16.0); Imm Gran Abs Auto 0.01 X10*3/uL (0.00-0.03); Imm Gran Pct Auto 0.1 % (0.0-0.4); Lymphocytes Absolute Auto 1.9 X10*3/uL (1.2-4.9); Lymphocytes Percent Auto 25.9 % (20-40); Mean Corpuscular Hemoglobin 29.5 pg (27.0-33.0); Mean Corpuscular Volume 92.3 fL (80.0-98.0); Mean Platelet Volume 9.9 fL (9.4-12.3); Monocytes Absolute Auto 0.5 X10*3/uL (0.1-1.2); Monocytes Percent Auto 6.8 % (2-11); Neutrophils Absolute Auto 4.8 x10*3/uL (2.0-8.3); Platelet Count 179 X10*3/uL (160-400); Red Blood Count 4.13 X10*6/uL (4.20-5.50); Red Cell Distribution Width 13.6 % (11.0-16.0); White Blood Count 7.3 X10*3/uL (4.8-10.8)
[2024-01-04 15:41] LABS: Alanine Aminotransferase 8 U/L (0-31); Albumin Level 3.9 g/dL (3.5-5.0); Alkaline Phosphatase 54 U/L (39-117); Anion Gap 12 (12-20); Aspartate Amino Transferase 14 U/L (5-31); Bilirubin Direct 0.1 mg/dL (0.0-0.5); Bilirubin Total 0.3 mg/dL (0.0-1.0); Blood Urea Nitrogen 14 mg/dL (9-16); Calcium 9.7 mg/dL (8.4-10.2); Carbon Dioxide 31 mmol/L (22-29); Chloride 108 mmol/L (96-108); Creatinine Clr Calc Pharmacy 70.8; Estimated Glomerular Filt Rate > 60; Glucose Random 98 mg/dL (60-115); Potassium 5.7 mmol/L (3.3-5.1); Sodium 145 mmol/L (135-145); Total Protein 7.3 g/dL (6.5-8.0)
[2024-01-04] MEDS: Sodium Zirconium Cyclosilicate 10 GM POWD.PACK PO (19:09)
--- NOTE | 2024-01-04 19:21 | ECG_ITS ---
Test Reason : CHEST PAIN Blood Pressure : / mmHG Vent. Rate : 066 BPM Atrial Rate : 066 BPM P-R Int : 146 ms QRS Dur : 074 ms QT Int : 388 ms P-R-T Axes : 059 006 049 degrees QTc Int : 406 ms Normal sinus rhythm Possible Left atrial enlargement Borderline ECG When compared with ECG of 27-JUL-2023 04:18, Vent. rate has decreased BY 48 BPM Referred By: Adan William Electronically Signed By:STEVE KHOURY MD
[2024-01-04 19:43] LABS: Troponin-I High Sensitivity < 2.7 ng/L (<3.5-17.0)
[2024-01-04] MEDS: traMADoL HCL 50 MG TABLET PO (20:05)
[2024-01-04 20:06] VITALS: BP 128/75; PULSE 81; RESP 19; TEMP 36.7; O2SAT 98
== END 2024-01-04 20:11 | disposition home or self-care (01) ==
PROVIDERS: Physician Assistant; Emergency Provider Internal Medicine; PCP Internal Medicine
DX: R07.89 Other chest pain (principal); R20.0 Anesthesia of skin; E87.5 Hyperkalemia; Z79.899 Other long term (current) drug therapy
CPT/HCPCS: 36415; 70450; 80048; 80076; 83735; 84484; 85025; 93005; 99284; 99285

== ENCOUNTER → 2024-01-04 19:21 | Outpatient (BNV) | payer MEDICAID, SELFPAY | PROVIDERS: Emergency Provider Internal Medicine; PCP Internal Medicine; Visit Provider Internal Medicine Cardiovascular Disease | DX: R07.9 Chest pain, unspecified (principal) | CPT/HCPCS: 93010 ==

== ENCOUNTER 2024-01-07 10:56 | Outpatient (REF) | payer MEDICAID, SELFPAY ==
--- NOTE | ~2024-01-07 | XR_ITS ---
EXAMINATION: XR SHOULDER, RIGHT CLINICAL INFORMATION: Chronic right shoulder pain COMPARISON: Right shoulder radiograph from 11/11/2021 TECHNIQUE: Four views of the right shoulder. FINDINGS: No acute visible fracture or dislocation. Redemonstrated large spur along the inferior medial humeral head with significant reduction in the glenohumeral joint space. Joint space alignment otherwise maintained. Soft tissues are unremarkable. Visualized portions of the chest are unremarkable. XR/XR shoulder RT min 2V IMPRESSION: 1. No acute visible fracture or dislocation. 2. Redemonstrated large spur along the inferior medial humeral head with significant reduction in the glenohumeral joint space.
== END 2024-01-07 10:57 | disposition home or self-care (01) ==
LOC: HO.HHCX 10:56
PROVIDERS: Visit Provider Student in an Organized Health Care Education/Training Program
DX: M25.511 Pain in right shoulder (principal); G89.29 Other chronic pain
CPT/HCPCS: 73030

== ENCOUNTER 2024-01-14 11:31 | Emergency (ER) | payer MEDICAID, SELFPAY ==
--- NOTE | 2024-01-14 | ECG_ITS ---
Test Reason : CP Blood Pressure : / mmHG Vent. Rate : 075 BPM Atrial Rate : 075 BPM P-R Int : 144 ms QRS Dur : 068 ms QT Int : 372 ms P-R-T Axes : 064 -04 054 degrees QTc Int : 415 ms Normal sinus rhythm Normal ECG When compared with ECG of 04-JAN-2024 19:23, No significant change was found Referred By: Generic ED Physician Electronically Signed By:Celestine Alejo
--- NOTE | ~2024-01-14 | XR_ITS ---
EXAMINATION: XR SHOULDER, RIGHT CLINICAL INFORMATION: Atraumatic right shoulder pain. COMPARISON: Shoulder radiograph dated 01/07/2024. TECHNIQUE: 3 radiographs of the right shoulder. FINDINGS: Again seen is severe degenerative disease of the glenohumeral joint characterized by joint space narrowing, subchondral sclerosis, and marginal osteophytosis. There is no fracture or dislocation. The right acromioclavicular joint demonstrates mild degenerative disease. The visualized right hemithorax is clear. The regional soft tissue is normal in appearance. XR/XR shoulder RT min 2V IMPRESSION: No fracture or dislocation. There is stable, significant degenerative disease of the glenohumeral joint.
--- NOTE | 2024-01-14 11:55 | ED.GENADULT ---
HPI - General Adult General Chief complaint: Extremity Injury, Upper Stated complaint: Chest pain, back pain Time Seen by Provider: 01/14/24 13:59 History of Present Illness HPI narrative: patient complains of right shoulder pain worse with movement. this has been going on for several months gradually worsening without any new injury, she denies any fever no numbness or weakness no chest pain no shortness of breath no neck pain She went to an urgent care for this recently and was given tramadol which has not provided relief Related Data Previous Rx's ?Medication ?Instructions ?Recorded doxycycline monohydrate 100 mg 100 mg PO BID 10 days #20 caps 10/23/20 capsule clonazepam 0.5 mg tablet (Klonopin) 0.5 mg PO BEDTIME PRN anxiety #14 03/08/21 tabs cephalexin 500 mg capsule 500 mg PO Q8H #21 caps 05/06/21 oxycodone 5 mg tablet 5 mg PO Q8H PRN pain #5 tabs 06/27/21 walker #1 ea 06/27/21 cyclobenzaprine 10 mg tablet 10 mg PO TID PRN muscle spasm #10 11/11/21 tabs lidocaine 5 % topical patch 1 patch topical DAILY #15 ea 11/11/21 (Lidoderm) cephalexin 500 mg capsule 500 mg PO Q8H 7 days #21 caps 12/07/21 clonazepam 1 mg tablet 1 mg PO BID PRN anxiety #10 tabs 01/19/22 prazosin 1 mg capsule 1 mg PO BEDTIME #30 caps 01/19/22 tramadol 50 mg tablet 50 mg PO Q8H PRN pain #7 tabs 02/08/22 lidocaine 5 % topical patch 1 patch topical DAILY PRN pain #30 02/09/22 (Lidoderm) ea tramadol 50 mg tablet 50 mg PO Q8H PRN pain, severe #7 02/09/22 tabs clonazepam 1 mg tablet 1 mg PO DAILY #3 tabs 03/17/22 clonazepam 1 mg tablet (Klonopin) 1 mg PO BEDTIME PRN anxiety #5 tabs 03/02/23 oxycodone 5 mg tablet 5 mg PO BID PRN pain #10 tabs 05/29/23 prednisone 20 mg tablet 20 mg PO BID #10 tabs 05/29/23 doxycycline monohydrate 100 mg 100 mg PO BID #20 caps 07/27/23 capsule lorazepam 1 mg tablet (Ativan) 1 mg PO BEDTIME PRN anxiety #7 tabs 01/04/24 tramadol 50 mg tablet 50 mg PO Q6H PRN pain #20 tabs 01/04/24 lorazepam 1 mg tablet (Ativan) 1 mg PO BID PRN anxiety #4 tabs 01/14/24 oxycodone 5 mg tablet 5 mg PO Q6H PRN pain #10 tabs 01/14/24 Allergies Allergy/AdvReac Type Severity Reaction Status Date / Time naproxen [NAPROXEN] Allergy Severe UNKNOWN Unverified 01/14/24 12:00 acetaminophen [From Tylenol] Allergy Unknown Verified 01/14/24 12:00 ibuprofen Allergy Unknown Verified 01/14/24 12:00 pollen extracts Allergy Rash Verified 01/14/24 12:00 [facility] Past Medical History Source: nursing notes reviewed Medical History Anxiety High cholesterol HTN (hypertension) Diabetes Surgical History History of hernia surgery Social History Social History Alcohol intake: never Patient Tobacco Use Status: Never used Tobacco Advance Directives: No Do you have a plan to hurt others: No Plan Physical Exam ED Vital Signs: Vital Signs - 24 hr 01/14/24 11:56 Temperature 98.1 F Pulse Rate 77 Respiratory Rate 18 Blood Pressure 114/69 Pulse Oximetry 98 Oxygen Delivery Method Room Air BMI result Body Mass Index 21.1 general appearance is no acute distress The head is normocephalic atraumatic Neck is supple and nontender with normal range of motion The chest wall is nontender, lungs are clear to auscultation bilateral The back has normal range of motion no significant tenderness Extremities the right shoulder had anterior and posterior tenderness, the skin was normal in color not red or warm, no swelling, neurovascular intact distal Movement is limited by pain but no signs of infection Course Course Course Narrative: This is a Rapid Medical Examination (RME) performed by Yue Vega PA-C in triage. Full HPI, ROS, assessment and treatment plan per primary provider in the Main ED. 63 yo female here w/ acute on chronic right shoulder pain x weeks. xrs of right shoulder on 01/07/24 show large spur along inferior medial humeral head w/ significant reduction in glenohumeral joint space. she was told she needs surgery on her right shoulder. her PCP has sent referral to a surgeon, she has not heard back from them. states i'm in too much pain . unable to get dressed, comb hair. seen at 3 days ago for same, discharged w/ gabapentin without relief. of note, pt here on 01/03 for chest pain/ right shoulder pain, noted to be hyperkalemic to 5.7. she was discharged home with tramadol which she has been taking without relief of pain. last dose 1 wk ago. well appearing in triage. limited ROM to right shoulder secondary to pain. Plan: labs, XR ordered Right shoulder x-ray confirmed degenerative disease no acute change from prior no fractures dislocations or evidence of malignancy No acute findings in labs of chemistry or CBC, renal function and potassium were normal EKG was a normal sinus rhythm with a rate of [address] or ischemic changes Patient with no sign of septic joint or fracture with worsening right shoulder pain easily reproduced with movement is diagnosed with musculoskeletal right shoulder pain secondary to degenerative disease of the shoulder and is given referral to orthopedist and analgesics She requested some anxiety medicine Ativan I wrote her for 4 tablets and told her she needed to follow up with her doctor for any further supply Medical Decision Making Lab Data 01/14/24 12:07 01/14/24 12:07 Labs: Lab Results 01/14/24 Range/Units 12:07 WBC 4.7 L (4.8-10.8) X10*3/uL RBC 4.24 (4.20-5.50) X10*6/uL Hgb 12.5 (12.0-16.0) g/dl Hct 38.5 (37.0-47.0) % MCV 90.8 (80.0-98.0) fL MCH 29.5 (27.0-33.0) pg MCHC 32.5 (31.0-35.0) g/dl RDW 13.0 (11.0-16.0) % Plt Count 204 (160-400) X10*3/uL MPV 9.7 (9.4-12.3) fL Immature Gran % (Auto) 0.2 (0.0-0.4) % Neut % (Auto) 47.0 (45-73) % Lymph % (Auto) 42.5 H (20-40) % [place] % (Auto) 6.1 (2-11) % Eos % (Auto) 3.6 (0-4) % Baso % (Auto) 0.6 (0-2) % Lymph # (Auto) 2.0 (1.2-4.9) X10*3/uL [place] # (Auto) 0.3 (0.1-1.2) X10*3/uL Eos # (Auto) 0.2 (0.0-0.4) X10*3/uL Baso # (Auto) 0.0 (0.0-0.2) X10*3/uL Abs Immat Gran (auto) 0.01 (0.00-0.03) X10*3/uL Absolute Neuts (auto) 2.2 (2.0-8.3) x10*3/uL Absolute Nucleated RBC 0.000 (0.0-0.012) X10*3/uL Nucleated RBC % (auto) 0.0 (0.0-0.2) /100WBC Sodium 141 (135-145) mmol/L Potassium 4.0 D (3.3-5.1) mmol/L Chloride 108 (96-108) mmol/L Carbon Dioxide 27 (22-29) mmol/L Anion Gap 10 L (12-20) BUN 14 (9-16) mg/dL Creatinine 0.66 (0.5-1.4) mg/dL Estim Creat Clear Calc 64.3 Estimated GFR > 60 Random Glucose 95 (60-115) mg/dL Calcium 9.7 (8.4-10.2) mg/dL Magnesium 1.9 (1.6-2.6) mg/dL Total Bilirubin 0.3 (0.0-1.0) mg/dL AST 16 (5-31) U/L ALT 9 (0-31) U/L Alkaline Phosphatase 68 (39-117) U/L Total Protein 7.1 (6.5-8.0) g/dL Albumin 4.0 (3.5-5.0) g/dL Lipase 13 (8-78) U/L Discharge Plan Discharge Clinical Impression: Arthralgia of right shoulder region Patient Disposition: Home, Self-Care Additional Instructions: x-ray showed arthritis and degenerative change in the right shoulder so it would be very helpful to see an media marketing specialist we provided the number Blood tests did not show any acute abnormality EKG was normal Return any time any worse condition or concerns For any further prescriptions for your anxiety you need to follow with your regular doctors Prescriptions: New oxycodone 5 mg tablet 5 mg PO Q6H PRN (Reason: pain) Qty: 10 0RF Rx Instructions: Partial Fill upon patient request. lorazepam [Ativan] 1 mg tablet 1 mg PO BID PRN (Reason: anxiety) Qty: 4 0RF No Action doxycycline monohydrate 100 mg capsule 100 mg PO BID 10 Days Qty: 20 0RF clonazepam [Klonopin] 0.5 mg tablet 0.5 mg PO BEDTIME PRN (Reason: anxiety) Qty: 14 0RF cephalexin 500 mg capsule 500 mg PO Q8H Qty: 21 0RF oxycodone 5 mg tablet 5 mg PO Q8H PRN (Reason: pain) Qty: 5 0RF (DME) satnam Chang See Rx Instructions .Route Qty: 1 0RF Rx Instructions: As directed clonazepam 1 mg tablet 1 mg PO DAILY Qty: 3 0RF cyclobenzaprine 10 mg tablet 10 mg PO TID PRN (Reason: muscle spasm) Qty: 10 0RF lidocaine [Lidoderm] 5 % adhesive patch,medicated 1 patch topical DAILY Qty: 15 0RF Rx Instructions: leave on most painful area for up to 12 hrs cephalexin 500 mg capsule 500 mg PO Q8H 7 Days Qty: 21 0RF prazosin 1 mg capsule 1 mg PO BEDTIME Qty: 30 0RF clonazepam 1 mg tablet 1 mg PO BID PRN (Reason: anxiety) Qty: 10 0RF tramadol 50 mg tablet 50 mg PO Q8H PRN (Reason: pain) Qty: 7 0RF tramadol 50 mg tablet 50 mg PO Q8H PRN (Reason: pain, severe) Qty: 7 0RF lidocaine [Lidoderm] 5 % adhesive patch,medicated 1 patch topical DAILY MDD remove after 12 hours PRN (Reason: pain) Qty: 30 0RF Rx Instructions: leave on most painful area for up to 12 hrs clonazepam [Klonopin] 1 mg tablet 1 mg PO BEDTIME PRN (Reason: anxiety) Qty: 5 0RF Rx Instructions: administer 30 minutes before bedtime prednisone 20 mg tablet 20 mg PO BID Qty: 10 0RF oxycodone 5 mg tablet 5 mg PO BID PRN (Reason: pain) Qty: 10 0RF Rx Instructions: Partial Fill upon patient request. doxycycline monohydrate 100 mg capsule 100 mg PO BID Qty: 20 0RF tramadol 50 mg tablet 50 mg PO Q6H PRN (Reason: pain) Qty: 20 0RF lorazepam [Ativan] 1 mg tablet 1 mg PO BEDTIME PRN (Reason: anxiety) Qty: 7 0RF Print Language: Martiniquais
[2024-01-14 11:56] VITALS: BP 114/69; PULSE 77; RESP 18; TEMP 36.7; O2SAT 98; BMI 21.1
[2024-01-14 12:12] LABS: MANUAL DIFF FLAG NO
[2024-01-14 12:13] LABS: Basophils Percent Auto 0.6 % (0-2); Eosinophils Absolute Auto 0.2 X10*3/uL (0.0-0.4); Eosinophils Percent Auto 3.6 % (0-4); Hematocrit 38.5 % (37.0-47.0); Hemoglobin 12.5 g/dl (12.0-16.0); Imm Gran Abs Auto 0.01 X10*3/uL (0.00-0.03); Imm Gran Pct Auto 0.2 % (0.0-0.4); Lymphocytes Percent Auto 42.5 % (20-40); Mean Corpuscular HGB Conc 32.5 g/dl (31.0-35.0); Mean Corpuscular Hemoglobin 29.5 pg (27.0-33.0); Mean Corpuscular Volume 90.8 fL (80.0-98.0); Mean Platelet Volume 9.7 fL (9.4-12.3); Monocytes Absolute Auto 0.3 X10*3/uL (0.1-1.2); Monocytes Percent Auto 6.1 % (2-11); Neutrophils Absolute Auto 2.2 x10*3/uL (2.0-8.3); Platelet Count 204 X10*3/uL (160-400); Red Blood Count 4.24 X10*6/uL (4.20-5.50); White Blood Count 4.7 X10*3/uL (4.8-10.8)
[2024-01-14 12:33] LABS: Alanine Aminotransferase 9 U/L (0-31); Alkaline Phosphatase 68 U/L (39-117); Anion Gap 10 (12-20); Aspartate Amino Transferase 16 U/L (5-31); Bilirubin Total 0.3 mg/dL (0.0-1.0); Blood Urea Nitrogen 14 mg/dL (9-16); Calcium 9.7 mg/dL (8.4-10.2); Carbon Dioxide 27 mmol/L (22-29); Chloride 108 mmol/L (96-108); Creatinine Clr Calc Pharmacy 64.3; Estimated Glomerular Filt Rate > 60; Glucose Random 95 mg/dL (60-115); Lipase 13 U/L (8-78); Magnesium 1.9 mg/dL (1.6-2.6); Sodium 141 mmol/L (135-145); Total Protein 7.1 g/dL (6.5-8.0)
[2024-01-14 16:11] VITALS: BP 146/91; PULSE 70; RESP 16; TEMP 36.2; O2SAT 98
[2024-01-14] MEDS: oxyCODONE HCl Immed Release 5 MG TABLET PO (16:17)
[2024-01-14 16:23] VITALS: BP 146/91; PULSE 70; RESP 16; TEMP 36.2; O2SAT 98
== END 2024-01-14 16:23 | disposition home or self-care (01) ==
PROVIDERS: Physician Assistant Medical; Emergency Provider Emergency Medicine; PCP Internal Medicine
DX: M25.511 Pain in right shoulder (principal); I10 Essential (primary) hypertension; E11.8 Type 2 diabetes mellitus with unspecified complications
CPT/HCPCS: 36415; 73030; 80053; 83690; 83735; 85025; 93005; 99283; 99285

== ENCOUNTER → 2024-01-14 11:35 | Outpatient (BNV) | payer MEDICAID, SELFPAY | PROVIDERS: Emergency Provider Emergency Medicine; PCP Internal Medicine; Visit Provider Internal Medicine Cardiovascular Disease | DX: R94.31 Abnormal electrocardiogram [ECG] [EKG] (principal) | CPT/HCPCS: 93010 ==

== ENCOUNTER 2024-02-17 13:24 | Outpatient (AMB) | payer MEDICAID, SELFPAY ==
[2024-02-17 13:35] VITALS: BMI 21.1
--- NOTE | 2024-02-17 13:35 | MHC.OFFVIS ---
Vital Signs 02/17/24 13:35 Height 5 ft Weight 108 lb BMI 21.1 Intake Visit Reasons: N/P right shoulder impingement Intake Note: Nunu is a 63 year old right hand dominant female who presents today with her granddaughter as a new patient with complaints of right shoulder pain. Patient reports that she has had ongoing shoulder pain for many years now. She was seen at [facility] who provided her with Oxycodone but she has had no alternative treatments. The patient states that she does not want an injection because of her fear of needles. She has done physical therapy exercises which aggravated her pain. Allergies naproxen [NAPROXEN] Allergy (Severe, Unverified 01/14/24 12:00) UNKNOWN acetaminophen [From Tylenol] Allergy (Verified 01/14/24 12:00) Unknown ibuprofen Allergy (Verified 01/14/24 12:00) Unknown pollen extracts Allergy (Verified 01/14/24 12:00) Rash Medication List - Last Reconciled 02/17/24 by Rishi Carr MD cephalexin 500 mg PO Q8H cephalexin 500 mg PO Q8H 7 days clonazepam (Klonopin) 0.5 mg PO BEDTIME PRN clonazepam 1 mg PO BID PRN clonazepam 1 mg PO DAILY clonazepam (Klonopin) 1 mg PO BEDTIME PRN cyclobenzaprine 10 mg PO TID PRN doxycycline monohydrate 100 mg PO BID 10 days doxycycline monohydrate 100 mg PO BID lidocaine 5% (Lidoderm) 1 patch topical DAILY lidocaine 5% (Lidoderm) 1 patch topical DAILY PRN MDD remove after 12 hours lorazepam (Ativan) 1 mg PO BEDTIME PRN lorazepam (Ativan) 1 mg PO BID PRN oxycodone 5 mg PO Q8H PRN oxycodone 5 mg PO BID PRN oxycodone 5 mg PO Q6H PRN prazosin 1 mg PO BEDTIME prednisone 20 mg PO BID tramadol 50 mg PO Q8H PRN tramadol 50 mg PO Q8H PRN tramadol 50 mg PO Q6H PRN walker As directed [facility] Medical History Anxiety High cholesterol HTN (hypertension) Diabetes Surgical History History of hernia surgery Social History Alcohol intake: never Patient Tobacco Use Status: Never used Tobacco Physical Exam Vital Signs: BMI result Body Mass Index 21.1 Const Other: Well-nourished well-developed very friendly female awake alert and oriented x3 in no acute distress Extrem Other: Bilateral upper extremity examination shows good capillary refill, no skin lesions noted, normal sensation light touch Right shoulder examination shows decreased active and passive range of motion when compared to her left shoulder, pain with range of motion, crepitus with range of motion, no instability Results Reviewed Results Reviewed: X-rays of the patient's right shoulder show end-stage glenohumeral joint degenerative joint disease with joint space narrowing, subchondral sclerosis and osteophyte formation, no acute bony abnormalities Assessment & Plan Assessment & Plan (1) Arthritis of right shoulder region: Code(s): M19.011 - Primary osteoarthritis, right shoulder Category: Medical Plan Ms. Segal presents with right shoulder pain and stiffness due to end-stage glenohumeral joint arthritis. I had a lengthy discussion with the patient regarding the treatment options. At this point the patient appears to be failing continued non operative treatments. The risks and benefits of right total shoulder replacement surgery were discussed at length with the patient. The patient is considering undergoing surgery later this year. Thus, I will arrange to her to have a consultation with my partner, Dr. Burgos, who can further discuss the risks and benefits of this type of surgery. She will continue with her range of motion exercises in the meantime. Feel free to call me at any time should questions regarding her orthopedic management arise. Thank you very much for asking me to see this very friendly patient. I spent 21 minutes in reviewing the patient's records and imaging studies, seeing the patient and documenting in the medical record. Coding Level of Care Code New Pt Level 3 (98586) Diagnoses Arthritis of right shoulder region M19.011
== END 2024-02-17 14:36 | disposition home or self-care (01) ==
PROVIDERS: PCP Internal Medicine; Referring Provider Internal Medicine; Visit Provider Orthopaedic Surgery
DX: M19.011 Primary osteoarthritis, right shoulder (principal)
CPT/HCPCS: 99203

== ENCOUNTER → 2024-02-17 13:24 | Outpatient (BNVA) | payer MEDICAID, SELFPAY | PROVIDERS: PCP Internal Medicine; Visit Provider Orthopaedic Surgery | DX: M19.011 Primary osteoarthritis, right shoulder (principal) | CPT/HCPCS: 99202 ==

== ENCOUNTER 2024-03-11 16:21 | Emergency (ER) | payer MEDICAID, SELFPAY ==
[2024-03-11 16:27] VITALS: BP 126/68; PULSE 68; O2SAT 97
[2024-03-11 17:05] VITALS: BP 147/90; PULSE 61; RESP 18; TEMP 36.5; O2SAT 98; BMI 21.2
--- NOTE | 2024-03-11 17:05 | ED.UPPEXIN ---
HPI - Extremity Injury (Upper) General Chief Complaint: Extremity Problem Stated Complaint: chronic shoulder, needs assistance walking, has rx Time Seen by Provider: 03/11/24 18:40 Source: patient, RN notes reviewed and old records reviewed Mode of arrival: ambulatory Limitations: no limitations History of Present Illness ED Provider: URVASHI FIGUEREDO HPI narrative: 63 year old female with pmhx significant for arthritis, HTN, HDL, DM, and anxiety presents to the ED today for evaluation of acute on chronic right shoulder pain x1 week. Reports worsening right shoulder pain with movement. She has followed up with Dr. Carr for severe arthritis within the right shoulder and has plans for total right shoulder scheduled for 03/18/24. She comes to ED from PCP office today. Reports her PCP wrote her a script for oxycodone 2 weeks ago. She was told she could take extra doses for break through pain. She reports running out of her oxy script and was advised to come to the ED. Now with worsening pain as Tylenol/ Motrin has not provided much relief. Denies new injury or trauma to the shoulder. Denies pain radiation. Denies numbness/tingling/weakness of the RUE, chest pain, palpitations, sob, dizziness. Related Data Previous Rx's ?Medication ?Instructions ?Recorded doxycycline monohydrate 100 mg 100 mg PO BID 10 days #20 caps 10/23/20 capsule clonazepam 0.5 mg tablet (Klonopin) 0.5 mg PO BEDTIME PRN anxiety #14 03/08/21 tabs cephalexin 500 mg capsule 500 mg PO Q8H #21 caps 05/06/21 oxycodone 5 mg tablet 5 mg PO Q8H PRN pain #5 tabs 06/27/21 walker #1 ea 06/27/21 cyclobenzaprine 10 mg tablet 10 mg PO TID PRN muscle spasm #10 11/11/21 tabs lidocaine 5 % topical patch 1 patch topical DAILY #15 ea 11/11/21 (Lidoderm) cephalexin 500 mg capsule 500 mg PO Q8H 7 days #21 caps 12/07/21 clonazepam 1 mg tablet 1 mg PO BID PRN anxiety #10 tabs 01/19/22 prazosin 1 mg capsule 1 mg PO BEDTIME #30 caps 01/19/22 tramadol 50 mg tablet 50 mg PO Q8H PRN pain #7 tabs 02/08/22 lidocaine 5 % topical patch 1 patch topical DAILY PRN pain #30 02/09/22 (Lidoderm) ea tramadol 50 mg tablet 50 mg PO Q8H PRN pain, severe #7 02/09/22 tabs clonazepam 1 mg tablet 1 mg PO DAILY #3 tabs 03/17/22 clonazepam 1 mg tablet (Klonopin) 1 mg PO BEDTIME PRN anxiety #5 tabs 03/02/23 oxycodone 5 mg tablet 5 mg PO BID PRN pain #10 tabs 05/29/23 prednisone 20 mg tablet 20 mg PO BID #10 tabs 05/29/23 doxycycline monohydrate 100 mg 100 mg PO BID #20 caps 07/27/23 capsule lorazepam 1 mg tablet (Ativan) 1 mg PO BEDTIME PRN anxiety #7 tabs 01/04/24 tramadol 50 mg tablet 50 mg PO Q6H PRN pain #20 tabs 01/04/24 lorazepam 1 mg tablet (Ativan) 1 mg PO BID PRN anxiety #4 tabs 01/14/24 oxycodone 5 mg tablet 5 mg PO Q6H PRN pain #10 tabs 01/14/24 lidocaine 5 % topical patch 1 patch topical DAILY #15 ea 03/11/24 (Lidoderm) oxycodone 5 mg tablet 5 mg PO Q6H PRN pain (scale score 03/11/24 4-6) 3 days #12 tabs Allergies Allergy/AdvReac Type Severity Reaction Status Date / Time naproxen [NAPROXEN] Allergy Severe UNKNOWN Verified 03/11/24 17:05 acetaminophen [From Tylenol] Allergy Unknown Verified 03/11/24 17:05 ibuprofen Allergy Unknown Verified 03/11/24 17:05 pollen extracts Allergy Rash Verified 03/11/24 17:05 tramadol AdvReac Dry Mucus Verified 03/11/24 20:06 Membranes Review of Systems Review of Systems: Constitutional: No fever, chills, fatigue, night sweats, weight changes ENT/Mouth: No ear pain, hearing loss, nasal congestion, sinus pain, rhinorrhea, sore throat Eyes: No eye pain, swelling, redness, vision changes, discharge Cardio: No chest pain, palpitations, ACKERMAN, orthopnea, peripheral edema Pulm: No SOB, cough, sputum, wheezing, dyspnea, hemoptysis GI: No nausea, vomiting, hematemesis, abdominal pain, diarrhea, constipation, hematochezia, melena : No irregular bleeding, dysuria, frequency, urgency, hesitancy, hematuria, flank pain, urinary flow changes, urinary incontinence or retention MSK: No back pain, neck pain, joint pain, myalgias, +right shoulder pain Skin: No lesions, rashes Neuro: No weakness, numbness, paresthesias, LOC, dizziness, headache Psych: No anxiety/panic, depression, SI/HI, AH/VH All other systems reviewed and are negative. [facility] Past Medical History Attestation statement: The following information was validated with the patient. Source: old records reviewed and nursing notes reviewed Medical History Anxiety High cholesterol HTN (hypertension) Diabetes Surgical History History of hernia surgery Social History Social History Alcohol intake: never Patient Tobacco Use Status: Never used Tobacco Smoked in Last 30 Days: No Advance Directives: No Advance Directives Information Provided: Yes Physical Exam Vital Signs: Vital Signs: Last Vital Signs Temp 97.7 F 03/11/24 20:12 Pulse 61 03/11/24 20:12 Resp 18 03/11/24 20:12 BP 147/90 H 03/11/24 20:12 Pulse Ox 98 03/11/24 20:12 O2 Del Method Room Air 03/11/24 20:12 BMI result Body Mass Index 21.2 Course Course Course Narrative: This is an RME performed by Gladys Conley CNP: Additional HPI, ROS, PE not included below will be deferred to primary provider. Patient is a 63-year-old female who presents emergency department for evaluation of acute on chronic right shoulder. 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 Coming from PCP office today via EMS for severe pain x 1 week. Reports that the oxycodone does help the pain somewhat but then quickly returns. She has been evaluated by Orthopedics and has an appointment for right total shoulder replacement 7/26. Plan: Placed in waiting room pending bed availability for pain management Reevaluation(s) Reevaluation #1: 1950-- patient's presentation unchanged from priors. I do not have concern for acute process. I do not feel as though labs and imaging are warranted at this time. Patient already has plans in right total shoulder at the end of this month. Will medicate patient and plan for disposition. She is agreeable with this. 2005-- I was called to bedside after patient received PO tramadol. She tells me that she has an allergy where her throat becomes dry when taking tramadol. Upon chart review, patient has received tramadol at least 3 other times while in the ED without noted reaction. I evaluated patient and do not appreciate any anaphylaxis or localized allergic reaction. Her airways patent. She is speaking in full complete sentences. No rashes noted. I informed patient that she has received Tramadol in the past without reaction and she states that she does not recall this. She tells me that she would rather have oxycodone sent to her pharmacy. This has been sent for pain control. Patient has remained stable throughout ED visit today. Discussed worrisome signs and symptoms and when to return to the ED. All questions answered at this time. Patient is agreeable with disposition and stable for discharge. Medications Administered Discontinued Medications Generic Name Dose Route Start Last Admin Trade Name Freq PRN Reason Stop Dose Admin Tramadol HCl 50 mg 03/11/24 19:03 03/11/24 19:09 Tramadol Hcl 50 Mg Tablet PO 03/11/24 19:04 50 mg ONCE ONE Administration Medical Decision Making Medical Decision Making MDM Narrative: 63 year old female with pmhx significant for arthritis, HTN, HDL, DM, and anxiety presents to the ED today for evaluation of acute on chronic right shoulder pain x1 week. Patient hypertensive to 140 7/90, vitals otherwise WNL. She is nontoxic-appearing and in no acute distress. She is lying comfortably on the exam bed. On exam, right shoulder wtihout noted deformity, swelling or overlying skin changes. Limited ROM noted to right shoulder secondary to pain. no tenderness to palpation. 2+ radial and ulnar pulse intact. 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 sensation intact to light touch. Differential diagnosis includes arthritis, contusion, msk sprain/ strain. unlikely fracture, dislocation, ACS. Plan for pain control and disposition. Differential Diagnosis Differential Diagnoses: The differential diagnosis associated with the presentation includes as above Admission/Observation not indicated. External Record Review External record reviewed: Inpatient record, Office record, Outpatient record, Prior outpatient labs, Prior outpatient radiology, Primary care record and Outside ED record Tests considered The following testing was considered but not selected: I considered obtaining xray right shoulder however paitents symptoms are unchanged from previous, unlikely acute fracture, not warranted at this time. Prescription Management I considered prescription management with: Pain Medication (tramadol, lido patch) Chronic Conditions Patient?s care impacted by: Other (arthritis) Social Determinants Patient?s care significantly limited by Social Determinants of Health including: Other Social Determinant of Health Critical Care Time Critical Care Time Critical Care Time: No Discharge Plan Discharge Clinical Impression: Arthritis of right shoulder region Patient Disposition: Home, Self-Care Instructions: Osteoarthritis (ED) Additional Instructions: Take tylenol at home as needed for pain. Oxycodone is a controlled pain medication that has been sent to your pharmacy for you to take for break through pain. Lidocaine patches have been sent to your pharmacy. You may apply this to your right shoulder as needed for pain. Follow up with either PCP or orthopedic doctor for further refills. Continue to follow up with PCP as scheduled along with orthopedic doctor for your scheduled visit on 03/18/24. Return with new or worsening symptoms. In the case of an emergency call 911. Prescriptions: New lidocaine [Lidoderm] 5 % adhesive patch,medicated 1 patch topical DAILY Qty: 15 0RF Rx Instructions: leave on most painful area for up to 12 hrs oxycodone 5 mg tablet 5 mg PO Q6H PRN (Reason: pain (scale score 4-6)) 3 Days Qty: 12 0RF Rx Instructions: Partial Fill upon patient request. No Action doxycycline monohydrate 100 mg capsule 100 mg PO BID 10 Days Qty: 20 0RF clonazepam [Klonopin] 0.5 mg tablet 0.5 mg PO BEDTIME PRN (Reason: anxiety) Qty: 14 0RF cephalexin 500 mg capsule 500 mg PO Q8H Qty: 21 0RF oxycodone 5 mg tablet 5 mg PO Q8H PRN (Reason: pain) Qty: 5 0RF (DME) walker Misc See Rx Instructions .Route Qty: 1 0RF Rx Instructions: As directed clonazepam 1 mg tablet 1 mg PO DAILY Qty: 3 0RF cyclobenzaprine 10 mg tablet 10 mg PO TID PRN (Reason: muscle spasm) Qty: 10 0RF lidocaine [Lidoderm] 5 % adhesive patch,medicated 1 patch topical DAILY Qty: 15 0RF Rx Instructions: leave on most painful area for up to 12 hrs cephalexin 500 mg capsule 500 mg PO Q8H 7 Days Qty: 21 0RF prazosin 1 mg capsule 1 mg PO BEDTIME Qty: 30 0RF clonazepam 1 mg tablet 1 mg PO BID PRN (Reason: anxiety) Qty: 10 0RF tramadol 50 mg tablet 50 mg PO Q8H PRN (Reason: pain) Qty: 7 0RF tramadol 50 mg tablet 50 mg PO Q8H PRN (Reason: pain, severe) Qty: 7 0RF lidocaine [Lidoderm] 5 % adhesive patch,medicated 1 patch topical DAILY MDD remove after 12 hours PRN (Reason: pain) Qty: 30 0RF Rx Instructions: leave on most painful area for up to 12 hrs clonazepam [Klonopin] 1 mg tablet 1 mg PO BEDTIME PRN (Reason: anxiety) Qty: 5 0RF Rx Instructions: administer 30 minutes before bedtime prednisone 20 mg tablet 20 mg PO BID Qty: 10 0RF oxycodone 5 mg tablet 5 mg PO BID PRN (Reason: pain) Qty: 10 0RF Rx Instructions: Partial Fill upon patient request. doxycycline monohydrate 100 mg capsule 100 mg PO BID Qty: 20 0RF tramadol 50 mg tablet 50 mg PO Q6H PRN (Reason: pain) Qty: 20 0RF lorazepam [Ativan] 1 mg tablet 1 mg PO BEDTIME PRN (Reason: anxiety) Qty: 7 0RF oxycodone 5 mg tablet 5 mg PO Q6H PRN (Reason: pain) Qty: 10 0RF Rx Instructions: Partial Fill upon patient request. lorazepam [Ativan] 1 mg tablet 1 mg PO BID PRN (Reason: anxiety) Qty: 4 0RF Referrals: Meera Ramirez MD [Primary Care Provider] - Interventions: ED Discharge Assessment Last Done: 03/11/24 20:12 Discharge Date/Time: 03/11/24 20:13 Print Language: Burkinan
--- OUTSIDE RECORDS SUMMARY | 2024-03-11 17:43 | XMS_ITS | Continuity of Care Document ---
Author Organization [facility] ter Address [address] [place] [id number]- Care Team Providers Care Kiln Tender Name Role Phone Not on Staff, PCP Primary Care Physician Unavail able Encounter [facility] [place] Date(s): 09/08/19 - 09/08/[address] [address]- [facility] Encounter Diagnosis Acute chest wall pain(Final) - 09/08/19 Discharge Disposition: A-D/C Home Attending Physician: Efrain Sandoval MD Admitting Physician: Efrain Sandoval MD Referring Physician: Not on Staff, Referring MD Allergies, Adverse Reactions, Alerts Substance Reaction Severity Status Vicodin Active Immunizations Given and Recorded Vaccine Date Status Refusal Reason tetanus/diphtheria/pertussis, acel(Tdap) 05/27/12 Given Medications docusate sodium 100 mg oral capsule 1 capsule = 100 mg, By Mouth, 2 times a day, # 30 capsule, 0 Refills, Maintenance, Capsule Start Date: 05/30/12 Status: Ordered KLONopin Tablet = 1 mg, By Mouth, 3 times a day, 0 Refills, Maintenance Start Date: 05/27/12 Status: Ordered lidocaine 4% topical film 1 patch, Topically, Daily, PRN Pain , Moderate, apply to left shoulder, # 6 each, 1 Refills, Maintenance, 09/08/19 16:15:00 EST, Film, [id number], 1 patch Topically Daily,PRN:Pain , Moderate,Instr:apply to left shoulder Start Date: 09/08/19 Status: Ordered naproxen 500 mg oral tablet 1 tablet = 500 mg, By Mouth, 2 times a day, PRN as needed for pain, # 60 tablet, 0 Refills, Maintenance, 09/08/19 16:15:00 EST, Tablet, [id number] Start Date: 09/08/19 Status: Ordered Percocet-5/325 325 mg-5 mg oral tablet 1 tablet, By Mouth, Every 4 hours, PRN for pain, # 12 tablet, 0 Refills, Maintenance, Tablet Start Date: 06/05/12 Status: Ordered Percocet-5/325 325 mg-5 mg oral tablet 1 tablet, By Mouth, Every 4 hours, PRN for pain, # 8 tablet, 0 Refills, Maintenance, Tablet Start Date: 06/05/12 Status: Ordered Remeron Tablet By Mouth, Daily at bedtime, 0 Refills, Maintenance Start Date: 05/27/12 Status: Ordered Results Radiology Reports * Exam Date Time Procedure Performing Provider Status 09/08/19 2:57 PM Shoulder Min 2 Views Left Joselin Davison; Candace (Verified) Notes: (Shoulder Min 2 Views Left) Reason For Exam: with Pain;Trauma RESULT: Shoulder Min 2 Views Left Left shoulder 4 views. INDICATION: Chest pain with radiation to the left arm. COMPARISON: None. FINDINGS: No fracture or dislocation. No arthritic change of the glenohumeral joint. Normal AC joint and portions of the clavicle included on the exam. No calcification of the rotator cuff. IMPRESSION: No fracture or dislocation. I have personally reviewed the images and I agree with this report. WSN: [id number] Dictated By: Manolo Dolan MD Dictated Date/Time: 09/08/19 3:13 pm Reviewed By: Nitesh Diggs MD Signed By: Nitesh Diggs MD Signed Date/Time: 09/08/19 3:18 pm Transcribed By: JULIUS Transcribed Date/Time: 09/08/19 3:11 pm * Exam Date Time Procedure Performing Provider Status 09/08/19 2:57 PM Chest 2 Views Frontal and Lat Joselin Givens; Auth (Verified) Notes: (Chest 2 Views Frontal and Lat) Reason For Exam: Shortness of Breath RESULT: Chest 2 Views Frontal and Lat Chest 2 Views Frontal and Lat INDICATION: chest discomfort. COMPARISON: 10/29/2012. FINDINGS: LINES AND TUBES: None. LUNGS AND PLEURA: Minimal bibasilar atelectasis. Otherwise, the lungs are clear. No focal consolidation. No pleural effusion or pneumothorax. HEART, MEDIASTINUM AND ABDI: Heart is normal in size. Normal mediastinal and hilar contour. BONES AND SOFT TISSUES: No acute osseous abnormality. Severe degenerative change of the right glenohumeral joint. IMPRESSION: No evidence of acute abnormality. I have personally reviewed the images and I agree with this report. WSN: [id number] Dictated By: Manolo Dolan MD Dictated Date/Time: 09/08/19 3:14 pm Reviewed By: Nitesh Diggs MD Signed By: Nitesh Diggs MD Signed Date/Time: 09/08/19 3:19 pm Transcribed By: JULIUS Transcribed Date/Time: 09/08/19 3:01 pm Vital Signs Most recent to oldest [Reference Range]: 1 2 3 Oxygen Saturation [94-100 %] 100 % (09/08/19 3:52 PM) 100 % (09/08/19 2:33 PM) 95 % (09/08/19 1:34 PM) Pulse Rate [55-90 bpm] 82 bpm (09/08/19 3:52 PM) 80 bpm (09/08/19 2:33 PM) 89 bpm (09/08/19 1:34 PM) Blood Pressure [90-138/55-84 mm Hg] 138/89mm Hg (09/08/19 3:52 PM) 112/87mm Hg (09/08/19 2:33 PM) 146/82mm Hg *H* (09/08/19 1:34 PM) Respiratory Rate [16-30 br/min] 20 br/min (09/08/19 3:52 PM) 20 br/min (09/08/19 2:33 PM) 18 br/min (09/08/19 1:34 PM) Temperature [96.8-100.4 DegF] 97.3 DegF (09/08/19 1:34 PM) Mode of Delivery (Oxygen) Room air (09/08/19 3:52 PM) Room air (09/08/19 2:33 PM) Room air (09/08/19 1:34 PM) Blood pressure sites Arm, left (09/08/19 3:52 PM) Arm, left (09/08/19 2:33 PM) Arm, right (09/08/19 1:34 PM) Temperature Route Oral (09/08/19 1:34 PM)
[2024-03-11] MEDS: traMADoL HCL 50 MG TABLET PO (19:09)
--- NOTE | 2024-03-11 20:06 | PC.NURSE ---
pt medicated per OCT. pt rec tramadol 50mg. upon dc, pt insisted that she was allergic to tramadol, and she was given oxycodone. Advised pt this was not the case, tramadol was administered. this nurse asked what happens when pt takes tramadol, to which she stated my throat closes no apparent distress noted, no increased work of breathing, no signs of allg rxn. KWAKU Vega notified, Provider and procedure rn at bedside- per pt, allg is more of a dry throat sensation not true anaphylaxis. Adv reaction added to pt allg file. D/C medication changed to oxycodone, which the pt reports she tolerates without issue. NAD on discharge.
[2024-03-11 20:12] VITALS: BP 147/90; PULSE 61; RESP 18; TEMP 36.5; O2SAT 98
== END 2024-03-11 20:13 | disposition home or self-care (01) ==
PROVIDERS: Emergency Provider Emergency Medicine; PCP Internal Medicine
DX: M19.011 Primary osteoarthritis, right shoulder (principal); M25.511 Pain in right shoulder; E11.9 Type 2 diabetes mellitus without complications; I10 Essential (primary) hypertension; E78.5 Hyperlipidemia, unspecified; Z79.899 Other long term (current) drug therapy
CPT/HCPCS: 99283; 99284

== ENCOUNTER 2024-03-18 12:44 | Outpatient (AMB) | payer MEDICAID, SELFPAY ==
[2024-03-18 12:50] VITALS: BMI 21.1
--- NOTE | 2024-03-18 12:50 | MHC.OFFVIS ---
Vital Signs 03/18/24 12:50 Height 5 ft Weight 108 lb BMI 21.1 Intake Visit Reasons: OV- possible RT shoulder replacement Intake Note: Marko 63 year old female who presents today for a follow up of right shoulder. Patient reports her pain has been getting worse and would like to discuss surgical options. Allergies naproxen [NAPROXEN] Allergy (Severe, Verified 03/18/24 12:53) UNKNOWN acetaminophen [From Tylenol] Allergy (Verified 03/18/24 12:53) Unknown ibuprofen Allergy (Verified 03/18/24 12:53) Unknown pollen extracts Allergy (Verified 03/18/24 12:53) Rash tramadol Adverse Reaction (Verified 03/18/24 12:53) Dry Mucus Membranes HPI HPI OV- possible RT shoulder replacement: Details: This is a 63-year-old woman who comes in today with years of worsening right shoulder pain. She has had injections in the past and done physical therapy and feels that nothing has been helping. She is on disability for unclear reasons but states after her . She has been taking oxycodone and prednisone and tramadol for pain. He has a temporary and I have not been present, according to her for long periods of time. She is not a great historian however. She describes difficulty with daily activities and sleeping. She has pain with overhead activity and reaching. She feels painful crepitus with motion of her right PFSH Medical History Anxiety High cholesterol HTN (hypertension) Diabetes Surgical History History of hernia surgery Social History Alcohol intake: never Patient Tobacco Use Status: Never used Tobacco Physical Exam Vital Signs: BMI result Body Mass Index 21.1 Extrem Other: Right shoulder with limited external rotation and pain. She can abduct to about 70 degrees with scapular recruitment and forward flex to 120. External rotation is limited about 25 degrees. She has a negative but painful empty can. Results Reviewed Results Reviewed: I personally reviewed relevant radiographs. There is severe glenohumeral osteoarthritis of the right shoulder. Assessment & Plan Assessment & Plan (1) Shoulder arthritis: Code(s): M19.019 - Primary osteoarthritis, unspecified shoulder Category: Medical Plan: This is an active 63-year-old with chronic right shoulder pain and severe osteoarthritis. Her pain continues to worsen and she has not been helped with medical management nor physical therapy nor injections. We had a long discussion regarding treatment options. I think she is a reasonable, although not perfect, candidate for shoulder arthroplasty. She certainly has severe arthritis and is limited. I worry slightly about her preoperative narcotic consumption and this is something that we will need to be addressed prior to potential surgical intervention. I think it is reasonable to begin the preoperative clearance process to assess her surgical risk and continue the conversation for possible right shoulder replacement. I discussed with her the risks, benefits and alternatives including, but not limited to infection, dislocation, fracture, need for further surgery as well as medical complications. She expressed understanding and we will proceed forward albeit cautiously. Orders: Orders CT shoulder RT wo IV con Today M19.019 - Primary osteoarthritis, unspecified shoulder MR knee RT wo con Today M19.019 - Primary osteoarthritis, unspecified shoulder Coding Level of Care Code Est Pt Level 4 (75046) Diagnoses Shoulder arthritis M19.019
== END 2024-03-18 15:06 | disposition home or self-care (01) ==
PROVIDERS: PCP Internal Medicine; Visit Provider Orthopaedic Surgery
DX: M19.011 Primary osteoarthritis, right shoulder (principal)
CPT/HCPCS: 99214

== ENCOUNTER → 2024-03-18 12:44 | Outpatient (BNVA) | payer MEDICAID, SELFPAY | PROVIDERS: PCP Internal Medicine; Visit Provider Orthopaedic Surgery | DX: M19.011 Primary osteoarthritis, right shoulder (principal); Z79.52 Long term (current) use of systemic steroids; Z79.891 Long term (current) use of opiate analgesic; Z79.899 Other long term (current) drug therapy | CPT/HCPCS: 99212 ==

== ENCOUNTER 2024-06-07 11:46 | Outpatient (REF) | payer MEDICAID, SELFPAY ==
[2024-06-13 09:00] LABS: Benzoylecgonine 4849 (H)
== END 2024-06-07 11:47 | disposition home or self-care (01) ==
LOC: HO.HHCLNP 11:46
PROVIDERS: Visit Provider Internal Medicine
DX: M19.011 Primary osteoarthritis, right shoulder (principal); Z79.899 Other long term (current) drug therapy
CPT/HCPCS: 36415; 80353

== ENCOUNTER 2024-08-04 | Outpatient (REF) | payer MEDICAID, SELFPAY | END 2024-08-04 00:01 | disposition home or self-care (01) | LOC: HO.HHCX | PROVIDERS: Visit Provider Internal Medicine | DX: M25.511 Pain in right shoulder (principal) | CPT/HCPCS: 73030 ==

== ENCOUNTER 2024-09-06 14:41 | Outpatient (REF) | payer MEDICAID, SELFPAY ==
--- NOTE | ~2024-09-06 | XR_ITS ---
EXAMINATION: XR THORACIC SPINE 2 VIEWS HISTORY: PAIN COMPARISON: There are no prior studies for comparison. FINDINGS: AP and lateral views of the thoracic spine are submitted. Osseous mineralization is normal. The vertebral bodies maintain normal height and alignment without evidence of fracture or subluxation. There is mild degenerative disc disease with disc space narrowing and osteophyte formation. The visualized paraspinal soft tissues are unremarkable. XR/XR thoracic spine 2V IMPRESSION: Mild degenerative disc disease. Electronically signed by: Macario Magdaleno MD 09/06/2024 03:46 PM EST
--- NOTE | ~2024-09-06 | XR_ITS ---
EXAMINATION: XR LUMBAR SPINE 4 OR MORE VIEWS HISTORY: neck and back pain COMPARISON: Comparison is made with the prior examination dated 05/14/2019. FINDINGS: AP, lateral, bilateral oblique, and coned down views of the lumbar spine are submitted. Osseous mineralization is normal. There is mild superior endplate depression at T12. This is new from 05/14/2018, but is of indeterminate age. Five nonrib-bearing lumbar vertebral bodies are identified, maintaining normal height and alignment without evidence of fracture or spondylolisthesis. The intervertebral disc spaces are preserved. The posterior elements are intact. The visualized paraspinal soft tissues are unremarkable. XR/XR lumbar spine 4V min IMPRESSION: Mild superior endplate depression of T12, new since 05/14/2018, but of indeterminate age. No evidence of fracture of the lumbar spine. Electronically signed by: Macario Magdaleno MD 09/06/2024 03:49 PM [facility]
--- NOTE | ~2024-09-06 | XR_ITS ---
EXAMINATION: XR CERVICAL SPINE 4-5 VIEWS HISTORY: neck and back pain COMPARISON: There are no prior studies for comparison. FINDINGS: AP, lateral, bilateral oblique, and open-mouth odontoid views of the cervical spine are submitted. Osseous mineralization is normal. Seven cervical vertebral bodies are identified maintaining normal height and alignment without evidence of fracture or subluxation. There is mild degenerative disc disease at the C5-6 level with disc space narrowing and osteophyte formation. There is mild narrowing of the right C5-6 neural foramen secondary to uncovertebral joint hypertrophy. The remaining neural foramen are patent. The odontoid and lateral masses of C1 are intact. There is no prevertebral soft tissue swelling. XR/XR cervical spine 4V IMPRESSION: Mild degenerative changes at C5-6 as described. Electronically signed by: Macario Magdaleno MD 09/06/2024 03:45 PM [facility]
== END 2024-09-06 14:42 | disposition home or self-care (01) ==
LOC: HO.HHCX 14:41
PROVIDERS: Visit Provider Internal Medicine
DX: M54.12 Radiculopathy, cervical region (principal); M54.16 Radiculopathy, lumbar region; M54.6 Pain in thoracic spine
CPT/HCPCS: 72050; 72070; 72110

== ENCOUNTER 2024-10-05 11:32 | Emergency (ER) | payer MEDICAID, SELFPAY ==
--- NOTE | 2024-10-05 11:51 | ED_ITS ---
HPI - Overdose General Chief Complaint: ETOH/Substance Use Stated Complaint: responsive after 4mg narcan, L knee pain Time Seen by Provider: 10/05/24 11:40 Source: patient and EMS Mode of arrival: EMS Limitations: language barrier History of Present Illness ED Provider: Fausto Knutson DO HPI Narrative: 64-year-old female with past medical history of arthritis on opiate therapy, hypertension, hyperlipidemia, diabetes and anxiety presents to the emergency department via EMS after police found her unresponsive in a parking lot and administered 4 mg of naloxone with rapid improvement. The patient is denying substance abuse. Per EMS, police found a ?crack pipe? in her possession. Record review shows the patient is prescribed oxycodone as well as clonazepam. She reports with a neck collar but removed. She denies any pain or symptoms. She states she wants to return to home. Patient denies possession of drugs paraphernalia. She denies illicit drug use. She states she just picked up medications from her pharmacy and was on her way to her sister's house. She states she took her prescribed oxycodone and prescribed diazepam and Depakote shortly prior to the event today. She denies any pain or injuries. She states she lives with her brother in the house. She does not feel she has an issue with drugs or needs detox. Related Data Previous Rx's ?Medication ?Instructions ?Recorded doxycycline monohydrate 100 mg 100 mg PO BID 10 days #20 caps 10/23/20 capsule clonazepam 0.5 mg tablet (Klonopin) 0.5 mg PO BEDTIME PRN anxiety #14 03/08/21 tabs cephalexin 500 mg capsule 500 mg PO Q8H #21 caps 05/06/21 oxycodone 5 mg tablet 5 mg PO Q8H PRN pain #5 tabs 06/27/21 walker #1 ea 06/27/21 cyclobenzaprine 10 mg tablet 10 mg PO TID PRN muscle spasm #10 11/11/21 tabs lidocaine 5 % topical patch 1 patch topical DAILY #15 ea 11/11/21 (Lidoderm) cephalexin 500 mg capsule 500 mg PO Q8H 7 days #21 caps 12/07/21 clonazepam 1 mg tablet 1 mg PO BID PRN anxiety #10 tabs 01/19/22 prazosin 1 mg capsule 1 mg PO BEDTIME #30 caps 01/19/22 tramadol 50 mg tablet 50 mg PO Q8H PRN pain #7 tabs 02/08/22 lidocaine 5 % topical patch 1 patch topical DAILY PRN pain #30 02/09/22 (Lidoderm) ea tramadol 50 mg tablet 50 mg PO Q8H PRN pain, severe #7 02/09/22 tabs clonazepam 1 mg tablet 1 mg PO DAILY #3 tabs 03/17/22 clonazepam 1 mg tablet (Klonopin) 1 mg PO BEDTIME PRN anxiety #5 tabs 03/02/23 oxycodone 5 mg tablet 5 mg PO BID PRN pain #10 tabs 05/29/23 prednisone 20 mg tablet 20 mg PO BID #10 tabs 05/29/23 doxycycline monohydrate 100 mg 100 mg PO BID #20 caps 07/27/23 capsule lorazepam 1 mg tablet (Ativan) 1 mg PO BEDTIME PRN anxiety #7 tabs 01/04/24 tramadol 50 mg tablet 50 mg PO Q6H PRN pain #20 tabs 01/04/24 lorazepam 1 mg tablet (Ativan) 1 mg PO BID PRN anxiety #4 tabs 01/14/24 oxycodone 5 mg tablet 5 mg PO Q6H PRN pain #10 tabs 01/14/24 lidocaine 5 % topical patch 1 patch topical DAILY #15 ea 03/11/24 (Lidoderm) oxycodone 5 mg tablet 5 mg PO Q6H PRN pain (scale score 03/11/24 4-6) 3 days #12 tabs naloxone 4 mg/actuation nasal 4 mg intranasal Q2M PRN opioid 10/05/24 spray (Narcan) overdose #2 ea Allergies Allergy/AdvReac Type Severity Reaction Status Date / Time naproxen [NAPROXEN] Allergy Severe UNKNOWN Verified 10/05/24 12:08 acetaminophen [From Tylenol] Allergy Unknown Verified 10/05/24 12:08 ibuprofen Allergy Unknown Verified 10/05/24 12:08 pollen extracts Allergy Rash Verified 10/05/24 12:08 tramadol AdvReac Dry Mucus Verified 10/05/24 12:08 Membranes Review of Systems Review of Systems: Yes all other systems are reviewed and are negative PMFSH Past Medical History Medical History Anxiety High cholesterol HTN (hypertension) Diabetes Surgical History History of hernia surgery Social History Social History Alcohol intake: never Patient Tobacco Use Status: Never used Tobacco Smoked in Last 30 Days: No Use of substances other than those prescribed or required for medical reasons: No Advance Directives: No Advance Directives Information Provided: Yes Do you have a plan to hurt others: No Plan Physical Exam Vital Signs: Vital Signs: BMI result Body Mass Index 76.3 Constitutional: ?Alert, oriented, speaking in full sentences HEENT: ?Normocephalic, atraumatic. ?Moist mucous membranes Eyes: ?PERRL, EOMI Neck: ?Supple, nontender Chest: ?No chest wall tenderness Respiratory: ?Lungs clear to auscultation, no increased work of breathing Cardio: ?Regular rate and rhythm, no murmur, 2+ radial and DP pulses symmetrically GI: ?Soft, nondistended, nontender Back: ?Normal range of motion, nontender Skin: ?No rash, no lesions Neuro: ?Alert and oriented to person, place and time, moves all 4 extremities, no focal deficits. Patient able to describe events earlier today, able to state the month and year. Extremities: ?No swelling or tenderness, full range of motion Psych: ?Calm, alert and cooperative, appropriate behavior Medical Decision Making Medical Decision Making MDM Narrative: Patient presenting with high suspicion for opiate overdose due to response with naloxone prior to arrival. The patient initially declined vital signs. She has an unremarkable exam and is able to ambulate and speak without slurred speech. She is not drowsy. She endorses wishes to return home. I discussed with her the danger of combining benzodiazepines and opiates. I offered detox and the patient declined. At this time, I can not detain the patient against her will as she is alert and oriented, lucid and coherent and can make her own decisions. She does voice understanding that our plan would be to observe her due to the high suspicion for opiate overdose with concern for recurrent symptoms. The patient is able to ambulate. Prior to attempts for vital signs and discharge paperwork, the patient eloped. She was prescribed naloxone. Discharge Plan Discharge Clinical Impression: Acute drug overdose Qualifiers: Encounter type: initial encounter Injury intent: accidental or unintentional Qualified Code(s): T50.901A - Poisoning by unspecified drugs, medicaments and biological substances, accidental (unintentional), initial encounter Patient Disposition: Elopement Instructions: Adult Overdose (ED) Additional Instructions: La polic?a le evalu? por amish sobredosis de drogas y le administr? naloxona (Narcan). Esta es amish condici?n muy preocupante. Por favor, evite cualquier uso recreativo de drogas y tenga en cuenta que la combinaci?n de opi?ceos coleen la oxicodona y las benzodiacepinas coleen el diazepam son muy peligrosas y no deben tomarse juntas. Hable de ello con henriquez m?dico de cabecera y henriquez psiquiatra. Si humaira que tiene un problema con las drogas, por favor vuelva o si tiene cualq uier otro cambio caron, por favor vuelva al servicio de urgencias. Le hemos recetado Narcan para que lo tenga en caridad de que algo as? vuelva a ocurrir. Ll?valo siempre contigo, sobre todo si lawanda sustancias controladas. Prescriptions: New naloxone [Narcan] 4 mg/actuation spray,non-aerosol 4 mg intranasal Q2M PRN (Reason: opioid overdose) Qty: 2 0RF Rx Instructions: spray 1 dose into ONE nostril; alternate nostrils w each dose until help arrives No Action doxycycline monohydrate 100 mg capsule 100 mg PO BID 10 Days Qty: 20 0RF clonazepam [Klonopin] 0.5 mg tablet 0.5 mg PO BEDTIME PRN (Reason: anxiety) Qty: 14 0RF cephalexin 500 mg capsule 500 mg PO Q8H Qty: 21 0RF oxycodone 5 mg tablet 5 mg PO Q8H PRN (Reason: pain) Qty: 5 0RF (DME) walker Misc See Rx Instructions .Route Qty: 1 0RF Rx Instructions: As directed clonazepam 1 mg tablet 1 mg PO DAILY Qty: 3 0RF cyclobenzaprine 10 mg tablet 10 mg PO TID PRN (Reason: muscle spasm) Qty: 10 0RF lidocaine [Lidoderm] 5 % adhesive patch,medicated 1 patch topical DAILY Qty: 15 0RF Rx Instructions: leave on most painful area for up to 12 hrs cephalexin 500 mg capsule 500 mg PO Q8H 7 Days Qty: 21 0RF prazosin 1 mg capsule 1 mg PO BEDTIME Qty: 30 0RF clonazepam 1 mg tablet 1 mg PO BID PRN (Reason: anxiety) Qty: 10 0RF tramadol 50 mg tablet 50 mg PO Q8H PRN (Reason: pain) Qty: 7 0RF tramadol 50 mg tablet 50 mg PO Q8H PRN (Reason: pain, severe) Qty: 7 0RF lidocaine [Lidoderm] 5 % adhesive patch,medicated 1 patch topical DAILY MDD remove after 12 hours PRN (Reason: pain) Qty: 30 0RF Rx Instructions: leave on most painful area for up to 12 hrs clonazepam [Klonopin] 1 mg tablet 1 mg PO BEDTIME PRN (Reason: anxiety) Qty: 5 0RF Rx Instructions: administer 30 minutes before bedtime prednisone 20 mg tablet 20 mg PO BID Qty: 10 0RF oxycodone 5 mg tablet 5 mg PO BID PRN (Reason: pain) Qty: 10 0RF Rx Instructions: Partial Fill upon patient request. lidocaine [Lidoderm] 5 % adhesive patch,medicated 1 patch topical DAILY Qty: 15 0RF Rx Instructions: leave on most painful area for up to 12 hrs oxycodone 5 mg tablet 5 mg PO Q6H PRN (Reason: pain (scale score 4-6)) 3 Days Qty: 12 0RF Rx Instructions: Partial Fill upon patient request. doxycycline monohydrate 100 mg capsule 100 mg PO BID Qty: 20 0RF tramadol 50 mg tablet 50 mg PO Q6H PRN (Reason: pain) Qty: 20 0RF lorazepam [Ativan] 1 mg tablet 1 mg PO BEDTIME PRN (Reason: anxiety) Qty: 7 0RF oxycodone 5 mg tablet 5 mg PO Q6H PRN (Reason: pain) Qty: 10 0RF Rx Instructions: Partial Fill upon patient request. lorazepam [Ativan] 1 mg tablet 1 mg PO BID PRN (Reason: anxiety) Qty: 4 0RF Print Language: Solomon Islander
[2024-10-05 12:05] VITALS: BP 138/98; PULSE 102; O2SAT 98; BMI 76.3
[2024-10-05 12:56] VITALS: BP 00/00; PULSE 0; RESP 0; TEMP -17.7; TEMP 0; O2SAT 0
--- NOTE | 2024-10-05 12:58 | PC.NURSE ---
patient refused vitals during this ER visit. She was constantly found wandering out of her room and wanted to leave She did leave and provider is aware.
--- OUTSIDE RECORDS SUMMARY | 2024-10-05 14:14 | XMS_ITS | Encounter Summary ---
Author Organization [employer] Address [address] [facility] [address] [place] [address] Care Team Providers Care Sem Manager Name Role Phone Meera Ramirez MD Primary Care Provider + Reason for Visit * Reason Onset Date Comments Med Refill 09/06/2024 Encounter Details Date Type Department Care Team ([facility] st Contact Info) Description 09/06/2024 Telephone [facility] MEDICINE [address] [place] [address] Meera Ramirez MD [address] [place] [address] Med Refill Social History Tobacco Use Types Packs/Day Years Used Date Smoking Tobacco: Never Passive Smoke Exposure: Never Smokeless Tobacco: Never Alcohol Use Standard Drinks/Week Comments Not Currently 0 (1 standard drink = 0.6 oz pur e alcohol) Depression Answer Date Recorded Patient Health Questionnaire-9 Score 0 03/02/2023 Housing Stability Answer Date Recorded What is your housing situation today? I have ivon shafer 06/08/[address] you li ve. Do you have problems with any of the following? None of the above 06/08/2023 Food Insecurity Answer Date Recorded Within the past 12 months, y ou worried that your food would run out before you got money to buy more: Never True 06/08/2023 Within the past 12 months,th e food you bought just didn't last and you didn't have enough money to get more: Never True Transportation Answer Date Recorded In the past 12 months, has l ack of transportation kept you from medical appts, meetings, work or from getting things needed for daily living? No 06/08/2023 Utilities Answer Date Recorded In the past 12 months, has t he electric, gas, oil or water company threatened to shut off services in your home? No 06/08/2023 Depression Answer Date Recorded Patient Health Questionnaire-2 Score 0 03/02/2023 Comments Unknown Sex and Gender Information Value Date Recorded Sex Assigned at Female 06/23/2022 10:15 AM EDT Legal Sex Female 10:15 AM EDT Gender Identity Female 06/23/2022 10:15 AM EDT Sexual Orientation Choose not to disclose 2021 10:15 AM EDT documented as of this encounter Miscellaneous Notes * Telephone Encounter - Judith Weiss RN - 09/06/2024 12:51 PM EST Per conversation with PCP, PCP will discuss patients medication refill requests at todays appointment. * Telephone Encounter - Alex Dillon - 09/06/2024 9:10 AM EST TC from pt requesting medication refill. Medications needing refill : clonazePAM (KlonoPIN) 1 MG tablet oxyCODONE (Roxicodone) 5 MG immediate release tablet To be sent to: [facility] - [place], [place] - [address] [place] [address] documented in this encounter Plan of Treatment Upcoming Encounters Date Type Department Care Team (Late st Contact Info) Description 10/07/2024 3:30 PM EST Office Visit [facility] ADULT DENTAL [address] [place] [address] Shaye Ba, DDS [address] [place] [address] 11/02/2024 11:30 AM EDT Office Visit [facility] MEDICINE [address] [place] [address] Meera Ramirez MD [address] [place] [address] 11/16/2024 2:00 PM EDT Office Visit [facility] OPTOMETRY [address] [place], [place] [phone] Molly Bernard, TRIXIE [address] [place] [address] documented as of this encounter Visit Diagnoses Not on filedocumented in this encounter Additional Health Concerns Assessment Noted Time PHQ-9 Depression Total Score: 0 03/02/20 23 10:46 AM EDT documented as of this encounter Care Teams Sem Manager Relationship Specialty Start Date End Date Meera Ramirez MD [address] [place], [place] [phone] PCP - General Family Medicine 03/14/20 documented as of this encounter
--- OUTSIDE RECORDS SUMMARY | 2024-10-05 14:14 | XMS_ITS | Encounter Summary ---
Author Organization [employer] Address [address] [facility] [address] 7[address] [place] [address] Care Team Providers Care Guard Immigration Name Role Phone Meera Ramirez MD Primary Care Provider + Reason for Visit * Reason Onset Date Comments Med Refill 09/19/2024 Encounter Details Date Type Department Care Team ([facility] st Contact Info) Description 09/19/2024 Telephone [facility] MEDICINE [address] [place] [address] Meera Ramirez MD [address] [place] [address] Med Refill Social History Tobacco Use Types [...] Telephone Encounter - Judith Weiss RN - 09/21/2024 9:21 AM EST Return TC via director of medical staff services Jeffrey, reviewed with patient PCP message regarding her Bipolarmedications and lorazepam. Pt states she has a Tele appt with her psychiatrist in October. Pt asking why she has a doctor if she wont prescribe medications for her. Reminded patient she needs to keep taking her bipolar medication and keep her psychiatrist appt in October. Pt was advised she can schedule an appt with her PCP to discuss further if she has more concerns. Pt ended call abruptly. * Telephone Encounter - Meera Ramirez MD - 09/20/2024 8:04 PM EST Re Clonazepam or any other CS that I do not rx, please tell patient to take meds rx for Bipolar disorder(see note on 09/06) and otherwise she needs to fu with original rx of CS. FYI she wasn't on a high dose of lorazepam and she's way over due for it, it would be extremely unusual that she goes on withdrawal form taking the benzo as prescribed. * Telephone Encounter - Dawn Stewart - 09/19/2024 1:06 PM EST TC from pt requesting medication refill. Medications needing refill : clonazePAM (KlonoPIN) 1 MG tablet To be sent to: [facility] - [place], [place] - [address] [place] [address] IF any questions contact pt at [phone] documented in this encounter Plan of Treatment Upcoming Encounters Date Type Department Care Team ([facility] st Contact Info) Description 10/07/2024 3:30 PM EST Office Visit [facility] ADULT DENTAL [address] [place] [address] Julian-Hess, Shaye, DDS [address] [place] [address] 11/02/2024 11:30 AM EDT Office Visit [facility] MEDICINE [address] [place] [address] Meera Ramirez MD [address] [place] [address] 11/16/2024 2:00 PM EDT Office Visit [facility] OPTOMETRY [address] [place] [address] Marco Antonio, Molly, OD [address] [place] [address] documented as of this encounter Visit Diagnoses Not on filedocumented in this encounter Additional Health Concerns Assessment Noted Time PHQ-9 Depression Total Score: 0 03/02/20 23 10:46 AM EDT documented as of this encounter Care Teams Guard Immigration Relationship Specialty Start Date End Date Meera Ramirez MD [address] [place] [id number] PCP - General Family Medicine 03/14/20 documented as of this encounter
--- OUTSIDE RECORDS SUMMARY | 2024-10-05 14:14 | XMS_ITS | Encounter Summary ---
Author Organization [employer] Address [address] [place] [address] Care Team Providers Care Poker Dealer Name Role Phone Meera Ramirez MD Primary Care Provider + Tarik Dejesus RN Unavailable [phone] Reason for Visit * Reason Comments Med Refill Encounter Details Date Type Department Care Team (Late st Contact Info) Description 04/18/2024 Refill [facility] MEDICINE [address] [place] [address] Meera Ramirez MD [address] [place] [address] Primary osteoarthritis of right shoulder Social History Tobacco Use Types Packs/Day Years [...] AM EDT documented as of this encounter Plan of Treatment Upcoming Encounters Date Type Department Care Team (Late st Contact Info) Description 10/07/2024 3:30 PM EST Office Visit [facility] ADULT DENTAL [address] [place] [address] Eliel-Shaye Hess, DDS [address] [place] [address] 11/02/2024 11:30 AM EDT Office Visit [facility] MEDICINE [address] [place] [address] Meera Ramirez MD [address] [place] [address] 11/16/2024 2:00 PM EDT Office Visit [facility] OPTOMETRY [address] [place] [address] Marco Antonio, Molly, OD [address] [place] [address] documented as of this encounter Visit Diagnoses Diagnosis Primary osteoarthritis of right shoulder documented in this encounter Additional Health Concerns Assessment Noted Time PHQ-9 Depression Total Score: 0 03/02/20 23 10:46 AM EDT documented as of this encounter Care Teams Poker Dealer Relationship Specialty Start Date End Date Meera Ramirez MD [address] [place] [address] PCP - General Family Medicine 03/14/20 Tarik Dejesus RN [address] [place] [id number] 3D TechnologistGolf Club Head Inspector And Adjuster 09/26/24 documented as of this encounter
--- OUTSIDE RECORDS SUMMARY | 2024-10-05 14:14 | XMS_ITS | Encounter Summary ---
Author Organization [email or web address] Address [address] [facility] 7[address] [place] [address] Care Team Providers Care Grape Grower Name Role Phone Meera Ramirez MD Primary Care Provider + Reason for Visit * Reason Comments Care Coordination CM/CHW appt reminder Encounter Details Date Type Department Care Team (Latest Contact Info) Description 09/20/2024 Patient Outreach [facility] MEDICINE [address] [place] [address] Meera Ramirez MD [address] [place] [address] Care Coordination (CM/CHW appt reminder) Social History Tobacco Use Types Packs/Day Years [...] AM EDT documented as of this encounter Progress Notes * Vianey Davison - 09/20/2024 9:52 AM EST CHW Vianey Davison placed outbound call to patient introducing herself from [facility] CM Department, in regard to remind patient of Adult Complex Care program initial assessment appt for tomorrow 09/21/24 @ 1PM via telephone with CM Tarik Dejesus RN. Patient's name and was confirmed. Patient is aware and confirmed will be available for call and has no barriers on attending call. Patient verbalized understanding and agrees with plan. documented in this encounter Plan of Treatment Upcoming Encounters Date Type Department Care Team (Late st Contact Info) Description 10/07/2024 3:30 PM EST Office Visit [facility] ADULT DENTAL [address] [place] [address] Shaye Ba DDS [address] [place] [address] 11/02/2024 11:30 AM EDT Office Visit [facility] MEDICINE [address] [place] [address] Meera Ramirez MD [address] [place] [address] 11/16/2024 2:00 PM EDT Office Visit [facility] OPTOMETRY [address] [place] [address] Molly Bernard, TRIXIE [address] [place] [address] documented as of this encounter Visit Diagnoses Not on filedocumented in this encounter Additional Health Concerns Assessment Noted Time PHQ-9 Depression Total Score: 0 03/02/20 23 10:46 AM EDT documented as of this encounter Care Teams Grape Grower Relationship Specialty Start Date End Date Meera Ramirez MD [address] [place] [address] PCP - General Family Medicine 03/14/20 documented as of this encounter
--- OUTSIDE RECORDS SUMMARY | 2024-10-05 14:14 | XMS_ITS | Clinical Summary ---
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 Blood Glucose Monitoring Suppl (FreeStyle Lite) w/Device kitIndications:T ype 2 diabetes mellitus without complication, without long-term current use of insulin ([facility]) 1 each in the morning. Use to monitor blood glucose once daily 1 kit 023 Active Tlxui-Qshfa-Myjm myx-Pramoxine (Triple Antibiotic Pain Relief) 1 % ointmentIndicati ons:Laceration of left earlobe, initial encounter Apply to affected ear bid x 1w 14 g 024 Active TRUEplus Lancets 33G miscIndications: Type 2 diabetes mellitus without complication, without long-term current use of insulin ([facility]) USE DIRECTED TO TEST BLOOD SUGAR ONCE DAILY IN THE MORNING 100 each 5 024 Active naloxone (Narcan) 4 mg/0.1 mL nasal spray Administer 1 spray (4 mg) into affected nostril(s) if needed for opioid reversal. May repeat every 2-3 minutes if needed, alternating nostrils, until medical assistance becomes available. 2 each 024 2024 Active lidocaine (Lidoderm) 5 % patch Apply 1 patch topically Once per day. Remove & discard patch within 12 hours or as directed by . 30 patch 3 025 2025 Active cyclobenzaprine (Flexeril) 10 MG tablet Take 1 tablet (10 mg) by mouth if needed at bedtime for muscle spasms for up to 15 days. 15 tablet 1 025 2024 Active divalproex (Depakote) 250 MG EC tabletIndication s:Bipolar I disorder (CMS/HCC) Take 1 tablet (250 mg) by mouth 2 times daily. Do not crush, chew, or split. 60 tablet 1 025 2024 Active DULoxetine (Cymbalta) [address] capsuleIndicatio ns:Mixed anxiety and depressive disorder Take 1 capsule (30 mg) by mouth Once per day. Do not crush or chew. 30 capsule 1 025 2024 Active mirtazapine (Remeron) 45 MG tabletIndication s:Mixed anxiety and depressive disorder Take 1 tablet (45 mg) by mouth at bedtime. 30 tablet 1 025 2024 Active clonazePAM (KlonoPIN) 1 MG tabletIndication s:Anxiety Take 1 tablet (1 mg) by mouth if needed each day for anxiety. 10 tablet 1 025 2024 Active divalproex (Depakote) 250 MG EC tablet TAKE 1 TABLET BY MOUTH TWICE A DAY TOME REGAN TABLETA DOS VECES AL ERICH CON ALIMENTO 023 2024 Discontinued(R eorder (will not trigger notification to Pharmacy)) DULoxetine (Cymbalta) [address] capsule TAKE 1 CAPSULE BY MOUTH ONCE A DAY STARTING 01/01/2023 023 2024 Discontinued(R eorder (will not trigger notification to Pharmacy)) mirtazapine (Remeron) 45 MG tablet TOME REGAN TABLETA TODOS LOS D AL ACOSTARSE 023 2024 Discontinued(N on-compliance) cloNIDine (Catapres) 0.1 MG tablet TAKE 1 TABLET BY MOUTH ONCE A DAY NEEDED FOR PANIC ATTACK. 023 2024 Discontinued(T herapy completed) clonazePAM (KlonoPIN) 1 MG tabletIndication s:Anxiety TAKE 1 TABLET BY MOUTH ONCE A DAY NEEDED FOR PANIC ATTACK. 10 tablet 023 2024 Discontinued(T herapy completed) cholecalciferol (Vitamin D-3) 50 MCG (2000 UT) tablet TAKE 1 TABLET BY MOUTH EVERY DAY 90 tablet 3 024 2024 Discontinued(N on-compliance) loratadine (Claritin) 10 MG tablet TAKE 1 TABLET BY MOUTH EVERY MORNING 90 tablet 3 024 2024 Discontinued(T herapy completed) acetaminophen (Tylenol 8 Hour) 650 MG ER tabletIndication s:Arthritis Take 1 tablet (650 mg) by mouth every 8 (eight) hours if needed for mild pain. Do not crush, chew, or split. 90 tablet 2 024 2024 Discontinued(S narciso effects) gabapentin (Neurontin) 300 MG capsule Take 1 capsule (300 mg) by mouth 2 times daily. 60 capsule 2 2024 Discontinued(I neffective) tiZANidine (Zanaflex) 2 MG tablet Take 1 tablet (2 mg) by mouth every 8 (eight) hours if needed for muscle spasms. 15 tablet 2024 Discontinued(T herapy completed) lidocaine (Lidoderm) 5 % patch Apply 1 patch topically Once per day. Remove & discard patch within 12 hours or as directed by MD. 30 patch 3 2024 Discontinued(R eorder (will not trigger notification to Pharmacy)) predniSONE (Deltasone) 20 MG tablet 2 tabs po daily for 5 days 10 tablet 2024 Discontinued(N on-compliance) cyclobenzaprine (Flexeril) 5 MG tabletIndication s:Cervical radiculopathy Take 1 tablet (5 mg) by mouth 3 times daily. 90 tablet 024 2024 Discontinued(R eorder (will not trigger notification to Pharmacy)) meclizine (Antivert) 12.5 MG tablet TAKE 1 TABLET BY MOUTH TWICE DAILY NEEDED FOR DIZZINESS 30 tablet 3 024 2024 Discontinued(T herapy completed) cyclobenzaprine (Flexeril) 10 MG tablet Take 1 tablet (10 mg) by mouth 3 times daily for 10 days. 30 tablet 024 2024 Discontinued(R eorder (will not trigger notification to Pharmacy)) divalproex (Depakote) 250 MG EC tablet Take 1 tablet (250 mg) by mouth 2 times daily. Do not crush, chew, or split. 60 tablet 3 025 2024 Discontinued(R eorder (will not trigger notification to Pharmacy)) DULoxetine (Cymbalta) [address] capsule Take 1 capsule (30 mg) by mouth Once per day. Do not crush or chew. 90 capsule 025 2024 Discontinued(R eorder (will not trigger notification to Pharmacy)) cyclobenzaprine (Flexeril) 5 MG tabletIndication s:Cervical radiculopathy Take 1 tablet (5 mg) by mouth 3 times daily. 90 tablet 025 2024 Discontinued(I neffective) cyclobenzaprine (Flexeril) 10 MG tablet Take 1 tablet (10 mg) by mouth 3 times daily for 10 days. 30 tablet 025 2024 Discontinued(R eorder (will not trigger notification to Pharmacy)) Active Problems Problem Noted Date Diagnosed Date Cervical radiculopathy 07/14/2024 Assessment & Plan (09/06/2024 4:29 PM EST): Pt has underlying DJD unclear if she has a fracture or other conditions s/p fall. Get XR and take Tylenol and Flexeril PRN. Use Lidoderm patch on affected area and advised to go to acupuncture clinic. Pt never had MRI of C spine ordered last year, will proceed with that if symptoms do not improve within the next 3 months. Assessment & Plan (07/14/2024 4:17 PM EST): Pt states she was told will need shoulder surgery but can not tell me when has f up apt w orthopedic ,only states she lost apt for clearance for surgery , pt requesting something for pain Pt described pain to be intense in right side of her neck radiated to her shoulder ,states to be chronic but worsen since not taking her oxycodone any more. States also pain is associated sometimes w numbness and weakness ,can not raise arm because of pain,denies recent trauma .Denies previous MRI of neck or shoulder and I can not find in our system. From exam decrease ROM seems due to pain w decrease strength mo erythema ,swelling nor increase skin temp -XR shoulder RT 12/2023 :No fracture or dislocation. There is stable, significant degenerative disease of the glenohumeral joint. -Chem and CBC 12/2023 wnl -advised pt to bring all meds at next apt w PCP to clarify -pt is not sure -I called today orthopedic -Dr Burgos's office last seen 03/2024 ---pt not showed to mx apts per staff w no planned for surgery per FD staff -I got apt for her today for f up for 08/29/2024 at 2h15 pm and gave info in written to pt -Pxed today prednisone 40 mg for 5 days for intense pain and radiculopathy component -denies contraindications -avoiding opioids prescription -lidoder patch refilled today and increase gabapentin To 300 Mg BID -Px tizanidine for few days prn -advised to resume taking cymbalta low dose -has refills at px confirmed w pharmacist today -referre for MRI neck and shoulder -may need steroid inj to f w orthopedic and to eval again for surgery -alarm signs and symptoms discussed w pt Housing instability, housed, with risk of homele ssness 02/11/2024 Assessment & Plan (09/06/2024 4:34 PM EST): Currently at risk of homelessness as she is living with someone under housing restrictions. She already contacted [facility] program and I will refer to her care management for additional FU. Assessment & Plan (02/11/2024 1:53 PM EDT): Living with a relative now. She will get a dx letter to bring to housing, and expedite allocation of an apartment Laceration of left earlobe 02/11/2024 Assessment & Plan (02/11/2024 1:55 PM EDT): Unclear if it was an insect bite? Accidental scratching? She will keep the area clean and dry, apply abs ointment to affected area with a Q-tip. Caution not to get it thru the ear canal. FU [facility] 2w at [facility] if lesion doesn't resolve completely. Impingement syndrome of right shoulder Assessment & Plan (01/11/2024 7:51 PM EDT): Gabapentin 200 mg bid, I explained to patient that this time it is rx for neuropathic sxs rather than anxiety. Tizanidine + tylenol bid Recommended heat to affected area She declined referral to PT Refer to orthopedics for intraarticular steroid injection/ surgical evaluation. Screening for colorectal cancer 03/12/2023 Screening mammogram for breast cancer 03/12/2023 Encounter for preventive health examination 02/22 Assessment & Plan (03/12/2023 3:44 PM EDT): Discussed with patient re increase fresh fruit and vegetable intake. Counseled re moderate exercise as tolerated, up to 20min/d Patient feels safe at home. His son will be home care provider, they will be in charge of medication and appt reminders as well. PAP smear: Uptodate, next one due on 2025 Mammogram: Overdue, has missed several appts and reminders for >5y. I will order one again. Bone density test: TBO Eye exam: Has appt next month at [facility] eye clinic. CRC screen: Has missed 2 appts within the past 2y. New referral sent, she's reminded to give this info to his son who will be in charge of appt reminders Lipids/FBS: Uptodate, next one due on 05/2023 Vaccinations: She will have PCV 13 and Shingrix #1 today at [facility] pharmacy. Counseled to get covid booster before the fall. Tdap uptodate, next one due on 2031. Dental visit: Overdue. Counseled to make appt at [facility] dental Prediabetes 03/12/2023 Assessment & Plan (09/06/2024 4:30 PM EST): I have discussed with patient regarding increasing physicial activity and decrease calorie intake. I'll check FBS with next set of labs. To check RBS at next visit. FU with me next visit. Assessment & Plan (03/12/2023 10:26 AM EDT): Controlled. A1c is at goal. Counseled re more frequent low calorie/carb meals. Refer to Nutrition Check fgstk 2-3x/w Encouraged physical activity as tolerated. FU in 6 months. Atypical chest pain 03/12/2023 Assessment & Plan (03/12/2023 10:27 AM EDT): RO pulmonary condition/restrcitive? Order PFTs, patient wants to fu with cardiology, infor Given to her to rs missed appt. Take tylenol prn pain FU at next appt At high risk for osteoporosis 03/12/2023 Anxiety 03/04/2023 Assessment & Plan (07/18/2024 9:15 AM EST): During [facility] Consult Nunu presenting with excessive worry/anxiety, difficulty controlling worry, anxiety/worry associated to restlessness and/or feeling keyed-up/On edge , easily fatigued , difficulty concentrating and/or mind going blank , muscle tension , and sleep disturbance difficulty falling asleep, and Fear ; for a period of 6-12 mo, for most or all symptoms in the context of illness or family illness, housing, and lack of OP care. Nunu carries a diagnosis for bipolar disorder per her medical chart. She presented today requesting assistance getting psych medication. She lost care after missing appointments with an agency located in [place]. Current anxiety is also associated with her housing situation. She reports that she temporarily lives with a friend. Pt receives positive social support and is aware of importance of reaching out to others. clinician engaged patient with active/reflective listening. Reviewed and assessed for risks, current stressors and protective factors using open-ended questions. Provided a safe space for patient to share her emotions and concerns. Nunu was self-referred to [facility] for OP and psychiatry services. She was seen in the past by [facility]. Pt reports agency is at a convenient location and meet her current needs. Intake form completed today after appt. Assessment & Plan (03/04/2023 6:06 PM EDT): No evidence of benzodiazapine withdrawal. No LA. Last use 5 days ago. I declined to fill in walk in today as she has been utilizing ER and walk in for psychiatric needs rather than following with PCP and taking psychiatric medications. Recommend she call her psychiatrist as he has been prescribing the clonazepam and manages her psychiatric medication. Reviewed that clonazepam is PRN med and if anxiety is severe, recommend optimizing her other, daily, medications. She states she will call psychiatry. She is prescribed from psychiatry: Clonazepam #4 tabs per 30d last 02/18/23 (then #5 from [facility] 02/26/23) Duloxetine 30mg capsule (pt states not taking, last dispensed 02/18/23 #30) Mirtazapine 45mg (pt states taking, last fill 01/09/2023 #30) Divalproex 250mg 1 tab BID, last filled 02/18/23 Primary osteoarthritis of both knees 12/31/2022 Assessment & Plan (03/12/2023 10:25 AM EDT): She has done PT about 2y ago, has recurrent falls, none recently. Ambulation with a cane or wheeled walker as needed, due to LBP/OA Take tylenol prn, she needs a lower floor or handicap access apartment. Son will help with ADLs under a home care program ([facility]? [employer]), patient has tendency to falls. Re evaluate next appt or after having wheeled walker with a seat to see if she needs addtl PT Left-sided chest pain 12/31/2022 Fall 12/31/2022 Bilateral hearing loss 12/31/2022 Acute ankle pain 12/31/2022 Sprain of ankle 12/31/2022 Shoulder pain 12/31/2022 Assessment & Plan (07/12/2024 4:56 PM EST): Advise follow up with orthopedics. She states she is going to the office tomorrow. It is unclear if she has an appointment. Explained as per protocol and well documented unable to prescribe opiates. She declined non-opioid medication. She has follow up with Pcp already scheduled. Assessment & Plan (03/11/2024 4:06 PM EDT): Chronic. Pt requesting early refill of opiates. PCP note we cannot refill Oxycodone. Pt on other sedating meds as well making prescribing dangerous if not taking as prescribed. No evidence of withdrawal. Reports last dose taken > 1 week ago. Orthopaedic Surgery scheduled for 03/18/2024. Follow up with Orthopaedic. After visit completed pt reportedly became upset and asked staff to call 911. Uber was offered but pt insisted on ambulance. 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 She's aware that no medication will be given if non compliant with appts. Today's Urine tox is POS for cocaine (not expected), neg for Oxy (expected) and faintly POS for benzos (expected as she takes it only prn). I will send urine for confirmatory Utox. I am giving her Oxycodone x 7d and will renew it until surgery, only IF confirmatory Utox is NEGATIVE for other substances AND she continues to be compliant with POC. If conf Utox turns POS, then she's aware that her next rx will be a taper down to off. We had discussed re avoiding use of narcotics for longer term, side effects of these meds including opiate induced hyperalgesia, increased anxiety, MS changes , sedation, potential cardiorespiratory depression/arrest, liver toxicity and interaction with benzodiazepines. She's aware that medication will be taper down to off if she's non compliant with POC from orthopedics or us (PCC). Son was made aware of POC and agreed with it as well. Rx narcan sent to pharmacy, she and her son know how to use it. Assessment & Plan (02/11/2024 1:52 PM EDT): Xray didn't showed fracture, she probably has tendinosis, not p improved with PRD. Has appt with orthopedics on 02/18 Rx oxycodone short term given today. I told her to take it at different time than lorazepam due to interaction and added side effects. Utox is POS for oxycodone (from ED). Patient is aware that this a rx only for this time to decrease pain and continue NSAID and ortho eval. I thought her some gentle stretching exercises for rotator cuff. Lumbar radiculopathy 06/21/2018 Assessment & Plan (09/06/2024 4:29 PM EST): Pt has underlying DJD unclear if she has a fracture or other conditions s/p fall. Get XR and take Tylenol and Flexeril PRN. Use Lidoderm patch on affected area and advised to go to acupuncture clinic. Pt never had MRI of C spine ordered last year, will proceed with that if symptoms do not improve within the next 3 months. Assessment & Plan (03/12/2023 3:46 PM EDT): Has occasional neurogenic claudication. Reconsult prn. Use cane or wheeled walker ideally when going outside the house. Consider PT/furhter imaging if not improving with ambulatory aid Epigastric pain 06/21/2018 Viral disease 07/21/2017 Bipolar I disorder 09/23/2016 Assessment & Plan (09/06/2024 4:33 PM EST): She is off medications for at least 6 months, med list reviewed. She was advised to FU with psychiatry on 10/04/24 and with new counselor on 09/13/24. Restart Depakote 250 mg BID + Duloxetine 30 mg daily and FU with me in 1 month. I advised to avoid Lorazepam at this time and use of any other recreational substances. Assessment & Plan (03/12/2023 10:27 AM EDT): Seen by counselor [facility]? In [place]. Has appt with prescriber next week. No change in meds. She feels safe at home and is able to reach out for safety. FU in 4w Mixed anxiety and depressive disorder 05/31/2015 Impaired cognition 05/31/2015 Chronic tension-type headache 05/31/2015 Allergic rhinitis 05/31/2015 Encounters * This document contains information received from the source organization and may not represent a complete record from that organization. Date Type Department Care Team Description 10/03/2024 Patient Outreach [address] [address] Meera Ramirez MD Care Coordination ([facility]) 10/03/[address] [address] Danisha Wang, AARON Results 09/26/[address] [address] Tarik Dejesus RN Care Management (C3CM- initial assessment/ enrollment) 09/21/[address] [address] Tarik Dejesus RN 09/20/2024 Patient Outreach [address] [address] Meera Ramirez MD Care Coordination (CM/CHW appt reminder) 09/19/[address] [address] Meera Ramirez MD Med Refill 09/15/[address] [address] eMera Ramirez MD 09/13/2024 Patient Outreach [address] [address] Meera Ramirez MD Care Coordination (CM/CHW outreach) 09/08/2024 Patient Outreach [address] [address] Meera Ramirez MD Care Coordination (CM/CHW outreach) 09/08/[address] [address] Tarik Dejesus RN Care Management (C3CM- chart review) 09/06/2024 1:45 PM EST Office Visit [address] [address] Meera Ramirez MD Lumbar radiculopathy (Primary Dx); Cervical radiculopathy; Bipolar I disorder ([facility]/HCC); Housing instability, housed, with risk of homelessness; Prediabetes 09/06/2024 Travel 09/06/2024 Telephone [facility] [address] [place] [phone] Meera Ramirez MD Med Refill 09/05/2024 Telephone [facility] [address] [place] [phone] Yulissa Mcpherson, AARON Anxiety 08/19/2024 Telephone [facility] [address] [place] [phone] Meera Ramirez MD Results 08/03/2024 5:40 PM EST Office Visit [facility] [address] [place] [phone] Devyn Cobos MD Acute pain of right shoulder (Primary Dx) 08/03/2024 Telephone [facility] [address] [place] [phone] Meera Ramirez MD No Show 08/02/2024 Telephone [facility] [address] [place] [phone] No Foley MA Chart prep 08/02/2024 Refill [facility] [address] [place] [phone] Meera Ramirez MD 07/29/2024 Telephone [facility] [address] [place] [phone] Meera Ramirez MD 07/20/2024 9:40 AM EST Office Visit [facility] [address] [place] [phone] Sara Guillen NP Cervical radiculopathy (Primary Dx); Anxiety 07/20/2024 Telephone [facility] [address] [place] [phone] Yulissa Mcpherson, AARON Shoulder Pain 07/20/2024 Refill [facility] [address] [place] [phone] Nunu Benedict MD 07/14/2024 1:00 PM EST Office Visit [facility] [address] [address] Nunu Benedict MD Chronic right shoulder pain (Primary Dx); Cervical spine arthritis with nerve pain; Impingement syndrome of right shoulder; Primary osteoarthritis of right shoulder; Cervical radiculopathy 07/14/2024 Telephone [facility] [address] [place] [phone] Meera Ramirez MD Hospital Follow-up 07/13/2024 Telephone [facility] [address] [place] [phone] Meera Ramirez MD Med Refill; Receives Loraepam from outside provider 07/12/2024 5:20 PM EST Office Visit [facility] [address] [address] Kayli Quintanilla MD Mixed anxiety and depressive disorder (Primary Dx); Chronic right shoulder pain 07/12/[address] [address] Meera Ramirez MD Medication Question 07/08/[address] [address] Meera Ramirez MD Lab Orders 07/08/[address] [address] Meera Ramirez MD Med Refill 07/05/[address] [address] Meera Ramirez MD Primary osteoarthritis of right shoulder 07/05/[address] [address] Meera Ramirez MD Primary osteoarthritis of right shoulder from Last 3 Months Immunizations Name Administration Dates Next Due Influenza injectable quadriv alent preservative free 06/03/2022,07/12/2020,06/22/2015 Influenza, IIV3, injectable 05/21/2011 Pfizer Covid-19 Vaccine 12+ 11/13/2023 Tdap 11/13/2021,,05/27/2012,2010 Zoster, Recombinant 04/09/2023 Social History Tobacco Use Types Packs/Day Years Used Date Smoking Tobacco: Never Passive Smoke Exposure: Never Smokeless Tobacco: Never Tobacco Cessation:Counseling Given: Not Answered Alcohol Use Standard Drinks/Week Comments Not Currently [...] not to disclose 2021 10:15 AM EDT Last Filed Vital Signs Vital Sign Reading Time Taken Comments Blood Pressure 122/76 09/06/2024 1:05 PM EST Pulse 80 09/06/2024 1:05 PM EST Temperature 36.1 ??C (97 ??F) 09/06/2024 1:05 PM EST Respiratory Rate 18 09/06/2024 1:05 PM EST Oxygen Saturation 98% 07/20/2024 9:50 AM EST Inhaled Oxygen Concentration - - Weight 50.6 kg (111 lb 9.6 oz) 09/06/2024 1:05 P M EST Height 152.4 cm (5') 09/06/2024 1:05 PM EST Body Mass Index 21.8 09/06/2024 1:05 PM EST Plan of Treatment Upcoming Encounters Date Type Department Care Team (Late st Contact Info) Description 10/07/2024 3:30 PM EST Office Visit [facility] [address] [place] [address] Shaye Ba, DDS [address] [place] [address] 11/02/2024 11:30 AM EDT Office Visit [facility] [address] [place] [address] Meera Ramirez MD [address] [place] [address] 11/16/2024 2:00 PM EDT Office Visit [facility] [address] [place] [address] Marco Antonio, Molly, OD [address] [place] [address] Health Maintenance Due Date Last Done Comments CT Colonography 1962 Colonoscopy 1962 Colorectal Cancer Screening 1962 Dental Prophylaxis 1962 FIT DNA/Cologuard 1962 FIT 1962 FOBT 1962 HIV Screening 1962 Sigmoidoscopy 1962 Diabetes: Foot Exam 1972 Alcohol/Substance Use Screening 1974 Hepatitis C Screening 1980 Diabetes: Urine Protein Screening 1981 Pneumococcal Vaccine: 50+ Years (1 of 2 - PCV) 1981 Mammogram 2002 Dental X-Ray: Bitewings 07/27/2013 07/26/2012, 05/23 Dental X-Ray: Full Mouth 03/21/2014 03/20/2011, 04/26 Dental Oral Exam 08/03/2016 02/01/2016, 04/2015, 07/26/2012, Additional history exists Lipid Panel 01/28/2022 01/28/2021 RSV Patients and Patients Aged 60 years or older (1 - Risk 60-74 years 1-dose series) 2022 Zoster Vaccines (2 of 2) 06/04/2023 04/09/2023 Depression Screening 03/02/2024 03/02/2023, 03/02/20 SDOH Screening 03/02/2024 03/02/2023 Eye Exam 04/15/2024 04/15/2023, 03/25, 04/15/2023, Additional history exists COVID-19 Vaccine ( season) 2024 11/13/2023, 02/26/2021, 01/28/2021 Influenza Vaccine (#1) 2024 , 07/12/2020, 06/22/2015, Additional history exists Diabetes: Hemoglobin A1C 03/06/2025 09/06/2024, 07 Tobacco Screening 10/04/2025 10/04/2024 Cervical Cancer Screening 01/15/2026 HPV/Cotest 01/15/2026 01/15/2021 Pap Smear 01/15/2026 01/15/2021 DTaP/Tdap/Td Vaccines (5 - Td or Tdap) 11/14/2031 11/13/2021, 06/27/2021, 05/27/2012, Additional history exists HIB Vaccines Aged Out No longer eligi ble based on patient's age to complete this topic HPV Vaccines Aged Out No longer eligi ble based on patient's age to complete this topic Hepatitis A Vaccines Aged Out No long er eligible based on patient's age to complete this topic Hepatitis B Vaccines Aged Out No long er eligible based on patient's age to complete this topic IPV Vaccines Aged Out No longer eligi ble based on patient's age to complete this topic Meningococcal Vaccine Aged Out No denise yanely eligible based on patient's age to complete this topic RSV under 20 months Aged Out No longe r eligible based on patient's age to complete this topic Rotavirus Vaccines Aged Out No longer eligible based on patient's age to complete this topic Procedures Procedure Name Priority Date/Time Associated Diagnosis Comments XR CERVICAL SPINE 4V Routine 09/06/2024 2:44 PM EST Cervical radiculopathy XR THORACIC SPINE 2 VIEWS Routine 09/06/2024 2:44 PM EST Cervical radiculopathy Lumbar radiculopathy XR LUMBAR SPINE COMPLETE 4+ VIEWS Routine 09/06/2024 2:44 PM EST Lumbar radiculopathy POCT GLYCATED HEMOGLOBIN, TOTAL Routine 09/06/2024 1:11 PM EST Prediabetes POCT GLUCOSE Routine 09/06/2024 1:08 PM EST Prediabetes XR SHOULDER 2+ VIEWS RIGHT Routine 08/04/2024 9:41 AM EST Acute pain of right shoulder LIPID PANEL, STANDARD Routine 01/28/2021 11:07 AM EDT HPV MRNA E6/E7 Routine 01/15/2021 12:00 AM EDT THINPREP PAP Routine 01/15/2021 12:00 AM EDT PERIODIC ORAL EVALUATION - ESTABLISHED PATIENT Routine 02/01/2016 12:00 AM EDT BITEWINGS - 2 RADIOGRAPHIC IMAGES Routine 07/26/2012 12:00 AM EST PANORAMIC RADIOGRAPHIC IMAGE Routine 03/20/2011 12:00 AM EDT from Last 3 Months or Most Recently Relevant to Health Maintenance Results * XR CERVICAL SPINE 4V (09/06/2024 2:44 PM EST) Anatomical Region Laterality Modality Abdomen Radiographic Ameena ging 09/06/2024 2:44 PM EST Narrative 09/06/2024 3:47 PM EST ?[facility] ?[address] ?[place] [address] ?XRay Report ? Signed ? Patient: Segal,Nunu I ?MR#: [id number] ?? 4803 ? : 1960 ?Acct:[id number] ? Age/Sex: 64 / F ?ADM Date: 01/14/25 ? Loc: HO.HHCX ? Attending Dr: Meera Ramirez MD ? Ordering Physician: Meera Ramirez MD ?? Date of Service: 09/06/24 ?? Procedure(s): XR cervical spine 4V ?? Accession Number(s): [id number] ? cc: Meera Ramirez MD ? EXAMINATION: ??XR CERVICAL SPINE 4-5 VIEWS ? HISTORY: neck and back pain ? COMPARISON: There are no prior studies for comparison. ? FINDINGS: ??AP, lateral, bilateral oblique, and open-mouth odontoid ?? views of the cervical spine are submitted. ??Osseous mineralization is ?? normal. ??Seven cervical vertebral bodies are identified maintaining ?? normal height and alignment without evidence of fracture or ?? subluxation. ??There is mild degenerative disc disease at the C5-6 level ?? with disc space narrowing and osteophyte formation. ??There is mild ?? narrowing of the right C5-6 neural foramen secondary to uncovertebral ?? joint hypertrophy. The remaining neural foramen are patent. ??The ?? odontoid and lateral masses of C1 are intact. ??There is no prevertebral ?? soft tissue swelling. ? XR/XR cervical spine 4V ?? IMPRESSION: ?? Mild degenerative changes at C5-6 as described. ? Electronically signed by: ??Macario Magdaleno MD ??09/06/2024 03:45 PM EST ?? RP ? Dictated By: ?Macario Magdaleno MD ? Signed By: ?<Electronically signed by Macario Magdaleno MD in OV> ?09/06/24 1545 ? DD/ 1444 ? TD/TT: 09/06/24 1500 ? Counter Top Maker: ? Procedure Note Shannan, Image - 09/06/[address] [address] XRay Report Signed Patient: Nunu Segal IMR#: [id number] : 2Acct:[id number] Age/Sex: 64 / FADM Date: 09/06/24 Loc: HO.HHCX Attending Dr: Meera Ramirez MD Ordering Physician: Meera Ramirez MD Date of Service: 09/06/24 Procedure(s): XR cervical spine 4V Accession Number(s): [id number] cc: Meera Ramirez MD EXAMINATION: XR CERVICAL SPINE 4-5 VIEWS HISTORY: neck and back pain COMPARISON: There are no prior studies for comparison. FINDINGS: AP, lateral, bilateral oblique, and open-mouth odontoid views of the cervical spine are submitted. Osseous mineralization is normal. Seven cervical vertebral bodies are identified maintaining normal height and alignment without evidence of fracture or subluxation. There is mild degenerative disc disease at the C5-6 level with disc space narrowing and osteophyte formation. There is mild narrowing of the right C5-6 neural foramen secondary to uncovertebral joint hypertrophy. The remaining neural foramen are patent. The odontoid and lateral masses of C1 are intact. There is no prevertebral soft tissue swelling. XR/XR cervical spine 4V IMPRESSION: Mild degenerative changes at C5-6 as described. Electronically signed by: Macario Magdaleno MD 09/06/2024 03:45 PM EST RP Dictated By: Macario Magdaleno MD Signed By: <Electronically signed by Macario Magdaleno MD in OV> 09/06/24 1545 DD/ 1444 TD/TT: 09/06/24 1500 Counter Top Maker: us Meera Ramirez MD IMG XR PROCEDURES Final Result * XR Lumbar Spine Complete 4+ Views (09/06/2024 2:44 PM EST) Anatomical Region Laterality Modality Spine, L-spine Radiographic Ameena ging 09/06/2024 2:44 PM EST Narrative 09/06/2024 3:51 PM EST ?[facility] ?[address] ?[place] [address] ?XRay Report ? Signed ? Patient: Segal,Nunu I ?MR#: [id number] ?? 4803 ? : 1960 ?Acct:[id number] ? Age/Sex: 64 / F ?ADM Date: /14/25 ? Loc: HO.HHCX ? Attending Dr: Meera Ramirez MD ? Ordering Physician: Meera Ramirez MD ?? Date of Service: 09/06/24 ?? Procedure(s): XR lumbar spine 4V min ?? Accession Number(s): [id number] ? cc: Meera Ramirez MD ? EXAMINATION: ??XR LUMBAR SPINE 4 OR MORE VIEWS ? HISTORY: neck and back pain ? COMPARISON: Comparison is made with the prior examination dated ?? 05/14/2019. ? FINDINGS: ??AP, lateral, bilateral oblique, and coned down views of the ?? lumbar spine are submitted. ??Osseous mineralization is normal. ??There ?? is mild superior endplate depression at T12. This is new from ?? 05/14/2018, but is of indeterminate age. Five nonrib-bearing lumbar ?? vertebral bodies are identified, maintaining normal height and ?? alignment without evidence of fracture or spondylolisthesis. ??The ?? intervertebral disc spaces are preserved. ??The posterior elements are ?? intact. ??The visualized paraspinal soft tissues are unremarkable. ? XR/XR lumbar spine 4V min ?? IMPRESSION: ?? Mild superior endplate depression of T12, new since 05/14/2018, but of ?? indeterminate age. No evidence of fracture of the lumbar spine. ? Electronically signed by: ??Macario Magdaleno MD ??09/06/2024 03:49 PM EST ? Dictated By: ?Macario Magdaleno MD ? Signed By: ?<Electronically signed by Macario Magdaleno MD in OV> ?09/06/24 1549 ? DD/ 1444 ? TD/TT: 09/06/24 1500 ? Counter Top Maker: ? Procedure Note Donannabelleter, Image - 09/06/2024 [facility] [address] [place] [address] XRay Report Signed Patient: Nunu Segal [facility]#: [id number] : 2Acct:[id number] Age/Sex: 64 / FADM Date: 09/06/24 Loc: HO.HHCX Attending Dr: Meera Ramirez MD Ordering Physician: Meera Ramirez MD Date of Service: 09/06/24 Procedure(s): XR lumbar spine 4V min Accession Number(s): [id number] cc: Meera Ramirez MD EXAMINATION: XR LUMBAR SPINE 4 OR MORE VIEWS HISTORY: neck and back pain COMPARISON: Comparison is made with the prior examination dated 05/14/2019. FINDINGS: AP, lateral, bilateral oblique, and coned down views of the lumbar spine are submitted. Osseous mineralization is normal. There is mild superior endplate depression at T12. This is new from 05/14/2018, but is of indeterminate age. Five nonrib-bearing lumbar vertebral bodies are identified, maintaining normal height and alignment without evidence of fracture or spondylolisthesis. The intervertebral disc spaces are preserved. The posterior elements are intact. The visualized paraspinal soft tissues are unremarkable. XR/XR lumbar spine 4V min IMPRESSION: Mild superior endplate depression of T12, new since 05/14/2018, but of indeterminate age. No evidence of fracture of the lumbar spine. Electronically signed by: Macario Magdaleno MD 09/06/2024 03:49 PM EST Dictated By: Macario Magdaleno MD Signed By: <Electronically signed by Macario Magdaleno MD in OV> 09/06/24 1549 DD/ 1444 TD/TT: 09/06/24 1500 Counter Top Maker: Meera Ramirez MD IMG XR PROCEDURES Final Result * XR Thoracic Spine 2 Views (09/06/2024 2:44 PM EST) Anatomical Region Laterality Modality Spine, T-spine Radiographic Ameena ging 09/06/2024 2:44 PM EST Narrative 09/06/2024 3:49 PM EST ?[facility] ?[address] ?[place] [address] ?XRay Report ? Signed ? Patient: Segal,Nunu I ?MR#: [id number] ?? 4803 ? : 1960 ?Acct:[id number] ? Age/Sex: 64 / F ?ADM Date: 01/14/25 ? Loc: HO.HHCX ? Attending Dr: Meera Ramirez MD ? Ordering Physician: Meera Ramirez MD ?? Date of Service: 09/06/24 ?? Procedure(s): XR thoracic spine 2V ?? Accession Number(s): [id number] ? cc: Meera Ramirez MD ? EXAMINATION: ??XR THORACIC SPINE 2 VIEWS ? HISTORY: PAIN ? COMPARISON: There are no prior studies for comparison. ? FINDINGS: ??AP and lateral views of the thoracic spine are submitted. ? Osseous mineralization is normal. ??The vertebral bodies maintain normal ?? height and alignment without evidence of fracture or subluxation. ? There is mild degenerative disc disease with disc space narrowing and ?? osteophyte formation. ??The visualized paraspinal soft tissues are ?? unremarkable. ? XR/XR thoracic spine 2V ?? IMPRESSION: ?? Mild degenerative disc disease. ? Electronically signed by: ??Macario Magdaleno MD ??09/06/2024 03:46 PM EST ?? RP ? Dictated By: ?Macario Magdaleno MD ? Signed By: ?<Electronically signed by Macario Magdaleno MD in OV> ?09/06/24 1546 ? DD/ 1444 ? TD/TT: 09/06/24 1500 ? Counter Top Maker: ? Procedure Note Veronica Campbell - 09/06/2024 [place] [address] XRay Report Signed Patient: Nunu Segal IMR#: [id number] : 2Acct:[id number] Age/Sex: 64 / FADM Date: 09/06/24 Loc: HO.HHCX Attending Dr: Meera Ramirez MD Ordering Physician: Meera Ramirez MD Date of Service: 09/06/24 Procedure(s): XR thoracic spine 2V Accession Number(s): [id number] cc: Meera Ramirez MD EXAMINATION: XR THORACIC SPINE 2 VIEWS HISTORY: PAIN COMPARISON: There are no prior studies for comparison. FINDINGS: AP and lateral views of the thoracic spine are submitted. Osseous mineralization is normal. The vertebral bodies maintain normal height and alignment without evidence of fracture or subluxation. There is mild degenerative disc disease with disc space narrowing and osteophyte formation. The visualized paraspinal soft tissues are unremarkable. XR/XR thoracic spine 2V IMPRESSION: Mild degenerative disc disease. Electronically signed by: Macario Magdaleno MD 09/06/2024 03:46 PM EST RP Dictated By: Macario Magdaleno MD Signed By: <Electronically signed by Macraio Magdaleno MD in OV> 09/06/24 1546 DD/ 1444 TD/TT: 09/06/24 1500 Counter Top Maker: Meera Ramirez MD IMG XR PROCEDURES Final Result * POCT HGB A1C (09/06/2024 1:11 PM EST) Hemoglobin A1C 6.0 4.0 - 6.0 % QC Media Lot # [id number] Lot# Expiration Date 100,426 Blood 09/06/2024 1:11 PM EST Meera Ramirez MD POINT OF CARE TEST ENTER /EDIT ORDERABLES Final Result * POCT Glucose (09/06/2024 1:08 PM EST) Glucose Blood, POC 182 60 - 200 mg/dL QC Media Lot # [id number] Lot# Expiration Date 61,725 Blood Capillary blood specimen / Unknown 09/06/2024 1:08 PM EST Meera Ramirez MD POINT OF CARE TEST ENTER /EDIT ORDERABLES Final Result * XR Shoulder 2+ Views Right (08/04/2024 9:41 AM EST) Anatomical Region Laterality Modality Upper Extremities, Shoulder Right Radi ographic Imaging 08/04/2024 9:41 AM EST Narrative 09/23/2024 9:20 AM EST ?[facility] [facility] ?[address] ?[place] [address] ?XRay Report ? Signed ? Patient: Segal,Nunu I ?MR#: [id number] ?? 4803 ? : 1960 ?Acct:[id number] ? Age/Sex: 64 / F ?ADM Date: 08/04/24 ? Loc: HO.HHCX ? Attending Dr: Devyn Sheppard MD ? Ordering Physician: Devyn Cobos MD ?? Date of Service: 08/04/24 ?? Procedure(s): XR shoulder RT min 2V ?? Accession Number(s): [id number] ? cc: Devyn Cobos MD ? EXAMINATION: ?? XR RIGHT SHOULDER ? CLINICAL INFORMATION: ?? Right shoulder pain. ? COMPARISON: ?? XR Right shoulder 01/14/2024. ? TECHNIQUE: ?? AP external rotation, Grashey, scapular Y, and axillary views of the ?? right shoulder. ? FINDINGS: ?? Severe glenohumeral joint space narrowing with bony remodeling, ?? subchondral sclerosis, and large marginal osteophytes. Mild ?? acromioclavicular osteoarthritis. No acute fracture or dislocation. No ?? concerning lytic or blastic osseous lesion. ? XR/XR shoulder RT min 2V ?? IMPRESSION: ?? 1. Severe glenohumeral osteoarthritis with bony remodeling, slightly ?? progressed when compared to the prior examination. ?? 2. Mild acromioclavicular osteoarthritis. ? Electronically signed by: ??Jose Liz MD ??09/23/2024 09:16 AM EST ?? RP ? Dictated By: ?Jose Liz MD ? Signed By: ?<Electronically signed by Jose Liz MD in OV> ?09/23/24 0916 ? DD/ 0941 ? TD/TT: 08/04/24 0950 ? Counter Top Maker: SR ? Procedure Note Shannan, Veronica - 09/23/[address] [address] XRay Report Signed Patient: Nunu Segal IMR#: [id number] : 2Acct:[id number] Age/Sex: 64 / FADM Date: 08/04/24 Loc: .HHX Attending Dr: Devyn Sheppard MD Ordering Physician: Devyn Cobos MD Date of Service: 08/04/24 Procedure(s): XR shoulder RT min 2V Accession Number(s): [id number] cc: Devyn Cobos MD EXAMINATION: XR RIGHT SHOULDER CLINICAL INFORMATION: Right shoulder pain. COMPARISON: XR Right shoulder 01/14/2024. TECHNIQUE: AP external rotation, Grashey, scapular Y, and axillary views of the right shoulder. FINDINGS: Severe glenohumeral joint space narrowing with bony remodeling, subchondral sclerosis, and large marginal osteophytes. Mild acromioclavicular osteoarthritis. No acute fracture or dislocation. No concerning lytic or blastic osseous lesion. XR/XR shoulder RT min 2V IMPRESSION: 1. Severe glenohumeral osteoarthritis with bony remodeling, slightly progressed when compared to the prior examination. 2. Mild acromioclavicular osteoarthritis. Electronically signed by: Jose Liz MD 09/23/2024 09:16 AM EST Dictated By: Jose Liz MD Signed By: <Electronically signed by Jose Liz MD in OV> 09/23/24 0916 DD/ 0941 TD/TT: 08/04/24 0950 Counter Top Maker: SR Devyn Sheppard MD IMG XR PROCEDURES Final Result * (ABNORMAL) LIPID PANEL, STANDARD (01/28/2021 11:07 AM EDT) Chol/HDLC Ratio 3.5 <5.0 (calc) [facility] Cholesterol, Total 187 <200 mg/dL [facility] HDL Cholesterol 53 > OR = 50 mg/dL [facility] LDL Cholesterol 104(H) mg/dL (calc) [facility] Comment: Reference range: <100 ?? Desirable range <100 mg/dL for primary prevention; ?? <70 mg/dL for patients with CHD or diabetic patients ?? with > or = 2 CHD risk factors. ?? LDL-C is now calculated using the Manuel-Braun ?? calculation, which is a validated novel method providing ?? better accuracy than the Friedewald equation in the ?? estimation of LDL-C. ?? Manuel SS et al. YAS. 2013;310(19): 3299-9596 ?? (http://education.Qwaq/faq/MFH741) Non-HDL Cholesterol 134(H) <130 mg/dL (calc) [facility] Comment: For patients with diabetes plus 1 major ASCVD risk ?? factor, treating to a non-HDL-C goal of <100 mg/dL ?? (LDL-C of <70 mg/dL) is considered a therapeutic ?? option. Triglycerides 180(H) <150 mg/dL [facility] 01/28/2021 11:0 7 AM EDT Meera Ramirez MD LAB BLOOD ORDERABLES Fin al Result [facility] [address] [place] [address], * THINPREP PAP (01/15/2021 12:00 AM EDT) Clinical Information: None given [facility] COMMENT SEE COMMENT [facility] Comment: EXPLANATORY NOTE: ? The Pap is a screening test for cervical cancer. It is ?? not a diagnostic test and is subject to false negative ?? and false positive results. It is most reliable when a ?? satisfactory sample, regularly obtained, is submitted ?? with relevant clinical findings and history, and when ?? the Pap result is evaluated along with historic and ?? current clinical information. ?? Cd Reactor Operator Head: SEE COMMENT [facility] Comment: JNA, CT(ASCP) CT screening location: [address] ??[address] Interpretation/Res ult: SEE COMMENT [facility] Comment: Negative for intraepithelial lesion or malignancy. Atrophic pattern; predominantly parabasal cells LMP: NONE GIVEN [facility] Prev. BX: NONE GIVEN [facility] Prev. PAP: NONE GIVEN [facility] SOURCE: None given [facility] Statement Of Adequacy: SATISFACTORY FOR EVALUATION [facility] 01/15/2021 Meera Ramirez MD LAB PATHOLOGY ORDERABLES Final Result Performing Organization Address [facility] Co de Phone Number [facility] [address] * HPV mRNA E6/E7 (01/15/2021 12:00 AM EDT) HPV nRNA E6/E7 Not Detected Not Detected [facility] Comment: Methodology: Web Content Specialist-Mediated Amplification This assay detects E6/E7 viral messenger RNA (mRNA) from 14 high-risk HPV types (16,18,31,33,35,39,45,51,52,56,58,59,66,68). ? The analytical performance characteristics of this assay have been determined by [employer]. The modifications have not been cleared or approved by the FDA. This assay has been validated pursuant to the CLIA regulations and is used for clinical purposes. ?? For additional information, please refer to http://education.Hmall.ma/faq/WLA274x4 (This link if provided for information/ educational purposes only.) 01/15/2021 Meera Ramirez MD LAB BLOOD ORDERABLES Fin al Result Performing Organization Address [facility] de Phone Number [facility] [address] from Last 3 Months or Most Recently Relevant to Health Maintenance Insurance [facility] C3 [place] STAND ADULT Care Teams Traction Power Engineer Relationship Specialty Start Date End Date Meera Ramirez MD [address] [place] [address] PCP - General Family Medicine 03/14/20 Tarik Dejesus RN [address] [place] [address] Radiology TranscriptionistPretzel Packer 09/26/24
--- OUTSIDE RECORDS SUMMARY | 2024-10-05 14:14 | XMS_ITS | Encounter Summary ---
Author Organization [employer] Address [address] [facility] [address] [place] [address] Care Team Providers Care Welt Sole Layer Name Role Phone Meera Ramirez MD Primary Care Provider + Tarik Dejesus RN Unavailable [phone] Reason for Visit * Reason Comments Med Refill Encounter Details Date Type Department Care Team (Late st Contact Info) Description 04/20/2024 Refill [facility] [address] [place] [address] Meera Ramirez MD [address] [place] [address] Primary osteoarthritis of right shoulder Social History [...] Description 10/07/2024 3:30 PM EST Office Visit [facility] [address] [place] [address] Eliel-Shaye Hess, DDS [address] [place] [address] 11/02/2024 11:30 AM EDT Office Visit [facility] [address] [place] [address] Meera Ramirez MD [address] [place] [address] 11/16/2024 2:00 PM EDT Office Visit [facility] [address] [place] [address] Marco Antonio, Molly, OD [address] [place] [address] documented as of this encounter Visit Diagnoses Diagnosis Primary osteoarthritis of right shoulder documented in this encounter Additional Health Concerns Assessment Noted Time PHQ-9 Depression Total Score: 0 03/02/20 23 10:46 AM EDT documented as of this encounter Care Teams Welt Sole Layer Relationship Specialty Start Date End Date Meera Ramirez MD [address] [place] [address] PCP - General Family Medicine 03/14/20 Tarik Dejesus RN [address] [place] [address] Industrial Manufacturing TechnicianWarehouse Clerk 09/26/24 documented as of this encounter
--- OUTSIDE RECORDS SUMMARY | 2024-10-05 14:14 | XMS_ITS | Encounter Summary ---
Author Organization [employer] Address [address] [facility] [address] [place] [address] Care Team Providers Care Cane Weigher Name Role Phone Meera Ramirez MD Primary Care Provider + Tarik Dejesus RN Unavailable [phone] Reason for Visit * Reason Comments Med Refill Encounter Details Date Type Department Care Team (Late st Contact Info) Description 04/05/2024 Refill [facility] [address] [place] [address] Meera Ramirez MD [address] [place] [address] Primary osteoarthritis of right shoulder Social History [...] Description 10/07/2024 3:30 PM EST Office Visit [facility] [address] [place] [address] Eliel-Shaye Hess, DDS [address] [place] [address] 11/02/2024 11:30 AM EDT Office Visit [facility] [address] [place] [address] Meera Ramirez MD [address] [place] [address] 11/16/2024 2:00 PM EDT Office Visit [facility] [address] [place] [address] Marco Antonio, Molly, OD [address] [place] [address] documented as of this encounter Visit Diagnoses Diagnosis Primary osteoarthritis of right shoulder documented in this encounter Additional Health Concerns Assessment Noted Time PHQ-9 Depression Total Score: 0 03/02/20 23 10:46 AM EDT documented as of this encounter Care Teams Cane Weigher Relationship Specialty Start Date End Date Meera Ramirez MD [address] [place] [address] PCP - General Family Medicine 03/14/20 Tarik Dejesus RN [address] [place] [address] Sales Representative MeatsWater Commissioner 09/26/24 documented as of this encounter
--- OUTSIDE RECORDS SUMMARY | 2024-10-05 14:14 | XMS_ITS | Encounter Summary ---
Author Organization [employer] Address [address] [facility] 7t [place] [address] Care Team Providers Care Classification Inspector Name Role Phone Meera Ramirez MD Primary Care Provider + Tarik Dejesus RN Unavailable [phone] Reason for Referral * Consultation (Routine) - Authorized Specialty Diagnoses / Procedures Referred By Contac t Referred To Contact Family Medicine Diagnoses Impingement syndrome of right shoulder Primary osteoarthritis of right shoulder Meera Ramirez MD [address] [place] [address] Phone: tel: fax: Renee Cordero MD [address] [place] [address] Phone: tel: fax: Referral ID Status Reason Start Date Expiration Date Visits Requested Visits Authorized [id number] Authorized Consult and Treat 10/04/2024 10/04/2025 1 1 * Consultation (Routine) - Pending Review Specialty Diagnoses / Procedures Referred By Contac t Referred To Contact Physical Therapy Diagnoses Impingement syndrome of right shoulder Primary osteoarthritis of right shoulder Meera Ramirez MD [address] [place] [address] Phone: tel: fax: Referral ID Status Reason Start Date Expiration Date Visits Requested Visits Authorized [id number] Pending Review Specialty Services Required 10/04/2024 10/04/2025 1 1 Reason for Visit * Reason Onset Date Comments Results 10/03/2024 Encounter Details Date Type Department Care Team (Late st Contact Info) Description 10/03/2024 Telephone [facility] MEDICINE [address] [place] [address] Danisha Wang RN Results Social History Tobacco Use Types Packs/Day Years Used Date Smoking Tobacco: Never Passive Smoke Exposure: Never Smokeless Tobacco: Never Alcohol Use Standard Drinks/Week Comments Not Currently 0 (1 standard drink = 0.6 oz pur e alcohol) Depression Answer Date Recorded Patient Health Questionnaire-9 Score 0 03/02/2023 Housing Stability Answer Date Recorded What is your housing situation today? I have ivon soni 06/08/[address] you li [...] encounter Miscellaneous Notes * Telephone Encounter - Lucy Donato RN - 10/05/2024 9:08 AM EST Tc to pt via s id: [id number] to let them know per PCP will refer to PT and to joint injectionclinic that will help with pain until she sees orthopedics. Please call patient to fu with joint inj clinic, use lidocaine patch and diclofenac gel, continue flexeril . No answer, lvm to return call and ask to speak to red team nurses. * Addendum Note - Meera Ramirez MD - 10/04/2024 4:17 PM ESTAddended by: MEERA RAMIREZ on: 10/04/2024 04:17 PM Modules accepted: Orders * Telephone Encounter - Meera Ramirez MD - 10/04/2024 4:13 PM EST I will refer to PT and to joint injection clinic that will help with pain until she sees orthopedics. Please call patient to fu with joint inj clinic, use lidocaine patch and diclofenac gel, continueflexeril. * Telephone Encounter - Yulissa Mcpherson RN - 10/04/2024 12:34 PM EST Incoming call from patient to inform of below message. Patient reports her son has not called her to inform her of the below message. Patient reports she is taking the flexeril medication however sheis NOT taking the Tylenol as she reports she cannot d/t being allergic. Patient reports she is not interested in acupuncture. RN provided patient with [facility] [place] phone number to call to f/u with them regarding her shoulder surgery. Patient reports she is interested in PT referral. Patient would likePCP to know her pain continues and flexeril is NOT helping her pain. Sending to PCP as FYI regarding pain, Tylenol and to place PT referral. * Telephone Encounter - Yulissa Mcpherson RN - 10/04/2024 11:43 AM EST TC placed to patient [phone] to discuss below however patient did not answer, RN left requesting CB to red team nurses. TC placed to [phone], a female answered the phone and stated she is Nunu Ford. RN advised female to have patient return call to [facility] when able. Female verbalized understanding. TC placed to son [phone] in regards to below message, spoke to Son (Luis on HIPAA) in regards to below message. Son informed patient to continue with Tylenol and Flexeril for pain.Son advised PCP can refer patient to PT if interested or can trial acupuncture. Son also advised patient should be following with ortho as well regarding her surgery POC. Son verbalized understandingand reports he will notify the patient and have her call [facility] if she would like PT referral. Patientto f/u PRN. * Telephone Encounter - Meera Ramirez MD - 10/03/2024 4:39 PM EST Please call patient and ask if she needs refill on Flexeril and Tylenol, otherwise ask her if she would like to be referred to physical therapy until I see her next time. Tell her that her x-rays on shoulders and spine showed osteoarthrosis which is not in the past (reminded her that she was going to see orthopedic and it was about to have a shoulder surgery). Ask her if she wants to come to acupuncture and let me know if she wants a referral to PT * Telephone Encounter - Danisha Wang RN - 10/03/2024 12:20 PM EST Telephone call returned to patient in regards to below message. Patient requesting medication for pain. Patient advised of upcoming appointment. Patient verbalized understanding and denied having anyfurther questions or concerns at this time. Patient to follow up as needed. * Telephone Encounter - Danisha Wang RN - 10/03/2024 12:20 PM EST ----- Message from Devyn Sheppard MD sent at 09/30/2024 9:49 AM EST ----- Please call the patient regarding her abnormal xray result No fractures or dislocation noted but has severe arthritis, follow up with pcp if continues with pain documented in this encounter Plan of Treatment Upcoming Encounters Date Type Department Care Team (Late st Contact Info) Description 10/07/2024 3:30 PM EST Office Visit [facility] ADULT DENTAL [address] [place] [address] Julian-Hess, Shaye, DDS [address] [place] [address] 11/02/2024 11:30 AM EDT Office Visit [facility] MEDICINE [address] [place] [address] Meera Ramirez MD [address] [place] [address] 11/16/2024 2:00 PM EDT Office Visit [facility] OPTOMETRY [address] [place] [address] Marco Antonio, Molly, OD [address] [place] [address] Scheduled Referrals Name Type Priority Associated Diagnoses Orde r Schedule Referral to Physical Therapy Outpatient Referral Routine Impingement syndrome of right shoulder Primary osteoarthritis of right shoulder Expected: 10/04/2024 (Approximate), Expires: 10/04/2025 Referral to Joint Injection Clinic Outpatient Referral Routine Impingement syndrome of right shoulder Primary osteoarthritis of right shoulder Expected: 10/04/2024 (Approximate), Expires: 10/04/2025 documented as of this encounter Visit Diagnoses Diagnosis Impingement syndrome of right shoulder- Primary Primary osteoarthritis of right shoulder documented in this encounter Additional Health Concerns Assessment Noted Time PHQ-9 Depression Total Score: 0 03/02/20 23 10:46 AM EDT documented as of this encounter Care Teams Classification Inspector Relationship Specialty Start Date End Date Meera Ramirez MD [address] [place] [address] PCP - General Family Medicine 03/14/20 Tarik Dejesus RN [address] [place] [address] Healthcare Or MedicalSupervisor Fleshing 09/26/24 documented as of this encounter
--- OUTSIDE RECORDS SUMMARY | 2024-10-05 14:14 | XMS_ITS | Encounter Summary ---
Author Organization [employer] Address [address] [facility] 7t [place] [address] Care Team Providers Care Director Of Retail Marketing Name Role Phone Meera Ramirez MD Primary Care Provider + Tarik Dejesus RN Unavailable [phone] Encounter Details Date Type Department Care Team ([facility] st Contact Info) Description 03/08/2024 Telephone [facility] MEDICINE [address] [place] [address] Meera Ramirez MD [address] [place] [address] Social History Tobacco Use Types Packs/Day Years [...] 3:30 PM EST Office Visit [facility] ADULT DENTAL [address] [place] [address] Shaye Ba, DDS [address] [place] [address] 11/02/2024 11:30 AM EDT Office Visit [facility] MEDICINE [address] [place] [address] Meera Ramirez MD [address] [place] [address] 11/16/2024 2:00 PM EDT Office Visit [facility] OPTOMETRY [address] [place] [address] Marco Antonio, Molly, OD [address] [place] [address] documented as of this encounter Visit Diagnoses Not on filedocumented in this encounter Additional Health Concerns Assessment Noted Time PHQ-9 Depression Total Score: 0 03/02/20 23 10:46 AM EDT documented as of this encounter Care Teams Director Of Retail Marketing Relationship Specialty Start Date End Date Meera Ramirez MD [address] [place] [address] PCP - General Family Medicine 03/14/20 Tarik Dejesus RN [address] [place] [address] [place] [address] Quality Assurance AnalystTrack Laminating Machine Tender 09/26/24 documented as of this encounter
--- OUTSIDE RECORDS SUMMARY | 2024-10-05 14:14 | XMS_ITS | Encounter Summary ---
Author Organization [employer] Address [address] [facility] 7t [place] [address] Care Team Providers Care Tower Equipment Repairer Name Role Phone Meera Ramirez MD Primary Care Provider + Reason for Visit * Reason Onset Date Comments Care Management 09/08/2024 [facility]- chart revi ew Encounter Details Date Type Department Care Team (Late st Contact Info) Description 09/08/[address] [facility] MEDICINE [address] [place] [address] Tarik Dejesus RN [address] [place] [address] Care Management ([facility]- chart review) Social History Tobacco Use Types Packs/Day Years [...] encounter Miscellaneous Notes * Telephone Encounter - Tarik Dejesus RN - 09/08/2024 8:05 AM EST ABEL Dejesus RN, performed chart review, in anticipation of initial assessment with patient, as patient has stratified for Adult Complex Care through PCP referral. Per note, patient in need of assistance with keeping appointments as well as transportation needs. Patient also at risk of homel essness. History significant for lumbar radiculopathy, epigastric pain, chronic tension type headache, cervical radiculopathy, primary osteoarthritis of both knees, primary osteoarthritis of right shoulder, impingement syndrome of right shoulder, prediabetes, mixed anxiety and depressive disorder, left sided chest pain, impaired cognition, bipolar disorder, bilateral hearing loss, and housing instability. Specialists include [facility] Optometry, Psychiatry- Behavioral Health, Orthopedic Surgery, PT, Nutrition, GI, and Audiology. ED visits within the last 12 months include [facility] 07/13/24, [facility] 03/11/24, [facility] 02/02/24, [facility] 01/14/24, and [facility] 01/04/24. Last appointment in PCP office on 09/06/24. Next appointment scheduled for 10/04/24 at 2:00pm via Telehealth with and 11/02/24 at 11:30am forfollow up with PCP. documented in this encounter Plan of Treatment Upcoming Encounters Date Type Department Care Team ([facility] st Contact Info) Description 10/07/2024 3:30 PM EST Office Visit [facility] ADULT DENTAL [address] [place] [address] Julian-Hess, Shaye, DDS [address] [place] [address] 11/02/2024 11:30 AM EDT Office Visit [facility] MEDICINE [address] [place] [address] Meera Ramirez MD [address] [place] [address] 11/16/2024 2:00 PM EDT Office Visit [facility] OPTOMETRY [address] [place] [address] Marco Antonio, Molly, OD [address] [place] [address] documented as of this encounter Visit Diagnoses Not on filedocumented in this encounter Additional Health Concerns Assessment Noted Time PHQ-9 Depression Total Score: 0 03/02/20 23 10:46 AM EDT documented as of this encounter Care Teams Tower Equipment Repairer Relationship Specialty Start Date End Date Meera Ramirez MD [address] [place] [address] PCP - General Family Medicine 03/14/20 documented as of this encounter
--- OUTSIDE RECORDS SUMMARY | 2024-10-05 14:14 | XMS_ITS | Encounter Summary ---
Author Organization [employer] Address [address] [facility] 7t [place] [address] Care Team Providers Care Manager Knowledge Name Role Phone Meera Ramirez MD Primary Care Provider + Tarik Dejesus RN Unavailable [phone] Encounter Details Date Type Department Care Team (Late st Contact Info) Description 09/01/2022 Orders Only [facility] MED [facility] PED[facility] [address] [place] [address] Ary Carr LPN Social History Tobacco Use Types Packs/Day Years Used Date Smoking Tobacco: Never Assessed Comments Unknown Sex and Gender Information Value [...] Description 10/07/2024 3:30 PM EST Office Visit [facility] ADULT DENTAL [address] [place] [address] Eliel-HessShaye day, DDS [address] [place] [address] 11/02/2024 11:30 AM EDT Office Visit [facility] MEDICINE [address] [place] [address] Meera Ramirez MD [address] [place] [address] 11/16/2024 2:00 PM EDT Office Visit [facility] OPTOMETRY [address] [place], [place] [phone] Molly Bernard, TRIXIE [address] [place] [address] documented as of this encounter Visit Diagnoses Not on filedocumented in this encounter Care Teams Manager Knowledge Relationship Specialty Start Date End Date Meera Ramirez MD [address] [place] [address] PCP - General Family Medicine 03/14/20 Tarik Dejesus RN [address] [place] [address] Sign InstallerPipe Line Gauger 09/26/24 documented as of this encounter
--- OUTSIDE RECORDS SUMMARY | 2024-10-05 14:14 | XMS_ITS | Encounter Summary ---
Author Organization [employer] Address [address] [facility] 7t [place] [address] Care Team Providers Care Miller Supervisor Name Role Phone Meera Ramirez MD Primary Care Provider + Reason for Visit * Reason Comments Care Coordination CM/CHW outreach Encounter Details Date Type Department Care Team (Latest Contact Info) Description 09/13/2024 Patient Outreach [facility] MEDICINE [address] [place] [address] Meera Ramirez MD [address] [place] [address] Care Coordination (CM/CHW outreach) Social History Tobacco Use Types Packs/Day Years [...] encounter Progress Notes * Vianey Davison - 09/13/2024 10:38 AM EST CHW Vianey Davison, placed outbound call to patient introducing herself from [facility] CM Department, in regard to offering services. Patient's name and was confirmed. Patient agrees to participate in program. Appt. for initial assessment scheduled for 09/21/24 @ 1PM tele with ABEL Dejesus RN. CHW reinforced direct contact information or CM for any additional questions or concerns and extended clinic hours on Mondays and Wednesdays, and Walk-InUrgent Care Located in [facility] of [facility]. Patient provided with after-hours line for [facility], , which offer nighttime triage service and option to transfer to medical receptionist assistant provider if needed. Patient verbalizes understanding, and able to repeat back to press writer. documented in this encounter Plan of Treatment Upcoming Encounters Date Type Department Care Team (Late st Contact Info) Description 10/07/2024 3:30 PM EST Office Visit [facility] ADULT DENTAL [address] [place], [place] [phone] Shaye Ba DDS [address] [place], [place] [phone] 11/02/2024 11:30 AM EDT Office Visit [facility] MEDICINE [address] [place], [place] [phone] Meera Ramirez MD [address] [place], [place] [phone] 11/16/2024 2:00 PM EDT Office Visit [facility] OPTOMETRY [address] [place], [place] [phone] Marco Antonio, Molly, OD [address] [place], [place] [phone] documented as of this encounter Visit Diagnoses Not on filedocumented in this encounter Additional Health Concerns Assessment Noted Time PHQ-9 Depression Total Score: 0 03/02/20 23 10:46 AM EDT documented as of this encounter Care Teams Miller Supervisor Relationship Specialty Start Date End Date Meera Ramirez MD [address] [place], [place] [phone] PCP - General Family Medicine 03/14/20 documented as of this encounter
--- OUTSIDE RECORDS SUMMARY | 2024-10-05 14:14 | XMS_ITS | Encounter Summary ---
Author Organization [employer] Address [address] [facility] 7t [place] [address] Care Team Providers Care Conservation Engineer Name Role Phone Meera Ramirez MD Primary Care Provider + Reason for Visit * Reason Onset Date Comments Letter for School/Work 04/14/2024 Encounter Details Date Type Department Care Team ([facility] Contact Info) Description 04/14/2024 Telephone [facility] MEDICINE [address] [place] [address] Meera Ramirez MD [address] [place] [address] Letter for School/Work Social History Tobacco Use Types Packs/Day Years [...] encounter Miscellaneous Notes * Telephone Encounter - Sinarhys Lawton - 04/14/2024 12:01 PM EDT Tc from pt requesting a letter for housing, states they were transferred to HIM however was advisedletters can take 7-15 business days, short story writer did also advise protocol to letters being generated. Ptstated is it urgent due to sleeping on the floor and not having a place to stay. Please contact at [phone] documented in this encounter Plan of Treatment Upcoming Encounters Date Type Department Care Team (Late st Contact Info) Description 10/07/2024 3:30 PM EST Office Visit [facility] ADULT DENTAL [address] [place] [address] Shaye Ba DDS [address] [place] [address] 11/02/2024 11:30 AM EDT Office Visit [facility] MEDICINE [address] [place] [address] Meera Ramirez MD [address] [place] [address] 11/16/2024 2:00 PM EDT Office Visit [facility] OPTOMETRY [address] [place] [address] Molly Bernard, TRIXIE [address] [place] [address] documented as of this encounter Visit Diagnoses Not on filedocumented in this encounter Additional Health Concerns Assessment Noted Time PHQ-9 Depression Total Score: 0 03/02/20 23 10:46 AM EDT documented as of this encounter Care Teams Conservation Engineer Relationship Specialty Start Date End Date Meera Ramirez MD [address] [place] [address] [place] [address] PCP - General Family Medicine 03/14/20 documented as of this encounter
--- OUTSIDE RECORDS SUMMARY | 2024-10-05 14:14 | XMS_ITS | Encounter Summary ---
Author Organization [employer] Address [address] [facility] 7t [place] [address] Care Team Providers Care Bilingual Sales Assistant Name Role Phone Meera Ramirez MD Primary Care Provider + Reason for Visit * Reason Onset Date Comments Anxiety 09/05/2024 Encounter Details Date Type Department Care Team ([facility] st Contact Info) Description 09/05/2024 Telephone [facility] MEDICINE [address] [place] [address] Yulissa Mcpherson RN [address] [place] [address] Anxiety Social History Tobacco Use Types Packs/Day Years [...] encounter Miscellaneous Notes * Telephone Encounter - Yulissa Mcpherson RN - 09/05/2024 12:55 PM EST Patient walked into the red team FD requesting PCP RX anxiety medication d/t a family member passing away yesterday. Patient reports she informed her therapist who advised her to request medication from PCP while she awaits for her appointment with the [facility] psychiatrist on 10/04/24 (per chart review). Patient has upcoming appointment with psychiatrist in September. RN scheduled patient for an appointment with PCP for tomorrow at 1:45pm to further discuss. Patient accepted appointment with PCP. Patient to f/u PRN. documented in this encounter Plan of Treatment Upcoming Encounters Date Type Department Care Team (Late st Contact Info) Description 10/07/2024 3:30 PM EST Office Visit [facility] ADULT DENTAL [address] [place] [address] Shaye Ba DDS [address] [place] [address] 11/02/2024 11:30 AM EDT Office Visit [facility] MEDICINE [address] [place] [address] Meera Ramirez MD [address] [place] [address] 11/16/2024 2:00 PM EDT Office Visit [facility] OPTOMETRY [address] [place] [address] Molly Bernard, OD [address] [place] [address] documented as of this encounter Visit Diagnoses Not on filedocumented in this encounter Additional Health Concerns Assessment Noted Time PHQ-9 Depression Total Score: 0 03/02/20 23 10:46 AM EDT documented as of this encounter Care Teams Bilingual Sales Assistant Relationship Specialty Start Date End Date Meera Ramirez MD [address] [place] [address] PCP - General Family Medicine 03/14/20 documented as of this encounter
--- OUTSIDE RECORDS SUMMARY | 2024-10-05 14:14 | XMS_ITS | Encounter Summary ---
Author Organization [employer] Address [address] [facility] 7t [place] [address] Care Team Providers Care Resolution Rep Name Role Phone Meera Ramirez MD Primary Care Provider + Reason for Visit * Reason Comments Care Coordination CM/CHW outreach Encounter Details Date Type Department Care Team (Latest Contact Info) Description 09/08/2024 Patient Outreach [facility] MEDICINE [address] [place] [address] Meera Ramirez MD [address] [place] [address] Care Coordination (CM/CHW outreach) Social History Tobacco [...] encounter Progress Notes * Vianey Davison - 09/08/2024 8:21 AM EST CHW Vianey Davison, placed outbound call to patient in regard to offer Adult Complex Care Program and SDOH services. Lady answered and stated she was sleeping, will let patient know to return the call to [phone]. Will re- attempt to contact within 5 days. and address not confirmed. documented in this encounter Plan of Treatment Upcoming Encounters Date Type Department Care Team (Late st Contact Info) Description 10/07/2024 3:30 PM EST Office Visit [facility] ADULT DENTAL [address] [place] [address] Shaye Ba, DDS [address] [place] [address] 11/02/2024 11:30 AM EDT Office Visit [facility] MEDICINE [address] [place] [address] Meera Ramirez MD [address] [place] [address] 11/16/2024 2:00 PM EDT Office Visit [facility] OPTOMETRY [address] [place] [address] Marco Antonio, Molly, OD [address] [place] [address] documented as of this encounter Visit Diagnoses Not on filedocumented in this encounter Additional Health Concerns Assessment Noted Time PHQ-9 Depression Total Score: 0 03/02/20 23 10:46 AM EDT documented as of this encounter Care Teams Resolution Rep Relationship Specialty Start Date End Date Meera Ramirez MD [address] [place] [address] PCP - General Family Medicine 03/14/20 documented as of this encounter
--- OUTSIDE RECORDS SUMMARY | 2024-10-05 14:14 | XMS_ITS | Encounter Summary ---
Author Organization [employer] Address [address] [place] [address] Care Team Providers Care Assault Amphibious Vehicle Officer Name Role Phone Meera Ramirez MD Primary Care Provider + Reason for Referral * Consultation (Routine) - Closed Specialty Diagnoses / Procedures Referred By Contac t Referred To Contact Diagnoses Lumbar radiculopathy Bipolar I disorder (CMS/HCC) Housing instability, housed, with risk of homelessness Meera Ramirez MD [address] [place] [address] Phone: tel: fax: [address] [phone] Phone: tel: fax: Referral ID Status Reason Start Date Expiration Date V isits Requested Visits Authorized [id number] Closed Specialty Services Required 09/06/2024 09/06/2025 1 1 Encounter Details Date Type Department Care Team (Latest Contact Info) Description 09/06/2024 1:45 PM EST Office Visit [facility] MEDICINE [address] [place] [address] [phone] Meera Ramirez MD [address] [place] [address] [phone] Lumbar radiculopathy (Primary Dx); Cervical radiculopathy; Bipolar I disorder (CMS/HCC); Housing instability, housed, with risk of homelessness; Prediabetes Social History Tobacco Use Types Packs/Day Years [...] AM EDT documented as of this encounter Last Filed Vital Signs Vital Sign Reading Time Taken Comments Blood Pressure 122/76 09/06/2024 1:05 PM EST Pulse 80 09/06/2024 1:05 PM EST Temperature 36.1 ??C (97 ??F) 09/06/2024 1:05 PM EST Respiratory Rate 18 09/06/2024 1:05 PM EST Oxygen Saturation - - Inhaled Oxygen Concentration - - Weight 50.6 kg (111 lb 9.6 oz) 09/06/2024 1:05 P M EST Height 152.4 cm (5') 09/06/2024 1:05 PM EST Body Mass Index 21.8 09/06/2024 1:05 PM EST documented in this encounter Progress Notes * Meera Ramirez MD - 09/06/2024 1:45 PM EST SUBJECTIVE: Nunu Segal is a 64 y.o. year old female who presents for sick visit . Denies recent illness, injury, or hospitalization. Pt has Hx of DJD of shoulder, recently missed appointment to schedule rotator cuff repair. She reported had her last fall was a month ago and the back pain has worsen since. She did not seekemergency help. She has lost her apartment and is now living at others' houses for periods of time, and currently living with her sister. Her sister has controlled housing and she cannot stay with her for much longer. She is not currently seeing a psychiatrist and has only been taking Lorazepam for the past year. Acute Concerns: Social History Social History Narrative Lives on a first floor apartment, with her son who helps her with ADLs Neg smoking/ETOH/ drugs Patient Active Problem List Diagnosis Primary osteoarthritis of both knees Mixed anxiety and depressive disorder Lumbar radiculopathy Left-sided chest pain Impaired cognition Fall Epigastric pain Chronic tension-type headache Bipolar I disorder (CMS/HCC) Bilateral hearing loss Allergic rhinitis Acute ankle pain Viral disease Sprain of ankle Shoulder pain Primary osteoarthritis of right shoulder Anxiety Screening for colorectal cancer Screening mammogram for breast cancer Encounter for preventive health examination Prediabetes Atypical chest pain At high risk for osteoporosis Impingement syndrome of right shoulder Housing instability, housed, with risk of homelessness Laceration of left earlobe Cervical radiculopathy No family history on file. Review of Systems Constitutional: Negative for chills, fatigue and fever. HENT: Negative for congestion, ear pain, nosebleeds, rhinorrhea, sinus pressure, sore throat and trouble swallowing. Eyes: Negative for pain and discharge. Respiratory: Negative for cough, chest tightness and shortness of breath. Cardiovascular: Negative for chest pain, palpitations and leg swelling. Gastrointestinal: Negative for abdominal pain, blood in stool, constipation, diarrhea and nausea. Endocrine: Negative for polydipsia and polyuria. Genitourinary: Negative for dysuria, frequency, genital sores, pelvic pain and vaginal discharge. Musculoskeletal: Positive for arthralgias, back pain and neck pain. Skin: Negative for rash. Allergic/Immunologic: Negative for environmental allergies. Neurological: Negative for dizziness, seizures, weakness, light-headedness and headaches. Hematological: Negative for adenopathy. Psychiatric/Behavioral: Negative for agitation, behavioral problems, self-injury and suicidal ideas. The patient is nervous/anxious. OBJECTIVE: Vitals: 09/06/24 1305 BP: 122/76 Pulse: 80 Resp: 18 Temp: 97 ??F (36.1 ??C) Physical Exam Constitutional: Appearance: Normal appearance. HENT: Right Ear: Tympanic membrane and ear canal normal. Left Ear: Tympanic membrane and ear canal normal. Mouth/Throat: Mouth: Mucous membranes are moist. Pharynx: No oropharyngeal exudate or posterior oropharyngeal erythema. Eyes: Pupils: Pupils are equal, round, and reactive to light. Cardiovascular: Rate and Rhythm: Normal rate and regular rhythm. Heart sounds: No murmur heard. Pulmonary: Breath sounds: Normal breath sounds. No wheezing. Abdominal: General: Bowel sounds are normal. Palpations: Abdomen is soft. Tenderness: There is no abdominal tenderness. Musculoskeletal: General: Normal range of motion. Right shoulder: Tenderness present. Left shoulder: Tenderness present. Cervical back: Normal range of motion. Tenderness present. Thoracic back: Tenderness present. Lumbar back: Tenderness present. Right knee: Tenderness present. Left knee: Tenderness present. Skin: General: Skin is warm. Neurological: General: No focal deficit present. Mental Status: She is alert and oriented to person, place, and time. Psychiatric: Attention and Perception: Attention normal. Mood and Affect: Mood normal. Speech: Speech normal. Behavior: Behavior is cooperative. Thought Content: Thought content does not include homicidal or suicidal ideation. ASSESSMENT/PLAN Problem List Items Addressed This Visit Lumbar radiculopathy - Primary Pt has underlying DJD unclear if she has a fracture or other conditions s/p fall. Get XR and take Tylenol and Flexeril PRN. Use Lidoderm patch on affected area and advised to go to acupuncture clinic. Pt never had MRI of C spine ordered last year, will proceed with that if symptoms do not improve within the next 3 months. Relevant Orders XR Lumbar Spine Complete 4+ Views (Completed) XR Thoracic Spine 2 Views (Completed) Referral to Care Management Cervical radiculopathy Pt has underlying DJD unclear if she has a fracture or other conditions s/p fall. Get XR and take Tylenol and Flexeril PRN. Use Lidoderm patch on affected area and advised to go to acupuncture clinic. Pt never had MRI of C spine ordered last year, will proceed with that if symptoms do not improve within the next 3 months. Relevant Medications cyclobenzaprine (Flexeril) 5 MG tablet Other Relevant Orders XR Thoracic Spine 2 Views (Completed) XR CERVICAL SPINE 4V (Completed) Bipolar I disorder (CMS/HCC) She is off medications for at least 6 months, med list reviewed. She was advised to FU with psychiatry on 10/04/24 and with new counselor on 09/13/24. Restart Depakote 250 mg BID + Duloxetine 30 mg daily and FU with me in 1 month. I advised to avoid Lorazepam at this time and use of any other recreational substances. Relevant Orders Referral to Care Management Housing instability, housed, with risk of homelessness Currently at risk of homelessness as she is living with someone under housing restrictions. She already contacted [facility] program and I will refer to her care management for additional FU. Relevant Orders Referral to Care Management Prediabetes I have discussed with patient regarding increasing physicial activity and decrease calorie intake. I'll check FBS with next set of labs. To check RBS at next visit. FU with me next visit. Relevant Orders POCT HGB A1C (Completed) POCT Glucose (Completed) Follow Up: Current Outpatient Medications on File Prior to Visit Medication Sig Dispense Refill acetaminophen (Tylenol 8 Hour) 650 MG ER tablet Take 1 tablet (650 mg) by mouth every 8 (eight) hours if needed for mild pain. Do not crush, chew, or split. (Patient not taking: Reported on 07/14/2024) 90 tablet 2 Blood Glucose Monitoring Suppl (FreeStyle Lite) w/Device kit 1 each in the morning. Use to monitor blood glucose once daily 1 kit 0 naloxone (Narcan) 4 mg/0.1 mL nasal spray Administer 1 spray (4 mg) into affected nostril(s) if needed for opioid reversal. May repeat every 2-3 minutes if needed, alternating nostrils, until medicalassistance becomes available. 2 each 0 Gjpoh-Nwcex-Gkkeuvu-Pramoxine (Triple Antibiotic Pain Relief) 1 % ointment Apply to affected ear bid x 1w 14 g 0 TRUEplus Lancets 33G misc USE DIRECTED TO TEST BLOOD SUGAR ONCE DAILY IN THE MORNING 100 each 5 [DISCONTINUED] cholecalciferol (Vitamin D-3) 50 MCG (2000 UT) tablet TAKE 1 TABLET BY MOUTH EVERY DAY 90 tablet 3 [DISCONTINUED] clonazePAM (KlonoPIN) 1 MG tablet TAKE 1 TABLET BY MOUTH ONCE A DAY NEEDED FOR PANIC ATTACK. 10 tablet 0 [DISCONTINUED] cloNIDine (Catapres) 0.1 MG tablet TAKE 1 TABLET BY MOUTH ONCE A DAY NEEDED FOR PANIC ATTACK. [DISCONTINUED] cyclobenzaprine (Flexeril) 10 MG tablet Take 1 tablet (10 mg) by mouth 3 times dailyfor 10 days. 30 tablet 0 [DISCONTINUED] cyclobenzaprine (Flexeril) 5 MG tablet Take 1 tablet (5 mg) by mouth 3 times daily. 90 tablet 0 [DISCONTINUED] divalproex (Depakote) 250 MG EC tablet TAKE 1 TABLET BY MOUTH TWICE A DAY TOME REGAN TABLETA DOS VECES AL ERICH CON ALIMENTO [DISCONTINUED] DULoxetine (Cymbalta) [address] capsule TAKE 1 CAPSULE BY MOUTH ONCE A DAY STARTING 01/01/2023 (Patient not taking: Reported on 07/14/2024) [DISCONTINUED] gabapentin (Neurontin) 300 MG capsule Take 1 capsule (300 mg) by mouth 2 times daily. 60 capsule 2 [DISCONTINUED] lidocaine (Lidoderm) 5 % patch Apply 1 patch topically Once per day. Remove & discard patch within 12 hours or as directed by MD. 30 patch 3 [DISCONTINUED] loratadine (Claritin) 10 MG tablet TAKE 1 TABLET BY MOUTH EVERY MORNING 90 tablet 3 [DISCONTINUED] meclizine (Antivert) 12.5 MG tablet TAKE 1 TABLET BY MOUTH TWICE DAILY NEEDED FORDIZZINESS 30 tablet 3 [DISCONTINUED] mirtazapine (Remeron) 45 MG tablet TOME REGAN TABLETA TODOS LOS D AL ACOSTARSE [DISCONTINUED] predniSONE (Deltasone) 20 MG tablet 2 tabs po daily for 5 days 10 tablet 0 [DISCONTINUED] tiZANidine (Zanaflex) 2 MG tablet Take 1 tablet (2 mg) by mouth every 8 (eight) hours if needed for muscle spasms. 15 tablet 0 No current facility-administered medications on file prior to visit. Radha Manning, am serving as a scribe to document services personally performed by Dr. Meera Ramirez, based on the patient's response to questions by provider and provider's statements to me. documented in this encounter Miscellaneous Notes * Assessment & Plan Note - Radha Dalton - 09/06/2024 4:34 PM ESTAssociated Problem(s): Housing instability, housed, with risk of homelessness Currently at risk of homelessness as she is living with someone under housing restrictions. She already contacted [facility] program and I will refer to her care management for additional FU. * Assessment & Plan Note - Radha Dalton - 09/06/2024 4:33 PM ESTAssociated Problem(s): Bipolar I disorder (CMS/HCC) She is off medications for at least 6 months, med list reviewed. She was advised to FU with psychiatry on 10/04/24 and with new counselor on 09/13/24. Restart Depakote 250 mg BID + Duloxetine 30 mg daily and FU with me in 1 month. I advised to avoid Lorazepam at this time and use of any other recreational substances. * Assessment & Plan Note - Radha Dalton - 09/06/2024 4:30 PM ESTAssociated Problem(s): Prediabetes I have discussed with patient regarding increasing physicial activity and decrease calorie intake. I'll check FBS with next set of labs. To check RBS at next visit. FU with me next visit. * Assessment & Plan Note - Radha Dalton - 09/06/2024 4:29 PM ESTAssociated Problem(s): Cervical radiculopathy Pt has underlying DJD unclear if she has a fracture or other conditions s/p fall. Get XR and take Tylenol and Flexeril PRN. Use Lidoderm patch on affected area and advised to go to acupuncture clinic. Pt never had MRI of C spine ordered last year, will proceed with that if symptoms do not improve within the next 3 months. * Assessment & Plan Note - Radha Dalton - 09/06/2024 4:29 PM ESTAssociated Problem(s): Lumbar radiculopathy Pt has underlying DJD unclear if she has a fracture or other conditions s/p fall. Get XR and take Tylenol and Flexeril PRN. Use Lidoderm patch on affected area and advised to go to acupuncture clinic. Pt never had MRI of C spine ordered last year, will proceed with that if symptoms do not improve within the next 3 months. documented in this encounter Plan of Treatment Upcoming Encounters Date Type Department Care Team (Late st Contact Info) Description 10/07/2024 3:30 PM EST Office Visit [facility] ADULT DENTAL [address] [place] [address] Julian-HessShaye day, DDS [address] [place] [address] 11/02/2024 11:30 AM EDT Office Visit [facility] MEDICINE [address] [place] [address] Meera Ramirez MD [address] [place] [address] 11/16/2024 2:00 PM EDT Office Visit [facility] OPTOMETRY [address] [place] [address] Marco Antonio, Molly, OD [address] [place] [address] Scheduled Referrals Name Type Priority Associated Diagnoses Orde r Schedule Referral to Care Management Outpatient Referral Routine Lumbar radiculopathy Bipolar I disorder (CMS/HCC) Housing instability, housed, with risk of homelessness Expected: 09/06/2024 (Approximate), Expires: 09/06/2025 documented as of this encounter Procedures Procedure Name Priority Date/Time Associated Diagnosis Comments XR CERVICAL SPINE 4V Routine 09/06/2024 2:44 PM EST Cervical radiculopathy XR LUMBAR SPINE COMPLETE 4+ VIEWS Routine 09/06/2024 2:44 PM EST Lumbar radiculopathy XR THORACIC SPINE 2 VIEWS Routine 09/06/2024 2:44 PM EST Cervical radiculopathy Lumbar radiculopathy POCT GLYCATED HEMOGLOBIN, TOTAL Routine 09/06/2024 1:11 PM EST Prediabetes POCT GLUCOSE Routine 09/06/2024 1:08 PM EST Prediabetes documented in this encounter Results * XR CERVICAL SPINE 4V (09/06/2024 2:44 PM EST) Anatomical Region Laterality Modality Abdomen Radiographic Ameena ging 09/06/2024 2:44 PM EST Narrative 09/06/2024 3:47 PM EST ?[facility] ?[address] ?[place] [address] ?XRay Report ? Signed ? Patient: Nunu Segal I ?MR#: [id number] ?? [id number] ? : 1960 ?Acct:[id number] ? Age/Sex: 64 / F ?ADM Date: 09/06/24 ? Loc: HO.HHCX ? Attending Dr: Meera Ramirez MD ? Ordering Physician: Meera Ramirez MD ?? Date of Service: 09/06/24 ?? Procedure(s): XR cervical spine 4V ?? Accession Number(s): [id number] ? cc: Meera Ramirez MD ? EXAMINATION: [...] DD/ 1444 ? TD/TT: 09/06/24 1500 ? Marketing Program Manager: ? Procedure Note Donbryon, Image - 09/06/[address] [address] XRay Report Signed Patient: Nunu Segal IMR#: [id number] : 2Acct:[id number] Age/Sex: 64 / FADM Date: 09/06/24 Loc: HO.HHCX Attending Dr: Meera Ramirez MD Ordering Physician: Merea Ramirez MD Date of Service: 09/06/24 Procedure(s): XR cervical spine 4V Accession Number(s): [id number] cc: Meera Ramirez MD EXAMINATION: XR CERVICAL [...] 09/06/24 1545 DD/ 1444 TD/TT: 09/06/24 1500 Marketing Program Manager: us Meera Ramirez MD IMG XR PROCEDURES Final Result * XR Thoracic Spine 2 Views (09/06/2024 2:44 PM EST) Anatomical Region Laterality Modality Spine, T-spine Radiographic Ameena ging 09/06/2024 2:44 PM EST Narrative 09/06/2024 3:49 PM EST ?[facility] ?[address] ?[place] [address] ?XRay Report ? Signed ? Patient: Nunu Segal I ?MR#: [id number] ?? [id number] ? : 1960 ?Acct:[id number] ? Age/Sex: 64 / F ?ADM Date: 09/06/24 ? Loc: HO.HHCX ? Attending Dr: Meera Ramirez MD ? Ordering Physician: Meera Ramirez MD ?? Date of Service: 09/06/24 ?? Procedure(s): XR thoracic spine 2V ?? Accession Number(s): [id number] ? cc: Meera Ramirez MD ? EXAMINATION: [...] DD/ 1444 ? TD/TT: 09/06/24 1500 ? Marketing Program Manager: ? Procedure Note Donannabelleter, Image - 09/06/[address] [address] XRay Report Signed Patient: Nunu Segal IMR#: [id number] : 2Acct:[id number] Age/Sex: 64 / FADM Date: 09/06/24 Loc: .HHCX Attending Dr: Meera Ramirez MD Ordering Physician: Meera Ramirez MD Date of Service: 09/06/24 Procedure(s): XR thoracic spine 2V Accession Number(s): [id number] cc: Meera Ramirez MD EXAMINATION: XR THORACIC [...] Macario Magdaleno MD 09/06/2024 03:46 PM EST Dictated By: Macario Magdaleno MD Signed By: <Electronically signed by Macario Magdaleno MD in OV> 09/06/24 1546 DD/ 1444 TD/TT: 09/06/24 1500 Marketing Program Manager: Meera Ramirez MD IMG XR PROCEDURES Final Result * XR Lumbar Spine Complete 4+ Views (09/06/2024 2:44 PM EST) Anatomical Region Laterality Modality Spine, L-spine Radiographic Ameena ging 09/06/2024 2:44 PM EST Narrative 09/06/2024 3:51 PM EST ?[facility] ?[address] ?[place] [address] ?XRay Report ? Signed ? Patient: Nunu Segal I ?MR#: [id number] ?? [id number] ? : 1960 ?Acct:[id number] ? Age/Sex: 64 / F ?ADM Date: 09/06/24 ? Loc: HO.HHCX ? Attending Dr: Meera Ramirez MD ? Ordering Physician: Meera Ramirez MD ?? Date of Service: 09/06/24 ?? Procedure(s): XR lumbar spine 4V min ?? Accession Number(s): [id number] ? cc: Meera Ramirez MD ? EXAMINATION: [...] ??Macario Magdaleno MD ??09/06/2024 03:49 PM EST ?? RP ? Dictated By: ?Macario Magdaleno MD ? Signed By: ?<Electronically signed by Macario Magdaleno MD in OV> ?09/06/24 1549 ? DD/ 1444 ? TD/TT: 09/06/24 1500 ? Marketing Program Manager: ? Procedure Note Donotuseinterpreter, Image - 09/06/[address] [address] XRay Report Signed Patient: Nunu Segal IMR#: [id number] : 2Acct:[id number] Age/Sex: 64 / FADM Date: 09/06/24 Loc: HO.CX Attending Dr: Meera Ramirez MD Ordering Physician: Meera Ramirez MD Date of Service: 09/06/24 Procedure(s): XR lumbar spine 4V min Accession Number(s): [id number] cc: Meera Ramirez MD EXAMINATION: XR LUMBAR [...] 09/06/24 1549 DD/ 1444 TD/TT: 09/06/24 1500 Marketing Program Manager: Meera Ramirez MD IMG XR PROCEDURES Final [...] specimen / Unknown 09/06/2024 1:08 PM EST us Meera Ramirez MD POINT OF CARE TEST ENTER /EDIT ORDERABLES Final Result documented in this encounter Visit Diagnoses Diagnosis Lumbar radiculopathy- Primary Thoracic or lumbosacral neuritis or radiculitis, unspecified Cervical radiculopathy Brachial neuritis or radiculitis nos Bipolar I disorder ([facility]) Bipolar I disorder, most recent episode (or current) unspecified Housing instability, housed, with risk of homelessness Prediabetes Other abnormal glucose documented in this encounter Additional Health Concerns Assessment Noted Time PHQ-9 Depression Total Score: 0 03/02/20 23 10:46 AM EDT documented as of this encounter Care Teams Assault Amphibious Vehicle Officer Relationship Specialty Start Date End Date Meera Ramirez MD [address] [place] [address] PCP - General Family Medicine 03/14/20 documented as of this encounter
--- OUTSIDE RECORDS SUMMARY | 2024-10-05 14:14 | XMS_ITS | Encounter Summary ---
Author Organization [employer] Address [address] [place] [address] Care Team Providers Care Loan Originator Name Role Phone Meera Ramirez MD Primary Care Provider + Tarik Dejesus RN Unavailable [phone] Reason for Visit * Reason Onset Date Comments Care Management 09/26/2024 C3CM- initial as sessment/ enrollment Encounter Details Date Type Department Care Team (Late st Contact Info) Description 09/26/2024 Telephone [facility] [address] [place] [address] Tarik Dejesus, RN [address] [place] [address] Care Management (C3CM- initial assessment/ enrollment) Social History Tobacco Use Types Packs/Day Years [...] encounter Miscellaneous Notes * Telephone Encounter - Meera Ramirez MD - 09/27/2024 4:05 PM EST Re CM evaluation, appreciated. -Please assist patient to orthopedics appt, she was seen at [facility] ortho last year and was scheduled for shoulder surgery but she never fu with them or with us for preop clearance. She can continue on current meds, I rx lidocanine patch last month and she has 3 RF, please educate re calling for refills (also on flexeril, see med list) -Re HADOOP ARCHITECT hs, There was a paper from a HADOOP ARCHITECT program requesting that but also noticed that she doesn't have a stable home yet (just lost her appt) and I explained that services can be restarted once she lives on a stable place (as stated, she can't stay at her sister's aptp for long due to housing restr ictions). If this services can be provided while she lives at her sister's, let me know and arrangefor evaluation to go to that apt. -Re DME to prevent falls , I will totally rx those again , once patient is on a stable housing unitthat she can be at without contract restrictions, otherwise she will require new DME every time shehas to move out. Re glucometer, she doesn't need to check fgstk at home as she's preDM, not DM -Re BP, she doesn't have hx HTN, it was high when she was on severe pain. * Telephone Encounter - Tarik Dejesus RN - 09/26/2024 8:10 AM EST ABEL Dejesus RN, provided notification to PCP Dr. Ramirez of patient's enrollment into [facility] Complex [facility] Program. CM Tarik Dejesus RN, completed care plan and sent to HIM to be scanned into the medical record. PCP notified and awaiting review from provider. CM plan: -assist with scheduling appointments with specialists and provide patient with appt reminders and transportation to visits as needed -assist with DME requests -provide education on disease processes and management - provide resources based on positive SDOH needs * Telephone Encounter - Tarik Dejesus RN - 09/26/2024 8:09 AM EST Late entry: ABEL Dejesus RN placed outbound call to patient for agreed upon time for initial assessment for enrollment into Adult Care Management Program. Patient's name, , and address were verified. Nunu is a 64 year old female with Hx of lumbar radiculopathy, epigastric pain, chronic tension type headache, cervical radiculopathy, primary osteoarthritis of both knees, primary osteoarthritis of bothshoulders, impingement syndrome of right shoulder, prediabetes, mixed anxiety and depressive disorder, impaired cognition, fall, bipolar 1 disorder, bilateral hearing loss, at high risk for osteoporosis, and housing instability. Patient reports being followed by N. She states she is established with a therapist and states she has a f/u scheduled this week. Patient is also scheduled to see psychon 10/04/24. Patient states she ran out of psych meds and would like for PCP to prescribe. Per patient, was contacted by provider's team nurse and was advised that she should make the request with psych. CM reviewed office note from 09/06. Plan was for patient to continue on depakote and duloxetine. CM also noted patient was contacted and advised to take meds for bipolar disorder and f/u with psychas scheduled. CM informed patient of this. She verbalizes understanding. Per patient, currently taking depakote. She states she is not taking the duloxetine due to experiencing dry mouth. Patient denies SI/HI. She states she is able to contact her therapist as needed and confirms having the number to crisis. She also states she goes to [facility] and relies on her ravi which helps with her anxiety and depression. Per patient, completed x- rays at [facility] on 09/06 and is requesting results. CM advised a message will be sent to provider to review and patient to be contacted with those results. She agrees . Patient c/o chronic right shoulder pain. She states she also completed x-rays of her shoulder on 09/06. CM advised the system is only showing x-rays of the cervical, thoracic, and lumbar spine that were completed on 09/06. CM did note patient was previously referred to Ortho for eval of right shoulder. Per patient, has not been seen. She also states she was referred to PT. Per patient, only went twice but did not continue follow up. CM will assist with appt scheduling. Patient states she is taking cyclobenzaprine as needed. She also reports use of lidocaine patches BID. Per patient, only has one patch left. She states she is not able to take tylenol or ibuprofen due to allergy. CM also noted previous referrals to Nutrition and GI. Per patient, has not been seen by these specialties. CM will assist with coordinating care. Per patient, currently receiving 3 hours of HADOOP ARCHITECT care per day. She states her son is her HADOOP ARCHITECT and he usually comes to see her in the mornings. Patient states she feels she would benefit from additional HADOOP ARCHITECT hours. Per patient, there is a nurse/provider from [place] who is scheduled to see her this week for a home eval. She is unsure which company the provider works for? She agrees to obtain the information and will provide this to CM at the next f/u call. Per patient, ambulates with use of walker, which she states was prescribed by PCP. Per patient, has been prescribed several walkers but all have broken. She is requesting Rx rollator. Patient also reports Hx falls and would like for PCP to prescribe shower bar and shower chair. CM will make request with PCP. Also recommended that she address this during her upcoming visit with PCP. She agrees. Patient reports Hx of HTN? She states her BP has caused symptoms of dizziness/ blurry vision which have contributed to her falls. She states she does not have a BP monitor and would like for PCP to prescribe. Per patient, does not know how to use BP monitor. Patient would benefit from teaching. CM will assist. CM also noted patient was previously prescribed a glucometer. She states she lost the glucometer whenshe moved out of her apartment and would like for PCP to prescribe a new one. Patient also requesting assistance with housing. She states she is currently living with her sister. Per patient, sister has housing and she does not want for her sister to lose this assistance so she would like to move into her own apartment. She states she has applied for housing and is currently on a wait list. Patient also requesting assistance with transportation to her medical visits. CHW will outreach to assistwith connecting patient to resources. Patient denies any further needs or concerns at this time. Care management program explained and contact information given. Patient verbalizes understanding, and able to repeat back to resume writer. A follow up call will be placed within 10 days, patient agrees with plan. documented in this encounter Plan of Treatment Upcoming Encounters Date Type Department Care Team (Late st Contact Info) Description 10/07/2024 3:30 PM EST Office Visit [facility] [address] [place] [address] Shaye Ba DDS [address] [place] [address] 11/02/2024 11:30 AM EDT Office Visit [facility] [address] [place] [address] Meera Ramirez MD [address] [place] [address] 11/16/2024 2:00 PM EDT Office Visit [facility] [address] [place] [address] Molly Bernard OD [address] [place] [address] documented as of this encounter Visit Diagnoses Not on filedocumented in this encounter Additional Health Concerns Assessment Noted Time PHQ-9 Depression Total Score: 0 03/02/20 10:46 AM EDT documented as of this encounter Care Teams Loan Originator Relationship Specialty Start Date End Date Meera Ramirez MD [address] [place] [address] PCP - General Family Medicine 03/14/20 Tarik Dejesus RN [address] [place] [address] Hoop PuncherLoader Magazine Grinder 09/26/24 documented as of this encounter
--- OUTSIDE RECORDS SUMMARY | 2024-10-05 14:14 | XMS_ITS | Encounter Summary ---
Author Organization [employer] Address [address] [facility] 7t [place] [address] Care Team Providers Care Er Physician Name Role Phone Meera Ramirez MD Primary Care Provider + Tarik Dejesus RN Unavailable [phone] Encounter Details Date Type Department Care Team (Late st Contact Info) Description 11/17/2022 Orders Only [facility] [address] [place] [address] Ary Carr LPN Social History Tobacco Use [...] Description 10/07/2024 3:30 PM EST Office Visit [facility] [address] [place] [address] Eliel-HessShaye day, DDS [address] [place] [address] 11/02/2024 11:30 AM EDT Office Visit [facility] [address] [place] [address] Meera Ramirez MD [address] [place] [address] 11/16/2024 2:00 PM EDT Office Visit [facility] [address] [place], [place] [phone] Molly Bernard, TRIXIE [address] [place] [address] documented as of this encounter Visit Diagnoses Not on filedocumented in this encounter Care Teams Er Physician Relationship Specialty Start Date End Date Meera Ramirez MD [address] [place] [address] PCP - General Family Medicine 03/14/20 Tarik Dejesus RN [address] [place] [address] Director Of Premium Seat SalesMaterial Planning Analyst 09/26/24 documented as of this encounter
--- OUTSIDE RECORDS SUMMARY | 2024-10-05 14:14 | XMS_ITS | Encounter Summary ---
Author Organization [employer] Address [address] [facility] 7t [place] [address] Care Team Providers Care Software Qa Manager Name Role Phone Meera Ramirez MD Primary Care Provider + Tarik Dejesus RN Unavailable [phone] Reason for Visit * Reason Onset Date Comments Nurse Triage 01/06/2024 Encounter Details Date Type Department Care Team ([facility] st Contact Info) Description 01/06/2024 Telephone [facility] [address] [place] [address] Meera Ramirez MD [address] [place] [address] Nurse Triage Social History Tobacco Use Types Packs/Day Years [...] encounter Miscellaneous Notes * Telephone Encounter - Osman Bills - 01/06/2024 12:37 PM EDT Symptom: Back Pain - Not From Injury Outcome: Talk to a nurse or provider within 15 minutes Reason: Can't walk (unless normally can't walk) The caller accepted this outcome Patient speaks [place] citizen documented in this encounter Plan of Treatment Upcoming Encounters Date Type Department Care Team (Late st Contact Info) Description 10/07/2024 3:30 PM EST Office Visit [facility] ADULT DENTAL [address] [place] [address] Shaye Ba, DDS [address] [place] [address] 11/02/2024 11:30 AM EDT Office Visit [facility] [address] [place] [address] Meera Ramirez MD [address] [place] [address] 11/16/2024 2:00 PM EDT Office Visit [facility] OPTOMETRY [address] [place] [address] Molly Bernard, OD [address] [place] [address] documented as of this encounter Visit Diagnoses Not on filedocumented in this encounter Additional Health Concerns Assessment Noted Time PHQ-9 Depression Total Score: 0 03/02/20 23 10:46 AM EDT documented as of this encounter Care Teams Software Qa Manager Relationship Specialty Start Date End Date Meera Ramirez MD [address] [place] [address] PCP - General Family Medicine 03/14/20 Tarik Dejesus RN [address] [place] [address] In Home AideLaboratory Machinist 09/26/24 documented as of this encounter
--- OUTSIDE RECORDS SUMMARY | 2024-10-05 14:14 | XMS_ITS | Encounter Summary ---
Author Organization [employer] Address [address] [facility] 7t [place] [address] Care Team Providers Care Social Service Agency Director Name Role Phone Meera Ramirez MD Primary Care Provider + Encounter Details Date Type Department Care Team (Latest Contact Info) Description 09/06/2024 Travel Social History Tobacco Use Types Packs/Day Years [...] 3:30 PM EST Office Visit [facility] [address] [place] [address] Julian-Hess, Shaye, DDS [address] [place] [address] 11/02/2024 11:30 AM EDT Office Visit [facility] [address] [place] [address] Meera Ramirez MD [address] [place] [address] 11/16/2024 2:00 PM EDT Office Visit [facility] OPT[facility] [address] [place] [address] Marco Antonio, Molly, OD [address] [place] [address] documented as of this encounter Visit Diagnoses Not on filedocumented in this encounter Additional Health Concerns Assessment Noted Time PHQ-9 Depression Total Score: 0 03/02/20 23 10:46 AM EDT documented as of this encounter Care Teams Social Service Agency Director Relationship Specialty Start Date End Date Meera Ramirez MD [address] [place] [address] PCP - General Family Medicine 03/14/20 documented as of this encounter
--- OUTSIDE RECORDS SUMMARY | 2024-10-05 14:14 | XMS_ITS | Encounter Summary ---
Author Organization [employer] Address [address] [facility] 7t [place] [address] Care Team Providers Care Customer Experience Strategist Name Role Phone Meera Ramirez MD Primary Care Provider + Tarik Dejesus RN Unavailable [phone] Reason for Visit * Reason Onset Date Comments Nurse Triage 01/06/2024 Encounter Details Date Type Department Care Team ([facility] st Contact Info) Description 01/06/[address] [facility] [address] [place] [address] Meera Ramirez MD [address] [place] [address] Nurse Triage Social History Tobacco Use Types [...] encounter Miscellaneous Notes * Telephone Encounter - Minoo Winters - 01/06/2024 11:33 AM EDT Symptom: rib pain- Adult Outcome: Schedule an urgent appointment (within 1 hour) or talk to a nurse or provider soon Reason: Caller denied all higher acuity questions The caller accepted this outcome Medication does not seem to help with pain. documented in this encounter Plan of Treatment Upcoming Encounters Date Type Department Care Team (Late st Contact Info) Description 10/07/2024 3:30 PM EST Office Visit [facility] ADULT D[facility] [address] [place] [address] Shaye Ba, DDS [address] [place] [address] 11/02/2024 11:30 AM EDT Office Visit [facility] [address] [place] [address] Meera Ramirez MD [address] [place] [address] 11/16/2024 2:00 PM EDT Office Visit [facility] OPTOMETRY [address] [place] [address] Molly Bernard, OD [address] [place] [address] documented as of this encounter Visit Diagnoses Not on filedocumented in this encounter Additional Health Concerns Assessment Noted Time PHQ-9 Depression Total Score: 0 03/02/20 23 10:46 AM EDT documented as of this encounter Care Teams Customer Experience Strategist Relationship Specialty Start Date End Date Meera Ramirez MD [address] [place] [address] PCP - General Family Medicine 03/14/20 Tarik Dejesus, AARON [address] [place] [id number] Layout OperatorEducation Specialist 09/26/24 documented as of this encounter
--- OUTSIDE RECORDS SUMMARY | 2024-10-05 14:14 | XMS_ITS | Encounter Summary ---
Author Organization [employer] Address [address] [facility] 7t [place] [address] Care Team Providers Care Assessment Analyst Name Role Phone Meera Ramirez MD Primary Care Provider + Reason for Referral * Consultation (Routine) - Closed Specialty Diagnoses / Procedures Referred By Contac t Referred To Contact Physical Therapy Diagnoses Cervical radiculopathy Primary osteoarthritis of right shoulder Meera Ramirez MD [address] [place] [address] Phone: tel: fax: [facility] Physical Therapy [address] [place] [address] Phone: tel: fax: Referral ID Status Reason Start Date Expiration Date V isits Requested Visits Authorized [id number] Closed Specialty Services Required 09/26/2024 09/26/2025 20 20 Encounter Details Date Type Department Care Team ([facility] st Contact Info) Description 09/21/2024 Telephone [facility] [address] [place] [address] Tarik Dejesus RN [address] [place], [place] [phone] Social History Tobacco Use Types Packs/Day Years Used Date Smoking Tobacco: Never Passive Smoke Exposure: Never Smokeless Tobacco: Never Alcohol Use Standard Drinks/Week Comments Not Currently 0 (1 standard drink = 0.6 oz pur e alcohol) Depression Answer Date Recorded Patient Health Questionnaire-9 Score 0 03/02/2023 Housing Stability Answer Date Recorded What is your housing situation today? I have ivon sing 06/08/[address] you li [...] Telephone Encounter - Yulissa Mcpherson RN - 09/21/2024 3:36 PM EST TC placed to patient [phone] via [employer] interpreters (Pao #[id number]). Patient informed Xrays orderedon 09/06/24 returned showing DJD changes. Patient advised PCP has referred patient to PT for her neck and shoulder pain and she should call ortho office to r/s ortho appointment r/t to shoulder. Patient informed she will receive a letter in the mail r/t to PT referral with appointment date and time or a call from PT office with appointment date and time. Patient also informed of acupuncture or referral to pain clinic for injections (patient reports she is not interested at this time). Patient advised in regards to medications to use diclofenac gel daily x1 week then PRN on affected areas WITH flexeril at bedtime x1 weeks and then PRN and lidocaine patches (if effective). Patient advised of upcoming PCP appointment on 3/12/25 with PCP and advised to keep psych appointment on 10/04/24 (to discuss anxiety and medications). Patient informed d/t duloxetine medication giving patient a dry mouthshe should drink more water or chew gum to see if it helps with the side effect. Patient verbalizedunderstanding. RN will send message to [facility] in regards to should Xray ordered by Dr. Polo. * Telephone Encounter - Meera Ramirez MD - 09/21/2024 3:00 PM EST Re Xray shoulder, I do not see recent Xrays ordered by Dr Polo. She has hx significant OA spine and shoulders and I had referred her to orthopedics last year after her Xrays on 12/2023, she was evaluated and scheduled for shoulder surgery but she failed to fu with orhto and with us for preop evaluation. As she came back with neck pain, I ordered Xrays of spine (09/06/24) and they showed DJD changes. Please call her that I can refer her to PT for neck pain and shoulder pain from OA, she can rs orthopedics appt when she's ready for surgery (they last saw her around Apr). She can also come to acupuncture or be referred to pain clinic for injections. Alternatively she can be referred to our joint inj clinic for shoulder injections (she already had few at orhto office last year). Please tell her to use Diclofenac gel daily x 1w then prn on affected areas + Flexeril at bedtime x1w then at bedtime prn pain. There are no many med options due to allergies and medication interactions. If lidocaine patch helps, tell her to get more refills from pharmacy ( I sent 2 RF) I will see her as scheduled once she completes PT and meds. Please remind her to fu with psych and address meds for anxiety specially as duloxetine seems to begiving her side effects? Ask her if drinking more water or chewing gum could help dry mouth (flexeril does give her dry mouth as well, but then again, she will have less med options if she can get around the side effects). Please ask Dr Polo re Xrays * Telephone Encounter - Tarik Dejesus RN - 09/21/2024 1:45 PM EST CM spoke with patient today for the initial assessment to the [facility] program. Patient is requesting review of the x-ray results from 09/06/24. She reports continued right shoulder pain. Per patient, taking cyclobenzaprine only as needed. She also reports use of lidocaine patches BID. Per patient, onlyhas one patch left. She states she is not taking tylenol, stating Rx was discontinued due to allergy. She also states she cannot take ibuprofen due to allergy. Patient has not seen PT or Ortho. CM will assist with appt scheduling. Patient also inquiring on psych meds. States she spoke with someone in the office today and was advised that patient should f/u with psych on 10/04/24. Per patient, taking the depakote. She states shedoes not take duloxetine due to dry mouth. CM again advised patient of message from patient and advised that she keep her appt with psych as scheduled. She agrees. documented in this encounter Plan of Treatment Upcoming Encounters Date Type Department Care Team (Late st Contact Info) Description 10/07/2024 3:30 PM EST Office Visit [facility] [address] [place] [address] Eliel-Shaye Hess, DDS [address] [place] [address] 11/02/2024 11:30 AM EDT Office Visit [facility] [address] [place] [address] Meera Ramirez MD [address] [place] [address] 11/16/2024 2:00 PM EDT Office Visit [facility] [address] [place] [address] Molly Bernard, OD [address] [place] [address] Scheduled Referrals Name Type Priority Associated Diagnoses Orde r Schedule Referral to Physical Therapy Outpatient Referral Routine Cervical radiculopathy Primary osteoarthritis of right shoulder Expected: 09/21/2024 (Approximate), Expires: 09/21/2025 documented as of this encounter Visit Diagnoses Diagnosis Primary osteoarthritis of right shoulder- Primary Cervical radiculopathy Brachial neuritis or radiculitis nos documented in this encounter Additional Health Concerns Assessment Noted Time PHQ-9 Depression Total Score: 0 03/02/20 23 10:46 AM EDT documented as of this encounter Care Teams Assessment Analyst Relationship Specialty Start Date End Date Meera Ramirez MD [address] [place] [address] PCP - General Family Medicine 03/14/20 documented as of this encounter
--- OUTSIDE RECORDS SUMMARY | 2024-10-05 14:14 | XMS_ITS | Encounter Summary ---
Author Organization [employer] Address 75 [facility] 7t [place] [address] Care Team Providers Care Telegraph And Teletype Operator Name Role Phone Meera Ramirez MD Primary Care Provider + Tarik Dejesus RN Unavailable [phone] Reason for Visit * Reason Comments Care Coordination SDOH Encounter Details Date Type Department Care Team (Latest Contact Info) Description 10/03/2024 Patient Outreach [facility] MEDICINE [address] [place] [address] Meera Ramirez MD [address] [place] [address] Care Coordination (SDOH) Social History Tobacco Use Types Packs/Day Years [...] encounter Progress Notes * Vianey Davison - 10/03/2024 2:13 PM EST CHW Vianey Davison placed outbound call to patient for follow up call on SDOH needs. No answer at this time. LVM introducing herself from [facility] CM Department. Requested call back. CHWreinforced direct contact information or for any additional questions or concernsand extended clinic hours on Mondays and Wednesdays, and Walk-In Urgent Care Located in [facility] of [facility]. Patient provided with after-hours line for [facility], , which offer night time triage service and option to transfer to data warehouse consultant provider if needed. CHW will attempt another follow up call within 10 days. documented in this encounter Plan of Treatment Upcoming Encounters Date Type Department Care Team (Late st Contact Info) Description 10/07/2024 3:30 PM EST Office Visit [facility] ADULT DENTAL [address] [place], [place] [phone] Shaye Ba, DDS [address] [place], [place] [phone] 11/02/2024 11:30 AM EDT Office Visit [facility] MEDICINE [address] [place] [address] Meera Ramirez MD [address] [place] [address] 11/16/2024 2:00 PM EDT Office Visit [facility] OPTOMETRY [address] [place], [place] [phone] Molly Bernard, OD [address] [place] [address] documented as of this encounter Visit Diagnoses Not on filedocumented in this encounter Additional Health Concerns Assessment Noted Time PHQ-9 Depression Total Score: 0 03/02/20 23 10:46 AM EDT documented as of this encounter Care Teams Telegraph And Teletype Operator Relationship Specialty Start Date End Date Meera Ramirez MD [address] [place], [place] [phone] PCP - General Family Medicine 03/14/20 Tarik Dejesus RN [address] [place] [address] Election AssistantInspector Wreath 09/26/24 documented as of this encounter
--- OUTSIDE RECORDS SUMMARY | 2024-10-05 14:14 | XMS_ITS | Encounter Summary ---
Author Organization [employer] Address 75 [facility] 7t [place] [address] Care Team Providers Care Cleater Name Role Phone Meera Ramirez MD Primary Care Provider + Encounter Details Date Type Department Care Team ([facility] st Contact Info) Description 09/15/2024 Telephone [facility] MEDICINE [address] [place] [address] Meera Ramirez MD [address] [place] [address] Social History Tobacco Use Types Packs/Day Years [...] encounter Miscellaneous Notes * Telephone Encounter - Oksana Sharp - 09/15/2024 12:35 PM EST Please contact Safety and Incident Insurance Manager Oksana Sharp [phone] when patient comes into the [facility]. documented in this encounter Plan of Treatment Upcoming Encounters Date Type Department Care Team (Late st Contact Info) Description 10/07/2024 3:30 PM EST Office Visit [facility] ADULT DENTAL [address] [place] [address] Julian-Hess, Shaye, DDS [address] [place] [address] 11/02/2024 11:30 AM EDT Office Visit [facility] MEDICINE [address] [place] [address] Meera Ramirez MD [address] [place] [address] 11/16/2024 2:00 PM EDT Office Visit [facility] OPTOMETRY [address] [place] [address] Molly Bernard, OD [address] [place] [address] documented as of this encounter Visit Diagnoses Not on filedocumented in this encounter Additional Health Concerns Assessment Noted Time PHQ-9 Depression Total Score: 0 03/02/20 10:46 AM EDT documented as of this encounter Care Teams Cleater Relationship Specialty Start Date End Date Meera Ramirez MD [address] [place] [id number] PCP - General Family Medicine 03/14/20 documented as of this encounter
--- OUTSIDE RECORDS SUMMARY | 2024-10-05 14:14 | XMS_ITS | Encounter Summary ---
Author Organization [employer] Address [address] [facility] [address] [place] [address] Care Team Providers Care Billet Assembler Name Role Phone Meera Ramirez MD Primary Care Provider + Tarik Dejesus RN Unavailable [phone] Reason for Visit * Reason Comments Med Refill Encounter Details Date Type Department Care Team (Late st Contact Info) Description 06/20/2024 Refill [facility] [address] [place] [address] Meera Ramirez MD [address] [place], [place] [phone] Primary osteoarthritis of right shoulder Social History [...] 3:30 PM EST Office Visit [facility] ADULT DENTAL [address] [place] [address] Julian-HessShaye, DDS [address] [place] [address] 11/02/2024 11:30 AM EDT Office Visit [facility] MEDICINE [address] [place] [address] Meera Ramirez MD [address] [place] [address] 11/16/2024 2:00 PM EDT Office Visit [facility] OPTOMETRY [address] [place] [address] Marco Antonio, Molly, OD [address] [place] [address] documented as of this encounter Visit Diagnoses Diagnosis Primary osteoarthritis of right shoulder documented in this encounter Additional Health Concerns Assessment Noted Time PHQ-9 Depression Total Score: 0 03/02/20 23 10:46 AM EDT documented as of this encounter Care Teams Billet Assembler Relationship Specialty Start Date End Date Meera Ramirez MD [address] [place] [address] PCP - General Family Medicine 7/22/20 Tarik Dejesus RN [address] [place] [address] Heel Cover SoftenerMedia Producer 09/26/24 documented as of this encounter
--- OUTSIDE RECORDS SUMMARY | 2024-10-05 14:15 | XMS_ITS | Encounter Summary ---
Author Organization [employer] Address 75 [facility] 7t [place] [address] Care Team Providers Care Hr Representative Name Role Phone Meera Ramirez MD Primary Care Provider + Tarik Dejesus RN Unavailable [phone] Reason for Visit * Reason Comments Med Refill Encounter Details Date Type Department Care Team (Late st Contact Info) Description 07/05/2024 Refill [facility] MEDICINE [address] [place] [address] Meera Ramirez MD [address] [place] [address] Primary osteoarthritis of right shoulder Social History [...] Description 10/07/2024 3:30 PM EST Office Visit [facility] ADULT DENTAL [address] [place] [address] Eliel-Shaye Hess, DDS [address] [place] [address] 11/02/2024 11:30 AM EDT Office Visit [facility] MEDICINE [address] [place] [address] Meera Ramirez MD [address] [place] [address] 11/16/2024 2:00 PM EDT Office Visit [facility] OPTOMETRY [address] [place] [address] Marco Antonio, Molly, OD [address] [place] [address] documented as of this encounter Visit Diagnoses Diagnosis Primary osteoarthritis of right shoulder documented in this encounter Additional Health Concerns Assessment Noted Time PHQ-9 Depression Total Score: 0 03/02/20 23 10:46 AM EDT documented as of this encounter Care Teams Hr Representative Relationship Specialty Start Date End Date Meera Ramirez MD [address] [place] [address] PCP - General Family Medicine 03/14/20 Tarik Dejesus RN [address] [place] [address] Welding Machine Operator Submerged ArcTattoo Artist 09/26/24 documented as of this encounter
--- OUTSIDE RECORDS SUMMARY | 2024-10-05 14:15 | XMS_ITS | Encounter Summary ---
Author Organization [employer] Address [address] [facility] 7t [place] [address] Care Team Providers Care Conservation Science Officer Name Role Phone Meera Ramirez MD Primary Care Provider + Tarik Dejesus RN Unavailable [phone] Reason for Visit * Reason Comments Med Refill Encounter Details Date Type Department Care Team (Late st Contact Info) Description 07/20/2024 Refill [facility] [address] [place] [address] Nunu Benedict MD [address] [place] [address] Social History Tobacco Use Types Packs/Day Years [...] 3:30 PM EST Office Visit [facility] ADULT DENTAL [address] [place] [address] Shaye Ba, DDS [address] [place] [address] 11/02/2024 11:30 AM EDT Office Visit [facility] MEDICINE [address] [place] [address] Meera Ramirez MD [address] [place] [address] 11/16/2024 2:00 PM EDT Office Visit [facility] OPTOMETRY [address] [place] [address] Marco Antonio, Molly, OD [address] [place] [address] documented as of this encounter Visit Diagnoses Not on filedocumented in this encounter Additional Health Concerns Assessment Noted Time PHQ-9 Depression Total Score: 0 03/02/20 23 10:46 AM EDT documented as of this encounter Care Teams Conservation Science Officer Relationship Specialty Start Date End Date Meera Ramirez MD [address] [place] [address] PCP - General Family Medicine 03/14/20 Tarik Dejesus RN [address] [place] [address] CulturistFurniture Cleaner 09/26/24 documented as of this encounter
--- OUTSIDE RECORDS SUMMARY | 2024-10-05 14:15 | XMS_ITS | Encounter Summary ---
Author Organization [employer] Address 75 [facility] 7t [place] [address] Care Team Providers Care Satellite Television Installer Name Role Phone Meera Ramirez MD Primary Care Provider + Tarik Dejesus RN Unavailable [phone] Encounter Details Date Type Department Care Team ([facility] st Contact Info) Description 07/29/2024 Telephone [facility] MEDICINE [address] [place] [address] Meera Ramirez MD [address] [place] [address] Social History Tobacco Use Types Packs/Day Years [...] Description 10/07/2024 3:30 PM EST Office Visit [facility] ADULT DENTAL [address] [place] [address] Shaye Ba, DDS [address] [place] [address] 11/02/2024 11:30 AM EDT Office Visit [facility] MEDICINE [address] [place] [address] Meera Ramirez MD [address] [place] [address] 11/16/2024 2:00 PM EDT Office Visit [facility] OPTOMETRY [address] [place] [address] Marco Antonio, Molly, OD [address] [place] [address] documented as of this encounter Visit Diagnoses Not on filedocumented in this encounter Additional Health Concerns Assessment Noted Time PHQ-9 Depression Total Score: 0 03/02/20 23 10:46 AM EDT documented as of this encounter Care Teams Satellite Television Installer Relationship Specialty Start Date End Date Meera Ramirez MD [address] [place] [address] PCP - General Family Medicine 03/14/20 Tarik Dejesus RN [address] [place] [address] [place] [address] Photonics Engineering TechnologistAnimal Health Technician 09/26/24 documented as of this encounter
--- OUTSIDE RECORDS SUMMARY | 2024-10-05 14:15 | XMS_ITS | Encounter Summary ---
Author Organization [employer] [facility] Address 75 [facility] 7t [place] [address] Care Team Providers Care Van Driver Helper Name Role Phone Meera Ramirez MD Primary Care Provider + Tarik Dejesus RN Unavailable [phone] Encounter Details Date Type Department Care Team (Late Contact Info) Description 04/08/2023 Orders Only [facility] MEDICINE [address] [place] [address] Meera Ramirez MD [address] [place] [address] Social History Tobacco Use Types Packs/Day Years Used Date Smoking Tobacco: Never Passive Smoke Exposure: Never Smokeless Tobacco: Never Alcohol Use Standard Drinks/Week Comments Not Currently 0 (1 standard drink = 0.6 oz pur e alcohol) Depression Answer Date Recorded Patient Health Questionnaire-9 Score 0 03/02/2023 Depression Answer Date Recorded Patient Health Questionnaire-2 [...] Encounters Date Type Department Care Team (Late Contact Info) Description 10/07/2024 3:30 PM EST Office Visit [facility] ADULT DENTAL [address] [place] [address] Shaye Ba DDS [address] [place] [address] 11/02/2024 11:30 AM EDT Office Visit [facility] MEDICINE [address] [place] [address] Meera Ramirez MD [address] [place] [address] 11/16/2024 2:00 PM EDT Office Visit [facility] OPTOMETRY [address] [place] [address] Marco Antonio, Molly, OD [address] [place] [address] documented as of this encounter Visit Diagnoses Not on filedocumented in this encounter Additional Health Concerns Assessment Noted Time PHQ-9 Depression Total Score: 0 03/02/20 23 10:46 AM EDT documented as of this encounter Care Teams Van Driver Helper Relationship Specialty Start Date End Date Meera Ramirez MD [address] [place] [address] PCP - General Family Medicine 03/14/20 Tarik Dejesus RN [address] [place] [address] Scale ManagerSenior Net Programmer 09/26/24 documented as of this encounter
--- OUTSIDE RECORDS SUMMARY | 2024-10-05 14:15 | XMS_ITS | Encounter Summary ---
Author Organization [employer] Address 75 [facility] 7t [place] [address] Care Team Providers Care Pediatrics Hospitalist Name Role Phone Meera Ramirez MD Primary Care Provider + Tarik Dejesus RN Unavailable [phone] Reason for Visit * Reason Comments Med Refill Encounter Details Date Type Department Care Team (Late Contact Info) Description 04/08/2023 Refill [facility] [address] [place] [address] Renee Cordero MD [address] [place] [address] Anxiety Social History Tobacco Use Types Packs/Day [...] Description 10/07/2024 3:30 PM EST Office Visit [facility] ADULT DENTAL [address] [place] [address] Shaye Ba DDS [address] [place] [address] 11/02/2024 11:30 AM EDT Office Visit [facility] MEDICINE [address] [place] [address] Meera Ramirez MD [address] [place] [address] 11/16/2024 2:00 PM EDT Office Visit [facility] OPTOMETRY [address] [place] [address] Marco Antonio, Molly, OD [address] [place] [address] documented as of this encounter Visit Diagnoses Diagnosis Anxiety Anxiety state, unspecified documented in this encounter Additional Health Concerns Assessment Noted Time PHQ-9 Depression Total Score: 0 03/02/20 23 10:46 AM EDT documented as of this encounter Care Teams Pediatrics Hospitalist Relationship Specialty Start Date End Date Meera Ramirez MD 230 [place] [address] PCP - General Family Medicine 03/14/20 Tarik Dejesus, AARON [address] [place] [address] Drawing Kiln SupervisorAnimal Nutritionist 09/26/24 documented as of this encounter
--- OUTSIDE RECORDS SUMMARY | 2024-10-05 14:15 | XMS_ITS | Encounter Summary ---
Author Organization [employer] Address [address] [facility] [address] 7[address] [place] [address] Care Team Providers Care Child Care Team Lead Name Role Phone Meera Ramirez MD Primary Care Provider + Tarik Dejesus RN Unavailable Reason for Visit * Reason Comments Med Refill Encounter Details Date Type Department Care Team (Late st Contact Info) Description 06/20/2024 Refill [facility] [address] [place] [address] Meera Ramirez MD [address] [place], [place] [phone] Primary osteoarthritis of right shoulder Social History [...] Description 10/07/2024 3:30 PM EST Office Visit [facility] ADULT DENTAL [address] [place] [address] Julian-HessShaye, DDS [address] [place] [address] 11/02/2024 11:30 AM EDT Office Visit [facility] MEDICINE [address] [place] [address] Meera Ramirez MD [address] [place] [address] 11/16/2024 2:00 PM EDT Office Visit [facility] OPTOMETRY [address] [place] [address] Marco Antonio, Molly, OD [address] [place] [address] documented as of this encounter Visit Diagnoses Diagnosis Primary osteoarthritis of right shoulder documented in this encounter Additional Health Concerns Assessment Noted Time PHQ-9 Depression Total Score: 0 03/02/20 23 10:46 AM EDT documented as of this encounter Care Teams Child Care Team Lead Relationship Specialty Start Date End Date Meera Ramirez MD [address] [place] [address] PCP - General Family Medicine 7/22/20 Tarik Dejesus RN [address] [place] [address] Jet InspectorMiddle Card Tender 09/26/24 documented as of this encounter
== END 2024-10-05 12:58 | disposition left against medical advice (07) ==
PROVIDERS: Emergency Provider Emergency Medicine; PCP Internal Medicine
DX: T40.5X1A Poisoning by cocaine, accidental (unintentional), initial encounter (principal); R40.4 Transient alteration of awareness; Y92.9 Unspecified place or not applicable; M25.562 Pain in left knee; Z79.899 Other long term (current) drug therapy
CPT/HCPCS: 99283

== ENCOUNTER 2025-03-18 14:28 | Outpatient (REF) | payer MEDICAID, SELFPAY ==
--- OUTSIDE RECORDS SUMMARY | 2025-03-18 14:31 | XMS_ITS | Encounter Summary ---
Author Organization [employer] Address [address] [facility] 7t [place] [address] Care Team Providers Care Edge Grinder Machine Name Role Phone Meera Ramirez MD Primary Care Provider + Tarik Dejesus RN Unavailable [phone] Encounter Details Date Type Department Care Team ([facility] st Contact Info) Description 03/08/2024 Telephone [facility] MEDICINE [address] [place] [address] Meera Ramirez MD [address] [place] [address] Social History Tobacco Use Types Packs/Day Years [...] Care Team (Late st Contact Info) Description 03/31/2025 12:00 PM EDT Office Visit [facility] MEDICINE [address] [place] [phone] Meera Ramirez MD [address] [place] [phone] 05/31/2025 9:15 AM EDT Office Visit [facility] MEDICINE [address] [place] [phone] Meera Ramirez MD [address] [place] [phone] documented as of this encounter Visit Diagnoses Not on filedocumented in this encounter Additional Health Concerns Assessment Noted Time PHQ-9 Depression Total Score: 0 03/02/20 23 10:46 AM EDT documented as of this encounter Care Teams Edge Grinder Machine Relationship Specialty Start Date End Date Meera Ramirez MD [address] [place] [phone] PCP - General Family Medicine 03/14/20 Tarik Dejesus RN [address] [place] [address] Artifacts ConservatorLinseed Oil Order Filler 09/26/24 01/19/25 documented as of this encounter
[2025-03-18 15:31] LABS: Bacterial Vaginosis PCR POSITIVE (Negative); Candida Group PCR NOT DETECTED (Not Detect); Candida glab krusei PCR NOT DETECTED (Not Detect); Trichomonas vaginalis PCR NOT DETECTED (Not Detect)
[2025-03-18 16:05] LABS: CT PCR NOT DETECTED (Not Detect.); NG PCR NOT DETECTED (Not Detect.)
== END 2025-03-18 14:29 | disposition home or self-care (01) ==
LOC: HO.HHCLNP 14:28
PROVIDERS: Visit Provider Internal Medicine
DX: H60.22 Malignant otitis externa, left ear (principal); R39.9 Unspecified symptoms and signs involving the genitourinary system
CPT/HCPCS: 81515; 87491; 87591

== ENCOUNTER 2025-05-15 16:04 | Outpatient (REF) | payer MEDICAID, SELFPAY ==
--- OUTSIDE RECORDS SUMMARY | 2025-05-15 18:05 | XMS_ITS ---
Encounter Summary Created on: May 15, 2025
--- OUTSIDE RECORDS SUMMARY | 2025-05-15 18:05 | XMS_ITS | Encounter Summary ---
Demographics Address [address] [place] [address] Home Phone Mobile Phone Work Phone
--- OUTSIDE RECORDS SUMMARY | 2025-05-15 18:05 | XMS_ITS | Encounter Summary ---
Author Organization [employer] Address [address] [place] [address] [place] [address] Care Team Providers Care Relationship Mgr Name Role Phone Meera Ramirez MD Primary Care Provider + Reason for Visit * Reason Onset Date Comments Med Refill 05/09/2025 Encounter Details Date Type Department Care Team (Late st Contact Info) Description 05/09/2025 Refill [facility] MEDICINE [address] [facility]
== END 2025-05-15 16:05 | disposition home or self-care (01) ==
LOC: HO.HHCX 16:04
PROVIDERS: Visit Provider Nurse Practitioner Primary Care
DX: M25.551 Pain in right hip (principal)
CPT/HCPCS: 73502

== ENCOUNTER → 2025-05-15 16:04 | Outpatient (BNV) | payer MEDICAID, SELFPAY | PROVIDERS: Visit Provider Radiology Diagnostic Radiology | DX: M25.551 Pain in right hip (principal); M25.59 Pain in other specified joint; W19.XXXA Unspecified fall, initial encounter | CPT/HCPCS: 73502 ==

== ENCOUNTER 2025-06-02 14:35 | Outpatient (REF) | payer MEDICAID, SELFPAY ==
--- NOTE | ~2025-06-02 | XR_ITS ---
EXAMINATION: XR FOOT 3 OR MORE VIEWS RIGHT HISTORY: pain after trip COMPARISON: There are no prior studies available for comparison. FINDINGS: Three views of the right foot are submitted. Osseous mineralization is normal. There is no fracture or dislocation. The joint spaces are preserved. The soft tissues are unremarkable. XR/XR foot RT min 3V IMPRESSION: Unremarkable examination of the right foot. Electronically signed by: Macario Magdaleno MD 06/02/2025 03:56 PM EDT
== END 2025-06-02 14:36 | disposition home or self-care (01) ==
LOC: HO.HHCX 14:35
PROVIDERS: Visit Provider Internal Medicine
DX: M79.671 Pain in right foot (principal)
CPT/HCPCS: 73630

== ENCOUNTER → 2025-06-02 14:36 | Outpatient (BNV) | payer MEDICAID, SELFPAY | PROVIDERS: Visit Provider Radiology Diagnostic Radiology | DX: M79.671 Pain in right foot (principal) | CPT/HCPCS: 73630 ==

== ENCOUNTER 2025-08-21 11:26 | Emergency (ER) | payer MEDICAID, SELFPAY ==
--- OUTSIDE RECORDS SUMMARY | 2024-10-07 15:30 | XMS_ITS | Encounter Summary ---
Author Organization [facility] Address [address] [facility] 7t [place] [address] Care Team Providers Care Door To Door Salesperson Name Role Phone Meera Ramirez MD Primary Care Provider + Tarik Dejesus RN Unavailable [phone] Hannah Ponce RN Unavailable [phone] Kristin Hendricks Unavailable Reason for Visit * Reason Comments Dentures Encounter Details Date Type Department Care Team (Late st Contact Info) Description 10/07/2024 3:30 PM EST Office Visit [facility] ADULT DENTAL [address] [place] [address] Shaye Ba DDS [address] [place] [address] Periodontal disease (Primary Dx); Dental calculus; Encounter for dental examination; Edentulous maxilla Social History Tobacco Use Types Packs/Day Years Used Date Smoking Tobacco: Never Passive Smoke Exposure: Never Smokeless Tobacco: Never Alcohol Use Standard Drinks/Week Comments Not Currently 0 (1 standard drink = 0.6 oz pur e alcohol) Depression Answer Date Recorded Patient Health Questionnaire-9 Score 0 06/05/2025 Patient Health Questionnaire-9 Score 0 06/05/2025 Last PHQ-9: Questionnaire Data Not on file 1 Housing Stability Answer Date Recorded What is your housing situation today? I have ivon shafer 06/05/[address] you li ve. Do you have problems with any of the following? None of the above 06/05/2025 Food Insecurity Answer Date Recorded Within the past 12 months, y ou worried that your food would run out before you got money to buy more: Never True 06/05/2025 Within the past 12 months,th e food you bought just didn't last and you didn't have enough money to get more: Never True Transportation Answer Date Recorded In the past 12 months, has l ack of transportation kept you from medical appts, meetings, work or from getting things needed for daily living? No 06/05/2025 Utilities Answer Date Recorded In the past 12 months, has t he electric, gas, oil or water company threatened to shut off services in your home? No 06/05/2025 Depression Answer Date Recorded Patient Health Questionnaire-2 Score 0 06/05/2025 Internet Access Answer Date Recorded Internet Access Q1 I am not sure 06/05/2025 Internet Access Q2 Not on file 06/05/2025 Comments Unknown Sex and Gender Information Value Date Recorded Sex Assigned at Female 06/23/2022 10:15 AM EDT Legal Sex Female 10:15 AM EDT Gender Identity Female 06/23/2022 10:15 AM EDT Sexual Orientation Choose not to disclose 2021 10:15 AM EDT documented as of this encounter Progress Notes * Shaye Ba DDS - 10/07/2024 3:30 PM EST Dental procedures in this visit D0120 - PERIODIC ORAL EVALUATION - ESTABLISHED PATIENT (Completed) Service provider: Shaye Ba DDS Billing provider: Shaye Ba DDS [id number] - PANORAMIC RADIOGRAPHIC IMAGE (Completed) Service provider: Shaye Ba DDS Billing provider: Shaye Ba DDS [id number] - CASE PRESENTATION, DETAILED AND EXTENSIVE TREATMENT PLANNING (Completed) Service provider: Shaye Ba DDS Billing provider: Shaye Ba DDS Patient ID: Nunu Segal is a 64 y.o. female. Time Out: Timeout Date: 10/07/24, Timeout Time: 1535 (impr for new dentures) Location: [facility] Tooth: Maxilla and Mandible Procedure: Exam and X-rays Verified the above with patient, preschool assistant, and provider. Confirmed via patient's chart, intraorally and by radiographs. Group Fitness Instructor: not applicable Chief Complaint Patient presents with Dentures Medical Hx: Vitals: There were no vitals taken for this visit. Past Medical History: Diagnosis Date Depression Diabetes mellitus ([facility]) Medications: Outpatient Encounter Medications as of 10/07/2024 Medication Sig Dispense Refill Blood Glucose Monitoring Suppl (FreeStyle Lite) w/Device kit 1 each in the morning. Use to monitor blood glucose once daily 1 kit 0 cyclobenzaprine (Flexeril) 10 MG tablet Take 1 tablet (10 mg) by mouth if needed at bedtime for muscle spasms for up to 15 days. 15 tablet 1 lidocaine (Lidoderm) 5 % patch Apply 1 patch topically Once per day. Remove & discard patch within 12 hours or as directed by MD. 30 patch 3 naloxone (Narcan) 4 mg/0.1 mL nasal spray Administer 1 spray (4 mg) into affected nostril(s) if needed for opioid reversal. May repeat every 2-3 minutes if needed, alternating nostrils, until medicalassistance becomes available. 2 each 0 Zvvkp-Pgdbj-Paebowp-Pramoxine (Triple Antibiotic Pain Relief) 1 % ointment Apply to affected ear bid x 1w 14 g 0 TRUEplus Lancets 33G misc USE DIRECTED TO TEST BLOOD SUGAR ONCE DAILY IN THE MORNING 100 each 5 [DISCONTINUED] divalproex (Depakote) 250 MG EC tablet Take 1 tablet (250 mg) by mouth 2 times daily. Do not crush, chew, or split. 60 tablet 3 [DISCONTINUED] DULoxetine (Cymbalta) [address] capsule Take 1 capsule (30 mg) by mouth Once per day.Do not crush or chew. 90 capsule 0 No facility-administered encounter medications on file as of 10/07/2024. Objective HPI Soft Tissue Exam No findings documented this visit Head and Neck Exam: Lymph Nodes, Lips, Palate, Buccal Mucosa, Floor of Mouth, Tongue, Tonsils, Alveolar Ridges, Oropharynx, Salivary Ducts, and Vestibules -no significant findings observed Details: limited mouth opening OCS: negative Dental Exam Radiographic Interpretation: Associated radiographs for today's visit were reviewed and finding(s) were discussed with the patient. Findings include: edentulous maxilla; gross calculus, none loss, dental plaque, halitosis Hard Tissue Exam: Reference tooth chart for additional findings. Oral Cancer Risk: Low Risk Oral Hygiene Instructions: [place] two times daily, modified mckeon technique, Soft bristle toothbrush,[place] Tongue Caries Risk Assessment: High- two or more risk factors Assessment/Plan Referred for exts CDs Patient tolerated procedure well, all questions answered and expressed understanding. Dismissed in good condition. NV: Exts CDs Sole Ruffer: JADON Yates Dentist: Shaye Ba DDS documented in this encounter Plan of Treatment Upcoming Encounters Date Type Department Care Team (Late st Contact Info) Description 09/04/2025 3:00 PM EST Office Visit [facility] MEDICINE [address] [place] [address] Meera Ramirez MD [address] [place] [address] Scheduled Orders Name Type Priority Associated Diagnoses Orde r Schedule 22 22 EXTRACTION, ERUPTED TOOTH OR EXPOSED ROOT (ELEVATION/FORCEPS REMOVAL) Dental Routine 1 Occurrences 10/07/2024 23 23 EXTRACTION, ERUPTED TOOTH OR EXPOSED ROOT (ELEVATION/FORCEPS REMOVAL) Dental Routine 1 Occurrences 10/07/2024 24 24 EXTRACTION, ERUPTED TOOTH OR EXPOSED ROOT (ELEVATION/FORCEPS REMOVAL) Dental Routine 1 Occurrences [facility] 10/07/2024 25 25 EXTRACTION, ERUPTED TOOTH OR EXPOSED ROOT (ELEVATION/FORCEPS REMOVAL) Dental Routine 1 Occurrences 10/07/2024 26 26 EXTRACTION, ERUPTED TOOTH OR EXPOSED ROOT (ELEVATION/FORCEPS REMOVAL) Dental Routine 1 Occurrences 10/07/2024 27 27 EXTRACTION, ERUPTED TOOTH OR EXPOSED ROOT (ELEVATION/FORCEPS REMOVAL) Dental Routine 1 Occurrences 10/07/2024 28 28 EXTRACTION, ERUPTED TOOTH OR EXPOSED ROOT (ELEVATION/FORCEPS REMOVAL) Dental Routine 1 Occurrences 10/07/2024 29 29 EXTRACTION, ERUPTED TOOTH OR EXPOSED ROOT (ELEVATION/FORCEPS REMOVAL) Dental Routine 1 Occurrences 10/07/2024 Max Max COMPLETE DENTURE - MAXILLARY Dental Routine 1 Occurrences /14/2025 Dominique Dominique COMPLETE DENTURE - MANDIBULAR Dental Routine 1 Occurrenc es starting 10/07/2024 documented as of this encounter Procedures Procedure Name Priority Date/Time Associated Diagnosis Comments PERIODIC ORAL EVALUATION - ESTABLISHED PATIENT Routine 10/07/2024 3:30 PM EST Periodontal disease Dental calculus Encounter for dental examination Edentulous maxilla PANORAMIC RADIOGRAPHIC IMAGE Routine 10/07/2024 3:30 PM EST Periodontal disease Dental calculus Encounter for dental examination Edentulous maxilla CASE PRESENTATION, DETAILED AND EXTENSIVE TREATMENT PLANNING Routine 10/07/2024 3:30 PM EST Periodontal disease Dental calculus Encounter for dental examination Edentulous maxilla documented in this encounter Visit Diagnoses Diagnosis Periodontal disease- Primary Unspecified gingival and periodontal disease Dental calculus Accretions on teeth Encounter for dental examination Edentulous maxilla documented in this encounter Additional Health Concerns Assessment Noted Time PHQ-9 Depression Total Score: 0 03/02/20 23 10:46 AM EDT documented as of this encounter Care Teams Door To Door Salesperson Relationship Specialty Start Date End Date Meera Ramirez MD [address] [place] [phone] PCP - General Family Medicine 03/14/20 Tarik Dejesus RN [address] [place] [phone] Gospel WorkerRetail Training Manager 09/26/24 01/19/25 Hannah Ponce RN [address] [place] [phone] Registered Nurse Family Medicine 06/21/25 08/10/25 Kristin Hendricks 06/21/25 08/10/25 documented as of this encounter
--- NOTE | 2025-08-21 11:27 | ECG_ITS ---
Test Reason : ABD PAIN Blood Pressure : */* mmHG Vent. Rate : 85 BPM Atrial Rate : 85 BPM P-R Int : 118 ms QRS Dur : 68 ms QT Int : 362 ms P-R-T Axes : 147 -6 147 degrees QTcB Int : 430 ms Unusual P axis, possible ectopic atrial rhythm ST & T wave abnormality, consider lateral ischemia Abnormal ECG When compared with ECG of 14-Jan-2024 11:35, T wave inversion now evident in Lateral leads Referred By: Loly Gambino Electronically Signed By: RISHI MENEZES
[2025-08-21 11:51] VITALS: BP 145/76; PULSE 88; RESP 18; TEMP 36.6; O2SAT 97; BMI 18.9
--- NOTE | 2025-08-21 11:53 | ED.GENADULT ---
HPI - General Adult General Chief complaint: Chest Pain Stated complaint: Chest Pain, R Arm Pain Related Data Previous Rx's ?Medication ?Instructions ?Recorded doxycycline monohydrate 100 mg 100 mg PO BID 10 days #20 caps 10/23/20 capsule clonazepam 0.5 mg tablet (Klonopin) 0.5 mg PO BEDTIME PRN anxiety #14 03/08/21 tabs cephalexin 500 mg capsule 500 mg PO Q8H #21 caps 05/06/21 oxycodone 5 mg tablet 5 mg PO Q8H PRN pain #5 tabs 06/27/21 walker #1 ea 06/27/21 cyclobenzaprine 10 mg tablet 10 mg PO TID PRN muscle spasm #10 11/11/21 tabs lidocaine 5 % topical patch 1 patch topical DAILY #15 ea 11/11/21 (Lidoderm) cephalexin 500 mg capsule 500 mg PO Q8H 7 days #21 caps 12/07/21 clonazepam 1 mg tablet 1 mg PO BID PRN anxiety #10 tabs 01/19/22 prazosin 1 mg capsule 1 mg PO BEDTIME #30 caps 01/19/22 tramadol 50 mg tablet 50 mg PO Q8H PRN pain #7 tabs 02/08/22 lidocaine 5 % topical patch 1 patch topical DAILY PRN pain #30 02/09/22 (Lidoderm) ea tramadol 50 mg tablet 50 mg PO Q8H PRN pain, severe #7 02/09/22 tabs clonazepam 1 mg tablet 1 mg PO DAILY #3 tabs 03/17/22 clonazepam 1 mg tablet (Klonopin) 1 mg PO BEDTIME PRN anxiety #5 tabs 03/02/23 oxycodone 5 mg tablet 5 mg PO BID PRN pain #10 tabs 05/29/23 prednisone 20 mg tablet 20 mg PO BID #10 tabs 05/29/23 doxycycline monohydrate 100 mg 100 mg PO BID #20 caps 07/27/23 capsule lorazepam 1 mg tablet (Ativan) 1 mg PO BEDTIME PRN anxiety #7 tabs 01/04/24 tramadol 50 mg tablet 50 mg PO Q6H PRN pain #20 tabs 01/04/24 lorazepam 1 mg tablet (Ativan) 1 mg PO BID PRN anxiety #4 tabs 01/14/24 oxycodone 5 mg tablet 5 mg PO Q6H PRN pain #10 tabs 01/14/24 lidocaine 5 % topical patch 1 patch topical DAILY #15 ea 03/11/24 (Lidoderm) oxycodone 5 mg tablet 5 mg PO Q6H PRN pain (scale score 03/11/24 4-6) 3 days #12 tabs naloxone 4 mg/actuation nasal 4 mg intranasal Q2M PRN opioid 10/05/24 spray (Narcan) overdose #2 ea Allergies Allergy/AdvReac Type Severity Reaction Status Date / Time naproxen (NAPROXEN) Allergy Severe UNKNOWN Verified 08/21/25 12:00 acetaminophen (From Tylenol) Allergy Unknown Verified 08/21/25 12:00 ibuprofen Allergy Unknown Verified 08/21/25 12:00 pollen extracts Allergy Rash Verified 08/21/25 12:00 tramadol AdvReac Dry Mucus Verified 08/21/25 12:00 Membranes PMFSH Past Medical History Medical History Anxiety High cholesterol HTN (hypertension) Diabetes Surgical History History of hernia surgery Social History Social History (System 01/02/25 @ 09:33 by Elmira Baires) Alcohol intake: never Patient Tobacco Use Status: Never used Tobacco Advance Directives: No Advance Directives Information Provided: No Do you have a plan to hurt others: No Plan Physical Exam ED Vital Signs: Vital Signs - 24 hr 08/21/25 11:51 Temperature 97.8 F Pulse Rate 88 Respiratory Rate 18 Blood Pressure 145/76 H Pulse Oximetry 97 Oxygen Delivery Method Room Air BMI result Body Mass Index 18.9 Course Course Course Narrative: Rapid medical examination performed in triage by Loly Gambino PA-C: Patient is a 65 year old female presenting to the emergency department with chest pain. Patient states that over the last 3 days she has had chest pain. Detailed physical exam and review of systems are deferred to the hand candy cutter. EKG, labs, imaging, swabs ordered. Patient placed back in the waiting room pending room availability and results. Patient left the department without completing treatment. Patient left the department before myself or any of the other emergency department clinicians could explain to or review with the patient; physical exam findings, test results, need or lack there of for additional testing, need or lack there of for a procedure to be performed, need or lack there of for hospital admission / transfer, need or lack there of for prescription medication, treatment options, or a treatment plan. Patient's limited physical exam performed in triage showed a non-toxic individual with appropriate breathing, alert and oriented, and ambulating without assistance. Medical Decision Making Lab Data 08/21/25 13:17 08/21/25 13:17 Labs: Lab Results 08/21/25 Range/Units 13:17 WBC 6.2 (4.8-10.8) X10*3/uL RBC 4.20 (4.20-5.50) X10*6/uL Hgb 12.4 (12.0-16.0) g/dl Hct 38.1 (37.0-47.0) % MCV 90.7 (80.0-98.0) fL MCH 29.5 (27.0-33.0) pg MCHC 32.5 (31.0-35.0) g/dl RDW 14.6 (11.0-16.0) % Plt Count 202 (160-400) X10*3/uL MPV 10.2 (9.4-12.3) fL Immature Gran % (Auto) 0.2 (0.0-0.4) % Neut % (Auto) 67.1 (45-73) % Lymph % (Auto) 26.6 (20-40) % [place] % (Auto) 5.5 (2-11) % Eos % (Auto) 0.0 (0-4) % Baso % (Auto) 0.6 (0-2) % Lymph # (Auto) 1.6 (1.2-4.9) X10*3/uL [place] # (Auto) 0.3 (0.1-1.2) X10*3/uL Eos # (Auto) 0.0 (0.0-0.4) X10*3/uL Baso # (Auto) 0.0 (0.0-0.2) X10*3/uL Abs Immat Gran (auto) 0.01 (0.00-0.03) X10*3/uL Absolute Neuts (auto) 4.1 (2.0-8.3) x10*3/uL Absolute Nucleated RBC 0.000 (0.0-0.012) X10*3/uL Nucleated RBC % (auto) 0.0 (0.0-0.2) /100WBC Sodium 140 (135-145) mmol/L Potassium 4.0 (3.3-5.1) mmol/L Chloride 105 (96-108) mmol/L Carbon Dioxide 27 (22-29) mmol/L Anion Gap 12 (12-20) BUN 21 H (9-16) mg/dL Creatinine 0.77 (0.5-1.4) mg/dL Estim Creat Clear Calc 51.9 Estimated GFR > 60 Random Glucose 91 (60-115) mg/dL Calcium 9.7 (8.4-10.2) mg/dL Magnesium 2.1 (1.6-2.6) mg/dL Total Bilirubin 0.6 (0.0-1.0) mg/dL AST 29 (5-31) U/L ALT 19 (0-31) U/L Alkaline Phosphatase 56 (39-117) U/L Troponin I High Sens 4.5 D (<3.5-17.0) ng/L NT-Pro-B Natriuret Pep 129.6 (<300) pg/mL Total Protein 7.6 (6.5-8.0) g/dL Albumin 4.6 (3.5-5.0) g/dL Influenza Type A (PCR) NEGATIVE (Negative) Influenza Type B (PCR) NEGATIVE (Negative) RSV RNA Qual (PCR) NEGATIVE (Negative) SARS-CoV-2 RNA (RT-PCR) NEGATIVE (Negative) Discharge Plan Discharge Clinical Impression: Chest pain Patient Disposition: Left W/O Completing Treatment Prescriptions: No Action doxycycline monohydrate 100 mg capsule 100 mg PO BID 10 Days Qty: 20 0RF clonazepam [Klonopin] 0.5 mg tablet 0.5 mg PO BEDTIME PRN (Reason: anxiety) Qty: 14 0RF cephalexin 500 mg capsule 500 mg PO Q8H Qty: 21 0RF oxycodone 5 mg tablet 5 mg PO Q8H PRN (Reason: pain) Qty: 5 0RF (DME) walker Misc See Rx Instructions .Route Qty: 1 0RF Rx Instructions: As directed clonazepam 1 mg tablet 1 mg PO DAILY Qty: 3 0RF cyclobenzaprine 10 mg tablet 10 mg PO TID PRN (Reason: muscle spasm) Qty: 10 0RF lidocaine [Lidoderm] 5 % adhesive patch,medicated 1 patch topical DAILY Qty: 15 0RF Rx Instructions: leave on most painful area for up to 12 hrs cephalexin 500 mg capsule 500 mg PO Q8H 7 Days Qty: 21 0RF prazosin 1 mg capsule 1 mg PO BEDTIME Qty: 30 0RF clonazepam 1 mg tablet 1 mg PO BID PRN (Reason: anxiety) Qty: 10 0RF tramadol 50 mg tablet 50 mg PO Q8H PRN (Reason: pain) Qty: 7 0RF tramadol 50 mg tablet 50 mg PO Q8H PRN (Reason: pain, severe) Qty: 7 0RF lidocaine [Lidoderm] 5 % adhesive patch,medicated 1 patch topical DAILY MDD remove after 12 hours PRN (Reason: pain) Qty: 30 0RF Rx Instructions: leave on most painful area for up to 12 hrs clonazepam [Klonopin] 1 mg tablet 1 mg PO BEDTIME PRN (Reason: anxiety) Qty: 5 0RF Rx Instructions: administer 30 minutes before bedtime prednisone 20 mg tablet 20 mg PO BID Qty: 10 0RF oxycodone 5 mg tablet 5 mg PO BID PRN (Reason: pain) Qty: 10 0RF Rx Instructions: Partial Fill upon patient request. lidocaine [Lidoderm] 5 % adhesive patch,medicated 1 patch topical DAILY Qty: 15 0RF Rx Instructions: leave on most painful area for up to 12 hrs oxycodone 5 mg tablet 5 mg PO Q6H PRN (Reason: pain (scale score 4-6)) 3 Days Qty: 12 0RF Rx Instructions: Partial Fill upon patient request. doxycycline monohydrate 100 mg capsule 100 mg PO BID Qty: 20 0RF tramadol 50 mg tablet 50 mg PO Q6H PRN (Reason: pain) Qty: 20 0RF lorazepam [Ativan] 1 mg tablet 1 mg PO BEDTIME PRN (Reason: anxiety) Qty: 7 0RF oxycodone 5 mg tablet 5 mg PO Q6H PRN (Reason: pain) Qty: 10 0RF Rx Instructions: Partial Fill upon patient request. lorazepam [Ativan] 1 mg tablet 1 mg PO BID PRN (Reason: anxiety) Qty: 4 0RF naloxone [Narcan] 4 mg/actuation spray,non-aerosol 4 mg intranasal Q2M PRN (Reason: opioid overdose) Qty: 2 0RF Rx Instructions: spray 1 dose into ONE nostril; alternate nostrils w each dose until help arrives
[2025-08-21 13:28] LABS: MANUAL DIFF FLAG NO
[2025-08-21 13:29] LABS: Hematocrit 38.1 % (37.0-47.0); Hemoglobin 12.4 g/dl (12.0-16.0); Imm Gran Abs Auto 0.01 X10*3/uL (0.00-0.03); Imm Gran Pct Auto 0.2 % (0.0-0.4); Lymphocytes Absolute Auto 1.6 X10*3/uL (1.2-4.9); Mean Corpuscular HGB Conc 32.5 g/dl (31.0-35.0); Mean Corpuscular Hemoglobin 29.5 pg (27.0-33.0); Mean Corpuscular Volume 90.7 fL (80.0-98.0); NRBC Abs Auto 0.000 X10*3/uL (0.0-0.012); NRBC Pct Auto 0.0 /100WBC (0.0-0.2); Platelet Count 202 X10*3/uL (160-400); Red Blood Count 4.20 X10*6/uL (4.20-5.50); White Blood Count 6.2 X10*3/uL (4.8-10.8)
[2025-08-21 13:44] LABS: Alanine Aminotransferase 19 U/L (0-31); Albumin Level 4.6 g/dL (3.5-5.0); Alkaline Phosphatase 56 U/L (39-117); Anion Gap 12 (12-20); Aspartate Amino Transferase 29 U/L (5-31); Blood Urea Nitrogen 21 mg/dL (9-16); Calcium 9.7 mg/dL (8.4-10.2); Carbon Dioxide 27 mmol/L (22-29); Chloride 105 mmol/L (96-108); Creatinine Clr Calc Pharmacy 51.9; Estimated Glomerular Filt Rate > 60; Magnesium 2.1 mg/dL (1.6-2.6); Potassium 4.0 mmol/L (3.3-5.1); Sodium 140 mmol/L (135-145); Total Protein 7.6 g/dL (6.5-8.0)
[2025-08-21 13:51] LABS: NT Pro B Type Natriuretic Pept 129.6 pg/mL (<300); Troponin-I High Sensitivity 4.5 ng/L (<3.5-17.0)
[2025-08-21 14:16] LABS: Resp Syncy Virus RNA Qual PCR NEGATIVE (Negative); SARS COV2 PCR INHOUSE NEGATIVE (Negative)
--- OUTSIDE RECORDS SUMMARY | 2025-08-21 18:54 | XMS_ITS | Encounter Summary ---
Author Organization [employer] Address [address] [facility] 7t [place] [address] Care Team Providers Care Strategic Account Director Name Role Phone Meera Ramirez MD Primary Care Provider + Tarik Dejesus RN Unavailable [phone] Hannah Ponce RN Unavailable Kristin Hendricks Unavailable Encounter Details Date Type Department Care Team (Late st Contact Info) Description 03/08/2024 Telephone [facility] MEDICINE [address] [place] [address] Meera Ramirez MD [address] [place], [place] [id number] Social History Tobacco Use Types Packs/Day Years Used Date Smoking Tobacco: Never Passive Smoke Exposure: Never Smokeless Tobacco: Never Alcohol Use Standard Drinks/Week Comments Not Currently 0 (1 standard drink = 0.6 oz pur e alcohol) Depression Answer Date Recorded Patient Health Questionnaire-9 Score 0 03/02/2023 Housing Stability Answer Date Recorded What is your housing situation today? I have ivontesfaye shafer 06/08/[address] you [...] Description 09/04/2025 3:00 PM EST Office Visit [facility] MEDICINE [address] [place] [phone] Meera Ramirez MD [address] [place] [address] documented as of this encounter Visit Diagnoses Not on filedocumented in this encounter Additional Health Concerns Assessment Noted Time PHQ-9 Depression Total Score: 0 03/02/20 23 10:46 AM EDT documented as of this encounter Care Teams Strategic Account Director Relationship Specialty Start Date End Date Meera Ramirez MD [address] [place] [phone] PCP - General Family Medicine 03/14/20 Tarik Dejesus RN [address] [place] [address] Supervisor TellersAccount Services Analyst 09/26/24 01/19/25 Hannah Ponce, AARON [address] [place] [phone] Registered Nurse Family Medicine 06/21/25 08/10/25 Kristin Hendricks 06/21/25 08/10/25 documented as of this encounter
--- OUTSIDE RECORDS SUMMARY | 2025-08-21 18:54 | XMS_ITS | Encounter Summary ---
Author Organization [employer] Address [address] [facility] 7t [place] [address] Care Team Providers Care Brush Loader And Handle Attacher Name Role Phone Meera Ramirez MD Primary Care Provider + Tarik Dejesus RN Unavailable Hannah Ponce RN Unavailable [phone] Kristin Hendricks Unavailable Reason for Visit * Reason Comments Med Refill Encounter Details Date Type Department Care Team (Late st Contact Info) Description 04/05/2024 Refill [facility] [address] [place] [address] Meera Ramirez MD [address] [place] [address] Primary osteoarthritis of right shoulder Social History [...] Description 09/04/2025 3:00 PM EST Office Visit [facility] [address] [place] [phone] Meera Ramirez MD [address] [place] [phone] documented as of this encounter Visit Diagnoses Diagnosis Primary osteoarthritis of right shoulder documented in this encounter Additional Health Concerns Assessment Noted Time PHQ-9 Depression Total Score: 0 03/02/20 23 10:46 AM EDT documented as of this encounter Care Teams Brush Loader And Handle Attacher Relationship Specialty Start Date End Date Meera Ramirez MD [address] [place] [phone] PCP - General Family Medicine 03/14/20 Tarik Dejesus RN [address] [place] [phone] Storage Garage ManagerHotel Administrative Assistant 09/26/24 01/19/25 Hannah Ponce RN [address] [place] [phone] Registered Nurse Family Medicine 06/21/25 08/10/25 Kristin Hendricks 06/21/25 08/10/25 documented as of this encounter
--- OUTSIDE RECORDS SUMMARY | 2025-08-21 18:54 | XMS_ITS | Clinical Summary ---
Author Organization [facility] Address [address] [place] [address] Care Team Providers Care Clerical Administrative Assistant Name Role Phone Unavailable Primary Care Provider Unavailabl e Social History Tobacco Use Types Packs/Day Years Used Date Smoking Tobacco: Never Assessed Comments Unknown Sex and Gender Information Value Date Recorded Sex Assigned at Not on file Legal Sex Female 6:14 PM EST Gender Identity Not on file Sexual Orientation Not on file Plan of Treatment Health Maintenance Due Date Last Done Comments Hepatitis C Virus Screening 1962 HIV Screening 1975 DTaP/Tdap/Td Vaccines (1 - Tdap) 1981 Pneumococcal Vaccines 50+ (1 of 1 - PCV) 2012 Zoster (Shingles) Vaccine (1 of 2) 2012 COVID-19 Vaccine ( - 2024-2 6 season) 2025 RSV Vaccine 50 years and old er and Patients (1 - 1-dose 75+ series) 2037 Hepatitis B Vaccines Aged Out No long er eligible based on patient's age to complete this topic
--- OUTSIDE RECORDS SUMMARY | 2025-08-21 18:55 | XMS_ITS | Encounter Summary ---
Author Organization [employer] Address [address] [facility] 7t [place] [address] Care Team Providers Care Gas Regulator Repairer Helper Name Role Phone Meera Ramirez MD Primary Care Provider + Tarik Dejesus RN Unavailable [phone] Hannah Ponce RN Unavailable [phone] Kristin Hendricks Unavailable Encounter Details Date Type Department Care Team (Late st Contact Info) Description 11/17/2022 Orders Only [facility] [address] [place] [address] Ary Carr LPN Social History Tobacco Use [...] Description 09/04/2025 3:00 PM EST Office Visit [facility] MED[facility] [address] [place], [place] [phone] Meera Ramirez MD [address] [place], [place] [phone] documented as of this encounter Visit Diagnoses Not on filedocumented in this encounter Care Teams Gas Regulator Repairer Helper Relationship Specialty Start Date End Date Meera Ramirez MD [address] [place] [phone] PCP - General Family Medicine 03/14/20 Tarik Dejesus RN [address] [place] [phone] Dietetic Technician RegisteredLay Out Carpenter 09/26/24 01/19/25 Hannah Ponce RN [address] [place] [phone] Registered Nurse Family Medicine 06/21/25 08/10/25 Kristin Hendricks 06/21/25 08/10/25 documented as of this encounter
--- OUTSIDE RECORDS SUMMARY | 2025-08-21 18:55 | XMS_ITS | Encounter Summary ---
Author Organization [employer] Address [address] [facility] 7t [place] [address] Care Team Providers Care Mine Administrator Supervisor Name Role Phone Meera Ramirez MD Primary Care Provider + Tarik Dejesus RN Unavailable [phone] Hannah Ponce RN Unavailable [phone] Kristin Hendricks Unavailable Encounter Details Date Type Department Care Team (Late Contact Info) Description 04/08/2023 Orders Only [facility] [address] [place] [phone] Meera Ramirez MD [address] [place] [address] Social History Tobacco Use Types Packs/Day Years [...] Department Care Team (Late Contact Info) Description 09/04/2025 3:00 PM EST Office Visit [facility] [address] [place] [phone] Meera Ramirez MD [address] [place] [phone] documented as of this encounter Visit Diagnoses Not on filedocumented in this encounter Additional Health Concerns Assessment Noted Time PHQ-9 Depression Total Score: 0 03/02/20 23 10:46 AM EDT documented as of this encounter Care Teams Mine Administrator Supervisor Relationship Specialty Start Date End Date Meera Ramirez MD [address] [place] [phone] PCP - General Family Medicine 03/14/20 Tarik Dejesus RN [address] [place] [phone] Warranty CoordinatorChairman President And Chief Executive Officer 09/26/24 01/19/25 Hannah Ponce RN [address] [place] [phone] Registered Nurse Family Medicine 06/21/25 08/10/25 Kristin Hendricks 06/21/25 08/10/25 documented as of this encounter
--- OUTSIDE RECORDS SUMMARY | 2025-08-21 18:55 | XMS_ITS | Clinical Summary ---
Author Organization [employer] Address [address] [facility] [address] [place] [address] Care Team Providers Care Recreation Supervisor Name Role Phone Meera Ramirez MD Primary Care Provider + Allergies Active Allergy Reactions Criticality Noted Date Comments Acetaminophen High 05/22/2020 Other reaction(s): Itching Hydrocodone-Acetaminophen 03/04/2023 Ibuprofen High 05/22/2020 Other reaction(s): Itching Pollen Extract Rash Low 03/11/2024 Tramadol 03/11/2024 Other Reaction(s): Dry Mucus Membranes Medications * This document contains information received from the source organization and may not represent a complete record from that organization. Blood Glucose Monitoring Suppl (FreeStyle Lite) w/Device kitIndications:Ty pe 2 diabetes mellitus without complication, without long-term current use of insulin (HCC) 1 each in the morning. Use to monitor blood glucose once daily 1 kit 023 Active TRUEplus Lancets 33G miscIndications:T ype 2 diabetes mellitus without complication, without long-term current use of insulin (HCC) USE DIRECTED TO TEST BLOOD SUGAR EVERY DAY IN THE MORNING 100 each 5 025 Active methocarbamol (Robaxin) 500 MG tabletIndications :Primary osteoarthritis of right shoulder Take 1 tablet (500 mg) by mouth every 6 (six) hours. 40 tablet 08/14/20 25 1:25 PM EST 025 2025 Active acetaminophen (Tylenol Extra Strength) 500 MG tabletIndications :Primary osteoarthritis of right shoulder Take 1 tablet (500 mg) by mouth every 6 (six) hours if needed for mild pain. 120 tablet 12/162025 Active Diclofenac Sodium 1 % gelIndications:Pr imary osteoarthritis of right shoulder Apply 1 Application topically every 12 (twelve) hours if needed (apply every 12 hrs if needed). 100 g Active divalproex (Depakote) 250 MG EC tabletIndications :Bipolar I disorder (CMS/HCC) (HCC) TAKE 1 TABLET BY MOUTH TWICE DAILY. DO NOT BREAK, CRUSH, DISSOLVE OR CHEW. 60 tablet 3 08/14/20 1:25 PM EST Active DULoxetine (Cymbalta) [address] capsuleIndication s:Mixed anxiety and depressive disorder TAKE 1 CAPSULE BY MOUTH EVERY MORNING. DO NOT BREAK, CRUSH, DISSOLVE OR CHEW. 30 capsule 08/14/20 1:25 PM EST Active lidocaine (Lidoderm) 5 % patch Apply 1 patch topically Once per day. 12hours on 12 hours off as directed 30 patch 08/14/20 1:25 PM EST 2025 Active mirtazapine (Remeron) 30 MG tabletIndications :Mixed anxiety and depressive disorder Take 1 tablet (30 mg) by mouth at bedtime. 30 tablet 3 08/14/20 1:25 PM EST Active clonazePAM (KlonoPIN) 1 MG tabletIndications :Anxiety Take 1 tablet (1 mg) by mouth if needed at bedtime for anxiety. 10 tablet 08/14/20 1:25 PM EST 2025 Active Diclofenac Sodium 1 % gelIndications:Ri ght foot pain Apply 1 Application topically every 12 (twelve) hours if needed (apply every 12 hrs if needed). 100 g 2024 Discontinued(R eorder (will not trigger notification to Pharmacy)) cyclobenzaprine (Flexeril) 10 MG tabletIndications :Lumbar radiculopathy TAKE 1 TABLET BY MOUTH AT BEDTIME NEEDED FOR MUSCLE SPASMS 15 tablet 025 2024 Discontinued(I neffective) lidocaine (Lidoderm) 5 % patch APPLY 1 PATCH TOPICALLY TO SKIN, LEAVE ON FOR 12 HOURS AND OFF FOR 12 HOURS DIRECTED 30 patch 3 07/19/20 25 2:33 PM EST 2024 Discontinued(R eorder (will not trigger notification to Pharmacy)) divalproex (Depakote) 250 MG EC tabletIndications :Bipolar I disorder (CMS/HCC) (HCC) TAKE 1 TABLET BY MOUTH TWICE DAILY. DO NOT BREAK, CRUSH, DISSOLVE OR CHEW. 60 tablet 07/19/20 2:33 PM EST 2024 Discontinued(R eorder (will not trigger notification to Pharmacy)) DULoxetine (Cymbalta) [address] capsuleIndication s:Mixed anxiety and depressive disorder TAKE 1 CAPSULE BY MOUTH EVERY MORNING. DO NOT BREAK, CRUSH, DISSOLVE OR CHEW. 30 capsule 07/19/20 2:33 PM EST 2024 Discontinued(R eorder (will not trigger notification to Pharmacy)) mirtazapine (Remeron) 30 MG tabletIndications :Mixed anxiety and depressive disorder TAKE 1 TABLET BY MOUTH AT BEDTIME 30 tablet 07/19/20 2:33 PM EST 2024 Discontinued(R eorder (will not trigger notification to Pharmacy)) clonazePAM (KlonoPIN) 1 MG tabletIndications :Anxiety Take 1 tablet (1 mg) by mouth if needed at bedtime for anxiety. Do not start before July 19, 2025. 10 tablet 07/19/20 2:33 PM EST 2024 Discontinued(R eorder (will not trigger notification to Pharmacy)) Diclofenac Sodium 1 % gelIndications:Ri ght foot pain Apply 1 Application topically every 12 (twelve) hours if needed (apply every 12 hrs if needed). 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 Acute diffuse otitis externa of right ear 2024 Assessment & Plan (12/16/2024 4:38 PM EDT): I will treat this patient as otitis externa with neomycin polymyxin hydrocortisone eardrops in light the patient also has swelling and tenderness on her face parotid area I will also treat her with Augmentin twice a day and for pain and inflammation I will prescribe prednisone for 5 days Right ear pain 12/15/2024 Facial mass 12/15/2024 Assessment & Plan (12/15/2024 3:23 PM EDT): Since pain in her right external ear is associated with growing mass in face that is occurring for the past 2 months. 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 Patient request Tylenol to be prescribed. After I sent medication to pharmacy patient came to the walk-in area and informed she has allergy to medication. Patient was advised then to not take Tylenol prescribed and I will keep listed as allergy - Prescribed to pharmacy topical anesthetic lidocaine 4% to use as needed over skin of right external canal -seems there was concern for opioid use in the past from PCP 'note so will hold on opioid prescription at this time -pt has apt w PCP 03/01/2025 already scheduled Cervical radiculopathy 07/14/2024 Assessment & Plan (09/06/2024 [...] someone under housing restrictions. She already contacted [facility] program and I will refer to her [...] Eye exam: Has appt next month at [facility] eye clinic. CRC screen: Has missed 2 appts within the past 2y. New referral sent, she's reminded to give this info to his son who will be in charge of appt reminders Lipids/FBS: Uptodate, next one due on 05/2023 Vaccinations: She will have PCV 13 and Shingrix #1 today at [facility] pharmacy. Counseled to get covid booster before the fall. Tdap uptodate, next one due on 2031. Dental visit: Overdue. Counseled to make appt at [facility] dental Prediabetes 03/12/2023 Assessment & Plan (09/06/2024 [...] missing appointments with an agency located in [place]. Current anxiety is also associated with her [...] emotions and concerns. Nunu was self-referred to [facility] for OP and psychiatry services. She was seen in the past by [facility]. Pt reports agency is at a convenient [...] per 30d last 02/18/23 (then #[address] [facility] 02/26/23) Duloxetine 30mg capsule (pt states not [...] ADLs under a home care program ([facility]? [employer]), patient has tendency to falls. Re evaluate [...] about need to fu closely with Orthopedics, BUSHWALKING GUIDE nurse and with me. She's aware that [...] cuff. Lumbar radiculopathy 06/21/2018 Assessment & Plan (06/02/2025 2:38 PM EDT): Refills provided She needs to f/u with PCP Assessment & Plan (09/06/2024 4:29 PM EST): [...] 06/21/2018 Viral disease 07/21/2017 Bipolar I disorder ([facility]/HCC) 09/23/2016 Assessment & Plan (06/02/2025 2:37 PM EDT): Refills for medications that she was due provided Assessment & Plan (09/06/2024 4:33 PM EST): [...] AM EDT): Seen by counselor LUDWIG? In [place]. Has appt with prescriber next week. No change in meds. She feels safe at home and is able to reach out for safety. FU in 4w Mixed anxiety and depressive disorder 05/31/2015 Assessment & Plan (06/02/2025 2:39 PM EDT): Refills for medications that she was due provided She is not due for clonazepam She needs to f/u with PCP Impaired cognition 05/31/2015 Chronic tension-type headache 05/31/2015 Allergic rhinitis 05/31/2015 Encounters Date Type Department Care Team Description 08/21/2025 Orders Only GENERIC EXTERNAL DATA DEPARTMENT Provider, Generic External Data 08/14/2025 Telephone [facility] [address] [place] [phone] Meera Ramirez MD Medication Question 08/14/2025 Refill [facility] [address] [place] [phone] Judith Weiss RN Anxiety 08/10/2025 Patient Outreach [facility] [address] [place] [address] Meera Ramirez MD Care Coordination ([facility] -[facility] Kristin Hendricks telephone call outreach) 08/10/2025 Patient Outreach [facility] [address] [place] [phone] Jurgen Diaz 08/08/2025 12:00 PM EST Office Visit [facility] [address] [place] [phone] Meera Ramirez MD Prediabetes (Primary Dx); Right foot pain; Bipolar I disorder (CMS/HCC) (HCC); Mixed anxiety and depressive disorder; Primary osteoarthritis of right shoulder; Encounter for immunization 08/08/2025 Travel 08/07/2025 Telephone [facility] [address] [place] [phone] Meera Ramirez MD Med Refill 08/07/2025 Refill [facility] [address] [place] [phone] Meera Ramirez MD Anxiety 08/07/2025 Telephone [facility] [address] [place] [phone] Meera Ramirez MD Med Refill 08/07/2025 Telephone [facility] [address] [place] [phone] Meera Ramirez MD Chart Prep 08/03/2025 Refill [facility] [address] [place] [address] Meera Ramirez MD Right foot pain 08/02/2025 Patient Outreach [facility] [address] [place] [phone] Meera Ramirez MD Care Coordination ([facility] -[facility] Kristni Hendricks telephone call outreach) 07/28/2025 Patient Outreach [facility] [address] [place] [phone] Meera Ramirez MD Pre-visit Planning ([facility] screening completed on 06/05/2025) 07/26/2025 Patient Outreach [facility] [address] [place] [phone] Meera Ramirez MD Care Coordination (C3 [facility]- [facility] Kristin Nascimentoz telephone call outreach) 07/17/2025 Refill [facility] [address] [place] [phone] Meera Ramirez MD Anxiety 07/17/2025 Refill [facility] [address] [place] [phone] Nunu Amezcua MD Bipolar I disorder (CMS/HCC) (HCC); Mixed anxiety and depressive disorder 07/17/2025 Patient Outreach [address] [phone] Meera Ramirez MD Care Coordination ([facility] Kristin Hendricks telephone call outreach) 07/07/2025 Patient Outreach [address] [phone] Meera Ramirez MD Care Coordination ([facility] Kristin Hendricks telephone call outreach) 07/05/[address] [phone] Meera Ramirez MD 06/30/2025 Patient Outreach [address] [phone] Meera Ramirez MD Care Coordination ([facility] Kristin Hendricks telephone call outreach) 06/22/2025 Patient Outreach [address] [phone] Meera Ramirez MD Care Coordination ([facility] Kristin Hendricks telephone call outreach ) 06/21/2025 Patient Outreach [address] [phone] Meera Ramirez MD Care Coordination ([facility] Kristin Hendricks chart review) 06/21/2025 Patient Outreach [address] [phone] Meera Ramirez MD Care Management ([facility] -CHART REVIEW) 06/21/2025 Patient Outreach [address] [phone] Meera Ramirez MD 06/19/2025 Refill [facility] [address] [place] [phone] Nunu Amezcua MD Lumbar radiculopathy 06/16/2025 Results Follow-Up [address] [address] Nunu Amezcua MD XR Foot 3+ Views Right 06/15/[address] [phone] Natalee Patel, RN CRS Communication 06/08/2025 Refill [facility] [address] [place] [phone] Ary Rosario, DO Anxiety 06/05/2025 1:00 PM EDT Office Visit [facility] [address] [place] [phone] Alicia Waters MD Cocaine use (Primary Dx); Chronic pain syndrome 06/05/2025 11:00 AM EDT Office Visit [address] [address] Natalee Patel, RN History of substance use 06/05/2025 Patient Outreach [address] [phone] Jurgen Diaz Recovery Supports 06/05/2025 Patient Outreach [address] [address] Jurgen Diaz 06/05/2025 Travel 06/02/2025 2:00 PM EDT Office Visit [facility] [address] [place] [phone] Nunu Amezcua MD Bipolar I disorder (CMS/HCC) (HCC); Mixed anxiety and depressive disorder; Right foot pain; Lumbar radiculopathy 06/02/2025 Patient Outreach [address] [address] Jurgen Diaz Recovery Supports 06/02/2025 Travel 05/31/[address] [phone] Meera Ramirez MD No Show 05/30/[address] [phone] Meera Ramirez MD Chart prep 05/30/[address] [phone] Meera Ramirez MD active labs 05/24/2025 Patient Outreach [facility] [address] [place] [address] Meera Ramirez MD Pre-visit Planning ((Unable to reach for PVP screening and or LVM) to be completed in office) from Last 3 Months Immunizations Immunization Administration Dates Next Due Influenza injectable quadriv alent preservative free 06/03/2022,07/12/2020,06/22/2015 Influenza, IIV3, injectable 05/21/2011 Influenza, seasonal, injecta ble, preservative free 08/08/2025 Pfizer Covid-19 Vaccine 12+ 11/13/2023 Tdap 11/13/2021,,05/27/2012,2010 Zoster, Recombinant 04/09/2023 Social History Tobacco Use Types Packs/Day Years Used Date Smoking Tobacco: Former Cigarettes Passive Smoke Exposure: Never Smokeless Tobacco: Never [...] housing situation today? I have ivontesfaye shafer 06/05/[address] you [...] Sign Reading Time Taken Comments Blood Pressure 134/89 08/08/2025 12:31 PM EST Pulse 78 08/08/2025 12:31 PM EST Temperature 36.1 C (97 F) 08/08/2025 12:31 PM EST Respiratory Rate 12 08/08/2025 12:3 1 PM EST Oxygen Saturation 98% 08/08/2025 12: 31 PM EST Inhaled Oxygen Concentration - - Weight 47.1 kg (103 lb 12.8 oz) 025 12:31 PM EST Height 151.8 cm (4' 11.75 ) 08/08/2025 12:31 PM EST Body Mass Index 20.44 08/08/2025 12:31 PM EST Plan of Treatment Upcoming Encounters Date Type Department Care Team (Late st Contact Info) Description 09/04/2025 3:00 PM EST Office Visit [facility] [address] [place] [phone] Meera Ramirez MD [address] [place] [address] Health Maintenance Due Date Last Done Comments CT Colonography 1962 Colonoscopy 1962 Colorectal Cancer Screening 1962 Dental Prophylaxis 1962 FIT DNA/Cologuard 1962 FIT 1962 FOBT 1962 HIV Screening 1962 Sigmoidoscopy 1962 Disability Screening 1962 Diabetes: Foot Exam 1972 Hepatitis C Screening 1980 Diabetes: Urine Protein Screening 1981 Pneumococcal Vaccine: 50+ Years (1 of 2 - PCV) 1981 Mammogram 2002 RSV Patients and Patients Aged 60 years or older (1 - Risk 50-74 years 1-dose series) 2012 Dental X-Ray: Bitewings 07/27/2013 07/26/2012, 05/23 Lipid Panel 01/28/2022 01/28/2021 Zoster Vaccines (2 of 2) 06/04/2023 04/09/2023 Diabetes: Hemoglobin A1C 03/06/2025 09/06/2024, 02/22 Dental Oral Exam 04/07/2025 10/07/2024, 05/2016, 10/30/2014, Additional history exists COVID-19 Vaccine ( season) 2025 11/13/2023, 02/26/2021, 01/28/2021 Eye Exam 11/16/2025 11/16/2024, 10/23, 11/16/2024, Additional history exists Cervical Cancer Screening 01/15/2026 HPV/Cotest 01/15/2026 01/15/2021 Pap Smear 01/15/2026 01/15/2021 Alcohol/Substance Use Screening 06/05/2026 06/05/2025 Depression Screening 06/05/2026 06/05/2025, 06/05/20 25 SDOH Screening 06/05/2026 06/05/2025 Tobacco Screening 08/08/2026 08/08/2025 Dental X-Ray: Full Mouth 10/19/2027 025, 10/07/2024, 03/20/2011, Additional history exists DTaP/Tdap/Td Vaccines (5 - Td or Tdap) 11/14/2031 11/13/2021, 06/27/2021, 05/27/2012, Additional history exists Influenza Vaccine Completed 08/08/2025, , 07/12/2020, Additional history exists HIB Vaccines Aged Out [...] patient's age to complete this topic Meningococcal B Vaccine Aged Out No l onger eligible based on patient's age to complete [...] Procedure Name Priority Date/Time Associated Diagnosis Comments NT-PROBNP Routine 08/21/2025 1:17 PM EST HIGH SENSITIVITY TROPONIN I Routine 08/21/2025 1:17 PM EST MAGNESIUM Routine 08/21/2025 1:17 PM EST COMPREHENSIVE METABOLIC PANEL Routine 08/21/2025 1:17 PM EST CBC WITH AUTO DIFFERENTIAL Routine 08/21/2025 1:17 PM EST SARS COV2/INFLUENZA A/B AND RSV RNA QL NAAT Routine 08/21/2025 1:17 PM EST POCT ELLI-14 URINE DRUG SCREEN Routine 06/05/2025 2:26 PM EDT Cocaine use XR FOOT 3+ VIEWS RIGHT Routine 2:56 PM EDT Right foot pain PANORAMIC RADIOGRAPHIC IMAGE Routine 10/07/2024 3:30 PM EST Periodontal disease Dental calculus Encounter for dental examination Edentulous maxilla PERIODIC ORAL EVALUATION - ESTABLISHED PATIENT Routine 10/07/2024 3:30 PM EST Periodontal disease Dental calculus Encounter for dental examination Edentulous maxilla POCT GLYCATED HEMOGLOBIN, TOTAL Routine 09/06/2024 1:11 PM EST Prediabetes LIPID PANEL, STANDARD Routine 01/28/2021 11:07 AM EDT HPV MRNA E6/E7 Routine 01/15/2021 12:00 AM EDT THINPREP PAP Routine 01/15/2021 12:00 AM EDT BITEWINGS - 2 RADIOGRAPHIC IMAGES Routine 07/26/2012 12:00 AM EST from Last 3 Months or Most Recently Relevant to Health Maintenance Results * High Sensitivity Troponin I (08/21/2025 1:17 PM EST) Pathologist [facility] TROPONIN I HIGH SENSITIVITY 4.5 <3.5 - 17.0 ng/L [facility] Comment:The Quach high sens itivity Troponin-I results should beused in conjunction with other diagnostic information suchas ECG, clinical observations and information, and patientsymptoms to aid in the diagnosis of [place]. 08/21/2025 1:17 PM EST 08/21/2025 1:26 PM EST us Generic External Data Provider LAB BLOOD ORDERAB LES Final Result [facility] [address] [place] [phone] * SARS-CoV-2 RNA, Influenza A/B, and RSV RNA, Ql NAAT (08/21/2025 1:17 PM EST) Pathologist [facility] Influenza A PCR NEGATIVE Negative [facility] Influenza B PCR NEGATIVE Negative [facility] Resp Syncy Virus RNA Qual PCR NEGATIVE Negative [facility] SARS COV2 PCR NEGATIVE Negative [facility] Comment:All test results mus t be correlated with clinical findings.Negative results do not preclude SARS-CoV2, influenza Avirus, influenza B virus and/or RSV infectionand should not be used as the sole basis for treatment orother patient management decisions. Negative results must becombined with clinical observations, patient history, andepidemiological information.This test has not been evaluated for monitoring treatment ofinfection.This test has been authorized by the FDA under an EmergencyUse Authorization (EUA) for use by authorized laboratories.Testing performed on the [employer]Xpert utilizingreal-time RT-PCR.All SARS CoV2 and positive influenza A/B results arereported to [facility]. 08/21/2025 1:17 PM EST 08/21/2025 1:26 PM EST Generic External Data Provider LAB MICROBIOLOGY - GENERAL ORDERABLES Final Result Performing Organization Address [facility] de Phone Number [facility] [address] [place] [phone] * NT-proBNP (08/21/2025 1:17 PM EST) NT-proBNP 129.6 <300 pg/mL [facility] Comment:Reference Range:Age Group (years) NT-proBNP (pg/ml) InterpretationAll <300 Negative: HF unlikelyFor patients presenting to the ED with clinical suspicion ofnew onset or worsening HF, see below:18 to <50 >299.9 to <450.0 Grayzone: [id number] to 75 >299.9 to <900.0 other causes of>75 >299.9 to <1800.0 NT-proBNP [id number] to <50 >449.9 Positive: HF [id number] >899.9>75 >1799.9Note: Elevated NT-proBNP levels should be interpreted inthe context of other clinical information. 08/21/2025 1:17 PM EST 08/21/2025 1:26 PM EST Generic External Data Provider LAB BLOOD ORDERAB LES Final Result Performing Organization Address [facility] de Phone Number [facility] [address] [place] [phone] * CBC auto differential (08/21/2025 1:17 PM EST) White Blood Count 6.2 4.8 - 10.8 X10*3/uL [facility] Red Blood Count 4.20 4.20 - 5.50 X10*6/uL [facility] Hemoglobin 12.4 12.0 - 16.0 g/dl [facility] Hematocrit 38.1 37.0 - 47.0 % [facility] Mean Corpuscular Volume 90.7 80.0 - 98.0 fL [facility] Mean Corpuscular Hemoglobin 29.5 27.0 - 33.0 pg [facility] Mean Corpuscular HGB Conc 32.5 31.0 - 35.0 g/dl [facility] Red Cell Distribution Width 14.6 11.0 - 16.0 % [facility] Platelet Count 202 160 - 400 X10*3/uL [facility] Mean Platelet Volume 10.2 9.4 - 12.3 fL [facility] Neutrophils Percent Auto 67.1 45 - 73 % [facility] Imm Gran Pct Auto 0.2 0.0 - 0.4 % [facility] Lymphocytes Percent Auto 26.6 20 - 40 % [facility] Monocytes Percent Auto 5.5 2 - 11 % [facility] Eosinophils Percent Auto 0.0 0 - 4 % [facility] Basophils Percent Auto 0.6 0 - 2 % [facility] NRBC Pct Auto 0.0 0.0 - 0.2 /100WBC [facility] Neutrophils Absolute Auto 4.1 2.0 - 8.3 x10*3/uL [facility] Imm Gran Abs Auto 0.01 0.00 - 0.03 X10*3/uL [facility] Lymphocytes Absolute Auto 1.6 1.2 - 4.9 X10*3/uL [facility] Monocytes Absolute Auto 0.3 0.1 - 1.2 X10*3/uL [facility] Eosinophils Absolute Auto 0.0 0.0 - 0.4 X10*3/uL [facility] Basophils Absolute Auto 0.0 0.0 - 0.2 X10*3/uL [facility] NRBC Abs Auto 0.000 0.0 - 0.012 X10*3/uL [facility] 08/21/2025 1:17 PM EST 08/21/2025 1:26 PM EST us Generic External Data Provider LAB BLOOD ORDERAB LES Final Result Performing Organization Address City/[facility]/ZIP Co de Phone Number [facility] [address] [place] [address] [phone] * Magnesium (08/21/2025 1:17 PM EST) Magnesium 2.1 1.6 - 2.6 mg/dL [facility] 08/21/2025 1:17 PM EST 08/21/2025 1:26 PM EST Generic External Data Provider LAB BLOOD ORDERAB LES Final Result Performing Organization Address [facility] [facility] Co de Phone Number [facility] [address] [place] [address] [phone] * (ABNORMAL) Comprehensive Metabolic Panel (08/21/2025 1:17 PM EST) Sodium 140 135 - 145 mmol/L [facility] Potassium 4.0 3.3 - 5.1 mmol/L [facility] Chloride 105 96 - 108 mmol/L [facility] Carbon Dioxide 27 22 - 29 mmol/L [facility] Anion Gap 12 12 - 20 [facility] Urea Nitrogen (BUN) 21(H) 9 - 16 mg/dL [facility] Creatinine, Serum 0.77 0.5 - 1.4 mg/dL [facility] Creatinine Clr Calc Pharmacy 51.9 [facility] Comment:Provided height and weight: 152.4 cm,44 kg.eGFR (calculated from the MDRD study equation) and eCrCl(calculated from the Cockcroft-Gault equation) are based ondifferent parameters and may not yield comparable results.If eCrCl result is absurd, please check patient'sheight/weight. Estimated Glomerular Filt Rate >60 [facility] Comment:Chronic Kidney Disea se: Estimated GFR < 60 mL/min/1.30c1Mklzqe Kidney Disease: Estimated GFR < 15 mL/min/1.73m2 Glucose 91 60 - 115 mg/dL [facility] Calcium 9.7 8.4 - 10.2 mg/dL [facility] Bilirubin, Total 0.6 0.0 - 1.0 mg/dL [facility] Aspartate Amino Transferase 29 5 - 31 U/L [facility] Alanine Aminotransferase 19 0 - 31 U/L [facility] Total Protein 7.6 6.5 - 8.0 g/dL [facility] Albumin Level 4.6 3.5 - 5.0 g/dL [facility] Alkaline Phosphatase 56 39 - 117 U/L [facility] 08/21/2025 1:17 PM EST 08/21/2025 1:26 PM EST Generic External Data Provider LAB BLOOD ORDERAB LES Final Result [facility] [address] [place] [phone] * (ABNORMAL) POCT ELLI-14 Urine Drug Screen (06/05/2025 2:26 PM EDT) THC Negative Negative Cocaine Screen, Urine Positive(A) Negative Opiate Screen, Urine Negative Negative Methamphetamine Screen Urine Negative Negative Amphetamine Screen, Urine Negative Negative Benzodiazepines Screen, Urine Negative Negative Barbiturate Screen, Urine Negative Negative Methadone Screen, Urine Negative Negative Buprenophine Screen, Urine Negative Negative TCA, Urine Negative Negative MDMA Urine Negative Negative ng/mL Oxycodone Screen, Urine Negative Negative Phencyclidine (PCP), Urine Negative Negative Fentanyl, Urine Negative Negative Urine Urine specimen obtained by clean catch procedure / Unknown 06/05/2025 2:26 PM EDT Alicia Waters MD POINT OF CARE TEST ENTER/OCTAVIA T ORDERABLES Final Result * XR Foot 3+ Views Right (06/02/2025 2:56 PM EDT) Anatomical Region Laterality Modality Lower Extremities, Foot Right Radiogra phic Imaging 06/02/2025 2:56 PM EDT Narrative 06/02/2025 3:59 PM EDT [facility] [address] [place] [address] XRay Report Signed Patient: Nunu Segal I MR#: [id number] : 1960 Acct:[id number] Age/Sex: 65 / F ADM Date: 06/02/25 Loc: HO.CX Attending Dr: Nunu Acharya MD Ordering Physician: Nunu Amezcua MD Date of Service: 06/02/25 Procedure(s): XR foot RT min 3V Accession Number(s): [id number] cc: Nunu Amezcua MD Reason for Exam: pain aftre trip EXAMINATION: XR FOOT 3 OR MORE VIEWS RIGHT HISTORY: pain after trip COMPARISON: There are no prior studies available for comparison. FINDINGS: Three views of the right foot are submitted. Osseous mineralization is normal. There is no fracture or dislocation. The joint spaces are preserved. The soft tissues are unremarkable. XR/XR foot RT min 3V IMPRESSION: Unremarkable examination of the right foot. Electronically signed by: Macario Magdaleno MD 06/02/2025 03:56 PM EDT Dictated By: Macario Magdaleno MD Signed By: <Electronically signed by Macario Magdaleno MD in OV> 06/02/25 1556 DD/ 1456 TD/TT: 06/02/25 1500 Sport Psychologist: Procedure Note Donotuseinterpreter, Image - 06/02/[address] [address] XRay Report Signed Patient: Nunu Segal IMR#: [id number] : 1960cct:[id number] Age/Sex: 65 / FADM Date: 06/02/25 Loc: HO.CX Attending Dr: Nunu Acharya MD Ordering Physician: Nunu Amezcua MD Date of Service: 06/02/25 Procedure(s): XR foot RT min 3V Accession Number(s): [id number] cc: Nunu Amezcua MD Reason for Exam: pain aftre trip EXAMINATION: XR FOOT 3 OR MORE VIEWS RIGHT HISTORY: pain after trip COMPARISON: There are no prior studies available for comparison. FINDINGS: Three views of the right foot are submitted. Osseous mineralization is normal. There is no fracture or dislocation. The joint spaces are preserved. The soft tissues are unremarkable. XR/XR foot RT min 3V IMPRESSION: Unremarkable examination of the right foot. Electronically signed by: Macario Magdaleno MD 06/02/2025 03:56 PM EDT Dictated By: Macario Magdaleno MD Signed By: <Electronically signed by Macario Magdaleno MD in OV> 06/02/25 1556 DD/ 1456 TD/TT: 06/02/25 1500 Sport Psychologist: Nunu Acharya MD IMG XR PROCEDURES Fin al Result * POCT HGB A1C (09/06/2024 1:11 PM EST) Pathologist [facility] Hemoglobin A1C 6.0 4.0 - 6.0 % QC Media Lot # [id number] Lot# Expiration Date [id number] Blood 09/06/2024 1:11 PM EST Meera Ramirez MD POINT OF CARE TEST ENTER /EDIT ORDERABLES Final Result * (ABNORMAL) LIPID PANEL, STANDARD (01/28/2021 11:07 AM EDT) Chol/HDLC Ratio 3.5 <5.0 (calc) [facility] Cholesterol, Total 187 <200 mg/dL [facility] HDL Cholesterol 53 > OR = 50 mg/dL [facility] LDL Cholesterol 104(H) mg/dL (calc) [facility] Comment: Reference range: <100 Desirable range <100 mg/dL for primary prevention; <70 mg/dL for patients with CHD or diabetic patients with > or = 2 CHD risk factors. LDL-C is now calculated using the Yomaira calculation, which is a validated novel method providing better accuracy than the Friedewald equation in the estimation of LDL-C. Manuel MICHAUD et al. YAS. 2013;310(19): 0617-0815 (http://education.Connectiva Systems/faq/SSX857) Non-HDL Cholesterol 134(H) <130 mg/dL (calc) [facility] Comment: For patients with diabetes plus 1 major ASCVD risk factor, treating to a non-HDL-C goal of <100 mg/dL (LDL-C of <70 mg/dL) is considered a therapeutic option. Triglycerides 180(H) <150 mg/dL [facility] 01/28/2021 11:0 7 AM EDT Meera Ramirez MD LAB BLOOD ORDERABLES Fin al Result Performing Organization Address [facility] de Phone Number [facility] [address] * THINPREP PAP (01/15/2021 12:00 AM EDT) Clinical Information: None given [facility] COMMENT SEE COMMENT [facility] Comment: EXPLANATORY NOTE: The Pap is a screening test for cervical cancer. It is not a diagnostic test and is subject to false negative and false positive results. It is most reliable when a satisfactory sample, regularly obtained, is submitted with relevant clinical findings and history, and when the Pap result is evaluated along with historic and current clinical information. Supervisor Train Operations: SEE COMMENT [facility] Comment: JNA, CT(ASCP) CT screening location: [place] [address] Interpretation/Res ult: SEE COMMENT [facility] Comment: Negative for intraepithelial lesion or malignancy. Atrophic pattern; predominantly parabasal cells LMP: NONE GIVEN [facility] Prev. BX: NONE [facility]IV[facility] Prev. PAP: NONE [facility]IVEN [facility] SOURCE: None given [facility] Statement Of Adequacy: SATISFACTORY FOR EVALUATION [facility] 01/15/2021 us Meera Ramirez MD LAB PATHOLOGY ORDERABLES Final Result Performing Organization Address [facility] de Phone Number [facility] [address] * HPV mRNA E6/E7 (01/15/2021 12:00 AM EDT) HPV nRNA E6/E7 Not Detected Not Detected [facility] Comment: Methodology: Mailing Manager-Mediated Amplification This assay detects E6/E7 viral messenger RNA (mRNA) from 14 high-risk HPV types (16,18,31,33,35,39,45,51,52,56,58,59,66,68). The analytical performance characteristics of this assay have been determined by [employer]. The modifications have not been cleared or approved by the FDA. This assay has been validated pursuant to the CLIA regulations and is used for clinical purposes. For additional information, please refer to http://education.Captimo/faq/DBE077k5 (This link if provided for information/ educational purposes only.) 01/15/2021 Meera Ramirez MD LAB BLOOD ORDERABLES Fin al Result [facility] [address] from Last 3 Months or Most Recently Relevant to Health Maintenance Insurance [facility] STAND ADULT Care Teams Recreation Supervisor Relationship Specialty Start Date End Date Meera Ramirez MD [address] [place] [address] PCP - General Family Medicine 03/14/20
--- OUTSIDE RECORDS SUMMARY | 2025-08-21 18:55 | XMS_ITS | Encounter Summary ---
Author Organization [employer] Address [address] [facility] 7t [place] [address] Care Team Providers Care Card Game Operator Name Role Phone Meera Ramirez MD Primary Care Provider + Hannah Ponce RN Unavailable [phone] Kristin Hendricks Unavailable Reason for Visit * Reason Comments Med Refill Encounter Details Date Type Department Care Team (Late st Contact Info) Description 05/15/2025 Refill [facility] [address] [place] [address] Meera Ramirez MD [address] [place] [address] Anxiety Social History Tobacco Use Types Packs/Day [...] Description 09/04/2025 3:00 PM EST Office Visit [facility] [address] [place] [phone] Meera Ramirez MD [address] [place] [phone] documented as of this encounter Visit Diagnoses Diagnosis Anxiety Anxiety state, unspecified documented in this encounter Additional Health Concerns Assessment Noted Time PHQ-9 Depression Total Score: 0 03/02/20 23 10:46 AM EDT documented as of this encounter Care Teams Card Game Operator Relationship Specialty Start Date End Date Meera Ramirez MD [address] [place] [address] [phone] PCP - General Family Medicine 03/14/20 Hannah Ponce, AARON [address] [place] [phone] Registered Nurse Family Medicine 06/21/25 08/10/25 Kristin Hendricks 06/21/25 08/10/25 documented as of this encounter
--- OUTSIDE RECORDS SUMMARY | 2025-08-21 18:55 | XMS_ITS | Encounter Summary ---
Author Organization [employer] Address 75 [facility] 7t [place] [address] Care Team Providers Care Dry Cleaning Counter Clerk Name Role Phone Meera Ramirez MD Primary Care Provider + Tarik Dejesus RN Unavailable [phone] Hannah Ponce RN Unavailable Kristin Hendricks Unavailable Encounter Details Date Type Department Care Team (Late st Contact Info) Description 09/01/2022 Orders Only [facility] [address] [place] [address] Ary Carr LPN Social History Tobacco Use [...] Description 09/04/2025 3:00 PM EST Office Visit [facility] [address] [place], [place] [phone] Meera Ramriez MD [address] [place], [place] [phone] documented as of this encounter Visit Diagnoses Not on filedocumented in this encounter Care Teams Dry Cleaning Counter Clerk Relationship Specialty Start Date End Date Meera Ramirez MD [address] [place] [phone] PCP - General Family Medicine 03/14/20 Tarik Dejesus RN [address] [place] [phone] Courseware DeveloperSchool Psychology Specialist 09/26/24 01/19/25 Hannah Ponce RN [address] [place] [address] Registered Nurse Family Medicine 06/21/25 08/10/25 Kristin Hendricks 06/21/25 08/10/25 documented as of this encounter
--- OUTSIDE RECORDS SUMMARY | 2025-08-21 18:55 | XMS_ITS | Encounter Summary ---
Author Organization [employer] Address 75 [facility] 7t [place] [address] Care Team Providers Care Masonry Contractor Name Role Phone Meera Ramirez MD Primary Care Provider + Tarik Dejesus RN Unavailable [phone] Hannah Ponce RN Unavailable [phone] Kristin Hendricks Unavailable Reason for Visit * Reason Onset Date Comments Nurse Triage 01/06/2024 Encounter Details Date Type Department Care Team (Late st Contact Info) Description 01/06/2024 Telephone [facility] [address] [place], [place] [phone] Meera Ramirez MD [address] [place], [place] [phone] Nurse Triage Social History Tobacco Use Types [...] The caller accepted this outcome Patient speaks argentine documented in this encounter Plan of Treatment Upcoming Encounters Date Type Department Care Team (Late st Contact Info) Description 09/04/2025 3:00 PM EST Office Visit [facility] [address] [place] [address] Meera Ramirez MD [address] [place] [address] documented as of this encounter Visit Diagnoses Not on filedocumented in this encounter Additional Health Concerns Assessment Noted Time PHQ-9 Depression Total Score: 0 03/02/20 23 10:46 AM EDT documented as of this encounter Care Teams Masonry Contractor Relationship Specialty Start Date End Date Meera Ramirez MD [address] [place] [phone] PCP - General Family Medicine 03/14/20 Tarik Dejesus, AARON [address] [place] [address] Automation ArchitectNeurology Manager 09/26/24 01/19/25 Hannah Ponce RN [address] [place] [address] Registered Nurse Family Medicine 06/21/25 08/10/25 Kristin Hendricks 06/21/25 08/10/25 documented as of this encounter
--- OUTSIDE RECORDS SUMMARY | 2025-08-21 18:55 | XMS_ITS | Encounter Summary ---
Author Organization [employer] Address 75 [facility] 7t [place] [address] Care Team Providers Care Film Examiner Name Role Phone Meera Ramirez MD Primary Care Provider + Encounter Details Date Type Department Care Team ([facility] Contact Info) Description 08/21/2025 Orders Only GENERIC EXTERNAL DATA DEPARTMENT Provider, Generic External Data Social History Tobacco Use Types Packs/Day Years [...] Description 09/04/2025 3:00 PM EST Office Visit [facility] [address] [place], [place] [phone] Meera Ramirez MD [address] [place] [address] documented as of this encounter Procedures Procedure Name Priority Date/Time Associated Diagnosis Comments HIGH SENSITIVITY TROPONIN I Routine 08/21/2025 1:17 PM EST SARS COV2/INFLUENZA A/B AND RSV RNA QL NAAT Routine 08/21/2025 1:17 PM EST NT-PROBNP Routine 08/21/2025 1:17 PM EST CBC WITH AUTO DIFFERENTIAL Routine 08/21/2025 1:17 PM EST MAGNESIUM Routine 08/21/2025 1:17 PM EST COMPREHENSIVE METABOLIC PANEL Routine 08/21/2025 1:17 PM EST documented in this encounter Results * SARS-CoV-2 RNA, Influenza A/B, and RSV RNA, Ql NAAT (08/21/2025 1:17 PM EST) Influenza A PCR NEGATIVE Negative [facility] Influenza B PCR NEGATIVE Negative [facility] Resp Syncy Virus RNA Qual PCR NEGATIVE Negative [facility] SARS COV2 PCR NEGATIVE Negative [facility] Comment:All test results mus t [...] use by authorized laboratories.Testing performed on the [employer]sie GeneXpert utilizingreal-time RT-PCR.All SARS CoV2 and positive influenza A/B results arereported to [facility]. 08/21/2025 1:17 PM EST 08/21/2025 1:26 PM EST [employer] External Data Provider LAB MICROBIOLOGY - GENERAL ORDERABLES Final Result Performing Organization Address City/[facility]/ZIP Co de Phone Number [facility] [address] [place] [phone] * NT-proBNP (08/21/2025 1:17 PM EST) NT-proBNP 129.6 <300 pg/mL [facility] Comment:Reference Range:Age Group (years) NT-proBNP (pg/ml) InterpretationAll <300 Negative: HF unlikelyFor patients presenting to the ED with clinical suspicion ofnew onset or worsening HF, see below:18 to <50 >299.9 to <450.0 Grayzone: [id number] to 75 >299.9 to <900.0 other causes of>75 >299.9 to <1800.0 NT-proBNP [id number] to <50 >449.9 Positive: HF -76 >899.9>75 >1799.9Note: Elevated NT-proBNP levels should be interpreted inthe context of other clinical information. 08/21/2025 1:17 PM EST 08/21/2025 1:26 PM EST [employer] External Data Provider LAB BLOOD ORDERAB LES Final Result [facility] [address] [place] [address] [phone] * High Sensitivity Troponin I (08/21/2025 1:17 PM EST) [facility] TROPONIN I HIGH SENSITIVITY 4.5 <3.5 - 17.0 ng/L [facility] Comment:The Quach high sens itivity Troponin-I results should beused in conjunction with other diagnostic information suchas ECG, clinical observations and information, and patientsymptoms to aid in the diagnosis of [place]. 08/21/2025 1:17 PM EST 08/21/2025 1:26 PM EST Generic External Data Provider LAB BLOOD ORDERAB LES Final Result Performing Organization Address [facility] de Phone Number [facility] [address] [place] [phone] * Magnesium (08/21/2025 1:17 PM EST) [facility] Magnesium 2.1 1.6 - 2.6 mg/dL [facility] 08/21/2025 1:17 PM EST 08/21/2025 1:26 PM EST Generic External Data Provider LAB BLOOD ORDERAB LES Final Result Performing Organization Address [facility] de Phone Number [facility] [address] [place] [phone] * (ABNORMAL) Comprehensive Metabolic Panel (08/21/2025 1:17 PM EST) [facility] Sodium 140 135 - 145 mmol/L [facility] Potassium 4.0 3.3 - 5.1 mmol/L [facility] Chloride 105 96 - 108 mmol/L [facility] Carbon Dioxide 27 22 - 29 mmol/L [facility] Anion Gap 12 12 - 20 [facility] Urea Nitrogen (BUN) 21(H) 9 - 16 mg/dL [facility] Creatinine, Serum 0.77 0.5 - 1.4 mg/dL [facility] Creatinine Clr Calc Pharmacy 51.9 [facility] Comment:Provided height and weight: 152.4 cm,44 kg.eGFR (calculated from the MDRD study equation) and eCrCl(calculated from the Cockcroft-Gault equation) are based ondifferent parameters and may not yield comparable results.If eCrCl result is absurd, please check patient'sheight/weight. Estimated Glomerular Filt Rate >60 [facility] Comment:Chronic Kidney Disea se: Estimated GFR < 60 mL/min/1.01d2[place] Kidney Disease: Estimated GFR < 15 mL/min/1.73m2 Glucose 91 60 - 115 mg/dL [facility] Calcium 9.7 8.4 - 10.2 mg/dL [facility] Bilirubin, Total 0.6 0.0 - 1.0 mg/dL [facility] Aspartate Amino Transferase 29 5 - 31 U/L [facility] Alanine Aminotransferase 19 0 - 31 U/L [facility] Total Protein 7.6 6.5 - 8.0 g/dL [facility] Albumin Level 4.6 3.5 - 5.0 g/dL [facility] Alkaline Phosphatase 56 39 - 117 U/L [facility] 08/21/2025 1:17 PM EST 08/21/2025 1:26 PM EST us Generic External Data Provider LAB BLOOD ORDERAB LES Final Result [facility] [address] [place] [address] [phone] * CBC auto differential (08/21/2025 1:17 PM EST) White Blood Count 6.2 4.8 - 10.8 X10*3/uL [facility] Red Blood Count 4.20 4.20 - 5.50 X10*6/uL [facility] Hemoglobin 12.4 12.0 - 16.0 g/dl [facility] Hematocrit 38.1 37.0 - 47.0 % [facility] Mean Corpuscular Volume 90.7 80.0 - 98.0 fL [facility] Mean Corpuscular Hemoglobin 29.5 27.0 - 33.0 pg [facility] Mean Corpuscular HGB Conc 32.5 31.0 - 35.0 g/dl [facility] Red Cell Distribution Width 14.6 11.0 - 16.0 % [facility] Platelet Count 202 160 - 400 X10*3/uL [facility] Mean Platelet Volume 10.2 9.4 - 12.3 fL [facility] Neutrophils Percent Auto 67.1 45 - 73 % [facility] Imm Gran Pct Auto 0.2 0.0 - 0.4 % [facility] Lymphocytes Percent Auto 26.6 20 - 40 % [facility] Monocytes Percent Auto 5.5 2 - 11 % [facility] Eosinophils Percent Auto 0.0 0 - 4 % [facility] Basophils Percent Auto 0.6 0 - 2 % [facility] NRBC Pct Auto 0.0 0.0 - 0.2 /100WBC [facility] Neutrophils Absolute Auto 4.1 2.0 - 8.3 x10*3/uL [facility] Imm Gran Abs Auto 0.01 0.00 - 0.03 X10*3/uL [facility] Lymphocytes Absolute Auto 1.6 1.2 - 4.9 X10*3/uL [facility] Monocytes Absolute Auto 0.3 0.1 - 1.2 X10*3/uL [facility] Eosinophils Absolute Auto 0.0 0.0 - 0.4 X10*3/uL [facility] Basophils Absolute Auto 0.0 0.0 - 0.2 X10*3/uL [facility] NRBC Abs Auto 0.000 0.0 - 0.012 X10*3/uL [facility] 08/21/2025 1:17 PM EST 08/21/2025 1:26 PM EST us Generic External Data Provider LAB BLOOD ORDERAB LES Final Result [facility] [address] [place] [phone] [phone] documented in this encounter Visit Diagnoses Not on filedocumented in this encounter Additional Health Concerns Assessment Noted Time PHQ-9 Depression Total Score: 0 06/05/20 25 1:42 PM EDT documented as of this encounter Care Teams Film Examiner Relationship Specialty Start Date End Date Meera Ramirez MD [address] [place] [phone] PCP - General Family Medicine 03/14/20 documented as of this encounter
--- OUTSIDE RECORDS SUMMARY | 2025-08-21 18:55 | XMS_ITS | Encounter Summary ---
Author Organization [employer] Address [address] [facility] 7t [place] [address] Care Team Providers Care Certified Medical Aide Name Role Phone Meera Ramirez MD Primary Care Provider + Tarik Dejesus RN Unavailable [phone] Hannah Ponce RN Unavailable [phone] Kristin Hendricks Unavailable Reason for Visit * Reason Comments Med Refill Encounter Details Date Type Department Care Team (Late st Contact Info) Description 06/20/2024 Refill [facility] [address] [place], [place] [phone] Meera Ramirez MD [address] [place] [address] Primary osteoarthritis of right shoulder Social History [...] Description 09/04/2025 3:00 PM EST Office Visit [facility] [address] [place] [phone] Meera Ramirez MD [address] [place] [address] documented as of this encounter Visit Diagnoses Diagnosis Primary osteoarthritis of right shoulder documented in this encounter Additional Health Concerns Assessment Noted Time PHQ-9 Depression Total Score: 0 03/02/20 23 10:46 AM EDT documented as of this encounter Care Teams Certified Medical Aide Relationship Specialty Start Date End Date Meera Ramirez MD [address] [place] [address] PCP - General Family Medicine 03/14/20 Tarik Dejesus RN [address] [place] [phone] Director Process EngineeringSanitor 09/26/24 01/19/25 Hannah Ponce RN [address] [place] [phone] Registered Nurse Family Medicine 06/21/25 08/10/25 Kristin Hendricks 06/21/25 08/10/25 documented as of this encounter
--- OUTSIDE RECORDS SUMMARY | 2025-08-21 18:55 | XMS_ITS | Encounter Summary ---
Author Organization [employer] Address 75 [facility] 7t [place] [address] Care Team Providers Care Cattle Knocker Name Role Phone Meera Ramirez MD Primary Care Provider + Tarik Dejesus RN Unavailable [phone] Hannah Ponce RN Unavailable [phone] Kristin Hendricks Unavailable Reason for Visit * Reason Comments Med Refill Encounter Details Date Type Department Care Team (Late st Contact Info) Description 04/20/2024 Refill [facility] [address] [place] [address] Meera Ramirez MD 230 [place] [address] Primary osteoarthritis of right shoulder Social History [...] Description 09/04/2025 3:00 PM EST Office Visit [facility] [address] [place] [address] Meera Ramirez MD [address] [place] [address] documented as of this encounter Visit Diagnoses Diagnosis Primary osteoarthritis of right shoulder documented in this encounter Additional Health Concerns Assessment Noted Time PHQ-9 Depression Total Score: 0 03/02/20 23 10:46 AM EDT documented as of this encounter Care Teams Cattle Knocker Relationship Specialty Start Date End Date Meera Ramirez MD [address] [place] [address] PCP - General Family Medicine 03/14/20 Tarik Dejesus RN [address] [place] [address] High Speed Warper TenderTool Worker 09/26/24 01/19/25 Hannah Ponce RN [address] [place] [address]308 Registered Nurse Family Medicine 06/21/25 08/10/25 Kristin Hendricks 06/21/25 08/10/25 documented as of this encounter
--- OUTSIDE RECORDS SUMMARY | 2025-08-21 18:55 | XMS_ITS | Encounter Summary ---
Author Organization [employer] Address 75 [facility] 7t [place] [address] Care Team Providers Care Straight Pin Making Machine Operator Name Role Phone Meera Ramirez MD Primary Care Provider + Tarik Dejesus RN Unavailable Hannah Ponce RN Unavailable [phone] Kristin Hendricks Unavailable Reason for Visit * Reason Onset Date Comments Nurse Triage 01/06/2024 Encounter Details Date Type Department Care Team (Late st Contact Info) Description 01/06/2024 Telephone [facility] MED[facility]INE 230 [place], [place] [phone] Meera Ramirez MD 230 [place], [place] [phone] Nurse Triage Social History Tobacco Use Types [...] Description 09/04/2025 3:00 PM EST Office Visit [facility] 230 [place] [address] Meera Ramirez MD 230 [place] [address] documented as of this encounter Visit Diagnoses Not on filedocumented in this encounter Additional Health Concerns Assessment Noted Time PHQ-9 Depression Total Score: 0 03/02/20 23 10:46 AM EDT documented as of this encounter Care Teams Straight Pin Making Machine Operator Relationship Specialty Start Date End Date Meera Ramirez MD [address] [place] [address]31 PCP - General Family Medicine 03/14/20 Tarik Dejesus, AARON [address] [place] [address] Global Project ManagerPouring [place] Operator 09/26/24 01/19/25 Hannah Ponce RN [address] [place] [address] 49[address] Registered Nurse Family Medicine 06/21/25 08/10/25 Kristin Hendricks 06/21/25 08/10/25 documented as of this encounter
--- OUTSIDE RECORDS SUMMARY | 2025-08-21 18:55 | XMS_ITS | Encounter Summary ---
Author Organization [employer] Address 75 [facility] 7t [place] [address] Care Team Providers Care Geosciences Faculty Member Name Role Phone Meera Ramirez MD Primary Care Provider + Tarik Dejesus RN Unavailable [phone] Hannah Ponce RN Unavailable [phone] Kristin Hendricks Unavailable Reason for Visit * Reason Comments Med Refill Encounter Details Date Type Department Care Team (Late st Contact Info) Description 07/05/2024 Refill [facility] MED[facility] 230 [place] [address] Meera Ramirez MD 230 [place] [address] Primary osteoarthritis of right shoulder Social History [...] Description 09/04/2025 3:00 PM EST Office Visit [facility] [address] [place] [address] Meera Ramirez MD [address] [place] [address] documented as of this encounter Visit Diagnoses Diagnosis Primary osteoarthritis of right shoulder documented in this encounter Additional Health Concerns Assessment Noted Time PHQ-9 Depression Total Score: 0 03/02/20 23 10:46 AM EDT documented as of this encounter Care Teams Geosciences Faculty Member Relationship Specialty Start Date End Date Meera Ramirez MD [address] [place] [phone] PCP - General Family Medicine 03/14/20 Tarik Dejesus RN [address] [place] [address] Farm Equipment AssemblerBullet Slug Casting Machine Operator 09/26/24 01/19/25 Hannah Ponce RN [address] [place] [address] Registered Nurse Family Medicine 06/21/25 08/10/25 Kristin Hendricks 06/21/25 08/10/25 documented as of this encounter
--- OUTSIDE RECORDS SUMMARY | 2025-08-21 18:55 | XMS_ITS | Encounter Summary ---
Author Organization [employer] Address 75 [facility] 7t [place] [address] Care Team Providers Care Resort Keeper Name Role Phone Meera Ramirez MD Primary Care Provider + Tarik Dejesus RN Unavailable [phone] Hannah Ponce RN Unavailable [phone] Kristin Hendricks Unavailable Reason for Visit * Reason Comments Med Refill Encounter Details Date Type Department Care Team (Late st Contact Info) Description 06/20/2024 Refill [facility] 230 [place], [place] [phone] Meera Ramirez MD 230 [place] [address] Primary osteoarthritis of right shoulder Social History [...] Description 09/04/2025 3:00 PM EST Office Visit [facility] MED[facility]INE [address] [place] [address] Meera Ramirez MD [address] [place] [address] documented as of this encounter Visit Diagnoses Diagnosis Primary osteoarthritis of right shoulder documented in this encounter Additional Health Concerns Assessment Noted Time PHQ-9 Depression Total Score: 0 03/02/20 23 10:46 AM EDT documented as of this encounter Care Teams Resort Keeper Relationship Specialty Start Date End Date Meera Ramirez MD [address] [place] [address] 18[address] PCP - General Family Medicine 03/14/20 Tarik Dejesus RN [address] [place] [address] Physical ScientistCloth Cutting Inspector 09/26/24 01/19/25 Hannah Ponce RN [address] [place] [address] Registered Nurse Family Medicine 06/21/25 08/10/25 Kristin Hendricks 06/21/25 08/10/25 documented as of this encounter
--- OUTSIDE RECORDS SUMMARY | 2025-08-21 18:55 | XMS_ITS | Encounter Summary ---
Author Organization [employer] Address 75 [facility] 7t [place] [address] Care Team Providers Care Dealer Development Manager Name Role Phone Meera Ramirez MD Primary Care Provider + Tarik Dejesus RN Unavailable [phone] Hannah Ponce RN Unavailable [phone] Kristin Hendricks Unavailable Reason for Visit * Reason Comments Med Refill Encounter Details Date Type Department Care Team (Late st Contact Info) Description 04/18/2024 Refill [facility] MEDICINE 230 [place] [address] Meera Ramirez MD 230 [place] [address] Primary osteoarthritis of right shoulder Social History [...] Description 09/04/2025 3:00 PM EST Office Visit [facility] MEDICINE [address] [place] [address] Meera Ramirez MD [address] [place] [address] documented as of this encounter Visit Diagnoses Diagnosis Primary osteoarthritis of right shoulder documented in this encounter Additional Health Concerns Assessment Noted Time PHQ-9 Depression Total Score: 0 03/02/20 23 10:46 AM EDT documented as of this encounter Care Teams Dealer Development Manager Relationship Specialty Start Date End Date Meera Ramirez MD [address] [place] [address] PCP - General Family Medicine 03/14/20 Tarik Dejesus RN [address] [place] [address] Dog BehavioristInstructor Tap Dancing 09/26/24 01/19/25 Hannah Ponce RN [address] [place] [address] Registered Nurse Family Medicine 06/21/25 08/10/25 Kristin Hendricks 06/21/25 08/10/25 documented as of this encounter
--- OUTSIDE RECORDS SUMMARY | 2025-08-21 18:55 | XMS_ITS | Encounter Summary ---
Author Organization [employer] Address 75 [facility] 7t [place] [address] Care Team Providers Care Cuff Matcher Name Role Phone Meera Ramirez MD Primary Care Provider + Hannah Ponce RN Unavailable [phone] Kristin Hendricks Unavailable Reason for Visit * Reason Onset Date Comments Results 06/16/2025 Encounter Details Date Type Department Care Team (Late st Contact Info) Description 06/16/2025 Results Follow-Up [facility] MED[facility] 230 [place] [address] Nunu Amezcua MD 230 [place] [address] XR Foot 3+ Views Right Social History Tobacco Use Types Packs/Day Years Used Date Smoking Tobacco: Every Day Cigarettes Passive Smoke Exposure: Never Smokeless Tobacco: [...] encounter Miscellaneous Notes * Telephone Encounter - Carla Barker RN - 06/17/2025 9:02 AM EDT Letter generated for normal x-ray results and mailed to address on file. documented in this encounter Plan of Treatment Upcoming Encounters Date Type Department Care Team (Late st Contact Info) Description 09/04/2025 3:00 PM EST Office Visit [facility] 230 [place] [address] Meera Ramirez MD 230 [place] [address] documented as of this encounter Visit Diagnoses Not on filedocumented in this encounter Additional Health Concerns Assessment Noted Time PHQ-9 Depression Total Score: 0 06/05/20 1:42 PM EDT documented as of this encounter Care Teams Cuff Matcher Relationship Specialty Start Date End Date Meera Ramirez MD 230 [place], [place] [phone] PCP - General Family Medicine 03/14/20 Hannah Ponce RN [address] [place] [address] [facility] [place] [phone] Registered Nurse Family Medicine 06/21/25 08/10/25 Kristin Hendricks 06/21/25 08/10/25 documented as of this encounter
--- OUTSIDE RECORDS SUMMARY | 2025-08-21 18:55 | XMS_ITS | Encounter Summary ---
Author Organization [employer] Address 75 [facility] 7t [place] [address] Care Team Providers Care Unishear Operator Name Role Phone Meera Ramirez MD Primary Care Provider + Hannah Ponce RN Unavailable [phone] Kristin Hendricks Unavailable Reason for Visit * Reason Comments Med Refill Encounter Details Date Type Department Care Team (Late st Contact Info) Description 04/11/2025 Refill [facility] 230 [place] [address] Meera Ramirez MD 230 [place], [place] [phone] Bipolar I disorder ([facility]) Social History Tobacco Use Types Packs/Day Years [...] Description 09/04/2025 3:00 PM EST Office Visit [facility] [address] [place] [address] [phone] Meera Ramirez MD [address] [place] [address] documented as of this encounter Visit Diagnoses Diagnosis Bipolar I disorder (CMS/HCC) ([facility]) Bipolar I disorder, most recent episode (or current) unspecified documented in this encounter Additional Health Concerns Assessment Noted Time PHQ-9 Depression Total Score: 0 03/02/20 23 10:46 AM EDT documented as of this encounter Care Teams Unishear Operator Relationship Specialty Start Date End Date Meera Ramirez MD [address] [place] [address] [phone] PCP - General Family Medicine 03/14/20 Hannah Ponce RN [address] [place] [address] [phone] Registered Nurse Family Medicine 06/21/25 08/10/25 Kristin Hendricks 06/21/25 08/10/25 documented as of this encounter
--- OUTSIDE RECORDS SUMMARY | 2025-08-21 18:55 | XMS_ITS | Encounter Summary ---
Author Organization [employer] Address 75 [facility] 7t [place] [address] Care Team Providers Care Vacuum Extractor Operator Name Role Phone Meera Ramirez MD Primary Care Provider + Tarik Dejesus RN Unavailable [phone] Hannah Ponce RN Unavailable [phone] Kristin Hendricks Unavailable Reason for Visit * Reason Comments Med Refill Encounter Details Date Type Department Care Team (Late st Contact Info) Description 04/08/2023 Refill [facility] 230 [place] [address] Renee Cordero MD [address] [place] [address] Anxiety Social History Tobacco Use Types Packs/Day [...] Description 09/04/2025 3:00 PM EST Office Visit [facility] MED[facility] 230 [place] [address] Meera Ramirez MD 230 [place] [address] documented as of this encounter Visit Diagnoses Diagnosis Anxiety Anxiety state, unspecified documented in this encounter Additional Health Concerns Assessment Noted Time PHQ-9 Depression Total Score: 0 03/02/20 23 10:46 AM EDT documented as of this encounter Care Teams Vacuum Extractor Operator Relationship Specialty Start Date End Date Meera Ramirez MD 230 [place] [address] PCP - General Family Medicine 03/14/20 Tarik Dejesus RN [address] [place] [address]27 Medical LibrarianManufacturing Executive 09/26/24 01/19/25 Hannah Ponce, AARON [address] [place] [address] 80096 Registered Nurse Family Medicine 06/21/25 08/10/25 Kristin Hendricks 06/21/25 08/10/25 documented as of this encounter
--- OUTSIDE RECORDS SUMMARY | 2025-08-21 18:55 | XMS_ITS | Encounter Summary ---
Author Organization [employer] Address 75 [facility] 7t [place] [address] Care Team Providers Care Engraver Hand Hard Metals Name Role Phone Meera Ramirez MD Primary Care Provider + Hannah Ponce RN Unavailable [phone] Kristin Hendricks Unavailable Reason for Visit * Reason Comments Med Refill Encounter Details Date Type Department Care Team (Late st Contact Info) Description 04/21/2025 Refill [facility] [address] [place] [address] Meera Ramirez MD 230 [place] [address] Social History Tobacco Use Types Packs/Day Years [...] Description 09/04/2025 3:00 PM EST Office Visit [facility] MEDICINE 230 [place] [address] Meera Ramirez MD 230 [place] [address] documented as of this encounter Visit Diagnoses Not on filedocumented in this encounter Additional Health Concerns Assessment Noted Time PHQ-9 Depression Total Score: 0 03/02/20 23 10:46 AM EDT documented as of this encounter Care Teams Engraver Hand Hard Metals Relationship Specialty Start Date End Date Meera Ramirez MD [address] [place] [address] [phone] PCP - General Family Medicine 03/14/20 Hannah Ponce, AARON [address] [place] [address] 11342 Registered Nurse Family Medicine 06/21/25 08/10/25 Kristin Hendricks 06/21/25 08/10/25 documented as of this encounter
--- OUTSIDE RECORDS SUMMARY | 2025-08-21 18:55 | XMS_ITS | Encounter Summary ---
Author Organization [employer] Address 75 [facility] 7t [place] [address] Care Team Providers Care Pattern Cleaner Name Role Phone Meera Ramirez MD Primary Care Provider + Tarik Dejesus RN Unavailable [phone] Hannah Ponce RN Unavailable [phone] Kristin Hendricks Unavailable Encounter Details Date Type Department Care Team (Late st Contact Info) Description 07/29/[address] [facility] MEDICINE [address] [place] [address] Meera Ramirez MD 230 [place], [place] [phone] Social History Tobacco Use Types Packs/Day Years [...] Description 09/04/2025 3:00 PM EST Office Visit [facility] MEDICINE [address] [place] [address] Meera Ramirez MD [address] [place] [address] documented as of this encounter Visit Diagnoses Not on filedocumented in this encounter Additional Health Concerns Assessment Noted Time PHQ-9 Depression Total Score: 0 03/02/20 23 10:46 AM EDT documented as of this encounter Care Teams Pattern Cleaner Relationship Specialty Start Date End Date Meera Ramirez MD [address] [place] [address] PCP - General Family Medicine 03/14/20 Tarik Dejesus RN [address] [place] [address]75 Dental Amalgam ProcessorPrincipal Statistical Scientist 09/26/24 01/19/25 Hannah Ponce, AARON [address] [place] [address]704 Registered Nurse Family Medicine 06/21/25 08/10/25 Kristin Hendricks 06/21/25 08/10/25 documented as of this encounter
--- OUTSIDE RECORDS SUMMARY | 2025-08-21 18:55 | XMS_ITS | Encounter Summary ---
Author Organization [employer] Address 75 [facility] 7t [place] [address] Care Team Providers Care Training Specialist Name Role Phone Meera Ramirez MD Primary Care Provider + Tarik Dejesus RN Unavailable [phone] Hannah Ponce RN Unavailable [phone] Kristin Hendricks Unavailable Reason for Visit * Reason Comments Med Refill Encounter Details Date Type Department Care Team (Late st Contact Info) Description 07/20/2024 Refill [facility] 230 [place], [place] [phone] Nunu Benedict MD 230 [place], [place] [phone] Social History Tobacco Use Types Packs/Day Years [...] Description 09/04/2025 3:00 PM EST Office Visit [facility] MEDICINE [address] [place] [address] Meera Ramirez MD [address] [place] [address]15 documented as of this encounter Visit Diagnoses Not on filedocumented in this encounter Additional Health Concerns Assessment Noted Time PHQ-9 Depression Total Score: 0 03/02/20 23 10:46 AM EDT documented as of this encounter Care Teams Training Specialist Relationship Specialty Start Date End Date Meera Ramirez MD [address] [place] [address] 61615 PCP - General Family Medicine 03/14/20 Tarik Dejesus RN [address] [place] [address]95 Pediatrician Active PracticeExtractions Technician 09/26/24 01/19/25 Hannah Ponce RN [address] [place] [address]89 Registered Nurse Family Medicine 06/21/25 08/10/25 Kristin Hendricks 06/21/25 08/10/25 documented as of this encounter
--- OUTSIDE RECORDS SUMMARY | 2025-08-21 18:55 | XMS_ITS | Encounter Summary ---
Author Organization [employer] Address 75 [facility] 7t [place] [address] Care Team Providers Care Termite Exterminator Helper Name Role Phone Meera Ramirez MD Primary Care Provider + Hannah Ponce RN Unavailable [phone] Kristin Hendricks Unavailable Reason for Visit * Reason Comments Med Refill Encounter Details Date Type Department Care Team (Late st Contact Info) Description 03/28/[address] [facility] MEDICINE [address] [place] [address] Meera Ramirez MD 230 [place] [address] Social History Tobacco Use Types Packs/Day Years [...] Description 09/04/2025 3:00 PM EST Office Visit [facility] MED[facility]INE [address] [place] [phone] Meera Ramirez MD 230 [place] [address] documented as of this encounter Visit Diagnoses Not on filedocumented in this encounter Additional Health Concerns Assessment Noted Time PHQ-9 Depression Total Score: 0 03/02/20 23 10:46 AM EDT documented as of this encounter Care Teams Termite Exterminator Helper Relationship Specialty Start Date End Date Meera Ramirez MD [address] [place] [address] [phone] PCP - General Family Medicine 03/14/20 Hannah Ponce, AARON [address] [place] [phone] Registered Nurse Family Medicine 06/21/25 08/10/25 Kristin Hendricks 06/21/25 08/10/25 documented as of this encounter
== END 2025-08-21 20:18 | disposition left against medical advice (07) ==
PROVIDERS: Physician Assistant Medical; Emergency Provider Emergency Medicine; PCP Internal Medicine
DX: R07.89 Other chest pain (principal); M79.601 Pain in right arm; R06.02 Shortness of breath; Z03.818 Encounter for observation for suspected exposure to other biological agents ruled out; Z79.899 Other long term (current) drug therapy
CPT/HCPCS: 80053; 83735; 83880; 84484; 85025; 87637; 93005; 99283

== ENCOUNTER → 2025-08-21 11:27 | Outpatient (BNV) | payer MEDICAID, SELFPAY | PROVIDERS: Emergency Provider Emergency Medicine; PCP Internal Medicine; Visit Provider Internal Medicine | DX: R94.31 Abnormal electrocardiogram [ECG] [EKG] (principal); R10.9 Unspecified abdominal pain | CPT/HCPCS: 93010 ==